=== PATIENT | female | born 1940 | race Hispanic/Latino ===

== ENCOUNTER 2019-10-01 15:10 | Outpatient (CLI) | payer MEDICARE, OTHER, SELFPAY ==
--- NOTE | ~2019-10-01 | XR_ITS ---
EXAMINATION: XR abdomen/kub 1V INDICATION: Calculus of kidney TECHNIQUE: Supine views of the abdomen were obtained on 2 radiographs. COMPARISON: 12/27/2018 FINDINGS: No definite urinary tract calculi are identified. Phleboliths are noted in the pelvis. The visualized lung bases are clear. The bowel gas pattern is normal. A surgical cyst stable line is note d in the left mid abdomen. There is mild bilateral hip osteoarthritis. Moderate lower lumbar spondylo sis is noted. IMPRESSION: 1. No definite urinary tract calculi seen. Reviewed, dictated and finalized at location A.
== END 2019-10-01 15:11 | disposition home or self-care (01) ==
LOC: ANHIMG 15:17
PROVIDERS: PCP Family Medicine; Visit Provider Internal Medicine Nephrology
DX: N20.0 Calculus of kidney (principal)
CPT/HCPCS: 74018

== ENCOUNTER 2020-03-18 13:56 | Outpatient (CLI) | payer MEDICARE, OTHER, SELFPAY ==
--- NOTE | ~2020-03-18 | CT_ITS ---
EXAMINATION: CT abdomen pelvis wo con EXAM DATE: 03/18/2020 14:36 INDICATION: K46.9 - Unspecified abdominal hernia without obstruction or gangrene . Left lower quadran t pain. History hernia repair. Nephrectomy due to kidney stone. History of Crohn's disease. TECHNIQUE: Spiral CT of the abdomen and pelvis was performed without contrast. Axial, coronal and s agittal images were reviewed. The dose-length product (DLP) for this examination was 279.05 mGy-cm. The exposure was tailored according to patient size (auto mA exposure control), and iterative recons truction (ASIR) was used as additional dose reduction technique. Comparison is made to prior examinat ion from 12/05/2017. FINDINGS: The liver, spleen, adrenal glands and pancreas are unremarkable. Gallbladder is unremarkab le. No biliary obstruction. Status post left nephrectomy. There is a 2.5 mm right mid calyceal ston e. No ureteral stones or hydronephrosis. There is a right renal cyst measuring 7 cm. The uterus is n ot identified and has likely been surgically resected. The bladder is unremarkable. There is no ret roperitoneal or pelvic lymphadenopathy. There is mild to moderate scattered arteriosclerotic diseas e. Proximal aspect of the descending colon is bulging through a left flank wid[place]outh hernia. Does this c orrelate to location of patient's pain? This is new compared to previous examination 2018. No appreci able anterior abdominal wall hernias are identified. There is right hemicolectomy with intact anastomosis site. There is expected amount of colonic stool . No free intraperitoneal gas. The heart is normal in size. There are no pericardial or pleural effusions. The lung bases are unremarkable. There are no osteoblastic or osteolytic lesions identif ied. IMPRESSION: 1. Left flank small to moderate hernia with descending colon bulging inside. No obstruction. 2. Punctate right nephrolithiasis. 3. Surgical changes. Reviewed, dictated and finalized at location A. SWAMPER IMPRESSION: 1. Left flank small to moderate hernia with descending colon bulging inside. N o obstruction. 2. Punctate right nephrolithiasis. 3. Surgical changes.
[2020-03-18 14:20] LABS: Estimated Glomerular Filt Rate 26
== END 2020-03-18 13:57 | disposition home or self-care (01) ==
PROVIDERS: PCP Family Medicine; Visit Provider Family Medicine
DX: R10.9 Unspecified abdominal pain (principal); K44.9 Diaphragmatic hernia without obstruction or gangrene; N20.0 Calculus of kidney
CPT/HCPCS: 74176

== ENCOUNTER 2020-08-14 10:13 | Outpatient (CLI) | payer MEDICARE, OTHER, SELFPAY ==
--- NOTE | ~2020-08-14 | MM_ITS ---
EXAMINATION: MM screening prerna BI w anjum HISTORY: Screening TECHNIQUE: Craniocaudal and mediolateral oblique 3-D tomosynthesis images were obtained and synthetic 2-D images were generated. CAD analysis was submitted and interpreted. COMPARISON: Comparison to multiple prior studies sequentially, with oldest reviewed study dated 08/02. BREAST PARENCHYMAL COMPOSITION: The breasts are almost entirely fatty. FINDINGS: There is no evidence of suspicious mass, calcification, or architectural distortion to sugg est malignancy in either breast. There has been no suspicious interval change. IMPRESSION: 1. No mammographic evidence of malignancy. 2. Recommend routine screening mammography in one year. BI-RADS Category 1: Negative Reviewed, dictated and finalized at location A.
== END 2020-08-14 10:14 | disposition home or self-care (01) ==
PROVIDERS: PCP Family Medicine; Visit Provider Physician Assistant
DX: Z12.31 Encounter for screening mammogram for malignant neoplasm of breast (principal)
CPT/HCPCS: 77063; 77067

== ENCOUNTER 2021-03-23 12:10 | Outpatient (CLI) | payer MEDICARE, OTHER, SELFPAY ==
--- NOTE | ~2021-03-23 | XR_ITS ---
EXAMINATION: XR abdomen/kub 1V EXAM DATE: 03/23/2021 12:30 INDICATION: Calculus Of Kidney TECHNIQUE: Frontal projection(s) of the abdomen for interpretation. Comparison is made to prior exami nation from 10/01/2019. FINDINGS: There is expected amount of colonic stool and gas. No small bowel dilation, nonobstructiv e bowel gas pattern. There are no suspicious calcifications identified. There is no organomegaly suspected. There are mild bony degenerative changes. Left midabdomen anastomosis material. IMPRESSION: Unremarkable abdomen x-ray exam. Reviewed, dictated and finalized at location A. 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
== END 2021-03-23 12:11 | disposition home or self-care (01) ==
PROVIDERS: PCP Family Medicine; Visit Provider Internal Medicine Nephrology
DX: N20.0 Calculus of kidney (principal)
CPT/HCPCS: 74018

== ENCOUNTER 2021-10-26 00:24 | Day surgery (SDC) | payer MEDICARE, OTHER, SELFPAY ==
[2021-10-08 14:21] VITALS: BMI 27.6
[2021-10-26 08:08] VITALS: BP 114/61; PULSE 73; RESP 18; TEMP 35.8; O2SAT 98
--- NOTE | 2021-10-26 08:10 | WPDANESEPPF ---
Anes - Initial Pre Proc Eval Procedure: Operation Date: 10/26/21 09:00 Proposed Procedures p Colonoscopy - Se Staley MD Date/Time: 10/26/21 08:10 Surgeon: Se Staley MD Pre Op Diagnosis: occult GI bleed, Crohn's Disease Patient Data Age: 80 Gender: F Height: 1.45 m Weight: 57.9 kg Last Vital Signs Temp 35.8 C L 10/26/21 08:08 Pulse 73 10/26/21 08:08 Resp 18 10/26/21 08:08 BP 114/61 10/26/21 08:08 Pulse Ox 98 10/26/21 08:08 O2 Del Method Room Air 10/26/21 08:08 Allergies Allergy/AdvReac Type Severity Reaction Status Date / Time azathioprine Allergy Severe Anaphylactic Verified 10/26/21 08:06 Shock calcitonin Allergy Unknown Nervous Verified 10/26/21 08:06 cefaclor Allergy Unknown Nausea Verified 10/26/21 08:06 Cephalosporins Allergy Unknown Nausea Verified 10/26/21 08:06 clindamycin Allergy Unknown Nausea Verified 10/26/21 08:06 COVID-19 (SARS-CoV-2) AdvReac Mild rash, eye Verified 10/26/21 08:06 vaccine, francisco problems Quinolones AdvReac Mild Unknown Verified 10/26/21 08:06 omeprazole AdvReac bloating Verified 10/26/21 08:06 and diarrhea LOMEFLOXACIN HCL Allergy Mild Nausea and Uncoded 10/26/21 08:06 Vomiting CALCITONIN,SALMON,SYNTHETIC AdvReac Mild Nausea and Uncoded 10/26/21 08:06 Vomiting Home Medications Medication Instructions Recorded Confirmed Type adalimumab 40 mg/0.8 mL See Rx Instructions subcut .COMPLEX 04/23/19 10/08/21 History subcutaneous syringe kit (Humira) tramadol 50 mg tablet 50 mg PO .q4 PRN pain #60 tabs 05/15/19 10/08/21 Rx cholecalciferol (vitamin D3) 10 10 mcg PO DAILY 03/27/20 10/08/21 History mcg (400 unit) capsule latanoprost 0.005 % eye drops 1 drp ophthalmic (eye) DAILY 03/27/20 10/08/21 History timolol 0.5 % eye drops 1 drp ophthalmic (eye) Q12H 03/27/20 10/08/21 History vitamin B complex (B 1 tablet PO DAILY 03/27/20 10/08/21 History Complex-Vitamin B12 tablet) allopurinol 100 mg tablet 100 mg PO DAILY 03/31/20 10/08/21 History ketoconazole 2 % topical cream 1 applic topical BID #30 grams 02/04/21 10/08/21 Rx ferrous sulfate 325 mg (65 mg 325 mg PO DAILY #60 tabs 04/07/21 10/08/21 Rx iron) tablet nystatin-triamcinolone 100,000 1 applic topical TID #60 grams 07/21/21 10/08/21 Rx unit/gram-0.1 % topical ointment pantoprazole 20 mg tablet,delayed See Rx Instructions .Route 07/21/21 10/08/21 Rx release .COMPLEX #30 tabs alprazolam 0.5 mg tablet 0.5 mg PO BID PRN anxiety #60 tabs 08/17/21 10/08/21 Rx citalopram 20 mg tablet See Rx Instructions .Route 08/17/21 10/08/21 Rx .COMPLEX #90 tabs Patient hx anesthesia problems: none Family hx anesthesia problems: none Results Review: All pre-operative results and documents have been reviewed as part of the pre-operative evaluation. 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 Surgical History Surgical History H/O cataract extraction H/O inguinal hernia repair History of delivery History of kidney removal left Family History Family History Father Diabetes mellitus Mother Hypertension Family history of cardiovascular disease Grandparent Heart disease Social History Social History Smoking packs per day: 1 Smoking cigarettes per day: 20.0 Years smoked: 20 Smoking pack-years: 20.00 Smoking status: Former smoker Tobacco type: cigarettes Smoking end date: 03/14/95 Alcohol intake: current Drinks per week: 1 Alcohol use details: WINE Substance use: never Substance use type: does not use Living arrangements: with family 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
--- NOTE | 2021-10-26 08:27 | PM.IMHP ---
H&P: HPI History of Present Illness Date/Time: 10/26/21 08:27 Chief Complaint: Chronic anemia, Crohn's disease Narrative: this is a 80-year-old white female patient presents for surveillance colonoscopy. Patient has a history of Crohn's disease. 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 She has had resection of the terminal ileum. Patient has had a chronic anemia recently found to have occult blood in stool. She presents for surveillance colonoscopy. Has been 10 years since last colonoscopy. Patient does have frequent loose stools. She denies any obvious blood in her stools. Has had no recent significant abdominal pain. Family history is noncontributory. Review of Systems Review of Systems: Review of systems noncontributory. [facility] Past Medical History Medical History (Updated 10/26/21 @ 08:29 by Se Staley MD) Anxiety and depression Crohn's disease History of blood transfusion History of kidney stones detention use of drug Surgical History Surgical History H/O cataract extraction H/O inguinal hernia repair History of delivery History of kidney removal left Family History Family History Father Diabetes mellitus Mother Hypertension Family history of cardiovascular disease Grandparent Heart disease Social History Social History Smoking packs per day: 1 Smoking cigarettes per day: 20.0 Years smoked: 20 Smoking pack-years: 20.00 Smoking status: Former smoker Tobacco type: cigarettes Smoking end date: 03/14/95 Alcohol intake: current Drinks per week: 1 Alcohol use details: WINE Substance use: never Substance use type: does not use Living arrangements: with family 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 Spiritual care concerns: No Meds Home Medications and Allergies Home Medications Medication Instructions Recorded Confirmed Type adalimumab 40 mg/0.8 mL See Rx Instructions subcut .COMPLEX 04/23/19 10/08/21 History subcutaneous syringe kit (Humira) tramadol 50 mg tablet 50 mg PO .q4 PRN pain #60 tabs 05/15/19 10/08/21 Rx cholecalciferol (vitamin D3) 10 10 mcg PO DAILY 03/27/20 10/08/21 History mcg (400 unit) capsule latanoprost 0.005 % eye drops 1 drp ophthalmic (eye) DAILY 03/27/20 10/08/21 History timolol 0.5 % eye drops 1 drp ophthalmic (eye) Q12H 03/27/20 10/08/21 History vitamin B complex (B 1 tablet PO DAILY 03/27/20 10/08/21 History Complex-Vitamin B12 tablet) allopurinol 100 mg tablet 100 mg PO DAILY 03/31/20 10/08/21 History ketoconazole 2 % topical cream 1 applic topical BID #30 grams 02/04/21 10/08/21 Rx ferrous sulfate 325 mg (65 mg 325 mg PO DAILY #60 tabs 04/07/21 10/08/21 Rx iron) tablet nystatin-triamcinolone 100,000 1 applic topical TID #60 grams 07/21/21 10/08/21 Rx unit/gram-0.1 % topical ointment pantoprazole 20 mg tablet,delayed See Rx Instructions .Route 07/21/21 10/08/21 Rx release .COMPLEX #30 tabs alprazolam 0.5 mg tablet 0.5 mg PO BID PRN anxiety #60 tabs 08/17/21 10/08/21 Rx citalopram 20 mg tablet See Rx Instructions .Route 08/17/21 10/08/21 Rx .COMPLEX #90 tabs Allergies Allergy/AdvReac Type Severity Reaction Status Date / Time azathioprine Allergy Severe Anaphylactic Verified 10/26/21 08:06 Shock calcitonin Allergy Unknown Nervous Verified 10/26/21 08:06 cefaclor Allergy Unknown Nausea Verified 10/26/21 08:06 Cephalosporins Allergy Unknown Nausea Verified 10/26/21 08:06 clindamycin Allergy Unknown Nausea Verified 10/26/21 08:06 COVID-19 (SARS-CoV-2) AdvReac Mild rash, eye Verified 10/26/21 08:06 vaccine, francisco problems Quinolones AdvReac Mild Unknown Verified 10/26/21 08:06 omeprazole AdvReac bloating Verified 10/26/21 08:06 and diarrhea LOMEFLOXACIN
[2021-10-26] MEDS: LACTATED RINGERS 1,000 ML 150 ML IV CONT (08:46)
[2021-10-26 09:30] VITALS: BP 93/37; PULSE 80; RESP 18; O2SAT 98
[2021-10-26 09:40] VITALS: BP 108/49; PULSE 56; RESP 18; O2SAT 100
[2021-10-26 09:50] VITALS: BP 109/67; PULSE 58; RESP 20; O2SAT 98
== END 2021-10-26 09:59 | disposition home or self-care (01) ==
PROVIDERS: PCP Physician Assistant; Visit Provider Internal Medicine Gastroenterology
PROC: 0DJD8ZZ Inspection of Lower Intestinal Tract, Via Natural or Artificial Opening Endoscopic (ICD-10-PCS; CPT 45378; principal; 2021-10-26 09:00)
DX: K51.40 Inflammatory polyps of colon without complications (principal); D64.9 Anemia, unspecified; K92.1 Melena; Z98.0 Intestinal bypass and anastomosis status; F41.9 Anxiety disorder, unspecified; F32.A Depression, unspecified; Z87.891 Personal history of nicotine dependence
CPT/HCPCS: 45385; 88305; J2704; J7120

== ENCOUNTER 2022-03-25 11:26 | Outpatient (CLI) | payer MEDICARE, OTHER, SELFPAY ==
--- NOTE | ~2022-03-25 | XR_ITS ---
EXAMINATION: XR abdomen/kub 1V INDICATION: Calculus of the kidney TECHNIQUE: Supine view of the abdomen is obtained. COMPARISON: 03/23/2021 FINDINGS: No urolithiasis is identified. There is a surgical anastomosis in the left midabdomen. Ther e are phleboliths of the pelvis. Lucent centered calcifications projecting in the left pelvis likely reflect small areas of fat necrosis. There is moderate osteoarthritis of the hips. IMPRESSION: 1. No urolithiasis identified. Reviewed, dictated and finalized at location L. 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
== END 2022-03-25 11:27 | disposition home or self-care (01) ==
LOC: ANHIMG 11:35
PROVIDERS: PCP Physician Assistant; Visit Provider Internal Medicine Nephrology
DX: N20.0 Calculus of kidney (principal); N18.4 Chronic kidney disease, stage 4 (severe)
CPT/HCPCS: 74018

== ENCOUNTER 2022-04-28 10:44 | Emergency (ER) | payer MEDICARE, OTHER, SELFPAY ==
--- NOTE | ~2022-04-28 | CT_ITS ---
EXAMINATION: CT abdomen pelvis w con DATE: 04/28/2022 13:22 INDICATION: Lower abdominal pain TECHNIQUE: Computed tomography (CT) of the abdomen and pelvis was performed with 100 cc Omnipaque 350 intravenous contrast. The dose-length product was 249.73 mGy-cm. Automated exposure control and iter ative reconstruction technique were employed. COMPARISON: CT dated 03/18/2020. FINDINGS: There are chronic interstitial infiltrates of the lung bases. No pneumothorax. Heart size n ormal. No significant pleural or pericardial effusion. There is atherosclerosis of the aorta. No lymp hadenopathy. Fatty infiltration of the liver. The spleen, pancreas, adrenal glands are unremarkable. The left kidn ey is surgically absent. There is a large right renal cyst measuring 7.5 cm. No hydronephrosis. There is a persistent nonobstructive left lumbar hernia containing colon. There is mild thickening of the descending, sigmoid colon and rectum, suspicious for colitis. Gallbladder is present. No free air or free fluid. Bladder is decompressed. No abnormal pelvic masses or fluid collections. Moderate lumbar spondylosis. There are injection granulomas in the gluteal region. There is a small ventral hernia co ntaining fat.. IMPRESSION: 1. Mild thickening of the descending colon, sigmoid colon and rectum, suspicious for colitis. 2: Persistent nonobstructive left lumbar hernia containing colon. Reviewed, dictated and finalized at location A. 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 Mild thickening of the descending colon, sigmoid colon and rectum, suspiciou s for colitis. 2: Persistent nonobstructive left lumbar hernia containing colon.
[2022-04-28 10:49] VITALS: BP 142/114; PULSE 70; RESP 18; TEMP 36.1; O2SAT 99
[2022-04-28 11:06] LABS: Basophils Absolute Auto 0.1 K/mm3 (0.0-0.1); Basophils Percent Auto 1.3 % (0.2-1.2); Eosinophils Absolute Auto 0.3 K/mm3 (0-0.3); Eosinophils Percent Auto 3.3 % (0-4.4); Hematocrit 38.4 % (37.0-47.0); Hemoglobin 12.5 g/dL (12.0-15.0); Immature Granulocyte Absolute 0.03 K/mm3 (0.00-0.031); Immature Granulocyte Percent A 0.3 % (0-0.5); Lymphocytes Absolute Auto 2.26 K/mm3 (0.9-3.2); Lymphocytes Percent Auto 24.6 % (18.3-44.2); Mean Corpuscular HGB Conc 32.6 g/dl (32-36); Mean Corpuscular Volume 92.3 fl (80-100); Mean Platelet Volume 8.8 fl (7.4-10.4); Monocytes Absolute Auto 0.4 K/mm3 (0.1-0.6); Monocytes Percent Auto 4.5 % (2.6-8.5); Neutrophils Absolute Auto 6.1 K/mm3 (1.3-6.7); Platelet Count Result 165 k/mm3 (150-375); Red Blood Count 4.16 M/mm3 (4.2-5.4); Red Cell Distribution Width 13.8 % (11.5-14.5); White Blood Count 9.2 K/mm3 (4.5-10.0)
[2022-04-28 11:13] LABS: Appearance Urine Clear (Clear); Bilirubin Urine 1+ (Negative); Blood Urine Negative (Negative); Color Urine Yellow (Yellow); Glucose Urine UA Negative (Negative); Ketones Urine Negative (Negative); Leukocyte Esterase Ur Negative LEU/UL (Negative); Nitrate Urine Negative (Negative); Protein Urine 1+ mg/dL (Negative); Urobilinogen Urine 0.2 mg/dL (<2.0)
[2022-04-28 11:18] LABS: Alanine Aminotransferase 16 U/L (6-35); Albumin Level 4.4 g/dL (3.5-5.1); Alkaline Phosphatase 71 U/L (38-126); Anion Gap 7 mmol/L (8-16); Aspartate Amino Transferase 23 U/L (14-36); Bilirubin,Total 0.8 mg/dL (0.2-1.3); Blood Urea Nitrogen 15 mg/dL (7-17); Calcium 8.6 mg/dL (8.4-10.2); Carbon Dioxide 20 mmol/L (22-30); Chloride 108 mmol/L (98-107); Estimated Glomerular Filt Rate 33; Glucose 104 mg/dL (65-110); Lipase 106 U/L (23-300); Potassium 3.6 mmol/L (3.4-5.0); Sodium 135 mmol/L (137-145)
[2022-04-28 11:20] LABS: Mucus Urine Rare /lpf; RBC Urine 0-2 /hpf (0-2); Squamous Epithelial Cell Urine Rare /hpf (Few); WBC Urine 0-3 /hpf
[2022-04-28 11:27] LABS: Add Urine Microscopic? YES
[2022-04-28 14:30] VITALS: BP 172/85; PULSE 67; RESP 15; O2SAT 97
--- NOTE | 2022-04-28 14:51 | ED.GENADULT ---
HPI - General Adult General Chief complaint: Abdominal Pain Stated complaint: feeling good Time Seen by Provider: 04/28/22 12:23 History of Present Illness HPI narrative: Patient is an 81-year-old female who presents ER with lower abdominal discomfort. Is located in the left lower quadrant. Has history of Crohn's disease as well as bowel obstruction. Reports she had some solid stool come out today but has had diarrhea for several days prior to this. No fevers chills or sweats. No chest pain or chest pressure. She is without nausea or vomiting. No urinary symptoms. Related Data Home Medications Medication Instructions Recorded Confirmed adalimumab 40 mg/0.8 mL See Rx Instructions subcut .COMPLEX 04/23/19 02/08/22 subcutaneous syringe kit (Humira) cholecalciferol (vitamin D3) 10 10 mcg PO DAILY 03/27/20 02/08/22 mcg (400 unit) capsule latanoprost 0.005 % eye drops 1 drp ophthalmic (eye) DAILY 03/27/20 02/08/22 timolol 0.5 % eye drops 1 drp ophthalmic (eye) Q12H 03/27/20 02/08/22 vitamin B complex (B 1 tablet PO DAILY 03/27/20 02/08/22 Complex-Vitamin B12 tablet) allopurinol 100 mg tablet 100 mg PO DAILY 03/31/20 02/08/22 Allergies Allergy/AdvReac Type Severity Reaction Status Date / Time azathioprine Allergy Severe Anaphylactic Verified 03/31/22 14:05 Shock calcitonin Allergy Unknown Nervous Verified 03/31/22 14:05 cefaclor Allergy Unknown Nausea Verified 03/31/22 14:05 Cephalosporins Allergy Unknown Nausea Verified 03/31/22 14:05 clindamycin Allergy Unknown Nausea Verified 03/31/22 14:05 COVID-19 (SARS-CoV-2) AdvReac Mild rash, eye Verified 03/31/22 14:05 vaccine, francisco problems Quinolones AdvReac Mild Unknown Verified 03/31/22 14:05 omeprazole AdvReac bloating Verified 03/31/22 14:05 and diarrhea LOMEFLOXACIN HCL Allergy Mild Nausea and Uncoded 03/31/22 14:05 Vomiting CALCITONIN,SALMON,SYNTHETIC AdvReac Mild Nausea and Uncoded 03/31/22 14:05 Vomiting Review of Systems Review of Systems: All systems reviewed & are unremarkable except as noted in HPI and below Constitutional: Constitutional: Denies chills, Denies fatigue and Denies fever(s) Cardiovascular: Cardiovascular: Denies chest pain, Denies rapid heart rate and Denies radiating jaw, neck or arm pain Respiratory: Respiratory: Denies cough and Denies dyspnea Gastrointestinal: Gastrointestinal: Reports abdominal pain, Reports bloating, Reports diarrhea, Denies nausea and Denies vomiting Genitourinary: Genitourinary: Denies nocturia and Denies dysuria [facility] Past Medical History Medical History Anxiety and depression Crohn's disease History of blood transfusion History of kidney stones intermediate use of drug Surgical History Surgical History H/O cataract extraction H/O inguinal hernia repair History of delivery History of kidney removal left Family History Family History Father Diabetes mellitus Mother Hypertension Family history of cardiovascular disease Grandparent Heart disease Social History Social History Smoking packs per day: 1 Smoking cigarettes per day: 20.0 Years smoked: 20 Smoking pack-years: 20.00 Smoking status: Former smoker Tobacco type: cigarettes Smoking end date: 03/14/95 Alcohol intake: current Drinks per week: 1 Alcohol use details: WINE Substance use: never Substance use type: does not use Lack of Transportation: No Lack of Food: Never True Current Housing: I Have Housing Concerned About Future Housing: No Difficulty Paying Gas/Electric Bills: No Difficulty Paying for Meds: No Currently Unemployed: No Education: Grade School Difficulty w/ Childcare or Family Care: No Living arrangements: with family Occupation
[2022-04-28 14:54] VITALS: BP 161/78; PULSE 60; RESP 18; O2SAT 99
== END 2022-04-28 16:19 | disposition home or self-care (01) ==
PROVIDERS: Emergency Medicine; Emergency Provider Emergency Medicine; PCP Physician Assistant
DX: K52.9 Noninfective gastroenteritis and colitis, unspecified (principal); F41.9 Anxiety disorder, unspecified; F32.9 Major depressive disorder, single episode, unspecified; Z87.442 Personal history of urinary calculi
CPT/HCPCS: 36415; 74177; 80053; 81001; 83690; 85025; 99284; Q9967

== ENCOUNTER 2022-10-17 10:14 | Emergency (ER) | payer MEDICARE, OTHER, SELFPAY ==
[2022-10-17 10:16] VITALS: BP 152/56; PULSE 73; RESP 18; TEMP 36.6; O2SAT 98
--- NOTE | 2022-10-17 10:28 | ED.GENADULT ---
HPI - General Adult General Chief complaint: Epistaxis Stated complaint: nosebleed Time Seen by Provider: 10/17/22 10:16 History of Present Illness HPI narrative: 81-year-old female presented the ED for evaluation of intermittent epistaxis. Patient states that over the last few weeks she has had intermittent nosebleeds. Patient states that she did have a nosebleed just prior to arrival. Patient states that she did stick a Q-tip of her right nostril because she felt that her nose was blocked and patient had bleeding. Upon arrival to the ED bleeding is resolved. Patient is not on any blood thinners. Related Data Home Medications Medication Instructions Recorded Confirmed adalimumab 40 mg/0.8 mL See Rx Instructions subcut .COMPLEX 04/23/19 09/20/22 subcutaneous syringe kit (Humira) cholecalciferol (vitamin D3) 10 10 mcg PO DAILY 03/27/20 09/20/22 mcg (400 unit) capsule latanoprost 0.005 % eye drops 1 drp ophthalmic (eye) DAILY 03/27/20 09/20/22 timolol 0.5 % eye drops 1 drp ophthalmic (eye) Q12H 03/27/20 09/20/22 vitamin B complex (B 1 tablet PO DAILY 03/27/20 09/20/22 Complex-Vitamin B12 tablet) Allergies Allergy/AdvReac Type Severity Reaction Status Date / Time azathioprine Allergy Severe Anaphylactic Verified 09/20/22 10:34 Shock calcitonin Allergy Unknown Nervous Verified 09/20/22 10:34 cefaclor Allergy Unknown Nausea Verified 09/20/22 10:34 Cephalosporins Allergy Unknown Nausea Verified 09/20/22 10:34 clindamycin Allergy Unknown Nausea Verified 09/20/22 10:34 COVID-19 (SARS-CoV-2) AdvReac Mild rash, eye Verified 09/20/22 10:34 vaccine, francisco problems Quinolones AdvReac Mild Unknown Verified 09/20/22 10:34 omeprazole AdvReac bloating Verified 09/20/22 10:34 and diarrhea LOMEFLOXACIN HCL Allergy Mild Nausea and Uncoded 09/20/22 10:34 Vomiting CALCITONIN,SALMON,SYNTHETIC AdvReac Mild Nausea and Uncoded 09/20/22 10:34 Vomiting Review of Systems Review of Systems: All systems reviewed & are unremarkable except as noted in HPI and below PMFSH Past Medical History Medical History Anxiety and depression History of blood transfusion 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 Surgical History Surgical History H/O cataract extraction H/O inguinal hernia repair History of delivery History of kidney removal left Family History Family History Father Diabetes mellitus Mother Hypertension Family history of cardiovascular disease Grandparent Heart disease Social History Social History Smoking packs per day: 1 Smoking cigarettes per day: 20.0 Years smoked: 20 Smoking pack-years: 20.00 Smoking status: Former smoker Tobacco type: cigarettes Smoking end date: 03/14/95 Alcohol intake: current Drinks per week: 1 Alcohol use details: WINE Substance use: never Substance use type: does not use Lack of Transportation: No Lack of Food: Never True Current Housing: I Have Housing Concerned About Future Housing: No Difficulty Paying Gas/Electric Bills: No Difficulty Paying for Meds: No Currently Unemployed: No Education: Grade School Difficulty w/ Childcare or Family Care: No Living arrangements: with family Occupation/Education: other 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 HEAD: normocephalic, atraumatic. EYES: PERRLA/EOMI, conjunctivae clear. NOSE: Normal no drainage. Mucosal irritation lateral right naris NECK: Supple. No adenopathy, no masses. RESPIRATORY: Airway patent, respirations nonlabored. Clear to auscultation bilaterally, no rales, rhonchi, wheezing. CARDIOVASCULA
[2022-10-17 10:48] VITALS: BP 121/67; PULSE 64; RESP 17; O2SAT 98
[2022-10-17 10:49] VITALS: BP 121/67; PULSE 64; RESP 17; O2SAT 98
== END 2022-10-17 10:48 | disposition home or self-care (01) ==
PROVIDERS: Emergency Provider Emergency Medicine; PCP Emergency Medicine
DX: R04.0 Epistaxis (principal); F41.9 Anxiety disorder, unspecified; F32.A Depression, unspecified; Z87.442 Personal history of urinary calculi; Z87.891 Personal history of nicotine dependence; Z98.49 Cataract extraction status, unspecified eye
CPT/HCPCS: 99281

== ENCOUNTER 2023-06-20 07:54 | Outpatient (CLI) | payer MEDICARE, OTHER, SELFPAY | END 2023-06-20 07:55 | disposition home or self-care (01) | LOC: ANHAUDASC 07:56 | PROVIDERS: PCP Emergency Medicine; Visit Provider Otolaryngology | DX: H90.3 Sensorineural hearing loss, bilateral (principal); H60.543 Acute eczematoid otitis externa, bilateral | CPT/HCPCS: 92557; 92567 ==

== ENCOUNTER 2023-09-16 12:46 | Outpatient (CLI) | payer MEDICARE, OTHER, SELFPAY ==
--- NOTE | ~2023-09-16 | XR_ITS ---
XR abdomen/kub 1V Ordering provider: Justen Manuel MD History: . N20.0 - Calculus of kidney FU . Comparison: March 25, 2022 FINDINGS: BOWEL: Nonobstructive bowel gas pattern. ORGANOMEGALY: None. SIGNIFICANT PATHOLOGIC CALCIFICATIONS: Possible tiny calcification the left renal area. Faint calcifi cation over the left transverse process of L4 which may be ureteric stone. OTHER: No free air is seen under the diaphragm. Degenerative changes of the spine. Bilateral hip osteoarthritic changes. IMPRESSION: NO ACUTE ABDOMINAL FINDINGS. Possible tiny stone in the left kidney. Possible left mid ureteric stone projected over the transverse process of L4. Reviewed, dictated and finalized at location A.
== END 2023-09-16 12:47 | disposition home or self-care (01) ==
PROVIDERS: PCP Emergency Medicine; Visit Provider Internal Medicine Nephrology
DX: N20.0 Calculus of kidney (principal); N18.32 Chronic kidney disease, stage 3b
CPT/HCPCS: 74018

== ENCOUNTER 2023-12-16 21:53 | Emergency (ER) | payer MEDICARE, OTHER, SELFPAY ==
--- NOTE | ~2023-12-16 | XR_ITS ---
EXAMINATION: XR chest 2V DATE: 12/16/2023 23:02 INDICATION: Generalized weakness. TECHNIQUE: Frontal and lateral views of the chest were obtained. COMPARISON: Chest 2 views 12/05/2017, CT abdomen and pelvis 04/28/2022 FINDINGS: There is no pneumonia, pleural effusion, or pneumothorax. The heart size is normal. IMPRESSION: 1. No acute cardiopulmonary disease. Reviewed, dictated and finalized at location A.
[2023-12-16 22:01] VITALS: BP 176/85; PULSE 72; RESP 18; TEMP 36.6; O2SAT 100
--- NOTE | 2023-12-16 22:02 | ECG_ITS ---
Test Date: 2023-12-16 22:07:10 Measurements Intervals Rhodes Rate: 63 P: 71 CO: 164 QRS: -21 QRSD: 92 T: 15 QT: 409 QTc: 421 Interpretive Statements SINUS RHYTHM BORDERLINE LEFT AXIS DEVIATION [QRS AXIS < -20] LOW QRS VOLTAGE IN PRECORDIAL LEADS [QRS DEFLECTION < 1.0 mV IN CHEST LEADS] No previous ECG available for comparison Electronically Signed On 12-17-2023 16:18:41 CDT by Endy Rodriguez M.D.
--- NOTE | 2023-12-16 23:34 | ED.DIZZY ---
HPI - Dizziness General Chief Complaint: Dizziness Stated Complaint: dizziness, my ears feel plugged Time Seen by Provider: 12/16/23 22:44 Source: patient Mode of arrival: ambulatory Limitations: no limitations History of Present Illness HPI Narrative: This is an 83-year-old female who presents to the ED for chief complaint of near syncopal episode. States that she had taken her nightly Xanax does as well as Benadryl for her sinuses before bed. She was lying down she started to feel a ?wave spread from the lower legs up into the rest of the body. States that she started to feel very dizzy and lightheaded. Triage note mentions patient ?blacked out. ? However when I asked patient and her who is bedside they both state that she did not have any syncopal episode. Patient endorses some generalized weakness but no focal weakness or numbness. She has skin rash this currently being evaluated and treated as seborrhea. Denies fevers, chills, abdominal pain, nausea, vomiting, chest pain, shortness of breath, back pain, numbness, focal weakness. Endorses surgical history of kidney removal, . Endorses history of right Crohn disease, eye total blindness, CKD, HTN, sensorineural hearing loss, eczema Related Data Home Medications Medication Instructions Recorded Confirmed cholecalciferol (vitamin D3) 10 10 mcg PO DAILY 03/27/20 10/05/23 mcg (400 unit) capsule latanoprost 0.005 % eye drops 1 drp ophthalmic (eye) DAILY 03/27/20 10/05/23 timolol 0.5 % eye drops 1 drp ophthalmic (eye) Q12H 03/27/20 10/05/23 vitamin B complex (B 1 tablet PO DAILY 03/27/20 10/05/23 Complex-Vitamin B12 tablet) doxycycline hyclate 100 mg tablet 100 mg PO DAILY 05/10/23 10/05/23 omeprazole 20 mg capsule,delayed 20 mg PO DAILY 05/10/23 10/05/23 release tacrolimus 0.1 % topical ointment topical 05/10/23 10/05/23 Allergies Allergy/AdvReac Type Severity Reaction Status Date / Time azathioprine Allergy Severe Anaphylactic Verified 10/05/23 13:01 Shock calcitonin Allergy Unknown Nervous Verified 10/05/23 13:01 cefaclor Allergy Unknown Nausea Verified 10/05/23 13:01 Cephalosporins Allergy Unknown Nausea Verified 10/05/23 13:01 clindamycin Allergy Unknown Nausea Verified 10/05/23 13:01 COVID-19 (SARS-CoV-2) AdvReac Mild rash, eye Verified 10/05/23 13:01 vaccine, francisco problems Quinolones AdvReac Mild Unknown Verified 10/05/23 13:01 omeprazole AdvReac bloating Verified 10/05/23 13:01 and diarrhea LOMEFLOXACIN HCL Allergy Mild Nausea and Uncoded 10/05/23 13:01 Vomiting CALCITONIN,SALMON,SYNTHETIC AdvReac Mild Nausea and Uncoded 10/05/23 13:01 Vomiting Review of Systems Review of Systems: All systems as dictated in [facility] Past Medical History Medical History Anxiety and depression History of blood transfusion History of kidney stones FCI use of drug Surgical History Surgical History H/O cataract extraction H/O inguinal hernia repair History of delivery History of kidney removal left Family History Family History Father Diabetes mellitus Mother Hypertension Family history of cardiovascular disease Grandparent Heart disease Social History Social History Smoking packs per day: 1 Smoking cigarettes per day: 20.0 Years smoked: 20 Smoking pack-years: 20.00 Smoking status: Former smoker Tobacco type: cigarettes Smoking end date: 03/14/95 Alcohol intake: current Drinks per week: 1 Alcohol use details: WINE Substance use: never Substance use type: does not use Do You Feel Safe in your Home?: Yes Lack of Transportation: No Lack of Food: Never True Current Housing: I Have Housing Concerned About Future Housing: No Difficulty Payi
[2023-12-16 23:41] LABS: Basophils Absolute Auto 0.1 K/mm3 (0.0-0.1); Basophils Percent Auto 1.4 % (0.2-1.2); Eosinophils Absolute Auto 0.6 K/mm3 (0-0.3); Hematocrit 34.5 % (37.0-47.0); Hemoglobin 11.6 g/dL (12.0-15.0); Immature Granulocyte Absolute 0.03 K/mm3 (0.00-0.031); Immature Granulocyte Percent A 0.3 % (0-0.5); Lymphocytes Absolute Auto 3.15 K/mm3 (0.9-3.2); Lymphocytes Percent Auto 31.8 % (18.3-44.2); Mean Corpuscular HGB Conc 33.6 g/dl (32-36); Mean Corpuscular Hemoglobin 31.6 pg (26-34); Mean Platelet Volume 9.6 fl (7.4-10.4); Monocytes Absolute Auto 0.6 K/mm3 (0.1-0.6); Monocytes Percent Auto 5.7 % (2.6-8.5); Neutrophils Absolute Auto 5.4 K/mm3 (1.3-6.7); Neutrophils Percent Auto 54.8 % (45.5-73.1); Platelet Count Result 142 k/mm3 (150-375); Red Blood Count 3.67 M/mm3 (4.2-5.4); Red Cell Distribution Width 13.9 % (11.5-14.5); White Blood Count 9.9 K/mm3 (4.5-10.0)
[2023-12-16 23:51] LABS: Lactic Acid Reflex 1.4 mmol/L (0.7-2.0)
[2023-12-16 23:52] LABS: Alanine Aminotransferase 13 U/L (6-35); Alkaline Phosphatase 58 U/L (38-126); Anion Gap 11 mmol/L (4-12); Aspartate Amino Transferase 21 U/L (14-36); Bilirubin,Total 0.5 mg/dL (0.2-1.3); Blood Urea Nitrogen 23 mg/dL (7-17); Calcium 8.6 mg/dL (8.4-10.2); Carbon Dioxide 17 mmol/L (22-30); Chloride 108 mmol/L (98-107); Estimated CRCL calculation 13 ml/min; Estimated Glomerular Filt Rate 21; Glucose 107 mg/dL (65-110); Potassium 3.9 mmol/L (3.4-5.0); Sodium 136 mmol/L (137-145)
[2023-12-17 00:03] LABS: NT Pro B Type Natriuretic Pept 642 pg/mL (19.9-100); Troponin I < 0.012 ng/mL (0.000-0.034)
[2023-12-17] MEDS: SODIUM CHLORIDE 0.9% IV 1,000 ML 999 ML IV CONT (00:18)
[2023-12-17 00:32] LABS: Add Urine Microscopic? YES; Appearance Urine Clear (Clear); Bacteria Urine None Seen /hpf; Bilirubin Urine Negative (Negative); Blood Urine Negative (Negative); Color Urine Yellow (Yellow); Glucose Urine UA Negative (Negative); Ketones Urine Negative (Negative); Leukocyte Esterase Ur Trace LEU/UL (Negative); Nitrate Urine Negative (Negative); Non Pathogenic Casts 0-2; Protein Urine Negative (Negative); RBC Urine 0-2 /hpf (0-2); Specific Grav Ur 1.006 (1.001-1.035); Squamous Epithelial Cell Urine None Seen /hpf (Few); Urobilinogen Urine 0.2 mg/dL (<2.0); WBC Urine 0-5 /hpf (0-3)
[2023-12-17 00:45] VITALS: BP 149/69; PULSE 65
[2023-12-17 00:46] VITALS: BP 145/64; PULSE 66
[2023-12-17 00:47] VITALS: BP 152/72; PULSE 75
[2023-12-17 01:25] VITALS: BP 173/75; PULSE 76; RESP 15; O2SAT 99
[2023-12-17 02:15] VITALS: BP 148/82; PULSE 72; RESP 15; O2SAT 99
== END 2023-12-17 02:17 | disposition home or self-care (01) ==
PROVIDERS: Emergency Medicine; Emergency Provider Physician Assistant; PCP Emergency Medicine
DX: I95.1 Orthostatic hypotension (principal); N18.9 Chronic kidney disease, unspecified; I12.9 Hypertensive chronic kidney disease with stage 1 through stage 4 chronic kidney disease, or unspecified chronic kidney disease; K50.90 Crohn's disease, unspecified, without complications; H54.7 Unspecified visual loss; H90.5 Unspecified sensorineural hearing loss; Z87.442 Personal history of urinary calculi; Z87.891 Personal history of nicotine dependence; Z98.49 Cataract extraction status, unspecified eye; Z90.5 Acquired absence of kidney; Z79.899 Other long term (current) drug therapy; Z79.620 Long term (current) use of immunosuppressive biologic
CPT/HCPCS: 36415; 71046; 80053; 81001; 83605; 83880; 84484; 85025; 93005; 96360; 99284; J7030

== ENCOUNTER 2024-02-28 13:59 | Emergency (ER) | payer MEDICARE, OTHER, SELFPAY ==
--- NOTE | ~2024-02-28 | XR_ITS ---
XR chest 2V Ordering provider: Ekaterina Lynn APRN History: 83 years Female with . prod cough x 3 days past smoker . Comparison: None. FINDINGS: MEDIASTINUM: The cardiac silhouette is slightly enlarged. LUNGS: No infiltrates, effusions or pneumothorax. OTHER: No free air under the diaphragm. IMPRESSION: No acute cardiopulmonary pathology. Reviewed, dictated and finalized at location A. AL SERVICES DESIGNEE
--- NOTE | 2024-02-28 14:07 | ED_ITS ---
HPI - URI/Sore Throat General Chief Complaint: Upper Respiratory Infection Stated Complaint: Sinus/Cough Time Seen by Provider: 02/28/24 14:00 Source: patient Mode of arrival: ambulatory Limitations: no limitations History of Present Illness HPI Narrative: Patient has any 83-year-old female presents with 5 days of congestion and cough that started last night. Patient reports intermittent cough for the last 3 mon ths, was told it was allergies and treated with allergy medicine. Patient seen by GI doctor today for Crohn's follow-up and was told to come be seen. Patient is currently on Humira which lowers ability to fight infection. Per GI docs note patient is to stop Humira cold persists. Denies any fever, chills, nausea, vomiting, diarrhea. Patient has been using [id number] medication with mild relief. Related Data Home Medications ?Medication ?Instructions ?Recorded ?Confirmed ?Last Taken ?Type cholecalciferol (vitamin D3) 10 10 mcg PO DAILY 03/27/20 02/28/24 Unknown History mcg (400 unit) capsule latanoprost 0.005 % eye drops 1 drp ophthalmic (eye) DAILY 03/27/20 02/28/24 Unknown History omeprazole 20 mg capsule,delayed 20 mg PO DAILY 05/10/23 02/28/24 Unknown History release timolol maleate 0.5 % eye drops 1 drp LEFT EYE Q12H 02/28/24 02/28/24 Unknown History Allergies Allergy/AdvReac Type Severity Reaction Status Date / Time azathioprine Allergy Severe Anaphylactic Verified 02/28/24 14:03 Shock calcitonin Allergy Unknown Nervous Verified 02/28/24 14:03 cefaclor Allergy Unknown Nausea Verified 02/28/24 14:03 Cephalosporins Allergy Unknown Nausea Verified 02/28/24 14:03 clindamycin Allergy Unknown Nausea Verified 02/28/24 14:03 COVID-19 (SARS-CoV-2) AdvReac Mild rash, eye Verified 02/28/24 14:03 vaccine, francisco problems Quinolones AdvReac Mild Unknown Verified 02/28/24 14:03 omeprazole AdvReac bloating Verified 02/28/24 14:03 and diarrhea LOMEFLOXACIN HCL Allergy Mild Nausea and Uncoded 02/28/24 14:03 Vomiting CALCITONIN,SALMON,SYNTHETIC AdvReac Mild Nausea and Uncoded 02/28/24 14:03 Vomiting Review of Systems Review of Systems: All systems reviewed & are unremarkable except as noted in HPI and below Constitutional: Constitutional: Denies body ache(s), Denies chills, Denies fatigue, Denies fever(s), Denies headache(s), Denies malaise and Denies weakness Eyes: Eyes: Denies blurry vision, Denies itchy eyes and Denies loss of vision ENT: Denies otalgia, Denies headache(s), Reports nasal congestion, Denies sinus pain and Denies sore throat Cardiovascular: Cardiovascular: Denies chest pain, Denies irregular heart rhythm and Denies dyspnea Respiratory: Respiratory: Reports cough and Denies dyspnea Gastrointestinal: Gastrointestinal: Denies abdominal pain, Denies diarrhea, Denies nausea and Denies vomiting Musculoskeletal: Musculoskeletal: Denies back pain, Denies myalgias and Denies arthralgias Integumentary/Breasts: Skin/Breast: Denies pruritus and Denies rash Neurologic: Denies headache(s), Denies loss of vision and Denies weakness Psychiatric: Psychiatric: Reports no additional psychiatric complaints Endocrine: Endocrine: Denies fatigue Allergic/Immunologic: Allergic/Immunologic: Denies itchy eyes PMFSH Past Medical History Medical History 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 use of 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 History of kidney stones Anxiety and depression History of blood transfusion Surgical History Surgical History H/O inguinal hernia repair H/O cataract extraction History of delivery History of kidney removal left Family History Family History Father Diabetes mellitus Mother Hypertension Family history of cardiovascular disease Grandparent Heart disease Social History Social History Smoking packs per day: 1 Smoking cigarettes per day: 20.0 Years smoked: 20 Smoking pack-years: 20.00 Smoking status: Former smoker Tobacco type: cigarettes Smoking end date: 03/14/95 Alcohol intake: current Drinks per week: 1 Alcohol use details: WINE Substance use: never Substance use type: does not use Do You Feel Safe in your Home?: Yes Lack of Transportation: No Lack of Food: Never True Current Housing: I Have Housing Concerned About Future Housing: No Difficulty Paying Gas/Electric Bills: No Difficulty Paying for Meds: No Currently Unemployed: No Education: Grade School Difficulty w/ Childcare or Family Care: No Living arrangements: with family Occupation/Education: other 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 There is no relevant family history pertinent to the presenting complaint. Exam Const: General: cooperative, healthy appearing, comfortable, no acute distress and well nourished Nutritional Appearance: well nourished Orientation/consciousness: patient oriented x3 Limitations: no limitations HENMT: Head: normal to inspection, normocephalic and atraumatic Ears: hearing grossly normal bilaterally, external ears normal, TM's normal bilaterally, EAC's normal and no periauricular adenopathy Face/Nose/Sinus: Normal external nose present, Abnormal mucous membranes and turbinates present erythematous bilateral and diffuse, normal facial exam, sinuses nontender and face symmetric Face and sinus: normal facial exam, sinuses nontender and face symmetric Mouth: Yes Normal oral and palatal mucosa present, Yes lip normal, Yes tongue normal, Yes Normal salivary glands and ducts present, Yes oropharynx normal and Yes moist mucous membranes Teeth and gingiva: dentition normal Throat: posterior oropharynx normal, tonsils normal and uvula midline Eyes: General: appearance normal, both eyes and all related structures Alignment and Position: alignment normal and position normal Periorbital: periorbital findings normal Eyelids: eyelids normal Pupils: Equal, round and reactive pupils present Neck: Neck: normal visual inspection, full ROM, no lymphadenopathy and supple Chest: Chest palpation & inspection: normal inspection of the chest and normal palpation of entire chest wall Resp: Effort & Inspection: normal respiratory effort and able to speak in complete sentences Auscultation: clear to auscultation bilaterally, no crackles, no rales, no rhonchi and no wheezes Cardio: Rate: regular rate Rhythm: regular rhythm Heart sounds: S1 normal heart sound present and S2 normal heart sound present GI: Inspection: normal to inspection Skin: General skin exam: normal color and no rashes or lesions noted Neuro: General: patient oriented x3 and moves all extremities Cranial nerves: Yes Equal, round and reactive pupils present Speech: normal speech Gait exam (Neuro): Normal gait present Extrem: General: normal to inspection, full ROM and no edema Psych: Appearance: grossly normal and well kempt Mental Status: mental status grossly normal Speech and movement: Normal speech and movement present Affect: normal affect Attitude: cooperative Thought process: Normal thought process present Course Course Emergency Course: Discharge instructions reviewed with patient, as well as provided in writing per nursing staff. The instructions also include specific and strict return/GO TO THE ER as well as f/u information. All questions have been answered, and the patient deny any further questions with discharge and discharge plan. Portions of this record may have been created with voice recognition software Level of Care: Express Care Visit Vital Signs Vital signs: Reviewed MDM - URI/Sore Throat MDM Narrative Medical decision making narrative: Patient is a 3-year-old female with cough and congestion. X-ray showed no signs of pneumonia. Discussed following up with PCP in 3 days if symptoms are not improving. Adding cough suppressant. Pt well hydrated appearing, in no respiratory distress, hemodynamically stable. Recommend supportive care. The patient is stable at time of discharge the clinical impression was discussed and the patient was given the opportunity to ask questions, which were addressed as completely as possible given the information available at present. Anticipatory guidance and return to care precautions were discussed and the importance of primary care follow-up was stressed and encouraged. The patient voiced understanding of the plan, indications to return, and the need for follow-up. Differential diagnosis considered: Webster virus, strep pharyngitis, allergic rhinitis, upper respiratory tract infection, sinusitis, rhinosinusitis, nasopharyngitis. viral pharyngitis, otitis media, otitis externa, otitis effusion, foreign body, cerumen impaction, viral syndrome, and influenza.? Exam findings show no acute concerns or changes; patient is non-toxic appearing and is in no distress.? Patient is appropriate for outpatient treatment and follow- up.? Medical Records Attestation: I reviewed the patient's medical records. Imaging Data Radiologist's impression: XR chest 2V Ordering provider: Ekaterina Lynn APRN History: 83 years Female with . prod cough x 3 days past smoker . Comparison: None. FINDINGS: MEDIASTINUM: The cardiac silhouette is slightly enlarged. LUNGS: No infiltrates, effusions or pneumothorax. OTHER: No free air under the diaphragm. IMPRESSION: No acute cardiopulmonary pathology. Discharge Plan Discharge Clinical Impression: Upper respiratory infection Qualifiers: URI type: unspecified viral URI Qualified Code(s): J06.9 - Acute upper respiratory infection, unspecified Patient Disposition: Home, Self-Care Condition: Stable Instructions: Upper Respiratory Infection (ED) Additional Instructions: X-ray showed no signs of pneumonia. Use Tessalon Perles as needed for cough. Other symptomatic treatments include: -Alternate Tylenol and Motrin per package directions for fever or pain. -Antihistamine medication such as Benadryl at night and Zyrtec/Claritin/Cira during the day can help improve symptoms. -Use Flonase twice a day for 5 days then daily to help reduce the inflammation a nd dry up your sinuses. -You can also use Sudafed or Mucinex. Be sure to drink plenty of water with these medications at least 8 ounces with every dose and it is important to drink 8 to 10 glasses of water per day. Water is a natural decongestant -Eat and drink things that are easy to swallow, like tea or soup, or popsicles. -Oral rinses such as: Salt water gargles and/or may use topical anesthetic (eg. Chloraseptic spray) or lozenges to relieve dryness or throat pain). -Frequent hand washing or hand manager intern is one of the best ways to prevent spread of infection. -Using a vaporizer or humidifier at night will also help thin secretions and help with coughing up phlegm. -Follow up with primary care provider in 3-5 days if condition is not improving - For new or worsening symptoms go directly to the nearest ER Patient Language: Lithuanian Prescriptions: New benzonatate 100 mg capsule 100 mg PO BID PRN (Reason: cough) Qty: 14 0RF No Action timolol maleate 0.5 % drops 1 drp LEFT EYE Q12H cholecalciferol (vitamin D3) 10 mcg (400 unit) capsule 10 mcg PO DAILY latanoprost 0.005 % drops 1 drp ophthalmic (eye) DAILY omeprazole 20 mg capsule,delayed release(DR/EC) 20 mg PO DAILY ferrous sulfate 325 mg (65 mg iron) tablet 325 mg PO DAILY Qty: 60 4RF Humira 40 mg/0.8 mL syringe kit 40 mg SUB-Q Q14D Qty: 2 12RF allopurinol 100 mg tablet 100 mg PO DAILY Qty: 90 3RF pantoprazole 20 mg tablet,delayed release (DR/EC) See Rx Instructions .ROUTE .COMPLEX Qty: 30 5RF Dose Instruction: TAKE 1 TABLET BY MOUTH EVERY MORNING Rx Instructions: TAKE 1 TABLET BY MOUTH EVERY MORNING alprazolam 0.5 mg tablet 0.5 mg PO BID PRN (Reason: anxiety) Qty: 60 4RF citalopram 20 mg tablet See Rx Instructions .ROUTE .COMPLEX Qty: 90 1RF Dose Instruction: TAKE 1 TABLET BY MOUTH EVERY DAY Rx Instructions: TAKE 1 TABLET BY MOUTH EVERY DAY Follow-up/Referrals: Sebastian Lay DO [Primary Care Provider] - 3 Days Time of Disposition: 15:00
[2024-02-28 14:12] VITALS: BP 151/61; PULSE 65; RESP 16; TEMP 36.8; O2SAT 99
== END 2024-02-28 15:05 | disposition home or self-care (01) ==
PROVIDERS: Emergency Provider Nurse Practitioner Family; PCP Internal Medicine
DX: J06.9 Acute upper respiratory infection, unspecified (principal); Z87.891 Personal history of nicotine dependence
CPT/HCPCS: 71046; 99213; G0463

== ENCOUNTER 2024-03-08 11:30 | Outpatient (CLI) | payer MEDICARE, OTHER, SELFPAY ==
[2024-03-08 12:21] LABS: Alanine Aminotransferase 13 U/L (6-35); Albumin Level 3.9 g/dL (3.5-5.1); Alkaline Phosphatase 57 U/L (38-126); Anion Gap 2 mmol/L (4-12); Aspartate Amino Transferase 20 U/L (14-36); Bilirubin,Total 0.5 mg/dL (0.2-1.3); Blood Urea Nitrogen 20 mg/dL (7-17); CRP 1.7 mg/dL (<1.0); Calcium 8.8 mg/dL (8.4-10.2); Carbon Dioxide 23 mmol/L (22-30); Chloride 113 mmol/L (98-107); Estimated Glomerular Filt Rate 31; Glucose 74 mg/dL (65-110); Potassium 4.2 mmol/L (3.4-5.0); Sodium 138 mmol/L (137-145)
[2024-03-08 12:41] LABS: Erythrocyte Sedimentation Rate 84 mm/hr (0-20)
[2024-03-08 12:50] LABS: Iron 46 ug/dL (37-170)
[2024-03-08 13:00] LABS: Percent Iron Saturation 13 % (20-50)
[2024-03-08 13:40] LABS: Folic Acid 10.3 ng/mL (2.76->20); Vitamin B12 > 1000.0 pg/mL (239-931)
[2024-03-12 11:54] LABS: Vitamin D 1,25 (OH)2 Total 26 pg/mL (18-72); Vitamin D2 1,25 (OH)2 <8 pg/mL; Vitamin D3 1,25 (OH)2 26 pg/mL
[2024-03-15 12:44] LABS: Adalimumab Ab IBD <10 AU (<10)
== END 2024-03-08 11:31 | disposition home or self-care (01) ==
LOC: ANHLAB 11:32
PROVIDERS: PCP Internal Medicine; Visit Provider Nurse Practitioner
DX: K50.90 Crohn's disease, unspecified, without complications (principal); Z79.620 Long term (current) use of immunosuppressive biologic; Z79.899 Other long term (current) drug therapy
CPT/HCPCS: 36415; 80053; 80145; 82607; 82652; 82728; 82746; 83540; 83550; 85652; 86140

== ENCOUNTER 2024-03-09 11:12 | Outpatient (NON) | payer MEDICARE, OTHER, SELFPAY | END 2024-03-09 11:13 | disposition home or self-care (01) | PROVIDERS: PCP Internal Medicine; Visit Provider Nurse Practitioner | DX: K50.90 Crohn's disease, unspecified, without complications (principal) | CPT/HCPCS: 83993 ==

== ENCOUNTER 2024-03-20 11:20 | Outpatient (CLI) | payer MEDICARE, OTHER, SELFPAY ==
--- NOTE | ~2024-03-20 | XR_ITS ---
XR abdomen/kub 1V 03/20/2024 11:47 INDICATION: Renal stones TECHNIQUE: KUB dated 09/16/[address] dated 04/28/2022 COMPARISON: 09/16/2023 FINDINGS: Bowel gas pattern is normal. Left kidney is surgically absent. There is no evidence of free air, mass, organomegaly, ascites or obstruction. There are focal calcifications in the right mid abd omen, suspicious for renal stones. The bones appear intact. IMPRESSION: 1 Possible right nephrolithiasis. Consider correlation with CT. Reviewed, dictated and finalized at location B. WORKER APPRENTICE SHOP
--- OUTSIDE RECORDS SUMMARY | 2024-03-27 12:03 | XMS_ITS | Encounter Summary ---
Author Organization [facility] Address [address] [place] [id number] Phone Care Team Providers Care Electrical Line Mechanic Name Role Phone Sly Escobar MD Primary Care Provider [phone] Reason for Visit * Reason Comments Med Refill Encounter Details Date Type Department Care Team (Late st Contact Info) Description 02/26/2020 Refill [facility] Nephrology and Hypertension [address] [facility], [address] [place] [id number] Justen Manuel MD [address] [facility], [address] [place] [address] Social History Tobacco Use Types Packs/Day Years Used Date Smoking Tobacco: Former Cigarettes Q uit: 03/14/1997 Smokeless Tobacco: Never Alcohol Use Standard Drinks/Week Comments Yes 0 (1 standard drink = 0.6 oz pure alcohol) Alcoholic Drinks/day: 1 gl wine pe day Sex and Gender Information Value Date Recorded Sex Assigned at Not on file Gender Identity Not on file Sexual Orientation Not on file documented as of this encounter Plan of Treatment Not on file documented as of this encounter Visit Diagnoses Not on filedocumented in this encounter Care Teams Electrical Line Mechanic Relationship Specialty Start Date End Date Sly Escobar MD [address] [place] [address] PCP - General Internal Medicine 06/26/18 documented as of this encounter
--- OUTSIDE RECORDS SUMMARY | 2024-03-27 12:03 | XMS_ITS | Encounter Summary ---
Author Organization [facility] Address [address] [address] Phone Care Team Providers Care Clinical Account Manager Name Role Phone Sly Escobar MD Primary Care Provider [phone] Encounter Details Date Type Department Care Team (Late st Contact Info) Description 03/20/2020 Telephone [facility] Nephrology and Hypertension [address] [facility], [address] [place] [address] Alondra Manuel MA Social History Tobacco Use Types Packs/Day Years [...] on file documented as of this encounter Miscellaneous Notes * Telephone Encounter - Alondra Manuel MA - 03/20/2020 11:16 AM CST Pt LM asking for refill order for allupurinol sent to [facility] in chart. It is new pharmacy. documented in this encounter Plan of Treatment Not on file documented as of this encounter Visit Diagnoses Not on filedocumented in this encounter Care Teams Clinical Account Manager Relationship Specialty Start Date End Date Sly Escobar MD [address] [place] [address] PCP - General Internal Medicine 06/26/18 documented as of this encounter
--- OUTSIDE RECORDS SUMMARY | 2024-03-27 12:03 | XMS_ITS | Encounter Summary ---
Author Organization [facility] Address [address] [address] Phone Care Team Providers Care Art Gilder Name Role Phone Sly Escobar MD Primary Care Provider [phone] Encounter Details Date Type Department Care Team (Late st Contact Info) Description 10/18/2019 Telephone [facility] Nephrology and Hypertension [address] [facility], [address] [place] [address] Alondra Manuel MA Social History Tobacco Use [...] Telephone Encounter - Alondra Manuel MA - 10/18/2019 11:10 AM CDT Per your letter, please order allupurinol and magnesium at new higher dose to pharm listed in chart. She has enough for a few more days. documented in this encounter Plan of Treatment Not on file documented as of this encounter Visit Diagnoses Not on filedocumented in this encounter Care Teams Art Gilder Relationship Specialty Start Date End Date Sly Escobar MD [address] [place] [address] PCP - General Internal Medicine 06/26/18 documented as of this encounter
--- OUTSIDE RECORDS SUMMARY | 2024-03-27 12:03 | XMS_ITS | Encounter Summary ---
Author Organization [facility] Address [address] [place] [address] Phone Care Team Providers Care Varnish Thinner Name Role Phone Sly Escobar MD Primary Care Provider [phone] Reason for Visit * Reason Comments Med Refill Encounter Details Date Type Department Care Team (Late st Contact Info) Description 02/24/2021 Refill [facility] Nephrology and Hypertension [address] [facility], [address] [place] [id number] Justen Manuel MD [address] [facility], [address] [place] [address] Social History Tobacco Use Types Packs/Day Years [...] on filedocumented in this encounter Care Teams Varnish Thinner Relationship Specialty Start Date End Date Sly Escobar MD [address] [place] [address] PCP - General Internal Medicine 06/26/18 documented as of this encounter
--- OUTSIDE RECORDS SUMMARY | 2024-03-27 12:03 | XMS_ITS | Encounter Summary ---
Author Organization [facility] Jay[facility] utilatoya Address [address] [address] Phone Care Team Providers Care Photolithographer Name Role Phone Sly Escobar MD Primary Care Provider [phone] Encounter Details Date Type Department Care Team (Late st Contact Info) Description 10/01/2019 2:45 PM CDT Office Visit [facility] Nephrology and Hypertension [address] [place] [address], [address] [place] [address] Justen Manuel MD [address] [facility], [address] [place] [address] Gastroesophageal reflux disease (Primary Dx); Acute kidney failure, not otherwise specified (CMS-HCC); Calculus of kidney; Chronic kidney disease, stage 3 (moderate) (CMS-HCC) Social History Tobacco Use Types Packs/Day Years [...] on file documented as of this encounter Last Filed Vital Signs Vital Sign Reading Time Taken Comments Blood Pressure 132/80 10/01/2019 2:40 PM CDT Pulse 72 10/01/2019 2:40 PM CDT Temperature 35.8 ??C (96.5 ??F) 10/01/2019 2:40 PM CD T Respiratory Rate - - Oxygen Saturation - - Inhaled Oxygen Concentration - - Weight 58.5 kg (129 lb) 10/01/2019 2:40 PM CDT Height 149.9 cm (4' 11 ) 10/01/2019 2:40 PM CDT Body Mass Index 26.05 10/01/2019 2:40 PM CDT documented in this encounter Progress Notes * Justen Manuel MD - 10/01/2019 2:45 PM CDT Paula Hitchcock is a pleasant 78 y.o.female. Mrs. Hitchcock is a 77-year-old, female here for kidney stones and ckd 3 No more kidney stones in years Urinating fine. Avoiding excess protein by taste. Feels okay now. one poorly functioning kidney. She has no hypertension. no heart ds nor cva. Past Hx: crohn's disease, anemia, anxiety, osteopenia, kidney stones ROS Constitutional: Negative except as above Skin: Negative except as above Pulmonary: Negative except as above Urologic: Negative except as above BP 132/80 Pulse 72 Temp 96.5 ??F (35.8 ??C) Ht 4' 11 (1.499 m) Wt 129 lb (58.5 kg) BMI 26.05 kg/m?? BSA 1.56 m?? WDWN female in NAD Skin No rash or sq nodules Head NCAT Neck No nodes, No TMG Lungs Clear Cor RRR no rub or gallop Abd BS+ nontender and soft. Ext No edema, Psyche normal not depressed or anxious Recent Labs: 12/13/17 Cr 1.6 06/14/18 Cr 1.6, egfr 31, DODIE low, Hb 11.9, 12/12/18 Hb 11, Cr 1.8, gfr 27, PTH 56, Vit d 26, LDL 89, HDL 60, Trig 384, alt 8 Lab Results Component Value Date BUN 29 (H) 09/21/2019 CREATININE 1.73 (H) 09/21/2019 EGFRAA 32 (L) 09/21/2019 EGFRAA 31 (L) 06/28/2018 EGFR 28 (L) 09/21/2019 EGFR 27 (L) 06/28/2018 EGFR 27 (L) 12/14/2017 NA 136 09/21/2019 K 4.1 09/21/2019 CL 103 09/21/2019 CO2 24 09/21/2019 CA 8.6 09/21/2019 PHOSPHATE 3.6 09/21/2019 ALBUMIN 4.1 09/21/2019 GLUCOSE 90 09/21/2019 PROTCREATUR 87 09/21/2019 PROTCREATUR 0.087 09/21/2019 PTH 62 09/21/2019 VITD3 24 (L) 09/21/2019 HGB 10.3 (L) 12/14/2017 Lab Results Component Value Date BFPDGV72 0.64 (L) 09/24/2019 PH24 5.5 09/24/2019 SZVVACG85 15 09/24/2019 URIC24 1.22 09/24/2019 URIC24 82 09/24/2019 CLQRPVM06 19 (L) 09/24/2019 NA24 29 09/24/2019 PHOS24 328 09/24/2019 MG24 33 (L) 09/24/2019 K24 10 (L) 09/24/2019 PFYWFRITB48 1.12 09/24/2019 BRUS24 0.22 09/24/2019 OXCQMA88 0.31 09/24/2019 01/22/18 KUB bilateral stones, fewer on the right than the last KUB Impression: 1. SANDRO due to obstruction. No more stent. Doing well without one. 2. CKD stage 3. Stable gfr To preserve renal function: Use MARIANA/ARB Control bp good Control Cholesterol per pcpo Check PTH/Vit D later low. Take 2 vit d dailiy Low protein diet Avoid NSAIDs Stay well hydrated 3. kidney stones No stone analysis, Last KUB 2 y ago. Repeat this. 24h urine shows Too little volume. Drink fluid Low K, Mg, citrate. Take as much lemonade as you can. On mg supplement doenst tolerate juice or Kcit. She will continue to try to drink as much lemonade that she can. Drink plenty of fluid and avoid salty foods. 4. she has crohn's disease but it is under control so is less likely to be a factor than if it was active. she should drink plenty of fluid and avoid salty foods. Plan 24h urines KUB. Get it odayt Plenty of fluid Avoid salty foods Lemonade as [employer] vit d RTC 6months Assessment/Plan Diagnoses and all orders for this visit: Calculus of kidney Chronic kidney disease, stage 3 (moderate) Acute kidney failure, not otherwise specified Blood Pressure for this visit is 132/80. Follow up plan to address blood pressure is good. Body mass index is 26.05 kg/m??. Follow up plan to address BMI is good. Follow up plan to address depressionis not depressed. Follow up plan to address tobacco use is nonsmoker. documented in this encounter Plan of Treatment Scheduled Orders Name Type Priority Associated Diagnoses Orde r Schedule Vitamin D, 25-Hydroxy, Serum Lab Routine Chronic kidney disease, stage 3 (moderate) ([facility]) 1 Occurrences starting 10/01/2019 until 09/30/2020 CBC (includes Differential/Platelets ) Lab Routine Chronic kidney disease, stage 3 (moderate) ([facility]) 1 Occurrences starting 10/01/2019 until 09/30/2020 Magnesium, Serum Lab Routine Calculus of kidney Chronic kidney disease, stage 3 (moderate) ([facility]) 1 Occurrences starting 10/01/2019 until 09/30/2020 documented as of this encounter Procedures Procedure Name Priority Date/Time Associated Diagnosis Comments URORISK?? DIAGNOSTIC PROFILE Routine 03/28/2020 11:43 AM PRINCIPAL CLOUD ARCHITECT Calculus of kidney RENAL FUNCTION PANEL (RFP) Routine 03/27/2020 12:04 PM PRINCIPAL CLOUD ARCHITECT Calculus of kidney URINALYSIS W/ REFLEX TO MICROSCOPIC Routine 03/27/2020 12:04 PM PRINCIPAL CLOUD ARCHITECT Calculus of kidney URIC ACID, SERUM Routine 03/27/2020 12:0 4 PM PRINCIPAL CLOUD ARCHITECT Calculus of kidney MAGNESIUM, SERUM Routine 03/27/2020 12:0 4 PM PRINCIPAL CLOUD ARCHITECT documented in this encounter Results * (ABNORMAL) UroRisk?? Diagnostic Profile ([facility]) (03/28/2020 11:43 AM PRINCIPAL CLOUD ARCHITECT) Volume of 24 hour Urine 1.28(L) >2.00 L/day [facility]) Comment:See Note 1 pH of 24 hour Urine 7.0 5.5 - 7.[address] [facility]) Calcium, 24 hour Urine 44 <250.0 mg/day [facility]) Comment:See Note 1 Oxalate, 24 hour Urine 11 <45 mg/day [facility]) Comment:See Note 1 Urate, 24 hour Urine 120 <700 mg/day [facility]) Comment:See Note 1 Citrate, 24 hour Urine 167(L) >320 mg/day [facility]) Comment:See Note 1 Sodium, 24 hour Urine 97 <200 mEq/day [facility]) Comment:See Note 1 Sulfate, 24 hour Urine 4 <30 mmol/day [facility]) Comment:See Note 1 Phosphate, 24 hour Urine 340 <1,100 mg/day [facility]) Comment:See Note 1 Magnesium, 24 hour Urine 61 >60.0 mg/day [facility]) Comment:See Note 1 Potassium, 24 hour Urine 37 19 - 135 mEq/day [facility]) Comment:See Note 1 Creatinine, 24 hour Urine 519(L) 600 - 1,800 mg/day [facility]) Comment:See Note 1 Calcium oxalate index, 24 hour Urine 0.37 <2.[address] [facility]) Calcium hydrogen phosphate dihydrate, 24 hour Urine 0.96 <2.[address] [facility]) Sodium urate, 24 hour Urine 0.64 <2.[address] [facility]) Urate, 24 hour Urine 0.05 <2.[address] [facility]) Patient history Hypocitraturia High urinary pH Low urine volume 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) Comment: Note 1 This test was developed and its analytical performance characteristics have been determined by [facility]. It has not been cleared or approved by the FDA. This assay has been validated pursuant to the CLIA regulations and is used for clinical purposes. 03/28/2020 11:4 3 AM PRINCIPAL CLOUD ARCHITECT 03/28/2020 11:44 AM PRINCIPAL CLOUD ARCHITECT Narrative [facility] - 04/03/2020 12:09 PM PRINCIPAL CLOUD ARCHITECT SPLIT 03/27/2020 FROM [id number] Resulting Agency Comment Performing Organization Information: ?Site ID: [id number] ?Name: [facility] ?Address: [id number] [place] [phone] ?Director: Chris Tejada M.D. Justen Manuel MD LAB BLOOD ORDERABLES Performing Organization Address [facility]/ZIP Co de Phone Number [facility] * Magnesium, Serum (03/27/2020 12:04 PM PRINCIPAL CLOUD ARCHITECT) Magnesium, Serum/Plasma 1.9 1.5 - 2.5 mg/dL [facility]) 03/27/2020 12:0 4 PM PRINCIPAL CLOUD ARCHITECT 03/27/2020 12:06 PM PRINCIPAL CLOUD ARCHITECT Narrative [facility] - 03/28/2020 5:06 AM PRINCIPAL CLOUD ARCHITECT COLLECTION KIT GIVEN TO PATIENT. PATIENT ADVISED TO RETURN. Resulting Agency Comment Performing Organization Information: ?Site ID: [id number] ?Name: [facility] ?Address: [address] [place] [address] [place] [address] ?Director: Tevin Gonsalez D.O., MPH Justen Manuel MD LAB BLOOD ORDERABLES [facility] * Urinalysis w/ Reflex to Microscopic (03/27/2020 12:04 PM PRINCIPAL CLOUD ARCHITECT) Color of Urine YELLOW YELLOW [facility]) Appearance of Urine CLEAR CLEAR [facility]) Specific gravity of Urine 1.019 1.001 - 1.035 [facility]) pH of Urine 6.0 5.0 - 8.[address] [facility]) Glucose, Urine NEGATIVE NEGATIVE [facility]) Bilirubin, total, Urine NEGATIVE NEGATIVE [facility]) Ketones, Urine NEGATIVE NEGATIVE [facility]) Hemoglobin, Urine NEGATIVE NEGATIVE [facility]) Protein, Urine NEGATIVE NEGATIVE [facility]) Nitrite, Urine NEGATIVE NEGATIVE [facility]) Leukocyte esterase, Urine NEGATIVE NEGATIVE [facility]) Urine 03/27/2020 12:0 4 PM PRINCIPAL CLOUD ARCHITECT 03/27/2020 12:06 PM PRINCIPAL CLOUD ARCHITECT Narrative [facility] - 03/28/2020 5:06 AM PRINCIPAL CLOUD ARCHITECT COLLECTION KIT GIVEN TO PATIENT. PATIENT ADVISED TO RETURN. Resulting Agency Comment Performing Organization Information: ?Site ID: [id number] ?Name: [facility] ?Address: [facility] [address] [place] [address] ?Director: Tevin Gonsalez D.O., MPH Justen Manuel MD LAB URINE ORDERABLES [facility] * Uric Acid, Serum (03/27/2020 12:04 PM PRINCIPAL CLOUD ARCHITECT) Urate, Serum/Plasma 5.1 2.5 - 7.0 mg/dL [facility]) Comment: Therapeutic target for gout patients: <6.0 mg/dL ?? Blood 03/27/2020 12:0 4 PM PRINCIPAL CLOUD ARCHITECT 03/27/2020 12:06 PM PRINCIPAL CLOUD ARCHITECT Narrative [facility] - 03/28/2020 5:06 AM PRINCIPAL CLOUD ARCHITECT COLLECTION KIT GIVEN TO PATIENT. PATIENT ADVISED TO RETURN. Resulting Agency Comment Performing Organization Information: ?Site ID: [place] ?Name: [facility] ?Address: [address] [address] ?Director: Tevin Gonsalez D.O., MPH Justen Manuel MD LAB BLOOD ORDERABLES [facility] * (ABNORMAL) Renal Function Panel (RFP) (03/27/2020 12:04 PM PRINCIPAL CLOUD ARCHITECT) [facility] [address] Glucose, Serum/Plasma 155(H) 65 - 99 mg/dL [facility] Comment: ? Fasting reference interval For someone without known diabetes, a glucose value >125 mg/dL indicates that they may have diabetes and this should be confirmed with a follow-up test. Urea nitrogen, Serum/Plasma (BUN) 29(H) 7 - 25 mg/dL [facility]) Creatinine, Serum/Plasma 1.68(H) 0.60 - 0.93 mg/dL [facility]) Comment: For patients >49 years of age, the reference limit for Creatinine is approximately 13% higher for people identified as -[place]. eGFR, non 29(L) > OR = 60 mL/min/1. 73m2 [facility]) eGFR, 33(L) > OR = 60 mL/min/1. 73m2 [facility]) Urea nitrogen/Creatinin e, Serum/Plasma 17 6 - 22 (calc) [facility]) Sodium, Serum/Plasma 140 135 - 146 mmol/L [facility]) Potassium, Serum/Plasma 4.4 3.5 - 5.3 mmol/L [facility]) Chloride, Serum/Plasma 102 98 - 110 mmol/L [facility]) Carbon dioxide CO2), total, Serum/Plasma 27 20 - 32 mmol/L [facility]) Calcium, Serum/Plasma 9.0 8.6 - 10.4 mg/dL [facility]) Phosphate, Serum/Plasma 4.1 2.1 - 4.3 mg/dL [facility]) Albumin, Serum/Plasma 4.0 3.6 - 5.1 g/dL [facility]) Blood 03/27/2020 12:0 4 PM PRINCIPAL CLOUD ARCHITECT 03/27/2020 12:06 PM PRINCIPAL CLOUD ARCHITECT Narrative [facility] - [facility]) - 03/28/2020 5:06 AM PRINCIPAL CLOUD ARCHITECT COLLECTION KIT GIVEN TO PATIENT. PATIENT ADVISED TO RETURN. Resulting Agency Comment Performing Organization Information: ?Site ID: [place] ?Name: [facility] [place] ?Address: [address] [place] [phone] ?Director: Tevin Gonsalez D.O., MPH Justen Manuel MD LAB BLOOD ORDERABLES [facility]) documented in this encounter Visit Diagnoses Diagnosis Gastroesophageal reflux disease- Primary Acute kidney failure, not otherwise specified (CMS-HCC) Calculus of kidney Chronic kidney disease, stage 3 (moderate) documented in this encounter Care Teams Photolithographer Relationship Specialty Start Date End Date Sly Escobar MD [address] [place] [id number] PCP - General Internal Medicine 06/26/18 documented as of this encounter
--- OUTSIDE RECORDS SUMMARY | 2024-03-27 12:03 | XMS_ITS | Encounter Summary ---
Author Organization [facility] Jayla jolley Address [address] [place] [phone] Phone Care Team Providers Care Transition Mgr Rn Name Role Phone Sly Escobar MD Primary Care Provider [phone] Encounter Details Date Type Department Care Team (Late st Contact Info) Description 09/24/2019 Orders Only [facility] Nephrology and Hypertension [address] [facility], [address] [facility] [place] [address] Justen Manuel MD [address] [facility], [address] [place] [address] Social History Tobacco Use Types Packs/Day Years [...] on file documented as of this encounter Procedures Procedure Name Priority Date/Time Associated Diagnosis Comments URORISK?? DIAGNOSTIC PROFILE Routine 09/24/2019 9:48 AM CDT documented in this encounter Results * (ABNORMAL) UroRisk?? Diagnostic Profile (09/24/2019 9:48 AM CDT) Volume of 24 hour Urine 0.64(L) >2.00 L/day [facility] Comment:See Note 1 pH of 24 hour Urine 5.5 5.5 - 7.[address] [facility]) Calcium, 24 hour Urine 23 <250.0 mg/day [facility] Comment:See Note 1 Oxalate, 24 hour Urine 15 <45 mg/day [facility] Comment:See Note 1 Urate, 24 hour Urine 82 <700 mg/day [facility] Comment:See Note 1 Citrate, 24 hour Urine 19(L) >320 mg/day [facility]) Comment:See Note 1 Sodium, 24 hour Urine 29 <200 mEq/day [facility] Comment:See Note 1 Sulfate, 24 hour Urine 5 <30 mmol/day [facility] Comment:See Note 1 Phosphate, 24 hour Urine 328 <1,100 mg/day [facility] Comment:See Note 1 Magnesium, 24 hour Urine 33(L) >60.0 mg/day [facility] Comment:See Note 1 Potassium, 24 hour Urine 10(L) 19 - 135 mEq/day [facility]) Comment:See Note 1 Creatinine, 24 hour Urine 460(L) 600 - 1,800 mg/day [facility] Comment:See Note 1 Calcium oxalate index, 24 hour Urine 1.12 <2.[address] [facility]) Calcium hydrogen phosphate dihydrate, 24 hour Urine 0.22 <2.[address] [facility]) Sodium urate, 24 hour Urine 0.31 <2.[address] [facility]) Urate, 24 hour Urine 1.22 <2.[address] [facility]) Patient history [facility] Comment: Hypocitraturia ?? Low urinary pH ?? Low urine volume ? This patient has a Citrate value of less than 27.3 mg/L, ?? which is the lowest functional sensitivity of the assay. ? Please note that, in order to generate a graphic results ?? report in this case, a Citrate value of 27.3 mg/L was ?? used, because an entry of less than 27.3 mg/L (<27.3) ?? is not understood by the program used to calculate ?? supersaturations. ?? SUPERSATURATION INDEX WITH RESPECT TO: CANCELED [facility] Comment:Result canceled by jeevan murphy ancillary. SUSPECTED PROBLEM IS: [facility] Comment: Hypocitraturic Nephrolithiasis ?? Note 1 This test was developed and its analytical performance characteristics have been determined by [facility]. It has not been cleared or approved by the FDA. This assay has been validated pursuant to the CLIA regulations and is used for clinical purposes. Service comment CANCELED [facility] Comment:Result canceled by jeevan murphy ancillary. 09/24/2019 9:48 AM CDT 09/24/2019 9:48 AM CDT Narrative [facility] - 09/28/2019 2:27 PM CDT SPLIT 09/21/2019 FROM [id number] Resulting Agency Comment Performing Organization Information: ?Site ID: [id number] ?Name: [facility] ?Address: [address] [place] [phone] ?Director: Parker Morales M.D., Ph.D Justen Manuel MD LAB BLOOD ORDERABLES [facility] documented in this encounter Visit Diagnoses Not on filedocumented in this encounter Care Teams Transition Mgr Rn Relationship Specialty Start Date End Date Sly Escobar MD [address] [place] [phone] PCP - General Internal Medicine 06/26/18 documented as of this encounter
--- OUTSIDE RECORDS SUMMARY | 2024-03-27 12:03 | XMS_ITS | Encounter Summary ---
Author Organization [facility] Jayla utilatoya Address [address] [place] [phone] Phone Care Team Providers Care Carton Packaging Machine Operator Name Role Phone Sly Escobar MD Primary Care Provider [phone] Reason for Visit * Reason Comments Med Refill Encounter Details Date Type Department Care Team (Late st Contact Info) Description 08/17/2021 Refill [facility] Nephrology and Hypertension [address] [facility], [address] [place] [phone] Justen Manuel MD [address] [facility], [address] [facility] [place] [address] Social History Tobacco Use Types Packs/Day Years [...] on filedocumented in this encounter Care Teams Carton Packaging Machine Operator Relationship Specialty Start Date End Date Sly Escobar MD [address] [place] [address] PCP - General Internal Medicine 06/26/18 documented as of this encounter
--- OUTSIDE RECORDS SUMMARY | 2024-03-27 12:03 | XMS_ITS | Encounter Summary ---
Author Organization [facility] Address [address], [place] [address] Phone Care Team Providers Care Construction Equipment Overhauler Name Role Phone Sly Escobar MD Primary Care Provider [phone] Encounter Details Date Type Department Care Team (Late st Contact Info) Description 09/21/2019 Orders Only [facility] Nephrology and Hypertension [address] [facility], [address] [facility] [place] [address] Justen Manuel MD [address] [facility], [address] [place] [address] Social History Tobacco Use Types Packs/Day Years [...] Procedure Name Priority Date/Time Associated Diagnosis Comments TOTAL PROTEIN W/ CREATININE, URINE, RANDOM Routine 09/21/2019 12:50 PM CDT VITAMIN D, 25-HYDROXY, SERUM Routine 09/21/2019 12:50 PM CDT RENAL FUNCTION PANEL (RFP) Routine 09/21/2019 12:50 PM CDT URIC ACID, SERUM Routine 09/21/2019 12:5 0 PM CDT PTH INTACT W/O CALCIUM, SERUM Routine 09/21/2019 12:50 PM CDT documented in this encounter Results * Total Protein w/ Creatinine, Urine, Random (09/21/2019 12:50 PM CDT) Creatinine, Urine 172 20 - 275 mg/dL [facility] ([facility]) Protein/Creatin ine, Urine 87 21 - 161 mg/g creat [facility] ([facility]) Protein/Creatin ine, Urine 0.087 0.021 - 0.161 mg/mg creat [facility] - [facility] ([facility]) Protein, Urine 15 5 - 24 mg/dL [facility] ([facility]) 09/21/2019 12:5 0 PM CDT 09/21/2019 12:53 PM CDT Narrative [facility] ([facility]) - 09/24/2019 12:57 PM CDT COLLECTION KIT GIVEN TO PATIENT. PATIENT ADVISED TO RETURN. Resulting Agency Comment Performing Organization Information: ?Site ID: [id number] ?Name: [facility] ?Address: [address] [place] [address] ?Director: Tevin Gonsalez D.O., MPH Justen Manuel MD LAB URINE ORDERABLES [facility] ([facility]) * (ABNORMAL) Vitamin D, 25-Hydroxy, Serum (09/21/2019 12:50 PM CDT) Calcidiol, Serum/Plasma 24(L) 30 - 100 ng/mL [facility] ([facility]) Comment: Vitamin D Status ? 25-OH Vitamin D: Deficiency: ?<20 ng/mL Insufficiency: ? 20 - 29 ng/mL Optimal: ? > or = 30 ng/mL For 25-OH Vitamin D testing on patients on D2-supplementation and patients for whom quantitation of D2 and D3 fractions is required, the QuestAssureD(TM) 25-OH VIT D, (D2,D3), LC/MS/MS is recommended: order code 88575 (patients >2yrs). See Note 1 Note 1 For additional information, please refer to http://education.Budge/faq/NDR953 (This link is being provided for informational/ educational purposes only.) 09/21/2019 12:5 0 PM CDT 09/21/2019 12:53 PM CDT Narrative [facility] ([facility]) - 09/24/2019 12:57 PM CDT COLLECTION KIT GIVEN TO PATIENT. PATIENT ADVISED TO RETURN. Resulting Agency Comment Performing Organization Information: ?Site ID: [id number] ?Name: [employer] [facility] ?Address: [address] [place] [address] [place] [address] ?Director: Tevin Gonsalez D.O., MPH Justen Manuel MD LAB BLOOD ORDERABLES [facility] ([facility]) * PTH Intact w/o Calcium, Serum (09/21/2019 12:50 PM CDT) PTH, Intact, Serum/Plasma 62 14 - 64 pg/mL [facility] ([facility]) Comment: Interpretive Guide ?Intact PTH ? Calcium ? ------- Normal Parathyroid ?Normal ? Normal Hypoparathyroidism ?Low or Low Normal ?Low Hyperparathyroidism ?? Primary ?Normal or High ? High ?? Secondary ?High ? Normal or Low ?? Tertiary ? High ? High Non-Parathyroid ?? Hypercalcemia ?Low or Low Normal ?High 09/21/2019 12:5 0 PM CDT 09/21/2019 12:53 PM CDT Narrative [facility] ([facility]) - 09/24/2019 12:57 PM CDT COLLECTION KIT GIVEN TO PATIENT. PATIENT ADVISED TO RETURN. Resulting Agency Comment Performing Organization Information: ?Site ID: [id number] ?Name: [facility] ?Address: [address] [place] [address] [place] [address] ?Director: Tevin Gonsalez D.O., MPH Justen Manuel MD LAB BLOOD ORDERABLES [facility] ([facility]) * (ABNORMAL) Renal Function Panel (RFP) (09/21/2019 12:50 PM CDT) Glucose, Serum/Plasma 90 65 - 99 mg/dL [facility] ([facility]) Comment: ? Fasting reference interval Urea nitrogen, Serum/Plasma (BUN) 29(H) 7 - 25 mg/dL [facility] ([facility]) Creatinine, Serum/Plasma 1.73(H) 0.60 - 0.93 mg/dL [facility] ([facility]) Comment: For patients >49 years of age, the reference limit for Creatinine is approximately 13% higher for people identified as -[place]jiboutian. eGFR, non 28(L) > OR = 60 mL/min/1. 73m2 [facility] ([facility]) eGFR, 32(L) > OR = 60 mL/min/1. 73m2 [facility] ([facility]) Urea nitrogen/Creatinin e, Serum/Plasma 17 6 - 22 (calc) [facility] ([facility]) Sodium, Serum/Plasma 136 135 - 146 mmol/L [facility] ([facility]) Potassium, Serum/Plasma 4.1 3.5 - 5.3 mmol/L [facility] ([facility]) Chloride, Serum/Plasma 103 98 - 110 mmol/L [facility] ([facility]) Carbon dioxide CO2), total, Serum/Plasma 24 20 - 32 mmol/L [facility] ([facility]) Calcium, Serum/Plasma 8.6 8.6 - 10.4 mg/dL [facility] ([facility]) Phosphate, Serum/Plasma 3.6 2.1 - 4.3 mg/dL [facility] ([facility]) Albumin, Serum/Plasma 4.1 3.6 - 5.1 g/dL [facility] ([facility]) 09/21/2019 12:5 0 PM CDT 09/21/2019 12:53 PM CDT Narrative [facility]) - 09/24/2019 12:57 PM CDT COLLECTION KIT GIVEN TO PATIENT. PATIENT ADVISED TO RETURN. Resulting Agency Comment Performing Organization Information: ?Site ID: [id number] ?Name: [facility] ?Address: [address] [place] [id number] ?Director: Tevin Gonsalez D.O., MPH Justen Manuel MD LAB BLOOD ORDERABLES [facility] ([facility]) * Uric Acid, Serum (09/21/2019 12:50 PM CDT) Urate, Serum/Plasma 4.8 2.5 - 7.0 mg/dL [facility] ([facility]) Comment: Therapeutic target for gout patients: <6.0 mg/dL ?? 09/21/2019 12:5 0 PM CDT 09/21/2019 12:53 PM CDT Narrative [facility] ([facility]) - 09/24/2019 12:57 PM CDT COLLECTION KIT GIVEN TO PATIENT. PATIENT ADVISED TO RETURN. Resulting Agency Comment Performing Organization Information: ?Site ID: [id number] ?Name: [facility] ?Address: [address] [place], [place] [address] [address] ?Director: Tevin Gonsalez D.O., MPH Justen Manuel MD LAB BLOOD ORDERABLES [facility] ([facility]) documented in this encounter Visit Diagnoses Not on filedocumented in this encounter Care Teams Construction Equipment Overhauler Relationship Specialty Start Date End Date Sly Escobar MD [address] [place] [place] [address] PCP - General Internal Medicine 06/26/18 documented as of this encounter
--- OUTSIDE RECORDS SUMMARY | 2024-03-27 12:03 | XMS_ITS | Encounter Summary ---
Author Organization [facility] Address [address] [place] [address] Phone Care Team Providers Care Job Coaching Name Role Phone Sly Escobar MD Primary Care Provider [phone] Reason for Visit * Reason Comments Med Refill Encounter Details Date Type Department Care Team (Late st Contact Info) Description 02/13/2020 Refill [facility] Nephrology and Hypertension [address] [facility], [address] [place] [address] Justen Manuel MD [address] [facility], [address] [place] [address] Social History Tobacco Use Types Packs/Day Years [...] on filedocumented in this encounter Care Teams Job Coaching Relationship Specialty Start Date End Date Sly Escobar MD [address] [place] [address] PCP - General Internal Medicine 06/26/18 documented as of this encounter
--- OUTSIDE RECORDS SUMMARY | 2024-03-27 12:03 | XMS_ITS | Encounter Summary ---
Author Organization [facility] Address [address] [place] [address] Phone Care Team Providers Care Mine Car Repairer Name Role Phone Sly Escobar MD Primary Care Provider [phone] Reason for Visit * Reason Comments Med Refill Encounter Details Date Type Department Care Team (Late st Contact Info) Description 12/05/2019 Refill [facility] Nephrology and Hypertension [address] [facility], [address] [place] [address] Justen Manuel MD [address] [facility], [address] [place] [address] Social History Tobacco Use Types Packs/Day Years [...] on filedocumented in this encounter Care Teams Mine Car Repairer Relationship Specialty Start Date End Date Sly Escobar MD [address] [place] [address] PCP - General Internal Medicine 06/26/18 documented as of this encounter
--- OUTSIDE RECORDS SUMMARY | 2024-03-27 12:03 | XMS_ITS | Encounter Summary ---
Author Organization [facility] Address [address], [place] [address] Phone Care Team Providers Care Director Of Religious Life Name Role Phone Sly Escobar MD Primary Care Provider [phone] Encounter Details Date Type Department Care Team (Late st Contact Info) Description 03/30/2021 11:15 AM RANGE OPERATOR Office Visit [facility] Nephrology and Hypertension [address] [place] [address], [address] [place] [address] Justen Manuel MD [address] [facility], [address] [place] [address] Calculus of kidney (Primary Dx); Chronic kidney disease, Stage IV (severe) (CMS-HCC) Social History Tobacco Use Types Packs/Day [...] Sign Reading Time Taken Comments Blood Pressure 122/60 03/30/2021 11:20 AM RANGE OPERATOR Pulse 72 03/30/2021 11:20 AM RANGE OPERATOR Temperature 35.7 ??C (96.2 ??F) 03/30/2021 11:[address] Respiratory Rate - - Oxygen Saturation - - Inhaled Oxygen Concentration - - Weight 58.1 kg (128 lb) 03/30/2021 11:20 AM RANGE OPERATOR Height 149.9 cm (4' 11 ) 03/30/2021 11:20 AM RANGE OPERATOR Body Mass Index 25.85 03/30/2021 11:20 AM RANGE OPERATOR documented in this encounter Progress Notes * Justen Manuel MD - 03/30/2021 11:15 AM CST Paula Hitchcock is a pleasant 80 y.o.female. Mrs. Hitchcock is a 77-year-old, female here for kidney stones and ckd 3 No more kidney stones in years Urinating well Avoiding excess protein by taste. No more kidney stones. Drinking a lot of water. kcit causes gerd Mag causes diarrhea. Has gerd and given omeprazole by Dr Staley. It didn't work and she Had a lot of sx and side effectsso changed to pantoprazole. Now feels better with gerd and side effcts. one poorly functioning kidney. She has no hypertension. no heart ds nor cva. Crohns is in remission for years. Just dxd with left flank hernia. Past Hx: crohn's disease, anemia, anxiety, osteopenia, kidney stones ROS Constitutional: Negative except as above Skin: Negative except as above Pulmonary: Negative except as above Urologic: Negative except as above BP 122/60 Pulse 72 Temp 96.2 ??F (35.7 ??C) Ht 4' 11 (1.499 m) Wt 128 lb (58.1 kg) BMI 25.85 kg/m?? BSA 1.56 m?? WDWN female in NAD Skin No rash or sq nodules Head NCAT Neck No nodes, No TMG Lungs Clear bilaterally Cor RRR no rub or gallop Abd BS+ nontender and soft. Ext No edema, Psyche normal not depressed or anxious Recent Labs: 12/13/17 Cr 1.6 06/14/18 Cr 1.6, egfr 31, DODIE low, Hb 11.9, 12/12/18 Hb 11, Cr 1.8, gfr 27, PTH 56, Vit d 26, LDL 89, HDL 60, Trig 384, alt 8 Lab Results Component Value Date SPECGRAVUR 1.022 03/22/2021 PHUR 6.0 03/22/2021 GLUCOSEUR NEGATIVE 03/22/2021 BILIRUBINUR NEGATIVE 03/22/2021 KETONESUR NEGATIVE 03/22/2021 HGBUR NEGATIVE 03/22/2021 PROTUR NEGATIVE 03/22/2021 NITRITEUR NEGATIVE 03/22/2021 WBCUR NONE SEEN 06/28/2018 RBCUR NONE SEEN 06/28/2018 EPICELLSUR NONE SEEN 06/28/2018 Lab Results Component Value Date BUN 26 (H) 03/22/2021 CREATININE 1.75 (H) 03/22/2021 EGFRAA 32 (L) 03/22/2021 EGFRAA 37 (L) 09/22/2020 EGFRAA 33 (L) 03/27/2020 EGFR 27 (L) 03/22/2021 EGFR 32 (L) 09/22/2020 EGFR 29 (L) 03/27/2020 NA 138 03/22/2021 K 4.3 03/22/2021 CL 105 03/22/2021 CO2 24 03/22/2021 CA 9.2 03/22/2021 PHOSPHATE 3.4 03/22/2021 MG 1.9 03/27/2020 ALBUMIN 4.3 03/22/2021 GLUCOSE 71 03/22/2021 PROTCREATUR NOTE 09/22/2020 PROTCREATUR NOTE 09/22/2020 PTH 34 03/22/2021 VITD3 24 (L) 09/21/2019 WBC 8.7 03/22/2021 HGB 12.3 03/22/2021 PLT 188 03/22/2021 Lab Results Component Value Date FGNCRW02 1.28 (L) 03/28/2020 PH24 7.0 03/28/2020 XUEWXSS44 11 03/28/2020 URIC24 0.05 03/28/2020 URIC24 120 03/28/2020 TAKLVTI14 167 (L) 03/28/2020 NA24 97 03/28/2020 PHOS24 340 03/28/2020 MG24 61 03/28/2020 K24 37 03/28/2020 DVBANGGTK34 0.37 03/28/2020 BRUS24 0.96 03/28/2020 VCJYEF78 0.64 03/28/2020 Lab Results Component Value Date URATE 5.1 03/22/2021 Imaging 01/22/18 KUB bilateral stones, fewer on the right than the last KUB 10/01/2019 KUB no stones seen 03/23/21 KUB negative Impression: 1. SANDRO due to obstruction. No more stent. Doing well without one. 2. CKD stage 3. Stable gfr due to one small kidney To preserve renal function: Use MARIANA/ARB No DM nor proteinuria so will follow without this Control bp good Control Cholesterol per pcp Check PTH/Vit D. Continue to take 2 vit d dailiy Low protein diet Avoid NSAIDs Stay well hydrated Co2 is okay 3. kidney stones No stone analysis, Last KUB 03/2021 no stones 24h urine shows Too little volume. Drinking fluid Low K, Mg, citrate. Take as much lemonade as you can. Kcitrate causes indigestion so off it for months. Now that she is on PPI she may restart. Take on aday with food and if she tolerates inc to 2 a day after a month Drink plenty of fluid and avoid salty foods. 4. she has crohn's disease but it is under control so is less likely to be a factor than if it was active. she should drink plenty of fluid and avoid salty foods. Plan Fluids, no salty foods Slowly fold in kcit RTC 6 months Assessment/Plan Diagnoses and all orders for this visit: Calculus of kidney Chronic kidney disease, stage 3 (moderate) Acute kidney failure, not otherwise specified Blood Pressure for this visit is 122/60. Follow up plan to address blood pressure is good. Body mass index is 25.85 kg/m??. Follow up plan to address BMI is good. Follow up plan to address depressionis not depressed. Follow up plan to address tobacco use is nonsmoker. documented in this encounter Plan of Treatment Not on file documented as of this encounter Procedures Procedure Name Priority Date/Time Associated Diagnosis Comments TOTAL PROTEIN W/ CREATININE, URINE, RANDOM Routine 09/22/2021 9:51 AM CDT Calculus of kidney Chronic kidney disease, Stage IV (severe) ([facility]) RENAL FUNCTION PANEL (RFP) Routine 09/22/2021 9:51 AM CDT Calculus of kidney Chronic kidney disease, Stage IV (severe) ([facility]) URINALYSIS W/ REFLEX TO MICROSCOPIC Routine 09/22/2021 9:51 AM CDT Calculus of kidney Chronic kidney disease, Stage IV (severe) ([facility]) documented in this encounter Results * (ABNORMAL) Total Protein w/ Creatinine, Urine, Random (09/22/2021 9:51 AM CDT) Creatinine, Urine 147 20 - 275 mg/dL [facility] ([facility]) Protein/Creati nine, Urine 170(H) 21 - 161 mg/g creat [facility] ([facility]) Protein/Creati nine, Urine 0.170(H) 0.021 - 0.161 mg/mg creat [facility] ([facility]) Protein, Urine 25(H) 5 - 24 mg/dL [facility]) 09/22/2021 9:51 AM CDT 09/22/2021 9:52 AM CDT Narrative Resulting Agency Comment Performing Organization Information: ?Site ID: [id number] ?Name: [facility] ?Address: [address] [address] ?Director: Tevin Gonsalez D.O., MPH Justen Manuel MD LAB URINE ORDERABLES [facility] ([facility]) * (ABNORMAL) Urinalysis w/ Reflex to Microscopic (09/22/2021 9:51 AM CDT) Color of Urine YELLOW YELLOW [facility] ([facility]) Appearance of Urine CLEAR CLEAR [facility]) Specific gravity of Urine 1.018 1.001 - 1.035 [facility] ([facility]) pH of Urine 6.0 5.0 - 8.[address] [facility] ([facility]) Glucose, Urine NEGATIVE NEGATIVE [facility]) Bilirubin, total, Urine NEGATIVE NEGATIVE [facility]) Ketones, Urine TRACE(A) NEGATIVE [facility]) Hemoglobin, Urine NEGATIVE NEGATIVE [facility] ([facility]) Protein, Urine TRACE(A) NEGATIVE [facility] ([facility]) Nitrite, Urine NEGATIVE NEGATIVE [facility] ([facility]) Leukocyte esterase, Urine TRACE(A) NEGATIVE [facility]) Leukocytes, Urine sediment NONE SEEN < OR = 5 /HPF [facility] ([facility]) Erythrocytes, Urine sediment NONE SEEN < OR = 2 /HPF [facility] ([facility]) Epithelial cells, squamous, Urine sediment 0-5 < OR = 5 /HPF [facility] ([facility]) Bacteria, Urine sediment NONE SEEN NONE SEEN /HPF [facility] ([facility]) Hyaline casts, Urine sediment NONE SEEN NONE SEEN /LPF [facility] ([facility]) Urine 09/22/2021 9:51 AM CDT 09/22/2021 9:52 AM CDT Narrative Resulting Agency Comment Performing Organization Information: ?Site ID: [id number] ?Name: [facility] ?Address: [facility] [place] [address] ?Director: Tevin Gonsalez D.O., MPH Justen Manuel MD LAB URINE ORDERABLES [facility] ([facility]) * (ABNORMAL) Renal Function Panel (RFP) (09/22/2021 9:51 AM CDT) Glucose, Serum/Plasma 81 65 - 99 mg/dL [facility]) Comment: ? Fasting reference interval Urea nitrogen, Serum/Plasma (BUN) 22 7 - 25 mg/dL [facility] ([facility]) Creatinine, Serum/Plasma 1.66(H) 0.60 - 1.00 mg/dL [facility]) Estimated Glomerular Filtration Rate (eGFR) 31(L) > OR = 60 mL/min/1.7 3m2 [facility]) Comment: The eGFR is based on the CKD-EPI 2020 equation. To calculate the new eGFR from a previous Creatinine or Cystatin C result, go to https://www.kidney.org/professionals/ kdoqi/gfr%5Fcalculator Urea nitrogen/Creati nine, Serum/Plasma 13 6 - 22 (calc) [facility]) Sodium, Serum/Plasma 139 135 - 146 mmol/L [facility] ([facility]) Potassium, Serum/Plasma 3.9 3.5 - 5.3 mmol/L [facility]) Chloride, Serum/Plasma 108 98 - 110 mmol/L [facility] ([facility]) Carbon dioxide CO2), total, Serum/Plasma 22 20 - 32 mmol/L [facility]) Calcium, Serum/Plasma 8.7 8.6 - 10.4 mg/dL [facility]) Phosphate, Serum/Plasma 2.5 2.1 - 4.3 mg/dL [facility]) Albumin, Serum/Plasma 4.1 3.6 - 5.1 g/dL [facility]) Blood 09/22/2021 9:51 AM CDT 09/22/2021 9:52 AM CDT Narrative Resulting Agency Comment Performing Organization Information: ?Site ID: [id number] ?Name: [facility] ?Address: [address] [place] [address] ?Director: Tevin Gonsalez D.O., MPH Justen Manuel MD LAB BLOOD ORDERABLES [facility] ([facility]) documented in this encounter Visit Diagnoses Diagnosis Calculus of kidney- Primary Chronic kidney disease, Stage IV (severe) ([facility]) Chronic kidney disease, Stage IV (severe) documented in this encounter Care Teams Director Of Religious Life Relationship Specialty Start Date End Date Sly Escobar MD [address] [place] [phone] PCP - General Internal Medicine 06/26/18 documented as of this encounter
--- OUTSIDE RECORDS SUMMARY | 2024-03-27 12:03 | XMS_ITS | Encounter Summary ---
Author Organization [facility] Address [address] [place] [address] Phone Care Team Providers Care Superintendent Of Generation Name Role Phone Sly Escobar MD Primary Care Provider [phone] Reason for Visit * Reason Comments Med Refill Encounter Details Date Type Department Care Team (Late st Contact Info) Description 09/06/2019 Refill [facility] Nephrology and Hypertension [address] [facility], [address] [place] [address] Justen Maneul MD [address] [facility], [address] [facility] [place] [address] Social History Tobacco Use Types Packs/Day Years [...] on filedocumented in this encounter Care Teams Superintendent Of Generation Relationship Specialty Start Date End Date Sly Escobar MD [address] [place] [address] PCP - General Internal Medicine 06/26/18 documented as of this encounter
--- OUTSIDE RECORDS SUMMARY | 2024-03-27 12:03 | XMS_ITS | Encounter Summary ---
Author Organization [facility] Address [address], [place] [address] Phone Care Team Providers Care Front Counter Clerk Name Role Phone Sly Escobar MD Primary Care Provider [phone] Encounter Details Date Type Department Care Team (Late st Contact Info) Description 09/28/2021 10:45 AM CDT Office Visit [facility] Nephrology and Hypertension [address] [place] [address], [address] [place] [address] Justen Manuel MD [address] [facility], [address] [place] [address] Calculus of kidney (Primary Dx); Chronic kidney [...] Sign Reading Time Taken Comments Blood Pressure 118/80 09/28/2021 10:44 AM CDT Pulse 72 09/28/2021 10:44 AM CDT Temperature 35.9 ??C (96.6 ??F) 09/28/2021 10:44 AM C DT Respiratory Rate - - Oxygen Saturation - - Inhaled Oxygen Concentration - - Weight 58.1 kg (128 lb) 09/28/2021 10:44 AM CDT Height 149.9 cm (4' 11 ) 09/28/2021 10:44 AM CDT Body Mass Index 25.85 09/28/2021 10:44 AM CDT documented in this encounter Progress Notes * Justen Manuel MD - 09/28/2021 10:45 AM CDT Paula Hitchcock is a pleasant 80 y.o.female. Mrs. Hitchcock is a 77-year-old, female here for kidney stones and ckd 3 No more kidney stones in years Urinating well Avoiding excess protein by taste. to get a colonoscopy soon Has some allergies. No more kidney stones. Still drinking lots of fluid. kcit causes gerd Mag causes diarrhea. Has [...] above Urologic: Negative except as above BP 118/80 Pulse 72 Temp 96.6 ??F (35.9 ??C) Ht 4' 11 (1.499 m) Wt 128 lb (58.1 kg) BMI 25.85 kg/m?? BSA 1.56 m?? WDWN female in NAD Skin No rash or sq nodules Head NCAT Neck No nodes, No TMG Lungs Clear to ausc Cor RRR no rub or gallop Abd BS+ nontender and soft. Ext No edema, Psyche normal not depressed or anxious Recent Labs: 12/13/17 Cr 1.6 06/14/18 Cr 1.6, egfr 31, DODIE low, Hb 11.9, 12/12/18 Hb 11, Cr 1.8, gfr 27, PTH 56, Vit d 26, LDL 89, HDL 60, Trig 384, alt 8 Lab Results Component Value Date SPECGRAVUR 1.018 09/22/2021 PHUR 6.0 09/22/2021 GLUCOSEUR NEGATIVE 09/22/2021 BILIRUBINUR NEGATIVE 09/22/2021 KETONESUR TRACE (A) 09/22/2021 HGBUR NEGATIVE 09/22/2021 PROTUR TRACE (A) 09/22/2021 PROTUR 25 (H) 09/22/2021 NITRITEUR NEGATIVE 09/22/2021 WBCUR NONE SEEN 09/22/2021 RBCUR NONE SEEN 09/22/2021 EPICELLSUR 0-5 09/22/2021 Lab Results Component Value Date BUN 22 09/22/2021 CREATININE 1.66 (H) 09/22/2021 EGFRAA 32 (L) 03/22/2021 EGFRAA 37 (L) 09/22/2020 EGFRAA 33 (L) 03/27/2020 EGFR 31 (L) 09/22/2021 EGFR 27 (L) 03/22/2021 EGFR 32 (L) 09/22/2020 NA 139 09/22/2021 K 3.9 09/22/2021 CL 108 09/22/2021 CO2 22 09/22/2021 CA 8.7 09/22/2021 PHOSPHATE 2.5 09/22/2021 MG 1.9 03/27/2020 ALBUMIN 4.1 09/22/2021 GLUCOSE 81 09/22/2021 PROTCREATUR 170 (H) 09/22/2021 PROTCREATUR 0.170 (H) 09/22/2021 PTH 34 03/22/2021 VITD3 24 (L) 09/21/2019 WBC 8.7 03/22/2021 HGB 12.3 03/22/2021 PLT 188 03/22/2021 Lab Results Component Value Date AKKTAQ46 1.37 (L) 03/26/2021 PH24 5.7 03/26/2021 [id number] 29 03/26/2021 URIC24 0.79 03/26/2021 URIC24 153 03/26/2021 PAEYIPT71 40 (L) 03/26/2021 NA24 93 03/26/2021 PHOS24 400 03/26/2021 MG24 21 (L) 03/26/2021 K24 23 03/26/2021 [id number] 1.08 03/26/2021 BRUS24 0.17 03/26/2021 URNSCT76 0.48 03/26/2021 Lab Results Component Value Date URATE 5.1 03/22/2021 Imaging 01/22/18 KUB bilateral stones, fewer on the right than the last KUB 10/01/2019 KUB no stones seen 1/10/22 KUB negative Impression: 1. SANDRO due to obstruction. No more stent. Doing well without one. 2. CKD stage 3. Stable gfr due to one small kidney To preserve renal function: Use MARIANA/ARB No DM nor proteinuria so will follow without this Control bp good Control Cholesterol per pcp Check PTH/Vit D. Continue to take 2 vit d daily Low protein diet Avoid NSAIDs. She doesn't take this. Stay well hydrated Co2 is okay 3. [...] salty foods. Plan Fluids, no salty foods KUB next visit RTC 6 months Assessment/Plan Diagnoses and all orders for this visit: Calculus of kidney Chronic kidney disease, stage 3 (moderate) Acute kidney failure, not otherwise specified Blood Pressure for this visit is 118/80. Follow up plan to address blood pressure is good. Body mass index is 25.85 kg/m??. Follow up plan to address BMI is good. Follow up plan to address depressionis not depressed. Follow up plan to address tobacco use is nonsmoker. documented in this encounter Plan of Treatment Scheduled Orders Name Type Priority Associated Diagnoses Orde r Schedule Renal Function Panel (RFP) Lab Routine Calculus of kidney Chronic kidney disease, Stage IV (severe) ([facility]) 1 Occurrences starting 09/28/2021 until 09/28/2022 Uric Acid, Serum Lab Routine Calculus of kidney Chronic kidney disease, Stage IV (severe) ([facility]) 1 Occurrences starting 09/28/2021 until 09/28/2022 Urinalysis w/ Reflex to Microscopic Lab Routine Calculus of kidney Chronic kidney disease, Stage IV (severe) ([facility]) 1 Occurrences starting 09/28/2021 until 09/28/2022 X-ray abdomen 1 view Imaging Routine Calculus of kidney Chronic kidney disease, Stage IV (severe) ([facility]) Expected: 09/28/2021, Expires: 09/28/2022 Total Protein w/ Creatinine, Urine, Random Lab Routine Calculus of kidney Chronic kidney disease, Stage IV (severe) ([facility]) 1 Occurrences starting 09/28/2021 until 09/28/2022 CBC (includes Differential/Platelets) Lab Routine Calculus of kidney Chronic kidney disease, Stage IV (severe) ([facility]) 1 Occurrences starting 09/28/2021 until 09/28/2022 PTH Intact w/o Calcium, Serum Lab Routine Calculus of kidney Chronic kidney disease, Stage IV (severe) ([facility]) 1 Occurrences starting 09/28/2021 until 09/28/2022 documented as of this encounter Visit Diagnoses Diagnosis Calculus of kidney- Primary Chronic kidney disease, Stage IV (severe) ([facility]) Chronic kidney disease, Stage IV (severe) documented in this encounter Care Teams Front Counter Clerk Relationship Specialty Start Date End Date Sly Escobar MD [address] [place] [address] PCP - General Internal Medicine 06/26/18 documented as of this encounter
--- OUTSIDE RECORDS SUMMARY | 2024-03-27 12:03 | XMS_ITS | Encounter Summary ---
Author Organization [facility] Address [address] [address] Phone Care Team Providers Care Configuration Management Administrator Name Role Phone Sly Escobar MD Primary Care Provider [phone] Encounter Details Date Type Department Care Team (Late st Contact Info) Description 04/02/2020 1:30 PM MANAGER WEB Office Visit [facility] Nephrology and Hypertension [address] [place] [address], [address] [place] [address] Justen Manuel MD [address] [facility], [address] [place] [address] Calculus of kidney (Primary Dx); Chronic kidney [...] Sign Reading Time Taken Comments Blood Pressure 118/62 04/02/2020 1:36 PM MANAGER WEB Pulse 72 04/02/2020 1:36 PM MANAGER WEB Temperature 36.1 ??C (97 ??F) 04/02/2020 1:36 PM MANAGER WEB Respiratory Rate - - Oxygen Saturation - - Inhaled Oxygen Concentration - - Weight 57.6 kg (127 lb) 04/02/2020 1:36 PM MANAGER WEB Height 149.9 cm (4' 11 ) 04/02/2020 1:36 PM MANAGER WEB Body Mass Index 25.65 04/02/2020 1:36 PM MANAGER WEB documented in this encounter Progress Notes * Justen Manuel MD - 04/02/2020 1:30 PM CST Paula Hitchcock is a pleasant 79 y.o.female. Mrs. Hitchcock is a 77-year-old, female here for kidney stones and ckd 3 No more kidney stones in years Urinating fine. Avoiding excess protein by taste. Has some flank pain. Caused by a flank heernia and saw a surgeon and he said leave it alone. If it continues to bother her she will go to [facility]. Feels okay now. one poorly functioning kidney. She has no hypertension. no heart ds nor cva. Crohns is in remission for years. Past Hx: crohn's disease, anemia, anxiety, osteopenia, kidney stones ROS Constitutional: Negative except as above Skin: Negative except as above Pulmonary: Negative except as above Urologic: Negative except as above BP 118/62 Pulse 72 Temp 97 ??F (36.1 ??C) Ht 4' 11 (1.499 m) Wt 127 lb (57.6 kg) BMI 25.65 kg/m?? BSA 1.55 m?? WDWN female in NAD Skin No [...] Results Component Value Date BUN 29 (H) 03/27/2020 CREATININE 1.68 (H) 03/27/2020 EGFRAA 33 (L) 03/27/2020 EGFRAA 32 (L) 09/21/2019 EGFRAA 31 (L) 06/28/2018 EGFR 29 (L) 03/27/2020 EGFR 28 (L) 09/21/2019 EGFR 27 (L) 06/28/2018 NA 140 03/27/2020 K 4.4 03/27/2020 CL 102 03/27/2020 CO2 27 03/27/2020 CA 9.0 03/27/2020 PHOSPHATE 4.1 03/27/2020 MG 1.9 03/27/2020 ALBUMIN 4.0 03/27/2020 GLUCOSE 155 (H) 03/27/2020 PROTCREATUR 87 09/21/2019 PROTCREATUR 0.087 09/21/2019 PTH 62 09/21/2019 VITD3 24 (L) 09/21/2019 HGB 10.3 (L) 12/14/2017 Lab Results Component Value Date [id number] 0.64 (L) 09/24/2019 PH24 5.5 09/24/2019 [id number] 15 09/24/2019 URIC24 1.22 09/24/2019 URIC24 82 09/24/2019 CQZCLIF27 19 (L) 09/24/2019 NA24 29 09/24/2019 PHOS24 328 09/24/2019 MG24 33 (L) 09/24/2019 K24 10 (L) 09/24/2019 WVDDZUPBE60 1.12 09/24/2019 BRUS24 0.22 09/24/2019 EEUZJY05 0.31 09/24/2019 Imaging 01/22/18 KUB bilateral stones, fewer on the right than the last KUB 10/01/2019 KUB no stones seen Impression: 1. SANDRO due to obstruction. No more stent. Doing well without one. 2. CKD stage 3. Stable gfr To preserve renal function: Use MARIANA/ARB No DM nor proteinuria so will follow without this Control bp good Control Cholesterol per pcp Check PTH/Vit D. Continue to take 2 vit d dailiy Low protein diet Avoid NSAIDs Stay well hydrated Co2 is okay 3. kidney stones No stone analysis, Last KUB 09/2019 no stones 24h urine shows Too little volume. Drink fluid Low K, Mg, citrate. Take as much lemonade as you can. On mg supplement Repeat 24h urine is pending On Kcitrate and water and avoiding salty foods Drink plenty of fluid and avoid salty foods. 4. she has crohn's disease but it is under control so is less likely to be a factor than if it was active. she should drink plenty of fluid and avoid salty foods. Plan Fluids, no salty foods Same meds RTC 6 months Assessment/Plan Diagnoses and all orders for this visit: Calculus of kidney Chronic kidney disease, stage 3 (moderate) Acute kidney failure, not otherwise specified Blood Pressure for this visit is 118/62. Follow up plan to address blood pressure is good. Body mass index is 25.65 kg/m??. Follow up plan to address BMI is good. Follow up plan to address depressionis not depressed. Follow up plan to address tobacco use is nonsmoker. documented in this encounter Plan of Treatment Scheduled Orders Name Type Priority Associated Diagnoses Orde r Schedule CBC (includes Differential/Platelets ) Lab Routine Chronic kidney disease, Stage IV (severe) ([facility]) 1 Occurrences starting 04/02/2020 until 04/02/2021 PTH Intact w/o Calcium, Serum Lab Routine Chronic kidney disease, Stage IV (severe) ([facility]) 1 Occurrences starting 04/02/2020 until 04/02/2021 Renal Function Panel (RFP) Lab Routine Chronic kidney disease, Stage IV (severe) ([facility]) 1 Occurrences starting 04/02/2020 until 04/02/2021 Total Protein w/ Creatinine, Urine, Random Lab Routine Chronic kidney disease, Stage IV (severe) ([facility]) 1 Occurrences starting 04/02/2020 until 04/02/2021 documented as of this encounter Procedures Procedure Name Priority Date/Time Associated Diagnosis Comments TOTAL PROTEIN W/ CREATININE, URINE, RANDOM Routine 09/22/2020 12:45 PM CDT Chronic kidney disease, Stage IV (severe) ([facility]) CBC (INCLUDES DIFFERENTIAL/PLATEL ETS) Routine 09/22/2020 12:45 PM CDT Chronic kidney disease, Stage IV (severe) ([facility]) RENAL FUNCTION PANEL (RFP) Routine 09/22/2020 12:45 PM CDT Chronic kidney disease, Stage IV (severe) ([facility]) PTH INTACT W/O CALCIUM, SERUM Routine 09/22/2020 12:45 PM CDT Chronic kidney disease, Stage IV (severe) ([facility]) documented in this encounter Results * (ABNORMAL) Total Protein w/ Creatinine, Urine, Random (09/22/2020 12:45 PM CDT) Creatinine, Urine 50 20 - 275 mg/dL [facility] (ST) Protein/Creatin ine, Urine NOTE 21 - 161 mg/g creat [facility] [facility] [place] (ST) Comment: THE PROTEIN VALUE IS LESS THAN 4 MG/DL THEREFORE WE ARE UNABLE TO CALCULATE EXCRETION AND/OR CREATININE RATIO. ?? Protein/Creatin ine, Urine NOTE 0.021 - 0.161 mg/mg creat [facility] (ST) Protein, Urine <4(L) 5 - 24 mg/dL [facility] ([facility]) Comment: Verified by repeat analysis. 09/22/2020 12:4 5 PM CDT 09/22/2020 12:46 PM CDT Narrative Resulting Agency Comment Performing Organization Information: ?Site ID: [place] ?Name: [facility] [place] ?Address: [address] [address] ?Director: Tevin Gonsalez D.O., MPH Justen Manuel MD LAB URINE ORDERABLES [facility] ([facility]) * (ABNORMAL) Renal Function Panel (RFP) (09/22/2020 12:45 PM CDT) Pathologist [facility] Glucose, Serum/Plasma 80 65 - 99 mg/dL [facility] [place] [facility] [place] ([facility]) Comment: ? Fasting reference interval Urea nitrogen, Serum/Plasma (BUN) 28(H) 7 - 25 mg/dL [facility] [place] [facility] [place] ([facility]) Creatinine, Serum/Plasma 1.54(H) 0.60 - 0.93 mg/dL [facility] [place] [facility] [place] (ST) Comment: For patients >49 years of age, the reference limit for Creatinine is approximately 13% higher for people identified as -Israeli. eGFR, non 32(L) > OR = 60 mL/min/1. 73m2 [facility] ([facility]) eGFR, 37(L) > OR = 60 mL/min/1. 73m2 [facility] ([facility]) Urea nitrogen/Creatinin e, Serum/Plasma 18 6 - 22 (calc) [facility] [facility] [place] ([facility]) Sodium, Serum/Plasma 137 135 - 146 mmol/L [facility]) Potassium, Serum/Plasma 4.9 3.5 - 5.3 mmol/L [facility] ([facility]) Chloride, Serum/Plasma 102 98 - 110 mmol/L [facility] ([facility]) Carbon dioxide CO2), total, Serum/Plasma 24 20 - 32 mmol/L [facility] ([facility]) Calcium, Serum/Plasma 9.1 8.6 - 10.4 mg/dL [facility] ([facility]) Phosphate, Serum/Plasma 3.8 2.1 - 4.3 mg/dL [facility] ([facility]) Albumin, Serum/Plasma 3.8 3.6 - 5.1 g/dL [facility] (ST) Blood 09/22/2020 12:4 5 PM CDT 09/22/2020 12:46 PM CDT Narrative Resulting Agency Comment Performing Organization Information: ?Site ID: [place] ?Name: [facility] ?Address: [address] [place] [address] [place] [address] ?Director: Tevin Gonsalez D.O., MPH Justen Manuel MD LAB BLOOD ORDERABLES [facility] (ST) * PTH Intact w/o Calcium, Serum (09/22/2020 12:45 PM CDT) PTH, Intact, Serum/Plasma 42 14 - 64 pg/mL [facility] ([facility]) Comment: Interpretive Guide ?Intact PTH ? Calcium ? ------- Normal Parathyroid ?Normal ? Normal Hypoparathyroidism ?Low or Low Normal ?Low Hyperparathyroidism ?? Primary ?Normal or High ? High ?? Secondary ?High ? Normal or Low ?? Tertiary ? High ? High Non-Parathyroid ?? Hypercalcemia ?Low or Low Normal ?High Blood 09/22/2020 12:4 5 PM CDT 09/22/2020 12:46 PM CDT Narrative Resulting Agency Comment Performing Organization Information: ?Site ID: [place] ?Name: [facility] ?Address: [address] [facility] [place] [address] ?Director: Tevin Gonsalez D.O., MPH Justen Manuel MD LAB BLOOD ORDERABLES [facility] [place] ([facility]) * CBC (includes Differential/Platelets) (09/22/2020 12:45 PM CDT) Leukocytes, Blood 8.1 3.8 - 10.8 Thousand/u L [facility] ([facility]) Erythrocytes (RBC) 3.94 3.80 - 5.10 Million/uL [facility] ([facility]) Hemoglobin (HGB) 11.8 11.7 - 15.5 g/dL [facility] ([facility]) Hematocrit (HCT) 35.5 35.0 - 45.0 % [facility] ([facility]) MCV 90.1 80.0 - 100.[address] [facility] ([facility]) MCH 29.9 27.0 - 33.[address] [facility] ([facility]) MCHC 33.2 32.0 - 36.0 g/dL [facility] ([facility]) Erythrocyte Distribution Width (RDW) 13.0 11.0 - 15.0 % [facility] ([facility]) Platelets, Blood 181 140 - 400 Thousand/u L [facility] ([facility]) Platelet mean volume, Blood 9.3 7.5 - 12.[address] [facility] ([facility]) Neutrophils, Blood 4,366 1,500 - 7,800 cells/uL [facility]) Lymphocytes, Blood 2,811 850 - 3,900 cells/uL [facility]) Monocytes, Blood 567 200 - 950 cells/uL [facility]) Eosinophils, Blood 259 15 - 500 cells/uL [facility]) Basophils, Blood 97 0 - 200 cells/uL [facility]) Neutrophils/100 leukocytes, Blood 53.9 % [facility]) Lymphocytes/100 leukocytes, Blood 34.7 % [facility]) Monocytes/100 leukocytes, Blood 7.0 % [facility]) Eosinophils/100 leukocytes, Blood 3.2 % [facility]) Basophils/100 leukocytes, Blood 1.2 % [facility]) Blood 09/22/2020 12:4 5 PM CDT 09/22/2020 12:46 PM CDT Narrative Resulting Agency Comment Performing Organization Information: ?Site ID: [place] ?Name: [facility] ?Address: [address] [address] ?Director: Tevin Gonsalez D.O., MPH Jsuten Manuel MD LAB BLOOD ORDERABLES [facility] ([facility]) documented in this encounter Visit Diagnoses Diagnosis Calculus of kidney- Primary Chronic kidney disease, Stage IV (severe) ([facility]) Chronic kidney disease, Stage IV (severe) documented in this encounter Care Teams Configuration Management Administrator Relationship Specialty Start Date End Date Sly Escobar MD [address] [place] [address] PCP - General Internal Medicine 06/26/18 documented as of this encounter
--- OUTSIDE RECORDS SUMMARY | 2024-03-27 12:03 | XMS_ITS | Encounter Summary ---
Author Organization [facility] Jay[facility] utilatoya Address [address], [place] [address] Phone Care Team Providers Care Drawing Box Tender Name Role Phone Sly Escobar MD Primary Care Provider [phone] Encounter Details Date Type Department Care Team (Late st Contact Info) Description 10/01/2020 11:45 AM CDT Office Visit [facility] Nephrology and Hypertension [address] [place] [address], [address] [place] [address] Justen Manuel MD [address] [facility], [address] [place] [address] Gastroesophageal reflux disease (Primary Dx); Acute kidney failure, not otherwise specified (CMS-HCC); Calculus of kidney; Chronic kidney disease, Stage IV (severe) (CMS-HCC) [...] Sign Reading Time Taken Comments Blood Pressure 108/70 10/01/2020 11:53 AM CDT Pulse 72 10/01/2020 11:53 AM CDT Temperature 35.4 ??C (95.8 ??F) 10/01/2020 11:53 AM C DT Respiratory Rate - - Oxygen Saturation - - Inhaled Oxygen Concentration - - Weight 57.6 kg (127 lb) 10/01/2020 11:53 AM CDT Height 149.9 cm (4' 11 ) 10/01/2020 11:53 AM CDT Body Mass Index 25.65 10/01/2020 11:53 AM CDT documented in this encounter Progress Notes * Justen Manuel MD - 10/01/2020 11:45 AM CDT Paula Hitchcock is a pleasant 79 y.o.female. Mrs. Hitchcock is a 77-year-old, female here for kidney stones and ckd 3 No more kidney stones in years Urinating fine. Avoiding excess protein by taste. kcit causes gerd Mag causes diarrhea one poorly functioning kidney. She has no hypertension. no heart ds nor cva. Crohns is in remission for years. Just dxd with left flank hernia. Past Hx: crohn's disease, anemia, anxiety, osteopenia, kidney stones ROS Constitutional: Negative except as above Skin: Negative except as above Pulmonary: Negative except as above Urologic: Negative except as above BP 108/70 Pulse 72 Temp 95.8 ??F (35.4 ??C) Ht 4' 11 (1.499 m) Wt [...] 8 Lab Results Component Value Date SPECGRAVUR 1.019 03/27/2020 PHUR 6.0 03/27/2020 GLUCOSEUR NEGATIVE 03/27/2020 BILIRUBINUR NEGATIVE 03/27/2020 KETONESUR NEGATIVE 03/27/2020 HGBUR NEGATIVE 03/27/2020 PROTUR <4 (L) 09/22/2020 NITRITEUR NEGATIVE 03/27/2020 WBCUR NONE SEEN 06/28/2018 RBCUR NONE SEEN 06/28/2018 EPICELLSUR NONE SEEN 06/28/2018 Lab Results Component Value Date BUN 28 (H) 09/22/2020 CREATININE 1.54 (H) 09/22/2020 EGFRAA 37 (L) 09/22/2020 EGFRAA 33 (L) 03/27/2020 EGFRAA 32 (L) 09/21/2019 EGFR 32 (L) 09/22/2020 EGFR 29 (L) 03/27/2020 EGFR 28 (L) 09/21/2019 NA 137 09/22/2020 K 4.9 09/22/2020 CL 102 09/22/2020 CO2 24 09/22/2020 CA 9.1 09/22/2020 PHOSPHATE 3.8 09/22/2020 MG 1.9 03/27/2020 ALBUMIN 3.8 09/22/2020 GLUCOSE 80 09/22/2020 PROTCREATUR NOTE 09/22/2020 PROTCREATUR NOTE 09/22/2020 PTH 42 09/22/2020 VITD3 24 (L) 09/21/2019 WBC 8.1 09/22/2020 HGB 11.8 09/22/2020 PLT 181 09/22/2020 Lab Results Component Value Date AGIMRA21 1.28 (L) 03/28/2020 PH24 7.0 03/28/2020 SPJYCCK45 11 03/28/2020 URIC24 0.05 03/28/2020 URIC24 120 03/28/2020 FZISAQG03 167 (L) 03/28/2020 NA24 97 03/28/2020 PHOS24 340 03/28/2020 MG24 61 03/28/2020 K24 37 03/28/2020 NVWVDDCKS65 0.37 03/28/2020 BRUS24 0.96 03/28/2020 SMOIFJ52 0.64 03/28/2020 Lab Results Component Value Date URATE 5.1 03/27/2020 Imaging 01/22/18 KUB bilateral stones, fewer on [...] Take as much lemonade as you can. Hold mg for a week and restart once a day and titrate up as tolerated to 1 bid. If still has gerd after adjusting mg then consider decreasing the kcit On Kcitrate and water and avoiding salty foods Drink plenty of fluid and avoid salty foods. 4. she has crohn's disease but it is under control so is less likely to be a factor than if it was active. she should drink plenty of fluid and avoid salty foods. Plan Fluids, no salty foods Hold mg for a week and then restart at lower dose if diarhea goes away. If not see GI. Call if kcit still causes gerd after addressing magnesium KUB, 24h urines next visit. RTC 6 months Assessment/Plan Diagnoses and all orders for this visit: Calculus of kidney Chronic kidney disease, stage 3 (moderate) Acute kidney failure, not otherwise specified Blood Pressure for this visit is 108/70. Follow up plan to address blood pressure is good. Body mass index is 25.65 kg/m??. Follow up plan to address BMI is good. Follow up plan to address depressionis not depressed. Follow up plan to address tobacco use is nonsmoker. documented in this encounter Plan of Treatment Scheduled Orders Name Type Priority Associated Diagnoses Orde r Schedule PTH Intact w/o Calcium, Serum Lab Routine Chronic kidney disease, Stage IV (severe) ([facility]) 1 Occurrences starting 10/01/2020 until 10/01/2021 CBC (includes Differential/Platelet s) Lab Routine Chronic kidney disease, Stage IV (severe) ([facility]) 1 Occurrences starting 10/01/2020 until 10/01/2021 documented as of this encounter Procedures Procedure Name Priority Date/Time Associated Diagnosis Comments URORISK?? DIAGNOSTIC PROFILE Routine 03/26/2021 10:01 AM PHYSICAL TESTING SUPERVISOR Calculus of kidney CBC (INCLUDES DIFFERENTIAL/PLATELE TS) Routine 03/22/2021 11:00 PM PHYSICAL TESTING SUPERVISOR RENAL FUNCTION PANEL (RFP) Routine 03/22/2021 11:00 PM PHYSICAL TESTING SUPERVISOR Calculus of kidney URINALYSIS W/ REFLEX TO MICROSCOPIC Routine 03/22/2021 11:00 PM PHYSICAL TESTING SUPERVISOR Calculus of kidney URIC ACID, SERUM Routine 03/22/2021 11:0 0 PM PHYSICAL TESTING SUPERVISOR Calculus of kidney PTH INTACT W/O CALCIUM, SERUM Routine 03/22/2021 11:00 PM PHYSICAL TESTING SUPERVISOR documented in this encounter Results * (ABNORMAL) UroRisk?? Diagnostic Profile (03/26/2021 10:01 AM PHYSICAL TESTING SUPERVISOR) Volume of 24 hour Urine 1.37(L) >2.00 L/day [facility] ([facility]) Comment:See Note 1 pH of 24 hour Urine 5.7 5.5 - 7.[address] [facility] ([facility]) Calcium, 24 hour Urine 39 <250.0 mg/day [facility]) Comment:See Note 1 Oxalate, 24 hour Urine 29 <45 mg/day [facility] ([facility]) Comment:See Note 1 Urate, 24 hour Urine 153 <700 mg/day [facility] ([facility]) Comment:See Note 1 Citrate, 24 hour Urine 40(L) >320 mg/day [facility] ([facility]) Comment:See Note 1 Sodium, 24 hour Urine 93 <200 mEq/day [facility] ([facility]) Comment:See Note 1 Sulfate, 24 hour Urine 6 <30 mmol/day [facility] ([facility]) Comment:See Note 1 Phosphate, 24 hour Urine 400 <1,100 mg/day [facility] ([facility]) Comment:See Note 1 Magnesium, 24 hour Urine 21(L) >60.0 mg/day [facility] ([facility]) Comment:See Note 1 Potassium, 24 hour Urine 23 19 - 135 mEq/day [facility] ([facility]) Comment:See Note 1 Creatinine, 24 hour Urine 582(L) 600 - 1,800 mg/day [facility] ([facility]) Comment:See Note 1 Calcium oxalate index, 24 hour Urine 1.08 <2.[address] [facility] ([facility]) Calcium hydrogen phosphate dihydrate, 24 hour Urine 0.17 <2.[address] [facility]) Sodium urate, 24 hour Urine 0.48 <2.[address] [facility]) Urate, 24 hour Urine 0.79 <2.[address] [facility]) Patient history Hypocitraturia Low urine volume [facility]) Comment: ? This patient has a Citrate value [...] program used to calculate ?? supersaturations. ?? 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 ([facility]) Comment: Note 1 This test was developed and its analytical performance characteristics have been determined by [facility]. It has not been cleared or approved by the FDA. This assay has been validated pursuant to the CLIA regulations and is used for clinical purposes. 03/26/2021 10:0 1 AM PHYSICAL TESTING SUPERVISOR 03/26/2021 10:02 AM PHYSICAL TESTING SUPERVISOR Narrative [facility] ([facility]) - 04/01/2021 4:20 PM PHYSICAL TESTING SUPERVISOR SPLIT 03/23/2021 FROM [id number] Resulting Agency Comment Performing Organization Information: ?Site ID: [id number] ?Name: [facility] ?Address: [id number] [place] [id number] ?Director: Chris Tejada M.D. Justen Manuel MD LAB BLOOD ORDERABLES Performing Organization Address [facility] de Phone Number [facility]) * PTH Intact w/o Calcium, Serum (03/22/2021 11:00 PM PHYSICAL TESTING SUPERVISOR) PTH, Intact, Serum/Plasma 34 14 - 64 pg/mL [facility] ([facility]) Comment: Interpretive Guide ?Intact PTH ? Calcium ? ------- Normal Parathyroid ?Normal ? Normal Hypoparathyroidism ?Low or Low Normal ?Low Hyperparathyroidism ?? Primary ?Normal or High ? High ?? Secondary ?High ? Normal or Low ?? Tertiary ? High ? High Non-Parathyroid ?? Hypercalcemia ?Low or Low Normal ?High 03/22/2021 11:0 0 PM PHYSICAL TESTING SUPERVISOR 03/23/2021 10:56 AM PHYSICAL TESTING SUPERVISOR Narrative [facility] ([facility]) - 03/24/2021 1:27 PM PHYSICAL TESTING SUPERVISOR COLLECTION KIT GIVEN TO PATIENT. PATIENT ADVISED TO RETURN. Resulting Agency Comment Performing Organization Information: ?Site ID: [id number] ?Name: [facility] ?Address: [address] [place] [address] ?Director: Tevin Gonsalez D.O., MPH Justen Manuel MD LAB BLOOD ORDERABLES [facility] * CBC (includes Differential/Platelets) (03/22/2021 11:00 PM PHYSICAL TESTING SUPERVISOR) [facility] Leukocytes, Blood 8.7 3.8 - 10.8 Thousand/u L [facility]. [facility] ([facility]) Erythrocytes (RBC) 4.18 3.80 - 5.10 Million/uL [facility] ([facility]) Hemoglobin (HGB) 12.3 11.7 - 15.5 g/dL [facility]. [facility] ([facility]) Hematocrit (HCT) 38.3 35.0 - 45.0 % [facility]. [facility] (ST) MCV 91.6 80.0 - 100.0 fL [facility] (ST) MCH 29.4 27.0 - 33.0 pg [facility] (L) MCHC 32.1 32.0 - 36.0 g/dL [facility] ([facility]) Erythrocyte Distribution Width (RDW) 13.2 11.0 - 15.0 % [facility] ([facility]) Platelets, Blood 188 140 - 400 Thousand/u L [facility] (ST) Platelet mean volume, Blood 9.9 7.5 - 12.5 fL [facility] ([facility]) Neutrophils, Blood 4,881 1,500 - 7,800 cells/uL [facility] (ST) Lymphocytes, Blood 2,749 850 - 3,900 cells/uL [facility] ([facility]) Monocytes, Blood 557 200 - 950 cells/uL [facility] ([facility]) Eosinophils, Blood 374 15 - 500 cells/uL [facility] (ST) Basophils, Blood 139 0 - 200 cells/uL [facility] ([facility]) Neutrophils/100 leukocytes, Blood 56.1 % [facility] ([facility]) Lymphocytes/100 leukocytes, Blood 31.6 % [facility] ([facility]) Monocytes/100 leukocytes, Blood 6.4 % [facility]) Eosinophils/100 leukocytes, Blood 4.3 % [facility]) Basophils/100 leukocytes, Blood 1.6 % [facility] ([facility]) 03/22/2021 11:0 0 PM PHYSICAL TESTING SUPERVISOR 03/23/2021 10:56 AM PHYSICAL TESTING SUPERVISOR Narrative [facility] ([facility]) - 03/24/2021 1:27 PM PHYSICAL TESTING SUPERVISOR COLLECTION KIT GIVEN TO PATIENT. PATIENT ADVISED TO RETURN. Resulting Agency Comment Performing Organization Information: ?Site ID: [id number] ?Name: [facility] ?Address: [facility] [place] [phone] ?Director: Tevin Gonsalez D.O., MPH Justen Manuel MD LAB BLOOD ORDERABLES [facility] ([facility]) * Urinalysis w/ Reflex to Microscopic (03/22/2021 11:00 PM PHYSICAL TESTING SUPERVISOR) Color of Urine YELLOW YELLOW [facility] ([facility]) Appearance of Urine CLEAR CLEAR [facility] ([facility]) Specific gravity of Urine 1.022 1.001 - 1.035 [facility] [...] NEGATIVE [facility] ([facility]) Urine 03/22/2021 11:0 0 PM PHYSICAL TESTING SUPERVISOR 03/23/2021 10:56 AM PHYSICAL TESTING SUPERVISOR [facility]arrative [facility] ([facility]) - 03/24/2021 1:27 PM PHYSICAL TESTING SUPERVISOR COLLECTION KIT GIVEN TO PATIENT. PATIENT ADVISED TO RETURN. Resulting Agency Comment Performing Organization Information: ?Site ID: [id number] ?Name: [facility] ?Address: [address] [place], [place] [address]ner [facility] [place] [address] ?Director: Tevin Gonsalez D.O., MPH Justen Manuel MD LAB URINE ORDERABLES Performing Organization Address [facility] de Phone Number [facility] ([facility]) * Uric Acid, Serum (03/22/2021 11:00 PM PHYSICAL TESTING SUPERVISOR) Urate, Serum/Plasma 5.1 2.5 - 7.0 mg/dL [facility] (ST) Comment: Therapeutic target for gout patients: <6.0 mg/dL ?? Blood 03/22/2021 11:0 0 PM PHYSICAL TESTING SUPERVISOR 03/23/2021 10:56 AM PHYSICAL TESTING SUPERVISOR Narrative [facility] ([facility]) - 03/24/2021 1:27 PM PHYSICAL TESTING SUPERVISOR COLLECTION KIT GIVEN TO PATIENT. PATIENT ADVISED TO RETURN. Resulting Agency Comment Performing Organization Information: ?Site ID: [id number] ?Name: [facility] ?Address: [address] [place] [address] [place] [address] ?Director: Tevin Gonsalez D.O., MPH Justen Manuel MD LAB BLOOD ORDERABLES Performing Organization Address [facility] Co de Phone Number [facility] ([facility]) * (ABNORMAL) Renal Function Panel (RFP) (03/22/2021 11:00 PM PHYSICAL TESTING SUPERVISOR) Glucose, Serum/Plasma 71 65 - 99 mg/dL [facility] ([facility]) Comment: ? Fasting reference interval Urea nitrogen, Serum/Plasma (BUN) 26(H) 7 - 25 mg/dL [facility] ([facility]) Creatinine, Serum/Plasma 1.75(H) 0.60 - 0.93 mg/dL [facility] ([facility]) Comment: For patients >49 years of age, the reference limit for Creatinine is approximately 13% higher for people identified as -Bruneian. eGFR, non 27(L) > OR = 60 mL/min/1. 73m2 [facility] ([facility]) eGFR, 32(L) > OR = 60 mL/min/1. 73m2 [facility] ([facility]) Urea nitrogen/Creatinin e, Serum/Plasma 15 6 - 22 (calc) [facility] ([facility]) Sodium, Serum/Plasma 138 135 - 146 mmol/L [facility] ([facility]) Potassium, Serum/Plasma 4.3 3.5 - 5.3 mmol/L [facility] ([facility]) Chloride, Serum/Plasma 105 98 - 110 mmol/L [facility] (ST) Carbon dioxide CO2), total, Serum/Plasma 24 20 - 32 mmol/L [facility] ([facility]) Calcium, Serum/Plasma 9.2 8.6 - 10.4 mg/dL [facility] ([facility]) Phosphate, Serum/Plasma 3.4 2.1 - 4.3 mg/dL [facility] ([facility]) Albumin, Serum/Plasma 4.3 3.6 - 5.1 g/dL [facility] ([facility]) Blood 03/22/2021 11:0 0 PM PHYSICAL TESTING SUPERVISOR 03/23/2021 10:56 AM PHYSICAL TESTING SUPERVISOR Narrative [facility] ([facility]) - 03/24/2021 1:27 PM PHYSICAL TESTING SUPERVISOR COLLECTION KIT GIVEN TO PATIENT. PATIENT ADVISED TO RETURN. Resulting Agency Comment Performing Organization Information: ?Site ID: [id number] ?Name: [facility] ?Address: [address] [place] [address] ?Director: Tevin Gonsalez D.O., MPH Justen Manuel MD LAB BLOOD ORDERABLES [facility]) documented in this encounter Visit Diagnoses Diagnosis Gastroesophageal reflux disease- Primary Acute kidney failure, not otherwise specified (CMS-HCC) Calculus of kidney Chronic kidney disease, Stage IV (severe) (CMS-HCC) Chronic kidney disease, Stage IV (severe) documented in this encounter Care Teams Drawing Box Tender Relationship Specialty Start Date End Date Sly Escobar MD [address] [place] [address] PCP - General Internal Medicine 06/26/18 documented as of this encounter
--- OUTSIDE RECORDS SUMMARY | 2024-03-27 12:03 | XMS_ITS | Clinical Summary ---
Author Organization [facility] Jay[facility] jolley Address [address] [place] [address] Phone Care Team Providers Care Doorperson Or Luggage Porter Name Role Phone Sly Escobar MD Primary Care Provider [phone] Allergies Active Allergy Reactions Criticality Noted Date Comments Azathioprine Calcitonin Cefaclor Cephalosporins Low 12/27/2018 Other reaction(s): Other (See comments) GI symptoms Clindamycin Quinolones Medications Medication Sig Dispensed Refills Start Date End Date Status ALPRAZolam (XANAX) 0.5 MG tablet as dir prn 0 01/05/2018 Active ferrous sulfate 325 (65 Fe) MG tablet 1 daily 0 01/05/2018 Active famotidine (PEPCID) 20 MG tablet 1 bid 0 01/05/2018 Active citalopram (CeleXA) 20 MG tablet 1 daily 0 01/05/2018 Active Polyvinyl Alcohol (ARTIFICIAL TEARS) 1.4 % solution as dir 0 01/05/2018 Active cholecalciferol (VITAMIN D3 SUPER STRENGTH) 2000 units tablet 1 daily 0 01/05/2018 Active adalimumab (HUMIRA) 40 MG/0.8ML Prefilled Syringe Kit q2wks 0 01/05/2018 Active denosumab (PROLIA) 60 MG/ML solution syringe as dir 0 01/05/2018 Active cyanocobalamin (VITAMIN B-12) 1000 MCG tablet Take 1,000 mcg by mouth daily Active latanoprost (XALATAN) 0.005 % ophthalmic solution INSTILL 1 DROP INTO LEFT EYE AT BEDTIME 09/16/2019 Active Cholecalciferol (VITAMIN D3) 50 MCG (2000 UT) tablet Take 4,000 Units by mouth Active magnesium oxide (MAG-OX) 400 MG tablet Take 1 tablet (400 mg total) by mouth See administration instructions Two in am and one in pm 90 tablet 11 10/18/2019 Active potassium citrate (UROCIT-K) 10 MEQ (1080 MG) CR tablet Take 2 tablets (20 mEq total) by mouth 2 (two) times a day with meals 180 tablet 11 10/18/2019 Active timolol (TIMOPTIC) 0.5 % ophthalmic solution INSTILL ONE DROP INTO THE LEFT EYE TWICE DAILY 08/21/2020 Active pantoprazole (PROTONIX) 20 MG EC tablet Take 20 mg by mouth 1 (one) time each day in the morning 03/04/2021 Active allopurinol (ZYLOPRIM) 100 MG tablet TAKE 1 TABLET(100 MG) BY MOUTH 1 TIME EACH DAY 90 tablet 3 08/17/2021 Active Active Problems Problem Noted Date Diagnosed Date Hernia of abdominal cavity 04/01/2020 Gastroesophageal reflux disease 02/17/2018 Calculus of kidney 01/09/2018 Chronic kidney disease, Stage IV (severe) 2017 Acute kidney failure 01/09/2018 Crohn's disease without complication 01/09/2018 Immunizations Name Administration Dates Next Due Fluzone High-Dose 12/05/2019 Influenza TIV (IM) 11/12/2020,11/12/2018 Pneumococcal Conjugate 11/12/2016 Family History Medical History Relation Comments Kidney disease Neg Hx Kidney stone Neg Hx Social History Tobacco Use Types Packs/Day Years [...] on file Sexual Orientation Not on file Last Filed Vital Signs Vital Sign Reading [...] Mass Index 25.85 09/28/2021 10:44 AM CDT Plan of Treatment Health Maintenance Due Date Last Done Comments Pneumococcal PPSV23/PCV13 65 + Years / High and Highest Risk (1 of 4 - PCV) 12/10/1946 Influenza Vaccine (#1) 2023 11/12/2020, 2018 Care Teams Doorperson Or Luggage Porter Relationship Specialty Start Date End Date Sly Escobar MD [address] [place] [id number] PCP - General Internal Medicine 06/26/18
--- OUTSIDE RECORDS SUMMARY | 2024-03-27 12:04 | XMS_ITS | Encounter Summary ---
Author Organization [facility] Jayla utions Address [address] [place] [address] Phone Care Team Providers Care Ethylene Compressor Operator Name Role Phone Sly Escobar MD Primary Care Provider [phone] Encounter Details Date Type Department Care Team (Late st Contact Info) Description 02/14/2019 Telephone [facility] Nephrology and Hypertension [address] [facility], [address] [place] [address] Justen Manuel MD [address] [facility], [address] [place] [address] Social History Tobacco Use Types Packs/Day Years [...] encounter Miscellaneous Notes * Telephone Encounter - Justen Manuel MD - 02/14/2019 11:43 AM CST Pt has arthritis in her neck. documented in this encounter Plan of Treatment Not on file documented as of this encounter Visit Diagnoses Not on filedocumented in this encounter Care Teams Ethylene Compressor Operator Relationship Specialty Start Date End Date Sly Escobar MD [address] [place] [address] PCP - General Internal Medicine 06/26/18 documented as of this encounter
--- OUTSIDE RECORDS SUMMARY | 2024-03-27 12:04 | XMS_ITS | Encounter Summary ---
Author Organization [facility] Address [address] [place] [address] Phone Care Team Providers Care Ship/Rec/Doc Control Name Role Phone Sly Escobar MD Primary Care Provider [phone] Encounter Details Date Type Department Care Team (Late st Contact Info) Description 07/01/2018 Telephone [facility] Nephrology and Hypertension [address] [facility], [address] [place] [address] Justen Manuel MD [address] [facility], [address] [place] [address] Social History Tobacco Use Types Packs/Day Years [...] Telephone Encounter - Justen Manuel MD - 07/01/2018 1:33 PM CDT Labs stable. Uric is 7.4. Needs allo. Start 100 daily documented in this encounter Plan of Treatment Not on file documented as of this encounter Visit Diagnoses Not on filedocumented in this encounter Care Teams Ship/Rec/Doc Control Relationship Specialty Start Date End Date Sly Escobar MD [address] [place] [address] PCP - General Internal Medicine 06/26/18 documented as of this encounter
--- OUTSIDE RECORDS SUMMARY | 2024-03-27 12:04 | XMS_ITS | Encounter Summary ---
Author Organization [facility] Address [address] [place] [address] Phone Care Team Providers Care Recording Studio Set Up Worker Name Role Phone Sly Escobar MD Primary Care Provider [phone] Encounter Details Date Type Department Care Team (Late st Contact Info) Description 06/28/2018 Orders Only [facility] Nephrology and Hypertension [facility], [address] [facility] [place] [address] Justen Manuel MD [address] [facility], [address] [place] [address] Social History Tobacco Use Types Packs/Day Years [...] Procedure Name Priority Date/Time Associated Diagnosis Comments URINALYSIS, COMPLETE Routine 06/28/2018 12:06 PM CDT RENAL FUNCTION PANEL (RFP) Routine 06/28/2018 12:06 PM CDT URIC ACID, SERUM Routine 06/28/2018 12:0 6 PM CDT PTH INTACT W/O CALCIUM, SERUM Routine 06/28/2018 12:06 PM CDT documented in this encounter Results * PTH Intact w/o Calcium (06/28/2018 12:06 PM CDT) PTH, Intact, Serum/Plasma 33 14 - 64 pg/mL [facility] ([facility]) Comment: Interpretive Guide ?Intact PTH ? Calcium ? ------- Normal Parathyroid ?Normal ? Normal Hypoparathyroidism ?Low or Low Normal ?Low Hyperparathyroidism ?? Primary ?Normal or High ? High ?? Secondary ?High ? Normal or Low ?? Tertiary ? High ? High Non-Parathyroid ?? Hypercalcemia ?Low or Low Normal ?High 06/28/2018 12:0 6 PM CDT 06/28/2018 12:07 PM CDT Narrative [facility] ([facility]) - 06/29/2018 12:28 PM CDT FASTING:NO COLLECTION KIT GIVEN TO PATIENT. PATIENT ADVISED TO RETURN. FASTING: NO Resulting Agency Comment Performing Organization Information: ?Site ID: [id number] ?Name: [facility] ?Address: [address] [facility] [place] [address] ?Director: Tevin Gonsalez D.O., MPH Justen Manuel MD LAB BLOOD ORDERABLES [facility] ([facility]) * Urinalysis, Complete (06/28/2018 12:06 PM CDT) Color of Urine YELLOW YELLOW [facility]) Appearance of Urine CLEAR CLEAR [facility]) Specific gravity of Urine 1.021 1.001 - 1.035 [facility]) pH of Urine 5.5 5.0 - 8.[address] [facility]) Glucose, Urine NEGATIVE NEGATIVE [facility]) Reducing substances, Urine CANCELED NEGATIVE % [facility]) Comment:Result canceled by t he ancillary. Bilirubin, total, Urine NEGATIVE NEGATIVE [facility]) Ketones, Urine NEGATIVE NEGATIVE [facility]) Hemoglobin, Urine NEGATIVE NEGATIVE [facility]) Protein, Urine NEGATIVE NEGATIVE [facility]) Nitrite, Urine NEGATIVE NEGATIVE [facility]) Leukocyte esterase, Urine NEGATIVE NEGATIVE [facility]) Leukocytes, Urine sediment NONE SEEN < OR = 5 /HPF [facility]) Erythrocytes, Urine sediment NONE SEEN < OR = 2 /HPF [facility]) Epithelial cells, squamous, Urine sediment NONE SEEN < OR = 5 /HPF [facility]) Transitional cells, Urine sediment CANCELED < OR = 5 /HPF [facility]) Comment:Result canceled by t he ancillary. Epithelial cells, renal, Urine sediment CANCELED < OR = 3 /HPF [facility]) Comment:Result canceled by t he ancillary. Bacteria, Urine sediment NONE SEEN NONE SEEN /HPF [facility]) Calcium oxalate crystals, Urine sediment CANCELED NONE OR FEW /HPF [facility]) Comment:Result canceled by t he ancillary. Triple phosphate crystals, Urine sediment CANCELED NONE OR FEW /HPF [facility]) Comment:Result canceled by t he ancillary. Urate crystals, Urine sediment CANCELED NONE OR FEW /HPF [facility]) Comment:Result canceled by t he ancillary. Amorphous sediment, Urine sediment CANCELED NONE OR FEW /HPF [facility]) Comment:Result canceled by t he ancillary. Crystals, Urine sediment CANCELED NONE SEEN /HPF [facility]) Comment:Result canceled by t he ancillary. Hyaline casts, Urine sediment NONE SEEN NONE SEEN /LPF [facility]) Granular casts, Urine sediment CANCELED NONE SEEN /LPF [facility]) Comment:Result canceled by t he ancillary. Casts, Urine sediment CANCELED NONE SEEN /LPF [facility]) Comment:Result canceled by t he ancillary. Yeast, Urine sediment CANCELED NONE SEEN /HPF [facility]) Comment:Result canceled by t he ancillary. Service comment [facility]ED [facility]) Comment:Result canceled by t he ancillary. Service comment CANCELED [facility]) Comment:Result canceled by t he ancillary. 06/28/2018 12:0 6 PM CDT 06/28/2018 12:07 PM CDT Narrative [facility] - 06/29/2018 12:28 PM CDT FASTING:NO COLLECTION KIT GIVEN TO PATIENT. PATIENT ADVISED TO RETURN. FASTING: NO Resulting Agency Comment Performing Organization Information: ?Site ID: [place] ?Name: [facility] ?Address: [address] [place] [address] ?Director: Tevin Gonsalez D.O., MPH Justen Manuel MD LAB URINE ORDERABLES [facility]) * (ABNORMAL) Renal Function Panel (06/28/2018 12:06 PM CDT) [facility] Glucose, Serum/Plasma 121 65 - 139 mg/dL [facility] Comment: ? Non-fasting reference interval Urea nitrogen, Serum/Plasma (BUN) 32(H) 7 - 25 mg/dL [facility]) Creatinine, Serum/Plasma 1.82(H) 0.60 - 0.93 mg/dL [facility]) Comment: For patients >49 years of age, the reference limit for Creatinine is approximately 13% higher for people identified as -Norwegian. eGFR, non 27(L) > OR = 60 mL/min/1. 73m2 [facility]) eGFR, 31(L) > OR = 60 mL/min/1. 73m2 [facility]) Urea nitrogen/Creatinin e, Serum/Plasma 18 6 - 22 (calc) [facility] ([facility]) Sodium, Serum/Plasma 139 135 - 146 mmol/L [facility]) Potassium, Serum/Plasma 3.7 3.5 - 5.3 mmol/L [facility]) Chloride, Serum/Plasma 105 98 - 110 mmol/L [facility] ([facility]) Carbon dioxide CO2), total, Serum/Plasma 22 20 - 32 mmol/L [facility]) Calcium, Serum/Plasma 9.1 8.6 - 10.4 mg/dL [facility]) Phosphate, Serum/Plasma 4.0 2.1 - 4.3 mg/dL [facility]) Albumin, Serum/Plasma 4.2 3.6 - 5.1 g/dL [facility]) 06/28/2018 12:0 6 PM CDT 06/28/2018 12:07 PM CDT Narrative [facility] - 06/29/2018 12:28 PM CDT FASTING:NO COLLECTION KIT GIVEN TO PATIENT. PATIENT ADVISED TO RETURN. FASTING: NO Resulting Agency Comment Performing Organization Information: ?Site ID: [place] ?Name: [facility] ?Address: [facility] [place] [address] ?Director: Tevin Gonsalez D.O., MPH Justen Manuel MD LAB BLOOD ORDERABLES Performing Organization Address City/[facility]/ZIP Co de Phone Number [facility] ([facility]) * (ABNORMAL) Uric Acid (06/28/2018 12:06 PM CDT) Urate, Serum/Plasma 7.4(H) 2.5 - 7.0 mg/dL [facility] ([facility]) Comment: Therapeutic target for gout patients: <6.0 mg/dL ?? 06/28/2018 12:0 6 PM CDT 06/28/2018 12:07 PM CDT Narrative [facility] - 06/29/2018 12:28 PM CDT FASTING:NO COLLECTION KIT GIVEN TO PATIENT. PATIENT ADVISED TO RETURN. FASTING: NO Resulting Agency Comment Performing Organization Information: ?Site ID: [place] ?Name: [facility] ?Address: [address] [place] [address] [place] [address] ?Director: Tevin Gonsalez D.O., MPH Justen Manuel MD LAB BLOOD ORDERABLES Performing Organization Address City/[facility]/ZIP Co de Phone Number [facility] ([facility]) documented in this encounter Visit Diagnoses Not on filedocumented in this encounter Care Teams Recording Studio Set Up Worker Relationship Specialty Start Date End Date Sly Escobar MD [address] [place] [phone] PCP - General Internal Medicine 06/26/18 documented as of this encounter
--- OUTSIDE RECORDS SUMMARY | 2024-03-27 12:04 | XMS_ITS | Encounter Summary ---
Author Organization [facility] Address [address] [place] [address] Phone Care Team Providers Care Education And Outreach Coordinator Name Role Phone Sly Escobar MD Primary Care Provider [phone] Reason for Visit * Reason Comments Med Refill Encounter Details Date Type Department Care Team (Late st Contact Info) Description 06/26/2019 Refill [facility] Nephrology and Hypertension [address] [facility], [address] [place] [address] Justen Manuel MD [address] [facility], [address] [place] [address] Social History Tobacco Use Types Packs/Day Years [...] on filedocumented in this encounter Care Teams Education And Outreach Coordinator Relationship Specialty Start Date End Date Sly Escobar MD [address] [place] [address] PCP - General Internal Medicine 06/26/18 documented as of this encounter
--- OUTSIDE RECORDS SUMMARY | 2024-03-27 12:04 | XMS_ITS | Encounter Summary ---
Author Organization [facility] Address [address] [address] Phone Care Team Providers Care Continuum Of Care Manager Name Role Phone Sly Escobar MD Primary Care Provider [phone] Encounter Details Date Type Department Care Team (Late st Contact Info) Description 07/20/2018 Telephone [facility] Nephrology and Hypertension [address] [facility], [address] [place] [address] Justen Manuel MD [address] [facility], [address] [place] [address] Social History Tobacco Use Types Packs/Day Years [...] encounter Miscellaneous Notes * Telephone Encounter - Nely Velázquez - 07/26/2018 10:32 AM CDT I gave the message to the patient. She confirmed that she will drink this every day. T * Telephone Encounter - Justen Manuel MD - 07/25/2018 2:06 PM CDT Please let pt know that potassium citrate is too expensive ($120 every 3 mo) so instead mix: 4oz realemon or fresh squeezed lemon juice + 28oz water + raymond to taste (any sweetener) and drink this every day. * Telephone Encounter - Alondra Manuel - 07/25/2018 12:38 PM CDT LM for pt and mld slip. * Telephone Encounter - Justen Manuel MD - 07/24/2018 11:54 PM CDT Please let the patient know I called the meds in and to get a renal panel in 1-2 weeks. Please maila slip for rfp. Dx N10.0 * Telephone Encounter - Justen Manuel MD - 07/24/2018 11:52 PM CDT Let the patient know I called them in and she should get a renal panel in 1-2 weeks. Please mail a generic slip for this. Dx n20.0 * Telephone Encounter - Nely Velázquez - 07/21/2018 9:30 AM CDT Yes, the patient is taking allopurinol. She called referring to the magnesium citrate and the couple of other medications that you want her to start. Letter of 07/17/18. Pls advise. T * Telephone Encounter - Justen Manuel MD - 07/20/2018 9:18 PM CDT I already sent it in on the . It shoiuld be ready. Is she taking the allopurinol now? * Telephone Encounter - Karolina Manuel - 07/20/2018 1:24 PM CDT Pt called to inform [facility] of her pharmacy so [facility] could rx new meds he suggested in letter sent to pt. Pharmacy on pt chart. Please rx meds. documented in this encounter Plan of Treatment Not on file documented as of this encounter Visit Diagnoses Not on filedocumented in this encounter Care Teams Continuum Of Care Manager Relationship Specialty Start Date End Date Sly Escobar MD [address] [place] [address] PCP - General Internal Medicine 06/26/18 documented as of this encounter
--- OUTSIDE RECORDS SUMMARY | 2024-03-27 12:04 | XMS_ITS | Encounter Summary ---
Author Organization [facility] Address [address], [place] [address] Phone Care Team Providers Care Plastic Card Grader Cardroom Name Role Phone Sly Escobar MD Primary Care Provider [phone] Encounter Details Date Type Department Care Team (Late st Contact Info) Description 12/27/2018 11:00 AM CDT Office Visit [facility] Nephrology and Hypertension [address] [place] [address], [address] [place] [address] Justen Manuel MD [address] [facility], [address] [place] [address] Chronic kidney disease, stage 3 (moderate) (CMS-HCC) (Primary Dx); Calculus of kidney Social History Tobacco Use Types Packs/Day Years [...] Sign Reading Time Taken Comments Blood Pressure 112/72 12/27/2018 11:17 AM CDT Pulse 84 12/27/2018 11:17 AM CDT Temperature 36.9 ??C (98.5 ??F) 12/27/2018 11:17 AM C DT Respiratory Rate - - Oxygen Saturation - - Inhaled Oxygen Concentration - - Weight 58.5 kg (129 lb) 12/27/2018 11:17 AM CDT Height 149.9 cm (4' 11 ) 12/27/2018 11:17 AM CDT Body Mass Index 26.05 12/27/2018 11:17 AM CDT documented in this encounter Progress Notes * Justen Manuel MD - 12/27/2018 11:00 AM CDT Paula Hitchcock is a pleasant 78 y.o.female. Mrs. Hitchcock is a 77-year-old, female here for kidney stones. Feels okay now. one poorly functioning kidney. She has no hypertension. no heart ds nor cva. Past Hx: crohn's disease, anemia, anxiety, osteopenia, kidney stones ROS Constitutional: Negative except as above Skin: Negative except as above Pulmonary: Negative except as above Urologic: Negative except as above BP 112/72 Pulse 84 Temp 98.5 ??F (36.9 ??C) Ht 4' 11 (1.499 m) Wt 129 lb (58.5 kg) BMI 26.05 kg/m?? BSA 1.56 m?? WDWN female in NAD Skin No rash Head NCAT Neck No nodes, No TMG Lungs Clear to Auscultation Cor RRR no rub or gallop Abd BS+ nontender and soft. Ext No edema, Psyche normal not depressed or anxious Recent Labs: 12/13/17 Cr 1.6 06/14/18 Cr 1.6, egfr 31, DODIE low, Hb 11.9, 12/12/18 Hb 11, Cr 1.8, gfr 27, PTH 56, Vit d 26, LDL 89, HDL 60, Trig 384, alt 8 Lab Results Component Value Date EGFR 27 (L) 06/28/2018 CREATININE 1.82 (H) 06/28/2018 GLUCOSE 121 06/28/2018 PTH 33 06/28/2018 BUN 32 (H) 06/28/2018 NA 139 06/28/2018 K 3.7 06/28/2018 CL 105 06/28/2018 CO2 22 06/28/2018 ALBUMIN 4.2 06/28/2018 CA 9.1 06/28/2018 01/22/18 KUB bilateral stones, fewer on the right than the last KUB Impression: 1. SANDRO due to obstruction. No more stent. Doing well without one. 2 kidney stones no recent 24h urines. Will check these next visit. Check kub soon doenst tolerate juice or Kcit. Drink plenty of fluid and avoid salty foods. 3. she has crohn's disease but it is under control so is less likely to be a factor than if it was active. she should drink plenty of fluid and avoid salty foods. Plan 24h urines KUB Plenty of fluid Avoid salty foods RTC 6months Assessment/Plan Diagnoses and all orders for this visit: Calculus of kidney Chronic kidney disease, stage 3 (moderate) Acute kidney failure, not otherwise specified Blood Pressure for this visit is 112/72. Follow up plan to address blood pressure is good. Body mass index is 26.05 kg/m??. Follow up plan to address BMI is good. Follow up plan to address depressionis not depressed. Follow up plan to address tobacco use is nonsmoker. documented in this encounter Plan of Treatment Not on file documented as of this encounter Visit Diagnoses Diagnosis Chronic kidney disease, stage 3 (moderate)- Primary Calculus of kidney documented in this encounter Care Teams Plastic Card Grader Cardroom Relationship Specialty Start Date End Date Sly Escobar MD [address] [place] [address] PCP - General Internal Medicine 06/26/18 documented as of this encounter
--- OUTSIDE RECORDS SUMMARY | 2024-03-27 12:04 | XMS_ITS | Encounter Summary ---
Author Organization [facility] Address [address] [place] [address] Phone Care Team Providers Care Hvac Residential Service Technician Name Role Phone Unavailable Primary Care Provider Unavailabl e Encounter Details Date Type Department Care Team (Late st Contact Info) Description 12/14/2017 Legacy Encounter - Labs [facility] [address] [place] [address] Justen Manuel MD [address] [facility] [place] [id number] [place] [address] Social History Tobacco Use Types Packs/Day Years Used Date Smoking Tobacco: Never Assessed Sex and Gender Information Value Date Recorded Sex Assigned at Not on file Gender Identity Not on file Sexual Orientation Not on file documented as of this encounter Plan of Treatment Not on file documented as of this encounter Procedures Procedure Name Priority Date/Time Associated Diagnosis Comments MANUALLY ENTERED ORDER Routine 12/14/2017 12:00 AM CDT documented in this encounter Results * (ABNORMAL) Manually Entered Order (12/14/2017 12:00 AM CDT) Creatinine 1.8(H) 0.5 - 1.3 EXTERNAL LAB (NON-INTERFAC ED) Estimated Glomerular Filtration Rate (eGFR) 27(L) 60 - 100 EXTERNAL LAB (NON-INTERFAC ED) HEMOGLOBIN 10.3(L) 12 - 16 EXTERNAL LAB (NON-INTERFAC ED) 12/14/2017 Justen Manuel MD LAB BLOOD ORDERABLES EXTERNAL LAB (NON-INTERFACED) documented in this encounter Visit Diagnoses Not on filedocumented in this encounter
--- OUTSIDE RECORDS SUMMARY | 2024-03-27 12:04 | XMS_ITS | Encounter Summary ---
Author Organization [facility] Address [address] [place] [address] Phone Care Team Providers Care Program Management Specialist Name Role Phone Sly Escobar MD Primary Care Provider [phone] Encounter Details Date Type Department Care Team (Late st Contact Info) Description 07/07/2018 Telephone [facility] Nephrology and Hypertension [address] [facility], [address] [address] Justen Manuel MD [address] [facility], [address] [address] Social History Tobacco Use Types Packs/Day Years [...] * Telephone Encounter - Nely Velázquez - 07/07/2018 11:59 AM CDT The patient received your letter about starting allopurinol. Please order it through [facility] in [place], phone: [phone]. She dropped off her 24-hour urine sample at [facility] yesterday. A documented in this encounter Plan of Treatment Not on file documented as of this encounter Visit Diagnoses Not on filedocumented in this encounter Care Teams Program Management Specialist Relationship Specialty Start Date End Date Sly Escobar MD [address] [place] [address] PCP - General Internal Medicine 06/26/18 documented as of this encounter
--- OUTSIDE RECORDS SUMMARY | 2024-03-27 12:04 | XMS_ITS | Encounter Summary ---
Author Organization [facility] Address [facility] [address] [address] Phone Care Team Providers Care Forensic Investigator Name Role Phone Sly Escobar MD Primary Care Provider [phone] Encounter Details Date Type Department Care Team (Late st Contact Info) Description 07/06/2018 Orders Only [facility] Nephrology and Hypertension [address] [facility], [address] [facility] [place] [address] Justen Manuel MD [address] [facility], [address] [place] [address] Social History Tobacco Use Types Packs/Day Years [...] Associated Diagnosis Comments URORISK?? DIAGNOSTIC PROFILE Routine 07/06/2018 9:45 AM CDT documented in this encounter Results * (ABNORMAL) UroRisk?? Diagnostic Profile (07/06/2018 9:45 AM CDT) Volume of 24 hour Urine 1.51(L) >2.00 L/day [facility]) pH of 24 hour Urine 5.8 5.5 - 7.[address] [facility]) Calcium, 24 hour Urine 40 <250 mg/day [facility]) Oxalate, 24 hour Urine 36 <45 mg/day [facility]) Urate, 24 hour Urine 219 <700 mg/day [facility]) Citrate, 24 hour Urine 45(L) >320 mg/day [facility]) Sodium, 24 hour Urine 105 <200 mEq/day [facility]) Sulfate, 24 hour Urine 9 <30 mmol/da y [facility]) Phosphate, 24 hour Urine 522 <1,100 mg/day [facility]) Magnesium, 24 hour Urine 19(L) >60 mg/day [facility]) Potassium, 24 hour Urine 25 19 - 135 mEq/day [facility]) Creatinine, 24 hour Urine 670 600 - 1,800 mg/day [facility]) Calcium oxalate index, 24 hour Urine 1.10 <2.[address] [facility]) Calcium hydrogen phosphate dihydrate, 24 hour Urine 0.21 <2.[address] [facility]) Sodium urate, 24 hour Urine 0.68 <2.[address] [facility]) Urate, 24 hour Urine 0.87 <2.[address] [facility]) Patient history See Below [facility] - [facility] Comment: Hypocitraturia Low urine volume SUPERSATURATION INDEX WITH RESPECT TO: CANCELED [facility] Comment:Result canceled by ayla esposito. 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) Comment: Graphical report will follow under separate cover. This test was developed and its analytical performance characteristics have been determined by [facility]. It has not been cleared or approved by the US Food and Drug Administration. This assay has been validated pursuant to the CLIA regulations and is used for clinical purposes. This patient has a citrate value of less than 27.3 mg/L, which is the lowest functional sensitivity of the assay. Please note that, in order to generate a graphic results report in this case, a citrate value of 27.3 mg/L was used, because an entry of 'less than 27.3 mg/L (<27.3)' is not understood by the program used to calculate supersaturations. This patient has a Magnesium value of less than 12.5 mg/L, which is the lowest functional sensitivity of the assay. Please note that, in order to generate a graphic results report in this case, a Magnesium value of 12.5 mg/L was used, because an entry of 'less than 12.5 mg/L (<12.5)' is not understood by the program used to calculate supersaturations. Service comment CANCELED [facility] - [facility] Comment:Result canceled by ayla esposito. 07/06/2018 9:45 AM CDT 07/07/2018 9:43 AM CDT Narrative [facility] - 07/14/2018 7:49 AM CDT SPLIT 06/28/2018 FROM [id number] Resulting Agency Comment Performing Organization Information: ?Site ID: [id number] ?Name: [facility] ?Address: [address] [place] [id number] ?Director: Parker Morales M.D., Ph.D Justen Manuel MD LAB BLOOD ORDERABLES [facility] documented in this encounter Visit Diagnoses Not on filedocumented in this encounter Care Teams Forensic Investigator Relationship Specialty Start Date End Date Sly Escobar MD [address] [place] [phone] PCP - General Internal Medicine 06/26/18 documented as of this encounter
--- OUTSIDE RECORDS SUMMARY | 2024-03-27 12:04 | XMS_ITS | Encounter Summary ---
Author Organization [facility] Address [address] [address] Phone Care Team Providers Care Physically Impaired Teacher Name Role Phone Sly Escobar MD Primary Care Provider [phone] Encounter Details Date Type Department Care Team (Late st Contact Info) Description 01/26/2019 Telephone [facility] Nephrology and Hypertension [address] [facility], [address] [facility] [place] [address] Hayley Hart MD [address] [facility], [address] [place], [place] [id number] Social History Tobacco Use Types Packs/Day Years [...] encounter Miscellaneous Notes * Telephone Encounter - Hayley Hart MD - 01/26/2019 9:17 PM CST I do not see it in my messages or Dr. Manuel memos/messages --if they call again, let me know which medication it is and I can seen e-prescribe myself * Telephone Encounter - Adrian Vela - 01/26/2019 10:59 AM CST Pt went to [facility] for script refill . Told them we only escribe. Please check computer for pts refill request documented in this encounter Plan of Treatment Not on file documented as of this encounter Visit Diagnoses Not on filedocumented in this encounter Care Teams Physically Impaired Teacher Relationship Specialty Start Date End Date Sly Escobar MD [address] [place] [address] PCP - General Internal Medicine 06/26/18 documented as of this encounter
--- OUTSIDE RECORDS SUMMARY | 2024-03-27 12:04 | XMS_ITS | Encounter Summary ---
Author Organization [facility] Address [address], [place] [address] Phone Care Team Providers Care Art Therapist Name Role Phone Sly Escobar MD Primary Care Provider [phone] Encounter Details Date Type Department Care Team (Late st Contact Info) Description 06/26/2018 2:30 PM CDT Office Visit [facility] Nephrology and Hypertension [address] [place] [address], [address] [place] [address] Justen Manuel MD [address] [facility], [address] [place] [address] Calculus of kidney (Primary Dx); Chronic kidney disease, stage 3 (moderate); Acute kidney failure, not otherwise specified (CMS-HCC) Social History Tobacco Use Types Packs/Day [...] Sign Reading Time Taken Comments Blood Pressure 118/70 06/26/2018 2:45 PM CDT Pulse 60 06/26/2018 2:45 PM CDT Temperature 35.6 ??C (96.1 ??F) 06/26/2018 2:45 PM CD T Respiratory Rate - - Oxygen Saturation - - Inhaled Oxygen Concentration - - Weight 56.7 kg (125 lb) 06/26/2018 2:45 PM CDT Height 149.9 cm (4' 11 ) 06/26/2018 2:45 PM CDT Body Mass Index 25.25 06/26/2018 2:45 PM CDT documented in this encounter Progress Notes * Justen Manuel MD - 06/26/2018 2:30 PM CDT Paula Hitchcock is a pleasant 77 y.o.female. Mrs. Hitchcock is a 77-year-old, Unknown female who was in the hospital for deric. very high K and creat due to kidney stone. Feels okay now. one poorly functioning kidney anyway and the good other one was blocked. stent placed and improved. Now stent is out and urinating okay. No stones in the ureteral system she says. No recent xrays. She has no hypertension. no heart ds nor cva. Past Hx: crohn's disease, anemia, anxiety, osteopenia, kidney stones Review of Systems Respiratory: Negative for shortness of breath. Gastrointestinal: Negative for abdominal pain. Genitourinary: Negative for dysuria, frequency and hematuria. Objective BP 118/70 Pulse 60 Temp 96.1 ??F (35.6 ??C) Ht 4' 11 (1.499 m) Wt 125 lb (56.7 kg) BMI 25.25 kg/m?? BSA 1.54 m?? Physical Exam Constitutional: She is oriented to person, place, and time. She appears well- developed and well-nourished. No distress. HENT: Head: Normocephalic and atraumatic. Eyes: Conjunctivae are normal. Pupils are equal, round, and reactive to light. Neck: Normal range of motion. No thyromegaly present. Cardiovascular: Normal rate and regular rhythm. Exam reveals no gallop and no friction rub. Pulmonary/Chest: Effort normal and breath sounds normal. She has no rales. Abdominal: Soft. Bowel sounds are normal. There is no tenderness. Musculoskeletal: She exhibits no edema. Lymphadenopathy: She has no cervical adenopathy. Neurological: She is alert and oriented to person, place, and time. Skin: Skin is warm and dry. No rash noted. Psychiatric: She has a normal mood and affect. Recent Labs: 12/13/17 Cr 1.6 06/14/18 Cr 1.6, egfr 31, DODIE low, Hb 11.9, No results found for: EGFR, CREATININE, CREATININEUR, PROTEINUR, PROTCREATU, CHOL, LDL, HDL, TRIG, GLUCOSE, PTH, HCT, BUN, NA, K, CL, CO2, ALBUMIN, CA, URICACID Impression: 1. DERIC due to obstruction. No more stent. Doing well without one. 2 kidney stones nbo recent 24h urines. Will check these soon. Check kub next visit she has crohn's disease but it is under control so is less likely to be a factor than if it was active. she should drink plenty of fluid and avoid salty foods. Plan 24h urines Plenty of fluid Avoid salty foods RTC 6months Assessment/Plan Diagnoses and all orders for this visit: Calculus of kidney Chronic kidney disease, stage 3 (moderate) Acute kidney failure, not otherwise specified Blood Pressure for this visit is 118/70. Follow up plan to address blood pressure is good. Body mass index is 25.25 kg/m??. Follow up plan to address BMI is good. Follow up plan to address depressionis not depressed. Follow up plan to address tobacco use is nonsmoker. documented in this encounter Plan of Treatment Not on file documented as of this encounter Visit Diagnoses Diagnosis Calculus of kidney- Primary Chronic kidney disease, stage 3 (moderate) Acute kidney failure, not otherwise specified (CMS-HCC) documented in this encounter Care Teams Art Therapist Relationship Specialty Start Date End Date Sly Escobar MD [address] [place] [address] PCP - General Internal Medicine 06/26/18 documented as of this encounter
--- OUTSIDE RECORDS SUMMARY | 2024-03-27 12:04 | XMS_ITS | Encounter Summary ---
Author Organization [facility] Address [address] [place] [address] Phone Care Team Providers Care Case Technician Name Role Phone Sly Escobar MD Primary Care Provider [phone] Encounter Details Date Type Department Care Team (Late st Contact Info) Description 01/29/[address] [facility] Nephrology and Hypertension [address] [facility], [address] [facility] [place] [address] Justen Manuel MD [address] [facility], [address] [place] [address] Social History Tobacco Use Types Packs/Day Years [...] on filedocumented in this encounter Care Teams Case Technician Relationship Specialty Start Date End Date Sly Escobar MD [address] [place] [place] [address] PCP - General Internal Medicine 06/26/18 documented as of this encounter
--- OUTSIDE RECORDS SUMMARY | 2024-03-27 12:04 | XMS_ITS | Encounter Summary ---
Author Organization [facility] Address [address] [address] Phone Care Team Providers Care Usps Letter Carrier Name Role Phone Sly Escobar MD Primary Care Provider [phone] Encounter Details Date Type Department Care Team (Late st Contact Info) Description 06/21/[address] [facility] Nephrology and Hypertension [address] [facility], [address] [place] [address] Alondra Manuel MA Social History Tobacco Use [...] Telephone Encounter - Justen Manuel MD - 06/23/2019 10:03 PM CDT Before next v isit * Telephone Encounter - Alondra Manuel MA - 06/21/2019 9:52 AM CDT Pt would like to resched her 4-20 appt. She does not have smart phone. Should she do labs now or before next appt? documented in this encounter Plan of Treatment Not on file documented as of this encounter Visit Diagnoses Not on filedocumented in this encounter Care Teams Usps Letter Carrier Relationship Specialty Start Date End Date Sly Escobar MD [address] [place] [address] PCP - General Internal Medicine 06/26/18 documented as of this encounter
--- OUTSIDE RECORDS SUMMARY | 2024-03-27 12:05 | XMS_ITS | Clinical Summary ---
Author Organization [facility] Address [address] [place] [address]. [place], [place] [address] [place] [address] Care Team Providers Care Household Appliance Assembler Name Role Phone Unavailable Primary Care Provider Unavailabl e Social History Tobacco Use Types Packs/Day Years Used Date Smoking Tobacco: Never Assessed Comments Unknown Sex and Gender Information Value Date Recorded Sex Assigned at Not on file Legal Sex Female 7:32 PM CDT Gender Identity Not on file Sexual Orientation Not on file Plan of Treatment Health Maintenance Due Date Last Done Comments DTaP, Tdap and Td Vaccines ( 1 - Tdap) 1960 Zoster Vaccines (1 of 2) 12/10/1991 Dexa Scan (General) 2006 Pneumococcal Vaccine: 65+ Ye ars (1 of 1 - PCV) 2006 RSV Immunization or 60+ Years (1 - 1-dose 75+ series) 2016 COVID-19 Vaccine (2023-2 5 season) 2023 Influenza Adult (#1) 2023 Meningococcal Vaccine Aged Out No asuncion stephon eligible based on patient's age to complete this topic RSV Immunizations Under 20 Months Aged Out No longer eligible based on patient's age to complete this topic
--- OUTSIDE RECORDS SUMMARY | 2024-03-27 12:06 | XMS_ITS | Encounter Summary ---
Author Organization [facility] Address [address] [place] [address]. [place] [address] [place] [address] Care Team Providers Care [place] Program Coordinator Name Role Phone Unavailable Primary Care Provider Unavailabl e Encounter Details Date Type Department Care Team (Late st Contact Info) Description 03/24/2016 [facility] One Day Services [address] [place] [address] Gabino Hook MD [address] 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
--- OUTSIDE RECORDS SUMMARY | 2024-03-27 12:07 | XMS_ITS | Continuity of Care Document ---
Author Organization [facility] Address [address] [place] [address] [address] [place] [address] Phone Care Team Providers Care Debubblizer Name Role Phone Maggy Hoyt Unavailable Unavailable Procedures Procedure Date Office/outpatient Visit, Est Advance Directives Directive Yes / No Effective Date File Name No Information Encounters Encounter Description Practice Location Reason(s) For Visit Diagnoses Date Provider Providers Copied on Encounter Office/outpat ient Visit, Est [facility], [address] [place] [address] [address], [place], [place], [id number], tel:[phone] [facility] No Information 6-200 [address] Maggy. [address] , [address], [place], [address], [place]. tel:[phone] Family History Family Member Type Diagnosis Age At Onset No Information Payers Payer name Insurance type Covered republican ID Authorchristya gurmeet(s) [facility] CI [id number] Social History Type Description Quantity Date Captured Comments Sex Female Smoking Status No Information Chief Complaint And Reason For Visit No Information Reason For Referral Reason For Referral No Information History Of Present Illness Encounter Date Complaint History Of Prese nt Illness No Information Functional Status Date Functional Assessmen t No Information Instructions Date Instruction Additional Infor mation No Information Assessments Type Assessment Date No Information Patient Care Teams Name Effective Dates (start - stop) Status Members No Information
--- OUTSIDE RECORDS SUMMARY | 2024-03-27 12:07 | XMS_ITS | Encounter Summary ---
Author Organization [facility] Address [address] [place] [address] Care Team Providers Care In Home Nanny Name Role Phone Tobias Escobar MD Primary Care Provider [phone] Encounter Details Date Type Department Care Team (Late st Contact Info) Description 04/08/2018 Documentation [facility] Case Management [address] [place] [address] Rosemary Edward RN Social History Tobacco Use Types Packs/Day Years Used Date Smoking Tobacco: Former Cigarettes 1 36.9 1 962 - 01/26/1998 Smokeless Tobacco: Never Alcohol Use Standard Drinks/Week Comments Yes 1 (1 standard drink = 0.6 oz pur e alcohol) Comments No Sex and Gender Information Value Date Recorded Sex Assigned at Not on file Legal Sex Female 2:14 AM GRADES 9 THROUGH 12 TEACHER Gender Identity Not on file Sexual Orientation Not on file documented as of this encounter Plan of Treatment Not on file documented as of this encounter Visit Diagnoses Not on filedocumented in this encounter Care Teams In Home Nanny Relationship Specialty Start Date End Date Tobias Escobar MD [address] [place] [address] PCP - General 11/28/17 documented as of this encounter
--- OUTSIDE RECORDS SUMMARY | 2024-03-27 12:07 | XMS_ITS | Encounter Summary ---
Author Organization [facility] Address [address] [place] [address] Phone Care Team Providers Care Vmware Systems Administrator Name Role Phone Tobias Escobar MD Primary Care Provider [phone] Encounter Details Date Type Department Care Team (Late st Contact Info) Description 03/31/2018 [facility] Advanced Medicine [facility]) - [facility] Urology [address] [place] [address] Advanced Medicine 11th [place] [address] [place] [address] Keesha Mejia Social History Tobacco Use Types Packs/Day Years Used Date Smoking Tobacco: Former Cigarettes 1 36.9 1 962 - 01/26/1998 Smokeless Tobacco: Never Alcohol Use Standard Drinks/Week Comments Yes 1 (1 standard drink = 0.6 oz pur e alcohol) Comments Unknown Sex and Gender Information Value Date Recorded Sex Assigned at Not on file Legal Sex Female 2:14 AM AUTOMOTIVE SALES MANAGER Gender Identity Not on file Sexual Orientation Not on file documented as of this encounter Miscellaneous Notes * Telephone Encounter - Keesha Mejia - 03/31/2018 8:48 AM CST Vi from CPAP - Urine contaminated if need repeat we need to contact PT MOTIVE SALES MANAGER documented in this encounter Plan of Treatment Not on file documented as of this encounter Visit Diagnoses Not on filedocumented in this encounter Care Teams Vmware Systems Administrator Relationship Specialty Start Date End Date Tobias Escobar MD [address] [place], [facility] PCP - General 11/28/17 documented as of this encounter
--- OUTSIDE RECORDS SUMMARY | 2024-03-27 12:07 | XMS_ITS | Encounter Summary ---
Author Organization [facility] Address [address] [place] [address] Care Team Providers Care Yard Cleaner Name Role Phone Tobias Escobar MD Primary Care Provider [phone] Encounter Details Date Type Department Care Team (Late st Contact Info) Description 02/17/2018 Orders Only [facility] - Interventional Radiology [address] [place] [address] Mariann Burroughs RN Social History Tobacco Use Types Packs/Day Years Used Date Smoking Tobacco: Former Cigarettes Q uit: 01/26/1998 Smokeless Tobacco: Never Alcohol Use Standard Drinks/Week Comments Yes 0 (1 standard drink = 0.6 oz pur e alcohol) Occasional wine Comments Unknown Sex and Gender Information Value Date Recorded Sex Assigned at Not on file Legal Sex Female 2:14 AM AIR TESTER Gender Identity Not on file Sexual Orientation Not on file documented as of this encounter Plan of Treatment Not on file documented as of this encounter Visit Diagnoses Not on filedocumented in this encounter Care Teams Yard Cleaner Relationship Specialty Start Date End Date Tobias Escobar MD [address] [place] [address] PCP - General 11/28/17 documented as of this encounter
--- OUTSIDE RECORDS SUMMARY | 2024-03-27 12:07 | XMS_ITS | Encounter Summary ---
Author Organization [facility] Address [address] [place] [address] Phone Care Team Providers Care Assembler C[employer]pillar Spider Name Role Phone Tobias Escobar MD Primary Care Provider [phone] Reason for Visit * Reason Comments Urolithiasis discuss urgery-films in [facility] * Consultation (Routine) - Closed Specialty Diagnoses / Procedures Referred By Sami chew Referred To Contact Urology Diagnoses Kidney calculus Aquiles Castillo MD Phone: tel: fax: [facility] Advanced Medicine ([facility]) - [facility] Urology [address] [place] [address] [address] [place] [address] Phone: tel: fax: Referral ID Status Reason Start Date Expiration Date V isits Requested Visits Authorized [id number] Closed Specialty Services Required 02/23/2018 09/04/2019 99 99 Encounter Details Date Type Department Care Team (Late st Contact Info) Description 03/22/2018 10:30 AM BUSINESS SERVICES MANAGER Office Visit [facility] Advanced Medicine ([facility]) - [facility] Urology [address] [place] [address] [address]th [place] [address] Silverio Roblero MD [address] [facility] [id number] [place] [address] Left ureteral stone (Primary Dx); Kidney calculus Social History Tobacco Use Types Packs/Day Years Used Date Smoking Tobacco: Former Cigarettes Q uit: 01/26/1998 Smokeless Tobacco: Never Alcohol Use Standard Drinks/Week Comments Yes 0 (1 standard drink = 0.6 oz pur e alcohol) Occasional wine Comments Unknown Sex and Gender Information Value Date Recorded Sex Assigned at Not on file Legal Sex Female 2:14 AM BUSINESS SERVICES MANAGER Gender Identity Not on file Sexual Orientation Not on file documented as of this encounter Last Filed Vital Signs Vital Sign Reading Time Taken Comments Blood Pressure 140/72 03/22/2018 10:11 AM BUSINESS SERVICES MANAGER Pulse 63 03/22/2018 10:11 AM BUSINESS SERVICES MANAGER Temperature - - Respiratory Rate - - Oxygen Saturation - - Inhaled Oxygen Concentration - - Weight 56.7 kg (125 lb) 03/22/2018 10:11 AM BUSINESS SERVICES MANAGER Height 149.9 cm (4' 11 ) 03/22/2018 10:11 AM BUSINESS SERVICES MANAGER Body Mass Index 25.25 03/22/2018 10:11 AM BUSINESS SERVICES MANAGER documented in this encounter Patient Instructions * Patient Instructions* Silverio Roblero MD - 03/22/2018 10:30 AM BUSINESS SERVICES MANAGER Please call Kaya at [phone] to schedule surgery. NESS SERVICES MANAGER documented in this encounter Progress Notes * Silverio Roblero MD - 03/22/2018 10:30 AM CST Subjective/Objective Patient ID: Paula Hitchcock is a 77 y.o. female. Chief Complaint Urolithiasis (discuss urgery-films in [facility]) I have been requested to see this patient by Dr. Aquiles Castillo to discuss a retroperitoneal laparoscopic left nephrectomy. The patient has a poorly functioning obstructed left kidney. She also has a history of Crohn's disease with several prior abdominal procedures including placement of mesh. She is here with her family. She currently has a nephrostomy tube draining the left kidney. Imaging has shown bilateral urolithiasis. Renal scan estimates the contribution from the left kidney at 13%. Review of Systems Constitutional: Negative for chills, fever and unexpected weight change. Respiratory: Negative for shortness of breath. Gastrointestinal: Negative for abdominal distention, abdominal pain, nausea and vomiting. Genitourinary: Negative for difficulty urinating, dysuria, flank pain, frequency, hematuria and urgency. Physical Exam Constitutional: She is oriented to person, place, and time. She appears well- developed and well-nourished. Eyes: Pupils are equal, round, and reactive to light. She is blind in her right eye. Neck: Normal range of motion. Pulmonary/Chest: Effort normal. No respiratory distress. Musculoskeletal: Normal range of motion. Neurological: She is alert and oriented to person, place, and time. Skin: Skin is warm and dry. Psychiatric: She has a normal mood and affect. I reviewed her CT scan and nuclear medicine renal scan today. I agree with the radiologist's reports. Assessment/Plan Diagnoses and all orders for this visit: Left ureteral stone (N20.1) (Primary) - POCT urinalysis dipstick Kidney calculus (N20.0) - Ambulatory referral to Urology - POCT urinalysis dipstick Poorly functioning left kidney with stones. We reviewed the usual expectations surrounding left retroperitoneal laparoscopic nephrectomy. We will plan to schedule this here in the near future. NESS SERVICES MANAGER documented in this encounter Miscellaneous Notes * Addendum Note - Denver Chow CLT - 03/22/2018 10:30 AM CSTAddended by: DENVER CHOW on: 03/22/2018 01:40 PM Modules accepted: Orders NESS SERVICES MANAGER documented in this encounter Plan of Treatment Not on file documented as of this encounter Procedures Procedure Name Priority Date/Time Associated Diagnosis Comments POCT URINALYSIS DIPSTICK Routine 03/22/2018 10:26 AM BUSINESS SERVICES MANAGER Left ureteral stone Kidney calculus documented in this encounter Results * Urine culture Urine, clean voided (03/22/2018 10:48 AM BUSINESS SERVICES MANAGER) Report Final Report: No growth [facility] Urine, clean voided 03/22/2018 10:48 AM BUSINESS SERVICES MANAGER 03/22/2018 1:57 PM BUSINESS SERVICES MANAGER Narrative [facility] - 03/23/2018 2:39 PM BUSINESS SERVICES MANAGER Testing performed by [facility] ([phone]) us Silverio Roblero MD LAB MICROBIOLOGY - GENERA L ORDERABLES Final Result [facility] Department [place] [address] * POCT urinalysis dipstick (03/22/2018 10:26 AM BUSINESS SERVICES MANAGER) Glucose, ur, POC Negative Negative mg/dL Ketones, ur, POC Negative Negative Blood, ur, POC Negative Negative pH, ur, POC 5.0 5.0 - 8.0 Protein, ur, POC Negative Negative Nitrite, ur, POC Negative Negative Leukocytes, ur, POC Negative Negative Lot Number 0 Urine 03/22/2018 10:2 6 AM BUSINESS SERVICES MANAGER us Silverio Roblero MD POINT OF CARE TEST ORDERA BLES Final Result documented in this encounter Visit Diagnoses Diagnosis Left ureteral stone- Primary Kidney calculus Calculus of kidney Left ureteral stone Kidney calculus Calculus of kidney documented in this encounter Orders Outpatient Referral Count Last Ordered Date Fir st Ordered Date AMB REFERRAL TO UROLOGY 1 03/22/2018 documented in this encounter Care Teams Assembler Caterpillar Spider Relationship Specialty Start Date End Date Tobias Escobar MD [address] [place] [address] PCP - General 11/28/17 documented as of this encounter
--- OUTSIDE RECORDS SUMMARY | 2024-03-27 12:07 | XMS_ITS | Encounter Summary ---
Author Organization [facility] Address [address] [place] [address] Care Team Providers Care Tariff Publishing Agent Name Role Phone Tobias Escobar MD Primary Care Provider [phone] Reason for Visit * Reason Comments Consult Encounter Details Date Type Department Care Team (Late st Contact Info) Description 04/01/2020 10:00 AM LEVEL VIAL INSPECTOR AND TESTER Office Visit [facility] [address] [place] [address] Denis Carty MD [address] [place] [address] Hernia of flank (Primary Dx) Social History Tobacco Use Types Packs/Day Years Used Date Smoking Tobacco: Former Cigarettes 1 36.9 1 962 - 01/26/1998 Smokeless Tobacco: Never Alcohol Use Standard Drinks/Week Comments Yes 1 (1 standard drink = 0.6 oz pur e alcohol) Comments No Sex and Gender Information Value Date Recorded Sex Assigned at Not on file Legal Sex Female 2:14 AM LEVEL VIAL INSPECTOR AND TESTER Gender Identity Not on file Sexual Orientation Not on file documented as of this encounter Last Filed Vital Signs Vital Sign Reading Time Taken Comments Blood Pressure - - Pulse - - Temperature - - Respiratory Rate - - Oxygen Saturation - - Inhaled Oxygen Concentration - - Weight 56.7 kg (125 lb) 04/01/2020 10:15 AM LEVEL VIAL INSPECTOR AND TESTER Height 147.3 cm (4' 10 ) 04/01/2020 10:15 AM LEVEL VIAL INSPECTOR AND TESTER Body Mass Index 26.13 04/01/2020 10:15 AM LEVEL VIAL INSPECTOR AND TESTER documented in this encounter Progress Notes * Denis Carty MD - 04/01/2020 10:00 AM CST Subjective: Patient Name: Paula Hitchcock Date of Visit: 04/01/20 PCP: Tobias Escobar MD Referred by: Jeb Miguel MD HPI: Paula Hitchcock is a 79 y.o. female referred for evaluation of a left flank hernia. She had a laparoscopic left nephrectomy a couple years ago at [facility]. She has also had multiple previous abdominal surgeries for Crohn's disease at [facility]. She has no discomfort with her left flank bulge. Denies chest pain, shortness of breath, cough, fever, chills, nausea, emesis, changes in her bowel habits, changes in her urinary habits. Past Medical History: Diagnosis Date ??? Anemia ??? Arthritis ??? 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 Cataract ??? Crohn disease (CMS/HCC) ??? Delayed emergence from general anesthesia 2001 delayed emergence after bowel resection with ureteral injury in 2001 at [facility] ??? GERD (gastroesophageal reflux disease) ??? Glaucoma ??? Left ureteral stone 02/17/2018 ??? Sepsis (CMS/HCC) Past Surgical History: Procedure Laterality Date ??? BLADDER SURGERY 2006 ??? BOWEL RESECTION 1992, 2001, 2006 ??? CATARACT EXTRACTION, BILATERAL Left 2015 ??? SECTION 1966, 1968 ??? COLOSTOMY 1992 ??? EXTRACORPOREAL SHOCK WAVE LITHOTRIPSY ??? HERNIA REPAIR 2001 ??? LAPAROSCOPIC COLON RESECTION 11/07/2008 ex lap, lysis of adhesions, ileocolic resection, repair of enterotomies ??? LITHOTRIPSY 2016 ??? NEPHROSTOGRAM THROUGH EXISTING CATHETER LEFT Left 02/17/2018 ??? NEPHROSTOMY Left 2017 ??? RETINAL DETACHMENT SURGERY ??? RETINAL DETACHMENT SURGERY 1973 ??? REVISION / TAKEDOWN COLOSTOMY 1993 ??? URETER REVISION ??? URETER SURGERY 2001 ??? URETERAL STENT PLACEMENT Current Outpatient Medications: ??? acetaminophen (TYLENOL) 500 mg tablet, Take 500 mg by mouth every 6 (six) hours as needed for pain., Disp: , Rfl: ??? adalimumab (adalimumab) 40 mg/0.8 mL pen injector kit, 40 mg. Every other Tuesday , Disp: , Rfl: ??? ALPRAZolam (XANAX) 0.5 mg tablet, Take 0.5 mg by mouth nightly. , Disp: , Rfl: ??? ARTIFICIAL TEARS,HYPROMELLOSE, OPHT, Administer 1 drop into the right eye daily as needed., Disp: , Rfl: ??? bimatoprost (LUMIGAN) 0.01 % ophthalmic drops, Administer 1 drop into the left eye nightly. , Disp: , Rfl: ??? cholecalciferol (VITAMIN D-3) 1,000 unit tablet, Take 1,000 Units by mouth pearl technician beforebreakfast., Disp: , Rfl: ??? citalopram (CeleXA) 20 mg tablet, Take 20 mg by mouth pearl technician before breakfast., Disp: , Rfl: ??? cyanocobalamin (Vitamin B-12) 1,000 mcg tablet, Take 1,000 mcg by mouth pearl technician before breakfast., Disp: , Rfl: ??? denosumab (PROLIA) 60 mg/mL syringe, Inject under the skin once. Twice a year, Disp: , Rfl: ??? famotidine (PEPCID) 20 mg tablet, Take 20 mg by mouth 2 (two) times a day. , Disp: , Rfl: ??? ferrous sulfate 325 mg (65 mg of elemental iron) tablet, Take 65 mg of elemental iron by mouth pearl technician before breakfast., Disp: , Rfl: ??? HYDROcodone-acetaminophen (NORCO) 5-325 mg per tablet, Take 1 tablet by mouth every 6 (six) hours as needed (severe pain). (Patient not taking: Reported on 05/05/2018 ), Disp: 10 tablet, Rfl: 0 ??? ondansetron (ZOFRAN) 4 mg tablet, Take 4 mg by mouth every 8 (eight) hours as needed for nauseaor vomiting., Disp: , Rfl: ??? timolol (BETIMOL) 0.5 % ophthalmic solution, Administer 1 drop into the left eye 2 (two) times a day. , Disp: , Rfl: Allergies as of 04/01/2020 - Reviewed 04/01/2020 Allergen Reaction Noted ??? Imuran [azathioprine] Other (See comments) 02/17/2018 ? ? Cefaclor Nausea & Vomiting ??? Cephalosporins Other (See comments) ??? Clindamycin Vomiting ??? Maxaquin [lomefloxacin] Mental status changes ??? Miacalcin [calcitonin (salmon)] Anxiety and Vomiting Social History Socioeconomic History ??? Marital status: Spouse name: Not on file ??? Number of children: Not on file ??? Years of education: Not on file ??? Highest education level: Not on file Occupational History ??? Not on file Social Needs ??? Financial resource strain: Not on file ??? Food insecurity Worry: Not on file Inability: Not on file ??? Transportation needs Medical: Not on file Non-medical: Not on file Tobacco Use ??? Smoking status: Former Smoker Packs/day: 1.00 Start date: 1961 Quit date: 01/26/1998 Years since quittin.1 ??? Smokeless tobacco: Never Used Substance and Sexual Activity ??? Alcohol use: Yes Alcohol/week: 1.0 standard drinks Types: 1 Standard drinks or equivalent per week ??? Drug use: No ??? Sexual activity: Not on file Lifestyle ??? Physical activity Days per week: Not on file Minutes per session: Not on file ??? Stress: Not on file Relationships ??? Social connections Talks on phone: Not on file Gets together: Not on file Attends jehovah's witness service: Not on file Active member of club or organization: Not on file Attends meetings of clubs or organizations: Not on file Relationship status: Not on file ??? Intimate partner violence Fear of current or ex partner: Not on file Emotionally abused: Not on file Physically abused: Not on file Forced sexual activity: Not on file Other Topics Concern ??? Not on file Social History Narrative ??? Not on file Family History Problem Relation Age of Onset ??? Sudden Mother ??? Diabetes Father ??? Heart attack Maternal Grandfather ??? Anesthesia problems Neg Hx Review of Systems All other systems negative for any constitutional, HEENT, resp, CVS, GI, , Endocrine, Neuro, Psych, Onc, Heme, skin, back, [place], Rheum issues except as in HPI. Objective: Vitals Ht 147.3 cm (4' 10 ) Wt 56.7 kg (125 lb) BMI 26.13 kg/m?? Physical Exam: The patient is awake, alert, in no apparent distress. HEENT-normocephalic, atraumatic, moist mucousmembranes, sclera are anicteric. Neck is supple without any masses. Lungs are clear to auscultationbilaterally, without any wheezes, rhonchi, or rales. Heart is regular rate and rhythm, without any murmurs or rubs. Abdomen is flat, soft, nontender, nondistended. No ventral abdominal wall hernias are noted. No organomegaly is noted. No fluid shifts are noted. May have a small left flank hernia, if so is reducible, no tenderness Extremities are warm, without any clubbing, cyanosis, or edema. Neurologically- awake, alert, and oriented x3. There are no focal deficits, and the gait is steady. ICD-9-CM ICD-10-CM 1. Hernia of flank 553.8 K45.8 Plan: I would recommend observation considering her multiple previous abdominal surgeries. If she develops symptoms or enlarging of the left flank hernia I would recommend hernia surgery evaluation at [facility] ring she has had her left nephrectomy there as well as multiple previous abdominaloptions for Crohn's disease. We discussed surgery during the pandemic. This dictation was done utilizing a voice recognition system. Attempts have been made to correct errors. However, there may be uncorrected grammatical, spelling and recognition errors present. Denis Carty MD 04/01/2020 10:44 AM L VIAL INSPECTOR AND TESTER documented in this encounter Plan of Treatment Not on file documented as of this encounter Visit Diagnoses Diagnosis Hernia of flank- Primary documented in this encounter Care Teams Tariff Publishing Agent Relationship Specialty Start Date End Date Tobias Escobar MD [address] [place] [address] PCP - General 11/28/17 documented as of this encounter
--- OUTSIDE RECORDS SUMMARY | 2024-03-27 12:07 | XMS_ITS | Encounter Summary ---
Author Organization [facility] Address [address] [place] [address] Care Team Providers Care Heel Sorter Name Role Phone Tobias Escobar MD Primary Care Provider [phone] Reason for Referral * Diagnostic Imaging (Routine) - Closed Specialty Diagnoses / Procedures Referred By Sami chew Referred To Contact Radiology Diagnoses Left ureteral calculus Procedures CT Abdomen Pelvis WO Contrast Aquiles Castillo MD Phone: tel: fax: [address] [address] Referral ID Status Reason Start Date Expiration Date Visits Re quested Visits Authorized [id number] Closed 02/15/2018 08/27/2019 1 1 LE OPERATOR HEAD Reason for Visit * Diagnostic Imaging (Routine) - Closed Specialty Diagnoses / Procedures Referred By Sami chew Referred To Contact Radiology Diagnoses Left ureteral calculus Procedures CT Abdomen Pelvis WO Contrast Aquiles Castillo MD Phone: tel: fax: [address] [phone] Referral ID Status Reason Start Date Expiration Date Visits Re quested Visits Authorized [id number] Closed 02/15/2018 08/27/2019 1 1 Encounter Details Date Type Department Care Team (Latest Contact Info) Description 02/20/2018 1:02 PM KETTLE OPERATOR HEAD - 02/20/2018 11:59 PM KETTLE OPERATOR HEAD Hospital Encounter [facility] - Imaging [address] [place] [address] Aquiles Castillo MD [address] [place] [address] Left ureteral calculus Discharge Disposition: Discharge to home or self care Social History Tobacco Use Types Packs/Day Years Used Date Smoking Tobacco: Former Cigarettes Q uit: 01/26/1998 Smokeless Tobacco: Never Alcohol Use Standard Drinks/Week Comments Yes 0 (1 standard drink = 0.6 oz pur e alcohol) Occasional wine Comments Unknown Sex and Gender Information Value Date Recorded Sex Assigned at Not on file Legal Sex Female 2:14 AM KETTLE OPERATOR HEAD Gender Identity Not on file Sexual Orientation Not on file documented as of this encounter Medications at Time of Discharge adalimumab (adalimumab) 40 mg/0.8 mL pen injector kitIndications:C rohn's Disease 40 mg. Every other Tuesday ALPRAZolam (XANAX) 0.5 mg tabletIndication s:anxiety Take 0.5 mg by mouth nightly. ARTIFICIAL TEARS,HYPROMELLO SE, OPHT Administer 1 drop into the right eye daily as needed. bimatoprost (LUMIGAN) 0.01 % ophthalmic dropsIndications :open angle glaucoma Administer 1 drop into the left eye nightly. cholecalciferol (VITAMIN D-3) 1,000 unit tablet Take 1,000 Units by mouth boiler water tester before breakfast. citalopram (CeleXA) 20 mg tablet Take 20 mg by mouth boiler water tester before breakfast. cyanocobalamin (Vitamin B-12) 1,000 mcg tabletIndication s:Prevention of Vitamin B12 Deficiency Take 1,000 mcg by mouth boiler water tester before breakfast. denosumab (PROLIA) 60 mg/mL syringe Inject under the skin once. Twice a year famotidine (PEPCID) 20 mg tabletIndication s:gastroesophage al reflux disease Take 20 mg by mouth 2 (two) times a day. ferrous sulfate 325 mg (65 mg of elemental iron) tabletIndication s:Iron Deficiency Anemia Take 65 mg of elemental iron by mouth boiler water tester before breakfast. timolol (BETIMOL) 0.5 % ophthalmic solutionIndicati ons:open angle glaucoma Administer 1 drop into the left eye 2 (two) times a day. documented as of this encounter Discharge Disposition Disposition Code Departure Means Destination Discharge to home or self care documented in this encounter Plan of Treatment Not on file documented as of this encounter Procedures Procedure Name Priority Date/Time Associated Diagnosis Comments CT ABDOMEN PELVIS WO CONTRAST Schedule Routine, Read Routine (OP Routine) 02/20/2018 2:24 PM KETTLE OPERATOR HEAD Left ureteral calculus documented in this encounter Results * CT Abdomen Pelvis WO Contrast (02/20/2018 2:24 PM KETTLE OPERATOR HEAD) Anatomical Region Laterality Modality Body N/A Computed Tomogra phy 02/20/2018 4:50 PM KETTLE OPERATOR HEAD Impressions 02/20/2018 5:05 PM KETTLE OPERATOR HEAD 1. ??Percutaneous nephrostomy on the left. ??No left-sided hydronephrosis, despite the presence of nephrolithiasis and innumerable punctate renal pelvic and proximal ureteral calculi. 2. ??Mild right hydroureteronephrosis without evidence of an obstructing calculus. 3. ??Details above. Electronically signed by: Geronimo Hadley MD Narrative 02/20/2018 5:05 PM KETTLE OPERATOR HEAD EXAM: ??CT ABDOMEN AND PELVIS WITHOUT CONTRAST HISTORY: ??Left ureteral calculus. TECHNIQUE: CT abdomen and pelvis was performed without IV contrast. Oral contrast was not administered. COMPARISONS: CT abdomen/pelvis 10/08/2011. FINDINGS: Lung bases: Unremarkable. Evaluation of the solid organs of the abdomen is limited by the absence of intravenous contrast. Liver: Unremarkable. Gallbladder/biliary:Unremarkable. Spleen: Unremarkable. Adrenal glands: Unremarkable. Pancreas: Unremarkable. Kidneys: Percutaneous nephrostomy catheter is present on the left, with pigtail situated in the vicinity of a posterior calyx. ??No significant hydronephrosis. ??Subcentimeter curvilinear renal calculi are present near the pigtail. ??Tiny nonobstructive calculi are present at the inferior pole of left kidney. ??There are also innumerable punctate calculi within the left renal pelvis and proximal ureter. ??The left kidney is mildly atrophic. Exophytic 6.5 cm cyst noted at the superior pole of the right kidney, with minimal peripheral calcification. ??Tiny nonobstructive right renal calculi are present, largest in the interpolar region measuring 2 to 3 mm. ??Mild right hydronephrosis and proximal hydroureter. ??No ureteral calculus is identified. Bladder: Unremarkable. Reproductive: Prior hysterectomy. ??No evidence of an adnexal abnormality. Bowel: Small hiatal hernia. ??Intestinal malrotation is present. ??The duodenum does not cross midline. ??Small bowel is situated mostly in the right side of the abdomen. ??Partial colonic resection noted. Ileocolic anastomosis is present in the left mid abdomen, anterior aspect. ??Overall, no evidence of an acute abnormality involving bowel. Vascular/aorta: Moderate degree of atherosclerotic calcification involving the abdominal aorta and its branch vessels. Lymph nodes: No lymphadenopathy. Peritoneum: No pneumoperitoneum or free fluid. Abdominal wall: No acute findings. Osseous structures: No acute findings. ??Lower lumbar spine degenerative changes noted. Procedure Note Geronimo Hadley MD - 02/20/2018 EXAM: CT ABDOMEN AND PELVIS WITHOUT CONTRAST HISTORY: Left ureteral calculus. TECHNIQUE: CT abdomen and pelvis was performed without IV contrast. Oral contrast was not administered. COMPARISONS: CT abdomen/pelvis 10/08/2011. FINDINGS: Lung bases: Unremarkable. Evaluation of the solid organs of the abdomen is limited by the absence of intravenous contrast. Liver: Unremarkable. Gallbladder/biliary:Unremarkable. Spleen: Unremarkable. Adrenal glands: Unremarkable. Pancreas: Unremarkable. Kidneys: Percutaneous nephrostomy catheter is present on the left, with pigtail situated in the vicinity of a posterior calyx. No significant hydronephrosis. Subcentimeter curvilinear renal calculi are present near the pigtail. Tiny nonobstructive calculi are present at the inferior pole of left kidney. There are also innumerable punctate calculi within the left renal pelvis and proximal ureter. The left kidney is mildly atrophic. Exophytic 6.5 cm cyst noted at the superior pole of the right kidney, with minimal peripheral calcification. Tiny nonobstructive right renal calculi are present, largest in the interpolar region measuring 2 to 3 mm. Mild right hydronephrosis and proximal hydroureter. No ureteral calculus is identified. Bladder: Unremarkable. Reproductive: Prior hysterectomy. No evidence of an adnexal abnormality. Bowel: Small hiatal hernia. Intestinal malrotation is present. The duodenum does not cross midline. Small bowel is situated mostly in the right side of the abdomen. Partial colonic resection noted. Ileocolic anastomosis is present in the left mid abdomen, anterior aspect. Overall, no evidence of an acute abnormality involving bowel. Vascular/aorta: Moderate degree of atherosclerotic calcification involving the abdominal aorta and its branch vessels. Lymph nodes: No lymphadenopathy. Peritoneum: No pneumoperitoneum or free fluid. Abdominal wall: No acute findings. Osseous structures: No acute findings. Lower lumbar spine degenerative changes noted. IMPRESSION: 1. Percutaneous nephrostomy on the left. No left-sided hydronephrosis, despite the presence of nephrolithiasis and innumerable punctate renal pelvic and proximal ureteral calculi. 2. Mild right hydroureteronephrosis without evidence of an obstructing calculus. 3. Details above. Electronically signed by: Geronimo Hadley MD us Aquiles Castillo MD IMG CT PROCEDURES Final Resul t documented in this encounter Visit Diagnoses Diagnosis Left ureteral calculus Calculus of ureter documented in this encounter Care Teams Heel Sorter Relationship Specialty Start Date End Date Tobias Escobar MD [address] [place] [address] PCP - General 11/28/17 documented as of this encounter
--- OUTSIDE RECORDS SUMMARY | 2024-03-27 12:07 | XMS_ITS | Encounter Summary ---
Author Organization [facility] Healthcare Address [address] [place] [id number] Care Team Providers Care Tradeshow Worker Name Role Phone Tobias Escobar MD Primary Care Provider [phone] Encounter Details Date Type Department Care Team (Late st Contact Info) Description 03/22/2018 12:55 PM GRAIN CLEANER AND TRANSFER OPERATOR Lab [address] [address] Left ureteral stone; Kidney calculus Social History Tobacco Use Types Packs/Day Years Used Date Smoking Tobacco: Former Cigarettes Q uit: 01/26/1998 Smokeless Tobacco: Never Alcohol Use Standard Drinks/Week Comments Yes 0 (1 standard drink = 0.6 oz pur e alcohol) Occasional wine Comments Unknown Sex and Gender Information Value Date Recorded Sex Assigned at Not on file Legal Sex Female 2:14 AM GRAIN CLEANER AND TRANSFER OPERATOR Gender Identity Not on file Sexual Orientation Not on file documented as of this encounter Plan of Treatment Not on file documented as of this encounter Procedures Procedure Name Priority Date/Time Associated Diagnosis Comments URINE CULTURE Routine 03/22/2018 10:48 AM GRAIN CLEANER AND TRANSFER OPERATOR Left ureteral stone Kidney calculus documented in this encounter Results * Urine culture Urine, clean voided (03/22/2018 10:48 AM GRAIN CLEANER AND TRANSFER OPERATOR) Report Final Report: No growth [facility] Urine, clean voided 03/22/2018 10:48 AM GRAIN CLEANER AND TRANSFER OPERATOR 03/22/2018 1:57 PM GRAIN CLEANER AND TRANSFER OPERATOR Narrative [facility] - 03/23/2018 2:39 PM GRAIN CLEANER AND TRANSFER OPERATOR Testing performed by [facility] ([phone]) us Silverio Roblero MD LAB MICROBIOLOGY - GENERA L ORDERABLES Final Result [facility] Department [place] [address] documented in this encounter Visit Diagnoses Diagnosis Left ureteral stone Kidney calculus Calculus of kidney documented in this encounter Care Teams Tradeshow Worker Relationship Specialty Start Date End Date Tobias Escobar MD [address] [place] [address] PCP - General 11/28/17 documented as of this encounter
--- OUTSIDE RECORDS SUMMARY | 2024-03-27 12:07 | XMS_ITS | Encounter Summary ---
Author Organization [facility] Healthcare Address [address] [place] [address] Care Team Providers Care Postmaster Name Role Phone Tobias Escobar MD Primary Care Provider [phone] Encounter Details Date Type Department Care Team (Late st Contact Info) Description 04/06/2018 9:15 AM HAIR WEAVER Anesthesia Event [facility] Operating Room [address] [place] [address] Chavo Heck MD [address] [place] [address] Aurora Ramon NP [address] [facility] [address] [id number] [place] [address] Anesthesia Record Procedure Summary Procedure Name Responsible Anesthesiologist Anesthesia Start Time Anesthesia Stop Time Laparoscopic Left Radical Nephrectomy, retroperitoneal. (Left: Abdomen) Chavo Heck MD 04/06/18 0915 04/06/18 1150 Events Date Time Event Comment 04/06/2018 0718 0818 AN Equip Check 0915 An Start 0920 In Room 0920 An Start Data 0926 An Induction The patient was reevaluated immediately before moderate or deep sedation use and before anesthesia induction. 0930 An Intubation 0931 Anesthesia Ready 1016 Proc Start 1016 Incision Start 1140 Proc Fin 1145 An Extubation 1145 an stop data 1146 Out of Room 1149 Handoff to RN I completed my handoff to the receiving nurse during which we: 1. Patient identified 2. Responsible provider identified 3. Pertinent medical history reviewed 4. Procedure type and surgical course discussed 5. Intraoperative anesthetic management and any significant issues discussed 6. Expectations and concerns for postop period discussed 7. Questions solicited from receiving nurse 8. Patient disposition at the time of handoff: PACU 1150 An Stop Meds Name Total fentaNYL PF 200 mcg lidocaine 1 % PF 50 mg propofol 200 mg rocuronium 40 mg ondansetron PF 4 mg scopolamine patch 72 hour 1 patch 1 patc h ceFAZolin (ANCEF) 1 gram/10 mL in steril e water (premix) 2,000 mg 2,000 mg meperidine 50 mg/mL PF 50 mg Lactated Ringer's (LR) infusion 2,000 mL * Agents Name O2 Sevoflurane Inspired Sevoflurane * Blood No blood administrations on file. Lines, Drains, and Airways Type Details Placement Removal Nephrostomy 12/05/17; 1400; [facility] ([place], [place]); Left; 8.5 Fr. 12/05/17 1400 by Andie Quinonez RN 04/07/18 1313 by Katia Abernathy RN Peripheral IV Placement Date: 04/06/18; Placement Time: 0738; Catheter Size: 20 G; Orientation: Left; Location: Forearm; Site Prep: Chlorhexidine; Inserted by: Raman Tobin; Insertion Attempts: 1; Patient Tolerance: Tolerated well; Removal Date: 04/07/18; Removal Time: 1314 04/06/18 0738 by Chela Dominguez RN 04/07/18 1314 by Katia Abernathy RN Urethral Catheter Placement Date: 04/06/18; Placement Time: 0930; Inserted by: Navneet Brito; Type: Non-latex; Size: 16 Fr.; Balloon Size: 10 mL; Urine Returned: Yes; Removal Date: 04/07/18; Removal Time: 0831; Removal Reason: Per order 04/06/18 0930 by Haritha Reis RN 04/07/18 0831 by Katia Abernathy RN ETT Placement Date: 04/06/18; Placement Time: 0956 (created via procedure documentation); Technique: Direct laryngoscopy; Type: ETT - single; Single Lumen Tube Size: 7.5 mm; Cuffed: Yes; Laryngoscope: Margaret; Blade Size: 4; Location: Oral; Insertion Attempts: 1; Placement Verification: Auscultation, Capnometry; Removal Date: 04/06/18; Removal Time: 1145 04/06/18 0956 by Luci Rodriguez CRNA 04/06/18 1145 by Luci Rodriguez CRNA RETIRED Surgical Site 04/06/18; 1022; Le ft; Back; 02/14/24 (Retired LDA, Removed/Completed by [employer] with LDA Utility); 1213 (Retired LDA, Removed/Completed by [employer] with LDA Utility) 04/06/18 1022 by Haritha Reis RN 02/14/24 1213 by Discharge Provider, Automatic documented in this encounter Social History Tobacco Use Types Packs/Day Years Used Date Smoking Tobacco: Former Cigarettes 1 36.9 1 962 - 01/26/1998 Smokeless Tobacco: Never Alcohol Use Standard Drinks/Week Comments Yes 1 (1 standard drink = 0.6 oz pur e alcohol) Comments No Sex and Gender Information Value Date Recorded Sex Assigned at Not on file Legal Sex Female 2:14 AM HAIR WEAVER Gender Identity Not on file Sexual Orientation Not on file documented as of this encounter OR Notes * Anesthesia Postprocedure Evaluation - Chavo Heck MD - 04/06/2018 12:32 PM CST Patient: Paula Hitchcock Procedure Summary Date: 04/06/18 Room / Location: [facility] MAIN OPERATING ROOM 07 [facility] OPERATING ROOM Anesthesia Start: 0915 Anesthesia Stop: 1150 Procedure: Laparoscopic Left Radical Nephrectomy, retroperitoneal. (Left Abdomen) Diagnosis: Calculus of kidney with calculus of ureter (Calculus of kidney with calculus of ureter [N20.2]) Surgeon: Silverio Roblero MD Responsible Provider: Chavo Heck MD Anesthesia Type: general ASA Status: 3 Anesthesia Type: general Last vitals BP 134/53 Pulse 67 Temp 36.6 ??C (97.9 ??F) (Bladder) Resp 11 SpO2 98% Anesthesia Post Evaluation Patient location during evaluation: PACU Patient participation: complete - patient participated Level of consciousness: fully awake Pain score: 4 Pain management: adequate Airway patency: adequate and patent Evidence of recall: no Anesthetic complications: no Cardiovascular status: hemodynamically stable and acceptable Respiratory status: acceptable and nasal cannula Hydration status: euvolemic Pt is: normothermic Nausea/Vomiting status: none WEAVER * Anesthesia Procedure Notes - Luci Rodriguez CRNA - 04/06/2018 9:55 AM CSTAssociated Order(s): ANESTHESIA INTUBATION Airway Patient location: OR Urgency: elective Indications for airway management: anesthesia Difficult airway: no Airway prep: Preoxygenated: yes Patient position: sniffing Spontaneous ventilation during airway: absent Sedation level during airway: GA Final airway details: Final airway type: endotracheal airway Tube type: ETT ETT size: 7.5 mm Cuffed: yes Technique used for successful ETT placement: direct laryngoscopy Insertion site: oral Blade type: Margaret Blade size: 4 Cuff inflated with: air Placement verified by: auscultation and CO2 detection Airway secured with: silk tape Number of attempts: 1 WEAVER * Anesthesia Preprocedure Evaluation - Chavo Heck MD - 03/29/2018 11:49 AM CST [facility] Preoperative Evaluation Record CP[facility] Clinic at [facility] ([facility]) Date: 03/29/18 Anesthesia Evaluation Paula Hitchcock is a 77 y.o. female Procedure(s): Laparoscopic Left Partial Nephrectomy HISTORY HPI Paula Hitchcock is a 77 y.o. female who is being evaluated prior to undergoing lap partial nephrectomy for renal calculi. Past Medical History Neurological Pertinent negatives: seizures; neuromuscular disease; CVA/stroke; TIA; CEA; ICA stenosis; dementia/mild cognitive impairment and carotid artery stent Cardiovascular Pertinent negatives: hypertension ; CAD ; [place] ; CABG ; systolic/diastolic dysfunction w/o CHF ; valvular heart disease; valve replacement; atrial fibrillation; arrhythmia; pacemaker/ICD; PVD; DVT/PE; negative for CHF; drug- eluting stent(s); bare metal stent(s); unknown stent(s) type; coronary angiopl asty and hyperlipidemia Respiratory Pertinent negatives: COPD; asthma; sleep apnea (DINORA); pulmonary hypertension; no O2 use outside thehospital and non-smoker Hepatic / Heme + History of anemia - iron deficiency Pertinent negatives: liver disease; history of thrombocytopenia and history of Lucien positive Gastrointestinal + GERD - on daily therapy. Symptoms < 1x/week. Pertinent negatives: hiatal hernia Renal / + Renal disease - CKD + Nephrolithiasis Pertinent negatives: dialysis Musculoskeletal/Pain + Chronic pain (wrist, neck) - neck pain. + Osteoarthritis Pertinent negatives: chronic opioid use and previous treatment for opioid use disorder Endocrine / Other + Rheumatological disease (Dr. Staley- follows for Crohn's , on Humira, no recent flares) - Crohn'sdisease. + Infectious disease (peritonitis 1993) - sepsis. Pertinent negatives: diabetes mellitus; thyroid disease; obesity (BMI >30); cancer history; transplanted organ and pancreatitis Functional Capacity Functional capacity: 4-6 METs Comments: Cleans religious, climbs stairs often at home Review of Systems + productive cough (white productive cough a few weeks ago, mostly resolved) + recent cold/flu (nasal congestion last week, resolved) + previous transfusion (7-8 years ago) + chronic pain (wrist, neck) + vision loss (right blindness) + dentures/partials (upper and lower partial) + diarrhea (chronic and unchanged) + diaphoresis + unexpected wt change (weight loss over the last 3 months) Patient's weight: decreased, 8 lbs, Pertinent negatives: wheezing; SOB; fever; chest pain; palpitations; orthopnea; pedal edema; PND; Sickle Cell disease/trait; transfusion reaction; melena/hematochezia; easy bruising; bleeding problems; syncope; dizziness; muscle weakness; numbness/tingling; hard of hearing; heartburn; nausea; dyspha jamilah; chipped/loose teeth and abdominal pain PAT Summary and Plans Cardiac risk classification of planned procedure: intermediate cardiac risk. Preoperative assessment status: lab tests ordered. Initial preoperative evaluation discussed with: YEISON BRISCOE Additional comments: Paula Hitchcock is a 77 y.o. female who is being evaluated prior to undergoing an intermediate cardiac risk surgery. Revised Cardiac Risk Index factors are (none) for a total RCRI of 0 out of 6. Functional capacity is 4-6 METs. Patient's BP elevated with no diagnosis of HTN. Instructed patient to check BP at home and scheduleBP check with her PCP for later this week. Obstructive sleep apnea (DINORA) screening status is STOP-Bang=1 suggesting low risk for DINORA. Blood bank needs for day of procedure: Type and Screen only Pending labs/tests include: CBC BMP T&S Urine culture Preoperative evaluation performed by Aurora Ramon NP on 03/29/18 at 12:26 PM.. Follow up note Labs reviewed and are without significant findings. Cr 1.40, improved from Cr 1.8 in 02/2018. Awaiting Bp follow up Awaiting urine culture. Surgeon's office reviews laboratory results independently. Follow-up completed by: Aurora Ramon NP on 03/29/18 at 7:39 PM Follow up note Spoke with patient. Patient's BP this AM at home was 133/70. Patient is going to her PCP for a BP check on 03/31/18 at 1000. Will follow up afterwards. Follow-up completed by: Aurora Ramon NP on 03/30/18 at 9:27 AM Follow up note 3 Labs reviewed and are significant for: Urine cx shows growth c/w periurethral everett-- Discussed with Keesha in surgeon's office at 0845. If repeat urine cx needed, surgeon's office will contact pt to arrange.. Awaiting outside records. Surgeon's office reviews laboratory results independently. Awaiting OV note from PCP 03/31/2018 regarding elevated BP. Follow-up completed by: Vi Goode NP on 03/31/18 at 8:48 AM Follow up note Spoke to PCP's office. The patient's B/P on 03/31/18 was 130/70 and 134/68 CPAP assessment complete Follow-up completed by: Kiara Montoya NP on 04/03/18 at 9:03 AM Patient Active Problem List Diagnosis ??? Crohn's disease (CMS/HCC) ??? Left ureteral stone ??? GERD (gastroesophageal reflux disease) ??? Blindness of right eye ??? Calculus of kidney with calculus of ureter Past Medical History: Diagnosis Date ??? Anemia ??? Arthritis ??? 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 Cataract ??? Crohn disease (CMS/HCC) ??? Delayed emergence from general anesthesia 2002 delayed emergence after bowel resection with ureteral injury in 2001 at [facility] ??? GERD (gastroesophageal reflux disease) ??? Left ureteral stone 02/17/2018 ??? Sepsis (CMS/HCC) Past Surgical History: Procedure Laterality Date ??? BLADDER SURGERY 2007 ??? BOWEL RESECTION 1993, 2001, 2006 ??? CATARACT EXTRACTION, BILATERAL Left 2016 ??? SECTION 1966, 1968 ??? COLOSTOMY 1993 ??? EXTRACORPOREAL SHOCK WAVE LITHOTRIPSY ??? HERNIA [...] URETER SURGERY 2001 ??? URETERAL STENT PLACEMENT OB History No data available Allergies Allergen Reactions ??? Cefaclor Unknown ??? Cephalosporins Other (See comments) GI symptoms ??? Clindamycin Vomiting ??? Imuran [Azathioprine] Other (See comments) Toxic ??? Maxaquin [Lomefloxacin] Mental status changes ??? Miacalcin [Calcitonin (Mccamey)] Vomiting HOME MEDICATIONS : acetaminophen (TYLENOL) 500 mg tablet adalimumab (adalimumab) 40 mg/0.8 mL pen injector kit ALPRAZolam (XANAX) 0.5 mg tablet ARTIFICIAL TEARS,HYPROMELLOSE, OPHT bimatoprost (LUMIGAN) 0.01 % ophthalmic drops cholecalciferol (VITAMIN D-3) 1,000 unit tablet citalopram (CeleXA) 20 mg tablet cyanocobalamin (Vitamin B-12) 1,000 mcg tablet famotidine (PEPCID) 20 mg tablet ferrous sulfate 325 mg (65 mg of elemental iron) tablet timolol (BETIMOL) 0.5 % ophthalmic solution denosumab (PROLIA) 60 mg/mL syringe Current Outpatient Prescriptions: ??? acetaminophen (TYLENOL) 500 mg tablet ??? adalimumab (adalimumab) 40 mg/0.8 mL pen injector kit ??? ALPRAZolam (XANAX) 0.5 mg tablet ??? ARTIFICIAL TEARS,HYPROMELLOSE, OPHT ??? bimatoprost (LUMIGAN) 0.01 % ophthalmic drops ??? cholecalciferol (VITAMIN D-3) 1,000 unit tablet ??? citalopram (CeleXA) 20 mg tablet ??? cyanocobalamin (Vitamin B-12) 1,000 mcg tablet ??? famotidine (PEPCID) 20 mg tablet ??? ferrous sulfate 325 mg (65 mg of elemental iron) tablet ??? timolol (BETIMOL) 0.5 % ophthalmic solution ??? denosumab (PROLIA) 60 mg/mL syringe Social History Smoking Status ??? Former Smoker ??? Packs/day: 1.00 ??? Start date: 1960 ??? Quit date: 01/26/1998 Smokeless Tobacco ??? Never Used Alcohol Use ??? 0.6 oz/week ??? 1 Standard drinks or equivalent per week Drug Use No Family History Problem Relation Age of Onset ??? Sudden Mother ??? Diabetes Father ??? Heart attack Maternal Grandfather ??? Anesthesia problems Neg Hx PAT Physical Exam Airway Exam: Mallampati: III Cervical ROM: FROM TM distance: 3 Cardiovascular Exam: Rate: regular Rhythm: regular Negative for Murmur Negative for peripheral edema Pulmonary Exam: LCTA, bilat EENT Exam: trachea midline Dental Exam: Lower partials and upper partials Abdominal exam: Abdomen is soft. Current state: Patient's current state is cooperative. Vitals: 03/29/18 1058 03/29/18 1203 03/29/18 1220 BP: 156/68 (!) 176/76 166/76 Pulse: SpO2: 100% PT: No results found for requested labs within last 720 hours. INR: No results found for requested labs within last 720 hours. APTT: No results found for requested labs within last 720 hours. Hgb A1C: No results found for requested labs within last 720 hours. CBC RBC: No results found for requested labs within last 720 hours. RDW: No results found for requested labs within last 720 hours. MCHC: No results found for requested labs within last 720 hours. MCH: No results found for requested labs within last 720 hours. MCV: No results found for requested labs within last 720 hours. Hct: No results found for requested labs within last 720 hours. Hgb: No results found for requested labs within last 720 hours. WBC: No results found for requested labs within last 720 hours. MPV: No results found for requested labs within last 720 hours. Platelets: No results found for requested labs within last 720 hours. RDW CV: No results found for requested labs within last 720 hours. RDW Sd: No results found for requested labs within last 720 hours. BMP Glucose: No results found for requested labs within last 720 hours. Calcium: No results found for requested labs within last 720 hours. Sodium: No results found for requested labs within last 720 hours. Potassium: No results found for requested labs within last 720 hours. CO2: No results found for requested labs within last 720 hours. Chloride: No results found for requested labs within last 720 hours. BUN: No results found for requested labs within last 720 hours. Creatinine: No results found for requested labs within last 720 hours. STOP-Bang Total Score: 1 Dimitry index score: 100 AD8 Dementia Score: 1 Short Blessed Total Score: 2 DOS Physical Exam Medical history, medications, and allergies reviewed. Attestation: I endorse the findings of the anesthesia pre-evaluation assessment dated: 04/06/2018. Airway Exam: Mallampati: III Cervical ROM: FROM Cardiovascular Exam: Rate: regular Rhythm: regular Pulmonary Exam: LCTA, bilat Dental Exam: Missing Anesthesia Plan ASA 3 My patient is approved for the Anesthesia Controlled Medication protocol when under care of a RESIDENTIAL MANAGER Planned anesthesia: General Informed Consent: Anesthesia plan and risks discussed with patient. Consent and Attending signature: I and/or my designee have discussed the anesthesia plan, benefits, possible alternatives, parental presence at time of induction (if indicated), and clinically relevant risks that may include dental injury, unintentional awareness, and/or other complications. The patient and/or parent/legal guardian understand, and agree to proceed. All questions answered. WEAVER WEAVER WEAVER WEAVER WEAVER WEAVER WEAVER WEAVER documented in this encounter Plan of Treatment Not on file documented as of this encounter Procedures Procedure Name Priority Date/Time Associated Diagnosis Comments AR AN PROCEDURE PLACEHOLDER Routine 04/06/2018 9:55 AM HAIR WEAVER Procedure Note - Luci Rodriguez CRNA - 04/06/2018 9:55 AM CSTThis note is in progress. Airway Patient location: OR Urgency: elective Indications for airway management: anesthesia Difficult airway: no Airway prep: Preoxygenated: yes Patient position: sniffing Spontaneous ventilation during airway: absent Sedation level during airway: GA Final airway details: Final airway type: endotracheal airway Tube type: ETT ETT size: 7.5 mm Cuffed: yes Technique used for successful ETT placement: direct laryngoscopy Insertion site: oral Blade type: Margaret Blade size: 4 Cuff inflated with: air Placement verified by: auscultation and CO2 detection Airway secured with: silk tape Number of attempts: 1 AR AN ELECTIVE ENDOTRACHEAL AIRWAY Routine 04/06/2018 9:55 AM HAIR WEAVER Procedure Note - Luci Rodriguez CRNA - 04/06/2018 9:55 AM CSTThis note is in progress. Airway Patient location: OR Urgency: elective Indications for airway management: anesthesia Difficult airway: no Airway prep: Preoxygenated: yes Patient position: sniffing Spontaneous ventilation during airway: absent Sedation level during airway: GA Final airway details: Final airway type: endotracheal airway Tube type: ETT ETT size: 7.5 mm Cuffed: yes Technique used for successful ETT placement: direct laryngoscopy Insertion site: oral Blade type: Margaret Blade size: 4 Cuff inflated with: air Placement verified by: auscultation and CO2 detection Airway secured with: silk tape Number of attempts: 1 documented in this encounter Visit Diagnoses Not on filedocumented in this encounter Administered Medications Inactive Administered Medications - up to 3 most recent administrations Medication Order MAR Action Action Date Dose Rate Site ceFAZolin (ANCEF) 1 gram/10 mL in sterile water (premix) 2,000 mg 2,000 mg, intravenous, at 400 mL/hr, Administer over 3 Minutes, Once, On Carly 04/06/18 at 0945, For 1 dose, Pre-Op, Indications: Prophylaxis, SurgicalIndications:Prophylaxis , Surgical Given 04/06/2018 9:15 AM HAIR WEAVER 2,000 mg fentaNYL (SUBLIMAZE) preservative free injection intravenous, As needed, Starting on Carly 04/06/18 at 0916, Anesthesia Intra-op Given 04/06/2018 10:17 AM HAIR WEAVER 100 mcg Given 04/06/2018 9:16 AM HAIR WEAVER 100 mcg Lactated Ringer's (LR) infusion 30 mL/hr, intravenous, Continuous, Starting on Carly 04/06/18 at 0745, Pre-Op, Switch to Normal Saline for patients on Dialysis New Bag 04/06/2018 11:35 AM HAIR WEAVER New Bag 04/06/2018 9:45 AM HAIR WEAVER New Bag 04/06/2018 7:39 AM HAIR WEAVER 30 mL/hr 30 mL/hr lidocaine PF (XYLOCAINE) 10 mg/mL (1 %) preservative free injection As needed, Starting on Carly 04/06/18 at 0926, Anesthesia Intra-op Given 04/06/2018 9:26 AM HAIR WEAVER 50 mg meperidine (DEMEROL) preservative free injection As needed, Starting on Carly 04/06/18 at 1112, Anesthesia Intra-op, Indications: ShiveringIndications:Shivering Given 04/06/2018 11:21 AM HAIR WEAVER 25 mg Given 04/06/2018 11:12 AM HAIR WEAVER 25 mg ondansetron (ZOFRAN) injection intravenous, Administer over 2 Minutes, As needed, nausea, vomiting, Starting on Carly 04/06/18 at 0915, Anesthesia Intra-op Given 04/06/2018 9:15 AM HAIR WEAVER 4 mg propofol (DIPRIVAN) IV intravenous, As needed, Starting on Carly 04/06/18 at 0926, Anesthesia Intra-op Given 04/06/2018 9:29 AM HAIR WEAVER 50 mg Given 04/06/2018 9:26 AM HAIR WEAVER 150 mg rocuronium (ZEMURON) injection intravenous, As needed, Starting on Carly 04/06/18 at 0926, Anesthesia Intra-op Given 04/06/2018 9:26 AM HAIR WEAVER 40 mg scopolamine patch 72 hour 1 patch 1 patch, transdermal, Administer over 72 Hours, Once, On Carly 04/06/18 at 0745, For 1 dose, Pre-Op, Apply to patients with a history of PONV, Motion Sickness, Beach Chair position Shoulder surgeries, and for Dr. Jules's Patients. Do not apply to patients with Glaucoma or BPH, Indications: Prevention of Post-Operative Nausea and VomitingIndications:Prevention of Post-Operative Nausea and Vomiting Given 04/06/2018 9:15 AM HAIR WEAVER 1 patch documented in this encounter Orders Procedures Count Last Ordered Date First Orde red Date ANESTHESIA INTUBATION 1 04/06/2018 documented in this encounter Care Teams Postmaster Relationship Specialty Start Date End Date Tobias Escobar MD [address] [place] [address] PCP - General 11/28/17 documented as of this encounter
--- OUTSIDE RECORDS SUMMARY | 2024-03-27 12:07 | XMS_ITS | Encounter Summary ---
Author Organization [facility] Healthcare Address [address] [place] [address] Care Team Providers Care Section Leader And Machine Setter Name Role Phone Tobias Escobar MD Primary Care Provider [phone] Encounter Details Date Type Department Care Team (Late st Contact Info) Description 04/06/2018 6:01 AM EQUIPMENT MAINTENANCE SUPERINTENDENT - 04/07/2018 1:44 PM EQUIPMENT MAINTENANCE SUPERINTENDENT Hospital Encounter [facility] [address] [place] [address] Silverio Roblero MD [address] [id number] [place] [address] Calculus of kidney with calculus of ureter Discharge Disposition: Discharge to home or self [...] on file Legal Sex Female 2:14 AM EQUIPMENT MAINTENANCE SUPERINTENDENT Gender Identity Not on file Sexual Orientation Not on file documented as of this encounter Last Filed Vital Signs Vital Sign Reading Time Taken Comments Blood Pressure 112/56 04/07/2018 12:58 PM EQUIPMENT MAINTENANCE SUPERINTENDENT Pulse 61 04/07/2018 12:58 PM EQUIPMENT MAINTENANCE SUPERINTENDENT Temperature 36.7 ??C (98.1 ??F) 04/07/2018 12:[address] Respiratory Rate 16 04/07/2018 12:58 PM EQUIPMENT MAINTENANCE SUPERINTENDENT Oxygen Saturation 96% 04/07/2018 12:58 PM EQUIPMENT MAINTENANCE SUPERINTENDENT Inhaled Oxygen Concentration - - Weight 56.7 kg (125 lb) 04/07/2018 11:56 AM EQUIPMENT MAINTENANCE SUPERINTENDENT Height 149 cm (4' 10.66 ) 04/07/2018 11:56 AM CS T Body Mass Index 25.54 04/07/2018 11:56 AM EQUIPMENT MAINTENANCE SUPERINTENDENT documented in this encounter Discharge Instructions * Discharge Instructions* Bhavya Israel MD - 04/06/2018 1:24 PM EQUIPMENT MAINTENANCE SUPERINTENDENT Discharge Instructions: ?? Diagnosis: Left nonfunctioning kidney with stones and infections ?? Surgery performed: Left laparoscopic retroperitoneal nephrectomy ? Wound: - Incision is closed with skin glue that will fall off over the next week - Ok to showe/bathe ?? New medications: - Tylenol as needed for pain - [facility] [place] for severe pain as needed ?? Diet: Resume usual diet. Avoid raw or undercooked meats. Keep well hydrated. ?? Activity: No lifting greater than 10 lb for 4 weeks. [address] while taking oxycodone pain medication. Otherwise as tolerated ?? Follow up: - The office will call you to schedule follow up with Dr. Roblero. If no call is received within 2 weeks, please call [phone]. ?? Contact your doctor if: - Fever over 100.8 - Pain uncontrolled by prescribed medications - Pus from wound or severe redness - Constant bleeding from incision. Mild oozing and spotting is normal. - Nausea/vomiting ?? Tuesday through Tuesday, 8 AM to 6:00 PM, call [phone] and ask for a member of your doctor's team. After 6:00 PM during the week, on weekends and holidays, call [phone] and ask to have the Urology Sales And Customer Relations Rep Physician paged for you. PMENT MAINTENANCE SUPERINTENDENT documented in this encounter Medications at Time of Discharge acetaminophen (TYLENOL) 500 mg tabletIndication s:Pain Take 500 mg by mouth every 6 (six) hours as needed for pain. adalimumab (adalimumab) 40 mg/0.8 mL pen injector kitIndications:C rohn's Disease 40 mg. Every other Arnie ALPRAZolam (XANAX) 0.5 mg tabletIndication s:anxiety Take 0.5 mg by mouth nightly. ARTIFICIAL TEARS,HYPROMELLO SE, OPHT Administer 1 drop into the right eye daily as needed. bimatoprost (LUMIGAN) 0.01 % ophthalmic dropsIndications :open angle glaucoma Administer 1 drop into the left eye nightly. cholecalciferol (VITAMIN D-3) 1,000 unit tablet Take 1,000 Units by mouth log haul chain feeder before breakfast. citalopram (CeleXA) 20 mg tablet Take 20 mg by mouth log haul chain feeder before breakfast. cyanocobalamin (Vitamin B-12) 1,000 mcg tabletIndication s:Prevention of Vitamin B12 Deficiency Take 1,000 mcg by mouth log haul chain feeder before breakfast. denosumab (PROLIA) 60 mg/mL syringe Inject under the skin once. Twice a year famotidine (PEPCID) 20 mg tabletIndication s:gastroesophage al reflux disease Take 20 mg by mouth 2 (two) times a day. ferrous sulfate 325 mg (65 mg of elemental iron) tabletIndication s:Iron Deficiency Anemia Take 65 mg of elemental iron by mouth log haul chain feeder before breakfast. HYDROcodone-acet aminophen (NORCO) 5-325 mg per tabletIndication s:Pain Take 1 tablet by mouth every 6 (six) hours as needed (severe pain). 10 tablet 04/06/2018 timolol (BETIMOL) 0.5 % ophthalmic solutionIndicati ons:open angle glaucoma Administer 1 drop into the left eye 2 (two) times a day. documented as of this encounter Ordered Prescriptions Prescription Sig Dispense Quantity Refills Last Filled Start Date End Date HYDROcodone-acetami nophen (NORCO) 5-325 mg per tabletIndications:P ain Take 1 tablet by mouth every 6 (six) hours as needed (severe pain). 10 tablet 04/06/2018 documented in this encounter Discharge Disposition Disposition Code Departure Means Destination Discharge to home or self care documented in this encounter Progress Notes * Silverio Roblero MD - 04/07/2018 9:44 AM CST Postop day 1. Status post left retroperitoneal laparoscopic nephrectomy. Doing well. Minimal pain AVSS Urine clear Wounds dry and intact. Physical therapy evaluation for mobility. Remove Euceda catheter. Discharge planning. PMENT MAINTENANCE SUPERINTENDENT documented in this encounter H&P Notes * Bhavya Israel MD - 04/06/2018 9:13 AM CST I have reviewed the H&P, examined the patient, and endorse the findings as written. Plan of Care : Based on the above findings, I consider Paula Hitchcock to be an acceptable risk for : Procedure(s): Laparoscopic Left Radical Nephrectomy, retroperitoneal. Cosigned by Silverio Roblero MD at 04/06/2018 9:45 AM EQUIPMENT MAINTENANCE SUPERINTENDENT PMENT MAINTENANCE SUPERINTENDENT PMENT MAINTENANCE SUPERINTENDENT Source Note - [place] Aurora NairJOSEF clemens - 03/29/2018 11:49 AM EQUIPMENT MAINTENANCE SUPERINTENDENT [facility] for Preoperative Assessment and Planning Preoperative Evaluation Record [facility] at [facility] ([facility]) Date: 03/29/18 Anesthesia Evaluation Paula Hitchcock is [...] Capacity Functional capacity: 4-6 METs Comments: Cleans sabianism, climbs stairs often at home Review of [...] resection with ureteral injury in 2001 at [facility] ??? GERD (gastroesophageal reflux disease) ??? Left ureteral stone 02/17/2018 ??? Sepsis (CMS/HCC) Past Surgical History: Procedure Laterality Date ??? BLADDER SURGERY 2007 ??? BOWEL RESECTION 1992, 2001, 2006 ??? [...] RETINAL DETACHMENT SURGERY ??? RETINAL DETACHMENT SURGERY 1972 ??? REVISION / TAKEDOWN COLOSTOMY 1993 ??? URETER REVISION ??? URETER SURGERY 2001 ??? URETERAL STENT PLACEMENT OB History No data available Allergies Allergen Reactions ??? Cefaclor Unknown ??? Cephalosporins Other (See comments) GI symptoms ??? Clindamycin Vomiting ??? Imuran [Azathioprine] Other (See comments) Toxic ??? Maxaquin [Lomefloxacin] Mental status changes ??? Miacalcin [Calcitonin ([place])] Vomiting HOME MEDICATIONS : acetaminophen (TYLENOL) 500 [...] findings of the anesthesia pre-evaluation assessment dated: Airway Exam: Mallampati: III Cervical ROM: FROM Cardiovascular Exam: Rate: regular Rhythm: regular Pulmonary Exam: LCTA, bilat Dental Exam: Missing Anesthesia Plan ASA 3 My patient is approved for the Anesthesia Controlled Medication protocol when under care of a JINRIKISHA DRIVER Planned anesthesia: General Informed Consent: Anesthesia plan and risks discussed with patient. Consent and Attending signature: I and/or my designee have discussed the anesthesia plan, benefits, possible alternatives, parental presence at time of induction (if indicated), and clinically relevant risks that may include dental injury, unintentional awareness, and/or other complications. The patient and/or parent/legal guardian understand, and agree to proceed. All questions answered. PMENT MAINTENANCE SUPERINTENDENT PMENT MAINTENANCE SUPERINTENDENT PMENT MAINTENANCE SUPERINTENDENT PMENT MAINTENANCE SUPERINTENDENT PMENT MAINTENANCE SUPERINTENDENT PMENT MAINTENANCE SUPERINTENDENT PMENT MAINTENANCE SUPERINTENDENT documented in this encounter Miscellaneous Notes * Plan of Care - Katia Abernathy RN - 04/07/2018 11:16 AM CST Goals: Clinical Goals for the Shift: Pain control Summary: Activity: ??? Ability to tolerate increased activity will improve Adequate for Discharge ??? Mobility will improve Adequate for Discharge Bowel/Gastric: ??? Gastrointestinal status for postoperative course will improve Adequate for Discharge Cardiac: ??? Ability to maintain an adequate cardiac output will improve Adequate for Discharge ??? Will show no evidence of cardiac arrhythmias Adequate for Discharge Cognitive: ??? Will regain or maintain usual level of consciousness Adequate for Discharge Fluid Volume: ??? Ability to maintain a balanced intake and output will improve Adequate for Discharge Health Behavior: ??? Understanding of discharge needs will improve Adequate for Discharge ??? Identification of resources available to assist in meeting health care needs will improve Adequate for Discharge Lack of Knowledge: ??? Knowledge of the prescribed therapeutic regimen will improve Adequate for Discharge Lack of Knowledge: ??? Ability to state ways to decrease the risk of falls will improve Adequate for Discharge Nutritional: ??? Ability to attain and maintain optimal nutritional status will improve Adequate for Discharge Physical Regulation: ??? Ability to maintain clinical measurements within normal limits will improve Adequate for Discharge ??? Postoperative complications will be avoided or minimized Adequate for Discharge Respiratory: ??? Ability to maintain adequate ventilation will improve Adequate for Discharge ??? Respiratory status will improve Adequate for Discharge Safety: ??? Ability to remain free from injury will improve Adequate for Discharge Safety: ??? Will remain free from falls Adequate for Discharge ??? Will remain free from injury from falls Adequate for Discharge ??? Will remain free from falls and injury in home environment Adequate for Discharge Sensory: ??? Pain level will decrease Adequate for Discharge Skin Integrity: ??? Risk for impaired skin integrity will decrease Adequate for Discharge ??? Evidence of wound healing without infection will improve Adequate for Discharge Tissue Perfusion: ??? Risk of venous thrombosis will decrease Adequate for Discharge Urinary Elimination: ??? Will remain free from infection Adequate for Discharge ??? Ability to achieve and maintain adequate urine output will improve Adequate for Discharge ??? Complications related to the disease process, condition or treatment will be avoided or minimized Adequate for Discharge PMENT MAINTENANCE SUPERINTENDENT * Plan of Care - Kiara Ortiz RN - 04/07/2018 7:50 AM CST Activity: ??? Ability to tolerate increased activity will improve Progressing ??? Mobility will improve Progressing Bowel/Gastric: ??? Gastrointestinal status for postoperative course will improve Progressing Cardiac: ??? Ability to maintain an adequate cardiac output will improve Progressing ??? Will show no evidence of cardiac arrhythmias Progressing Cognitive: ??? Will regain or maintain usual level of consciousness Progressing Fluid Volume: ??? Ability to maintain a balanced intake and output will improve Progressing Health Behavior: ??? Understanding of discharge needs will improve Progressing ??? Identification of resources available to assist in meeting health care needs will improve Progressing Lack of Knowledge: ??? Knowledge of the prescribed therapeutic regimen will improve Progressing Lack of Knowledge: ??? Ability to state ways to decrease the risk of falls will improve Progressing Nutritional: ??? Ability to attain and maintain optimal nutritional status will improve Progressing Physical Regulation: ??? Ability to maintain clinical measurements within normal limits will improve Progressing ??? Postoperative complications will be avoided or minimized Progressing Respiratory: ??? Ability to maintain adequate ventilation will improve Progressing ??? Respiratory status will improve Progressing Safety: ??? Ability to remain free from injury will improve Progressing Safety: ??? Will remain free from falls Progressing ??? Will remain free from injury from falls Progressing ??? Will remain free from falls and injury in home environment Progressing Sensory: ??? Pain level will decrease Progressing Skin Integrity: ??? Risk for impaired skin integrity will decrease Progressing ??? Evidence of wound healing without infection will improve Progressing Tissue Perfusion: ??? Risk of venous thrombosis will decrease Progressing Urinary Elimination: ??? Will remain free from infection Progressing ??? Ability to achieve and maintain adequate urine output will improve Progressing ??? Complications related to the disease process, condition or treatment will be avoided or minimized Progressing Goals: Clinical Goals for the Shift: pain control, scd's, ankle pumps, euceda care, ambulation PMENT MAINTENANCE SUPERINTENDENT * Plan of Care - Katia Abernathy RN - 04/06/2018 1:54 PM CST Goals: Clinical Goals for the Shift: Pain control Summary: Activity: ??? Ability to tolerate increased activity will improve Progressing ??? Mobility will improve Progressing Bowel/Gastric: ??? Gastrointestinal status for postoperative course will improve Progressing Cardiac: ??? Ability to maintain an adequate cardiac output will improve Progressing ??? Will show no evidence of cardiac arrhythmias Progressing Cognitive: ??? Will regain or maintain usual level of consciousness Progressing Fluid Volume: ??? Ability to maintain a balanced intake and output will improve Progressing Health Behavior: ??? Understanding of discharge needs will improve Progressing ??? Identification of resources available to assist in meeting health care needs will improve Progressing Lack of Knowledge: ??? Knowledge of the prescribed therapeutic regimen will improve Progressing Nutritional: ??? Ability to attain and maintain optimal nutritional status will improve Progressing Physical Regulation: ??? Ability to maintain clinical measurements within normal limits will improve Progressing ??? Postoperative complications will be avoided or minimized Progressing Respiratory: ??? Ability to maintain adequate ventilation will improve Progressing ??? Respiratory status will improve Progressing Safety: ??? Ability to remain free from injury will improve Progressing Sensory: ??? Pain level will decrease Progressing Skin Integrity: ??? Risk for impaired skin integrity will decrease Progressing ??? Evidence of wound healing without infection will improve Progressing Tissue Perfusion: ??? Risk of venous thrombosis will decrease Progressing Urinary Elimination: ??? Will remain free from infection Progressing ??? Ability to achieve and maintain adequate urine output will improve Progressing ??? Complications related to the disease process, condition or treatment will be avoided or minimized Progressing PMENT MAINTENANCE SUPERINTENDENT * Op Note - Silverio Roblero MD - 04/06/2018 10:16 AM CST Operative Report DATE OF SURGERY : 04/06/2018 ?? SURGEON: Silverio Roblero MD ?? CMM OPERATOR: Surgeon(s) and Role: Surgeon(s) and Role: * Bhavya Israel MD - Resident - Assisting * Silverio Roblero MD - Primary ?? ANESTHESIA: General ?? PREOPERATIVE DIAGNOSIS: Pre-op Diagnosis * Calculus of kidney with calculus of ureter [N20.2] Poorly functioning, chronically obstructed left kidney. POSTOPERATIVE DIAGNOSIS: Post-op Diagnosis * Calculus of kidney with calculus of ureter [N20.2] Poorly functioning, chronically obstructed kidney?? PROCEDURE: Laparoscopic Left Nephrectomy, retroperitoneal. (L) ?? INDICATION FOR PROCEDURE: Poorly functioning, chronically obstructed left kidney The patient understands and wishes to proceed. BRIEF CLINICAL HISTORY:?? 77 year old female with history of Crohn's Disease and urolithiasis. Her left kidney contributes only 13% of her overall renal function and is chronically obstructed. She currently has a left PCN draining the kidney. OPERATIVE FINDINGS: Small end-stage left kidney. DESCRIPTION OF PROCEDURE Informed consent was obtained. Patient brought to the operating room. IV antibiotics were given. Bilateral sequential compression devices were placed. Following smooth induction of general anesthesia, the patient was placed in a rightt lateral decubitus position. Care was taken to position and had her extremities. The patient was prepped and drapedin usual standard sterile fashion. The nephrostomy tube was cut near the skin and prepped into the o perative field. A time-out was then performed to ensure proper patient and proper procedure. ?? An incision was made over the tip of the 12th rib. The bluntly dissected down to the lumbodorsal fascia. This was pierced underneath the tip of the 12th rib. I placed a dilating balloon and created space by inflating this with 800 mL of air. A Almaguer type trocar was placed and the retroperitoneal space was insufflated. The 10 mm 30 degree laparoscope was inserted in the space was inspected. An 12mm robotic trocar was placed more posteriorly underneath the 12th rib, lateral to the spinal muscles. Using the suction device we swept the peritoneum away from the abdominal wall heading toward the right lower quadrant. Once I had enough space, a 5 mm trocar was placed under direct visualization. ?? I then exposed the psoas muscle. I mobilized the posterior attachments of the kidney. I removed thenephrostomy tube and divided the tract. I followed this in the cephalad direction until I identified pulsations of the renal artery. I dissected the right renal artery. I placed three Hem-o-aliyah clipsand divided the left renal artery. I dissected the left renal vein. I clipped and divided the left gonadal vein and then I clipped and divided the left renal vein. I dissected, clipped and divided the left ureter. I then mobilized the remaining attachments of the kidney until it was free in the retroperitoneal space. The kidney was placed into a large entrapment sac. The specimen was extracted thr ough the initial incision under the tip of the 12th rib. The skin and fascial incisions were extended just enough to extract the specimen. The fascia at the extraction site was closed with 0 Loop PDS. The retroperitoneum was re-insufflated and the scope inserted. There was no bleeding. The scope andthe remaining 2 trocars were removed. The port sites and the extraction site were irrigated and infiltrated with Marcaine. The skin of all sites was then closed with 4-0 monoacyl suture. Dermabond was applied. ?? The patient was awoken and taken to postoperative anesthesia recovery. ?? Specimens: Order Name Source Comment Collection Info Order Time URINE CULTURE 03/29/2018 12:23 PM BASIC METABOLIC PANEL 03/29/2018 12:23 PM CBC WITH AUTO DIFFERENTIAL 03/29/2018 12:23 PM TYPE AND SCREEN 03/29/2018 12:23 PM Is this test being ordered in advance for a procedure? Yes Expected date of procedure: 04/06/2018 Has the patient been transfused in the past 3 months? No Has the patient been in the past 3 months? No SURGICAL PATHOLOGY Kidney, total nephrectomy Collected By: Silverio Roblero MD 04/06/2018 11:31 AM Estimated Blood Loss: 50 mL Intraoperative Fluids & Blood Products: 1500 mls The instruments, needle and sponge count were found to be correct. Complications: None Condition on Discharge from the operating room was stable Silverio Roblero MD Date: 04/06/2018 Time: 11:49 AM PRESENCE STATEMENT : I was present and directly participated in the entire procedure (including opening and closing). PMENT MAINTENANCE SUPERINTENDENT documented in this encounter Plan of Treatment Not on file documented as of this encounter Procedures Procedure Name Priority Date/Time Associated Diagnosis Comments SURGICAL PATHOLOGY Routine 04/06/2018 11 :31 AM EQUIPMENT MAINTENANCE SUPERINTENDENT Calculus of kidney with calculus of ureter LAPAROSCOPIC NEPHRECTOMY 04/06/2018 9:20 AM EQUIPMENT MAINTENANCE SUPERINTENDENT Calculus of kidney with calculus of ureter B ABO / RH CONFIRMATION TESTING Routine 04/06/2018 7:29 AM EQUIPMENT MAINTENANCE SUPERINTENDENT documented in this encounter Results * Surgical pathology (04/06/2018 11:31 AM EQUIPMENT MAINTENANCE SUPERINTENDENT) Tissue (Kidney, total nephrectomy) 04/06/2018 11:31 AM EQUIPMENT MAINTENANCE SUPERINTENDENT Narrative PATHOLOGY [facility] - 04/11/2018 10:06 AM EQUIPMENT MAINTENANCE SUPERINTENDENT EPIC results best viewed via link to PDF [facility] [place] [address] SURGICAL PATHOLOGY REPORT FINAL Patient Name: ?? PAULA HITCHCOCK Gender: ??F : ??1940 (Age: 77) Address: ??[address] [place] [address] ??[address] Hospital #: ??[id number] Taken:04/06/2018 Received:04/06/2018 Reported: 04/11/2018 Patient Type: OutPatient Client ?[facility] Service: Surgery Location: [address] Physician(s): ??Gabriele Agustin M.D. Diagnosis: A. ??Kidney, left, radical nephrectomy ? - Obstructive nephropathy - Arterionephrosclerosis - Nephrolithiasis ? - No evidence of malignancy - See comment [facility]/04/10/2018 14:21 By this signature, I attest that the above diagnosis is based upon my personal examination of the slides(and/or other material indicated in the diagnosis). Mike Avery M.D., Ph.D. Report Electronically Reviewed and Signed Out By ??Mike Avery M.D., Ph.D. 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 Boogie Hoyt M.D. History: The patient is a 77-year-old woman who presents with calculus of the kidney with calculus of the ureter. ??Operative procedure: Laparoscopic left radical nephrectomy. Specimen(s) Received: A: Left kidney Gross Description: The specimen is received in a single formalin filled container labeled with the patient's name and left kidney and consists of a 200.6 g, 12.6 x 7.8 x 4.8 cm radical nephrectomy specimen. ??The attached perinephric adipose tissue and Gerota's fascia been entirely inked black and the specimen has been previously bisected to reveal a 7.6 x 4.3 x 2.7 cm kidney which demonstrates a diffusely dilated calyces ranging in greatest dimension from 0.5-2.1 cm which contain multiple granular calculi. ??The remainder of the specimen demonstrates burnette-brown, homogenous kidney parenchyma which demonstrates an atrophied cortex (0.4 cm) with a poorly defined cortical medullary junction. ??Labeled A1 - hilar margins; A2 to A3 - dilated calyces; A4 to A5 - parenchyma. ??Jar 3. exb/04/06/2018 16:33 Shasta Salvador, P.Deb. By this signature, I attest that the above diagnosis is based upon my personal examination of the slides(and/or other material). The performance characteristics of some immunohistochemical stains, fluorescence in-situ hybridization tests and immunophenotyping by flow cytometry cited in this report (if any) were determined by the Surgical Pathology Department at [facility] as part of an ongoing lead quality technician program and in compliance with federally mandated regulations drawn from the Clinical Laboratory Improvement Act of 1988 (CLIA '88). ??Some of these tests rely on the use of analyte specific reagents and are subject to specific labeling requirements by the US Food and Drug Administration. ??Such diagnostic tests may only be performed in a facility that is certified by the Department of Health and Human Services as a high complexity laboratory under CLIA '88. ??The FDA has determined that such clearance or approval is not necessary. ??This test is used for clinical purposes. ??It should not be regarded as investigational or for research. ??Nevertheless, federal rules concerning the medical use of analyte specific reagents require that the following disclaimer be attached to the report: This test was developed and its performance characteristics determined by the Surgical Pathology Department of [facility]. ??It has not been cleared or approved by the U. S. Food and Drug Administration. IMAGES AND SCANNED DOCUMENTS, IF INCLUDED, ONLY VIEWABLE IN PDF VERSION OF REPORT Silverio Roblero MD LAB PATHOLOGY ORDERABLES Final Result PATHOLOGY [facility] [phone] * ABO / Rh Confirmation Testing (04/06/2018 7:29 AM EQUIPMENT MAINTENANCE SUPERINTENDENT) ABO/Rh Confirmation A Positive EMILIE VENTURA Blood specimen (specimen) 04/06/2018 7:29 AM EQUIPMENT MAINTENANCE SUPERINTENDENT 04/06/2018 7:51 AM EQUIPMENT MAINTENANCE SUPERINTENDENT Narrative EMILIE VENTURA - 04/06/2018 8:35 AM EQUIPMENT MAINTENANCE SUPERINTENDENT Silverio Roblero MD LAB BLOOD ORDERABLES Kelley l Result Performing Organization Address [facility] de Phone Number [facility] [address] [facility] [place] [address] documented in this encounter Visit Diagnoses Diagnosis Calculus of kidney with calculus of ureter- Primary documented in this encounter Admitting Diagnoses Diagnosis Calculus of kidney with calculus of ureter documented in this encounter Administered Medications Inactive Administered Medications - up to 3 most recent administrations Medication Order MAR Action Action Date Dose Rate Site acetaminophen (TYLENOL) tablet 1,000 mg 1,000 mg, oral, Every 6 hours scheduled, First dose on Tue04/06/18 at 1400, Indications: PainIndications:Pain Given 04/07/2018 8:21 AM EQUIPMENT MAINTENANCE SUPERINTENDENT 1,000 mg Given 04/07/2018 3:10 AM EQUIPMENT MAINTENANCE SUPERINTENDENT 1,000 mg Given 04/06/2018 9:54 PM EQUIPMENT MAINTENANCE SUPERINTENDENT 1,000 mg ALPRAZolam (XANAX) tablet 0.5 mg 0.5 mg, oral, Nightly PRN, anxiety, sleep, Starting on Tue04/06/18 at 1944 Given 04/06/2018 9:54 PM EQUIPMENT MAINTENANCE SUPERINTENDENT 0.5 mg citalopram (CeleXA) tablet 20 mg 20 mg, oral, Daily (early AM), First dose on Tue04/07/18 at 0600 Given 04/07/2018 6:00 AM EQUIPMENT MAINTENANCE SUPERINTENDENT 20 mg dextrose 5% and sodium chloride 0.45% infusion (premix) 75 mL/hr, intravenous, Continuous, Starting on Carly 04/06/18 at 1345 New Bag 04/07/2018 3:09 AM EQUIPMENT MAINTENANCE SUPERINTENDENT 75 mL/hr 75 mL/hr Rate/Dose Verify 04/06/2018 6:33 PM EQUIPMENT MAINTENANCE SUPERINTENDENT 75 mL/hr 75 mL/h r Rate/Dose Verify 04/06/2018 4:24 PM EQUIPMENT MAINTENANCE SUPERINTENDENT 75 mL/hr 75 mL/h r docusate sodium (COLACE) capsule 100 mg 100 mg, oral, 2 times daily, First dose on Carly 04/06/18 at 2100, Indications: constipationIndications:constipation Given 04/07/2018 8:21 AM EQUIPMENT MAINTENANCE SUPERINTENDENT 100 mg Given 04/06/2018 9:54 PM EQUIPMENT MAINTENANCE SUPERINTENDENT 100 mg enoxaparin (LOVENOX) syringe 30 mg 30 mg, subcutaneous, Daily (for enoxaparin), First dose on Carly 04/06/18 at 2100, Indications: Deep Vein Thrombosis PreventionIndications:Deep Vein Thrombosis Prevention Given 04/06/2018 9:54 PM EQUIPMENT MAINTENANCE SUPERINTENDENT 30 mg Right Upper Abdomen famotidine (PEPCID) tablet 20 mg 20 mg, oral, 2 times daily, First dose on Carly 04/06/18 at 2100, Indications: gastroesophageal reflux diseaseIndications:gastroesophag eal reflux disease Given 04/07/2018 8:21 AM EQUIPMENT MAINTENANCE SUPERINTENDENT 20 mg Given 04/06/2018 9:54 PM EQUIPMENT MAINTENANCE SUPERINTENDENT 20 mg HYDROmorphone (DILAUDID) injection 0.2 mg 0.2 mg, intravenous, Administer over 2 Minutes, Every 5 min PRN, 2nd line for pain, Use as 1st line pain med for patients being admitted. Use as second line for pain uncontrolled after Fentanyl after consulting Anesthesiologist, Starting on Carly 04/06/18 at 1148, For 10 doses, Phase I, Notify Anesthesiologist if total PACU dose reaches 2 mg and pain score 5/10 or more., Indications: PainIndications:Pain Given 04/06/2018 12:32 PM EQUIPMENT MAINTENANCE SUPERINTENDENT 0.2 mg Given 04/06/2018 12:23 PM EQUIPMENT MAINTENANCE SUPERINTENDENT 0.2 mg Given 04/06/2018 12:15 PM EQUIPMENT MAINTENANCE SUPERINTENDENT 0.2 mg Lactated Ringer's (LR) infusion 30 mL/hr, intravenous, Continuous, Starting on Carly 04/06/18 at 0745, Pre-Op, Switch to Normal Saline for patients on Dialysis New Bag 04/06/2018 11:35 AM EQUIPMENT MAINTENANCE SUPERINTENDENT New Bag 04/06/2018 9:45 AM EQUIPMENT MAINTENANCE SUPERINTENDENT New Bag 04/06/2018 7:39 AM EQUIPMENT MAINTENANCE SUPERINTENDENT 30 mL/hr 30 mL/hr ondansetron (ZOFRAN) injection 4 mg 4 mg, intravenous, Administer over 2 Minutes, Once as needed, nausea, vomiting, Starting on Carly 04/06/18 at 1148, For 1 dose, Phase I, Proceed to prochlorperazine if ondansetron has been given within the last 6 hours. Given 04/06/2018 12:31 PM EQUIPMENT MAINTENANCE SUPERINTENDENT 4 mg polyvinyl alcohol (LIQUIFILM TEARS) 1.4 % ophthalmic solution 1 drop 1 drop, each eye, Daily PRN, dry eyes, Starting on Carly 04/06/18 at 1521 prochlorperazine (COMPAZINE) injection 5 mg 5 mg, intravenous, Every 6 hours PRN, nausea, vomiting, Use if unable to tolerate PO, Starting on Carly 04/06/18 at 1303, Indications: Nausea and VomitingIndications:Nausea and Vomiting prochlorperazine (COMPAZINE) tablet 5 mg 5 mg, oral, Every 6 hours PRN, nausea, vomiting, Starting on Carly 04/06/18 at 1303, Indications: Nausea and VomitingIndications:Nausea and Vomiting timolol (TIMOPTIC) 0.5 % ophthalmic solution 1 drop 1 drop, left eye, 2 times daily, First dose on Carly 04/06/18 at 2100, Indications: open angle glaucomaIndications:open angle glaucoma Given 04/07/2018 8:25 AM EQUIPMENT MAINTENANCE SUPERINTENDENT 1 drop documented in this encounter Active and Recently Administered Medications Times are shown in EQUIPMENT MAINTENANCE SUPERINTENDENT. Scheduled Medication Order 04/05/2018 04/06/2018 04/07/2018 acetaminophen (TYLENOL) tablet 1,000 mg 1,000 mg, oral, Every 6 hours scheduled, First dose on Carly 04/06/18 at 1400, Indications: Pain 1403 (Given - Provider: Anna Vines RN)2154 (Given - Provider: Kiara Ortiz RN) 0310 (Given - Provider: Kiara Ortiz RN)0821 (Given - Provider: Katia Abernathy RN) ceFAZolin (ANCEF) 1 gram/10 mL in sterile water (premix) 2,000 mg (COMPLETED) 2,000 mg, intravenous, at 400 mL/hr, Administer over 3 Minutes, Once, On Carly 04/06/18 at 0945, For 1 dose, Pre-Op, Indications: Prophylaxis, Surgical 914 (Given - Provider: Luci Dangelo CRNA) citalopram (CeleXA) tablet 20 mg 20 mg, oral, Daily (early AM), First dose on Tue04/07/18 at 0600 0600 (Given - Provider: Kiara Ortiz RN) docusate sodium (COLACE) capsule 100 mg 100 mg, oral, 2 times daily, First dose on Carly 04/06/18 at 2100, Indications: constipation 215 (Given - Provider: Kiara Ortiz RN) 0821 (Given - Provider: Katia Abernathy RN) enoxaparin (LOVENOX) syringe 30 mg 30 mg, subcutaneous, Daily (for enoxaparin), First dose on Carly 04/06/18 at 2100, Indications: Deep Vein Thrombosis Prevention 2153 (Given - Provider: Kiara Ortiz RN) famotidine (PEPCID) tablet 20 mg 20 mg, oral, 2 times daily, First dose on Carly 04/06/18 at 2100, Indications: gastroesophageal reflux disease 2153 (Given - Provider: Kiara Ortiz RN) 0821 (Given - Provider: Katia Abernathy RN) latanoprost (XALATAN) 0.005 % ophthalmic solution 1 drop 1 drop, left eye, Nightly, First dose on Carly 04/06/18 at 2100 0007 (Not Given - Provider: Kiara Ortiz RN - Reason: Patient/family refused) scopolamine patch 72 hour 1 patch (COMPLETED) 1 patch, transdermal, Administer over 72 Hours, Once, On Carly 04/06/18 at 0745, For 1 dose, Pre-Op, Apply to patients with a history of PONV, Motion Sickness, Beach Chair position Shoulder surgeries, and for Dr. Jules's Patients. Do not apply to patients with Glaucoma or BPH, Indications: Prevention of Post-Operative Nausea and Vomiting 914 (Given - Provider: Luci Dangelo CRNA) sodium chloride 0.9% flush 0.5-20 mL 0.5-20 mL, intra-catheter, Every 8 hours scheduled, First dose on Carly 04/06/18 at 1400, Flush volume based on line type and size. , Indications: Flushing 1318 (Not Given - Provider: Katia Abernathy RN - Reason: Order parameters not met) 0007 (Not Given - Provider: Kiara Ortiz RN - Reason: Other - Comment: iv fluids infusing)0514 (Not Given - Provider: Kiara Ortiz RN - Reason: Other - Comment: iv infusing) timolol (TIMOPTIC) 0.5 % ophthalmic solution 1 drop 1 drop, left eye, 2 times daily, First dose on Carly 04/06/18 at 2100, Indications: open angle glaucoma 0007 (Not Given - Provider: Kiara Ortiz RN - Reason: Patient/family refused)0825 (Given - Provider: Katia Abernathy RN) Continuous Medication Order 04/05/2018 04/06/2018 04/07/2018 dextrose 5% and sodium chloride 0.45% infusion (premix) (CANCELED) 75 mL/hr, intravenous, Continuous, Starting on Carly 04/06/18 at 1345 1327 (New Bag - Provider: Katia Abernathy RN)1624 (Rate/Dose Verify - Provider: Anna Vines, MARCE)1833 (Rate/Dose Verify - Provider: Anna Vines, MARCE) 0309 (New Bag - Provider: Kiara Ortiz RN) Lactated Ringer's (LR) infusion (CANCELED) 30 mL/hr, intravenous, Continuous, Starting on Carly 04/06/18 at 0745, Pre-Op, Switch to Normal Saline for patients on Dialysis 0739 (New Bag - Provider: Brianne Dominguez RN)0945 (New Bag - Provider: Luci Dangelo CRNA)1135 (New Bag - Provider: Luci Dangelo CRNA)1403 (Stopped - Provider: Anna Vines RN) PRN Medication Order 04/05/2018 04/06/2018 04/07/2018 ALPRAZolam (XANAX) tablet 0.5 mg 0.5 mg, oral, Nightly PRN, anxiety, sleep, Starting on Carly 04/06/18 at 1944 2154 (Given - Provider: Kiara Ortiz, MARCE) bupivacaine (MARCAINE) 0.5 % (5 mg/mL) injection (CANCELED) As needed, Starting on Carly 04/06/18 at 1131, Intra-Op 1131 (Given - Provider: Silverio Roblero MD) HYDROmorphone (DILAUDID) injection 0.2 mg (CANCELED) 0.2 mg, intravenous, Administer over 2 Minutes, Every 5 min PRN, 2nd line for pain, Use as 1st line pain med for patients being admitted. Use as second line for pain uncontrolled after Fentanyl after consulting Anesthesiologist, Starting on Carly 04/06/18 at 1148, For 10 doses, Phase I, Notify Anesthesiologist if total PACU dose reaches 2 mg and pain score 5/10 or more., Indications: Pain 1215 (Given - Provider: Brianne Dominguez RN)1223 (Given - Provider: Brianne Dominguez RN)1232 (Given - Provider: Brianne Dominguez RN) HYDROmorphone (DILAUDID) injection 0.2 mg 0.2 mg, intravenous, Administer over 2 Minutes, Every 3 hours PRN, 1st line for pain, Starting on Carly 04/06/18 at 1303, Indications: Pain 1846 (Due) neomycin-polymyxin B (NEOSPORIN-) 1 mL in sodium chloride 0.9% 10 mL irrigation solution (CANCELED) As needed, Starting on Carly 04/06/18 at 1020, Intra-Op 1020 (Given - Provider: Rufus Israel MD - Comment: nephrostomy tube) ondansetron (ZOFRAN) injection 4 mg (COMPLETED) 4 mg, intravenous, Administer over 2 Minutes, Once as needed, nausea, vomiting, Starting on Carly 04/06/18 at 1148, For 1 dose, Phase I, Proceed to prochlorperazine if ondansetron has been given within the last 6 hours. 1231 (Given - Provider: Brianne Dominguez RN) polyvinyl alcohol (LIQUIFILM TEARS) 1.4 % ophthalmic solution 1 drop 1 drop, each eye, Daily PRN, dry eyes, Starting on Carly 04/06/18 at 1521 prochlorperazine (COMPAZINE) injection 5 mg(Linked Group 1) 5 mg, intravenous, Every 6 hours PRN, nausea, vomiting, Use if unable to tolerate PO, Starting on Carly 04/06/18 at 1303, Indications: Nausea and Vomiting prochlorperazine (COMPAZINE) tablet 5 mg(Linked Group 1) 5 mg, oral, Every 6 hours PRN, nausea, vomiting, Starting on Carly 04/06/18 at 1303, Indications: Nausea and Vomiting sodium chloride 0.9% flush 0.5-20 mL 0.5-20 mL, intra-catheter, As needed, line care, Starting on Carly 04/06/18 at 1303, Flush volume based on line type and size. Flush before and after each use. , Indications: Flushing Linked Groups Order Group 1: prochlorperazine (COMPAZINE) tablet 5 mgJump to med 5 mg, oral, Every 6 hours PRN, nausea, vomiting, Starting on Carly 04/06/18 at 1303, Indications: Nausea and Vomiting Or prochlorperazine (COMPAZINE) injection 5 mgJump to med 5 mg, intravenous, Every 6 hours PRN, nausea, vomiting, Use if unable to tolerate PO, Starting on Carly 04/06/18 at 1303, Indications: Nausea and Vomiting documented in this encounter Orders Medications Ordered That Suleiman ht Not Have Been Administered Count Last Ordered Date First Ordered Date acetaminophen (TYLENOL) tablet 500 mg bupivacaine (MARCAINE) 0.5 % (5 mg/mL) injection 04/06/2018 ceFAZolin (ANCEF) 1 gram/10 mL in sterile water (premix) 2,000 mg 04/06/2018 diphenhydrAMINE (BENADRYL) i njection 12.5 mg 04/06/2018 fentaNYL (SUBLIMAZE) preserv ative free injection 25 mcg 1 04/06/2018 hydrALAZINE (APRESOLINE) injection 5 mg 1 0 04/06/2018 HYDROcodone-acetaminophen (N ORCO) 5-325 mg per tablet 1 tablet 04/06/2018 HYDROmorphone (DILAUDID) injection 0.2 mg 04/06/2018 hypromellose (GONAK) 2.5 % o phthalmic demulcent solution 1 drop 1 04/06/2018 Lactated Ringer's (LR) infusion 1 9 latanoprost (XALATAN) 0.005 % ophthalmic solution 1 drop 1 04/06/2018 meperidine (DEMEROL) preserv ative free injection 12.5 mg 1 04/06/2018 metoprolol (LOPRESSOR) injection 1 mg 1 neomycin-polymyxin B (KEELEY SPORIN-) 1 mL in sodium chloride 0.9% 10 mL irrigation solution 1 04/06/2018 polyvinyl alcohol (LIQUIFILM TEARS) 1.4 % ophthalmic solution 1 drop 1 04/06/2018 prochlorperazine (COMPAZINE) injection 5 mg 2 04/06/2018 prochlorperazine (COMPAZINE) tablet 5 mg 1 04/06/2018 scopolamine patch 72 hour 1 patch 1 019 sodium chloride 0.9% flush 0.5-20 mL 5 03/15 Admission Count Last Ordered Date First Orde red Date ASSIGN PATIENT STATUS 2 04/06/2018 Transfer Count Last Ordered Date First Orde red Date TRANSFER PATIENT 1 04/06/2018 documented in this encounter Care Teams Section Leader And Machine Setter Relationship Specialty Start Date End Date Tobias Escobar MD [address] [place] [address] PCP - General 11/28/17 documented as of this encounter
--- OUTSIDE RECORDS SUMMARY | 2024-03-27 12:07 | XMS_ITS | Clinical Summary ---
Author Organization [facility] Address [address] [place] [address] Care Team Providers Care Seed Potato Cutter Name Role Phone Tobias Escobar MD Primary Care Provider [phone] Allergies Active Allergy Reactions Criticality Noted Date Comments Cefaclor Nausea & Vomiting Low Cephalosporins Other (See comments) Low GI symptoms Clindamycin Vomiting Low Azathioprine Other (See comments) High 02/17/2018 Toxic. Ended up in ICU afterwards Lomefloxacin Mental status changes Low Calcitonin ([place]) Anxiety,Vomiting Low Medications adalimumab (adalimumab) 40 mg/0.8 mL pen injector kitIndications: Crohn's Disease 40 mg. Every other Tuesday Active ALPRAZolam (XANAX) 0.5 mg tabletIndicatio ns:anxiety Take 0.5 mg by mouth nightly. 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 Active denosumab (PROLIA) 60 mg/mL syringe Inject under the skin once. Twice a year Active timolol (BETIMOL) 0.5 % ophthalmic solutionIndicat ions:open angle glaucoma Administer 1 drop into the left eye 2 (two) times a day. Active cyanocobalamin (Vitamin B-12) 1,000 mcg tabletIndicatio ns:Prevention of Vitamin B12 Deficiency Take 1,000 mcg by mouth distillery supervisor before breakfast. Active cholecalciferol (VITAMIN D-3) 1,000 unit tablet Take 1,000 Units by mouth distillery supervisor before breakfast. Active ferrous sulfate 325 mg (65 mg of elemental iron) tabletIndicatio ns:Iron Deficiency Anemia Take 65 mg of elemental iron by mouth distillery supervisor before breakfast. Active famotidine (PEPCID) 20 mg tabletIndicatio ns:gastroesopha geal reflux disease Take 20 mg by mouth 2 (two) times a day. Active ARTIFICIAL TEARS,HYPROMELL OSE, OPHT Administer 1 drop into the right eye daily as needed. Active bimatoprost (LUMIGAN) 0.01 % ophthalmic dropsIndication s:open angle glaucoma Administer 1 drop into the left eye nightly. Active acetaminophen (TYLENOL) 500 mg tabletIndicatio ns:Pain Take 500 mg by mouth every 6 (six) hours as needed for pain. Active HYDROcodone-veronica taminophen (NORCO) 5-325 mg per tabletIndicatio ns:Pain Take 1 tablet by mouth every 6 (six) hours as needed (severe pain). 10 tablet 9 Active Additional Information Patient not taking.Reported on 05/05/2018 ondansetron (ZOFRAN) 4 mg tablet Take 4 mg by mouth every 8 (eight) hours as needed for nausea or vomiting. 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 Surgical History Surgery Date Site/Laterality Comments NEPHROSTOGRAM THROUGH EXISTING CATHETER LEFT 02/17/2018 Left EXTRACORPOREAL SHOCK WAVE LITHOTRIPSY LAPAROSCOPIC COLON RESECTION 11/07/2008 ex lap, lysis of adhesions, ileocolic resection, repair of enterotomies SECTION 1965, 1967 URETER REVISION CATARACT EXTRACTION, BILATERAL 03/14/2015 - 03/13/2016 Left RETINAL DETACHMENT SURGERY RETINAL DETACHMENT SURGERY 03/14/1972 - 03/13/1973 BOWEL RESECTION 1992, 2001, 2006 COLOSTOMY 03/14/1992 - 03/13/1993 REVISION / TAKEDOWN COLOSTOMY 03/14/1993 - 03/13/1994 URETER SURGERY 03/14/2001 - 03/13/2002 HERNIA REPAIR 03/14/2001 - 03/13/2002 BLADDER SURGERY 03/14/2006 - 03/13/2007 LITHOTRIPSY 03/14/2016 - 03/13/2017 URETERAL STENT PLACEMENT NEPHROSTOMY 03/14/2017 - 03/13/2018 Left Medical History Medical History Date Comments Crohn disease (CMS/HCC) (HCC) Cataract Arthritis GERD (gastroesophageal reflux disease) Left ureteral stone 02/17/2018 Blindness of right eye 02/17/2018 Anemia Sepsis (HCC) Delayed emergence from gener al anesthesia 2001 delayed emergence after rosalind l resection with ureteral injury in 2001 at [facility] Glaucoma Family History Medical History Relation Name Comments Diabetes Father Heart attack Maternal Grandfather Sudden Mother Anesthesia problems Neg Hx Relation Name Status Comments Father Maternal Grandfather Mother Social History Tobacco Use Types Packs/Day Years Used Date Smoking Tobacco: Former Cigarettes 1 36.9 1 962 - 01/26/1998 Smokeless Tobacco: Never Alcohol Use Standard Drinks/Week Comments Yes 1 (1 standard drink = 0.6 oz pur e alcohol) Comments No Sex and Gender Information Value Date Recorded Sex Assigned at Not on file Legal Sex Female 2:14 AM 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 Gender Identity Not on file Sexual Orientation Not on file Obstetrics History Last Filed Vital Signs Vital Sign Reading Time Taken Comments Blood Pressure 112/56 04/07/2018 12:58 PM GRAIN I FARMWORKER Pulse 61 04/07/2018 12:58 PM GRAIN I FARMWORKER Temperature 36.7 ??C (98.1 ??F) 04/07/2018 12:[address] Respiratory Rate 16 04/07/2018 12:58 PM GRAIN I FARMWORKER Oxygen Saturation 96% 04/07/2018 12:58 PM GRAIN I FARMWORKER Inhaled Oxygen Concentration - - Weight 56.7 kg (125 lb) 04/01/2020 10:15 AM GRAIN I FARMWORKER Height 147.3 cm (4' 10 ) 04/01/2020 10:15 AM GRAIN I FARMWORKER Body Mass Index 26.13 04/01/2020 10:15 AM GRAIN I FARMWORKER Plan of Treatment Not on file Insurance MEDICARE [facility] MEDICARE [place] Advance Directives For more information, please contact: [phone] * Full Code (Latest Code Status on File) Date Activated Date Inactivated Comments 04/06/2018 1:03 PM 04/07/2018 5:49 PM Care Teams Seed Potato Cutter Relationship Specialty Start Date End Date Tobias Escobar MD [address] [place] [address] PCP - General 11/28/17
--- OUTSIDE RECORDS SUMMARY | 2024-03-27 12:07 | XMS_ITS | Encounter Summary ---
Author Organization [facility] Address [address] [place] [address] Phone Care Team Providers Care Growth Media Mixer Mushroom Name Role Phone Tobias Escobar MD Primary Care Provider [phone] Reason for Visit * Reason Onset Date Comments new cancer appt 02/24/2018 Encounter Details Date Type Department Care Team (Late st Contact Info) Description 02/24/2018 Telephone [facility] ([facility]) - [facility] [address] [place] [address] [place] [address] Marsha Sparrow new cancer appt Social History Tobacco Use Types Packs/Day Years Used Date Smoking Tobacco: Former Cigarettes Q uit: 01/26/1998 Smokeless Tobacco: Never Alcohol Use Standard Drinks/Week Comments Yes 0 (1 standard drink = 0.6 oz pur e alcohol) Occasional wine Comments Unknown Sex and Gender Information Value Date Recorded Sex Assigned at Not on file Legal Sex Female 2:14 AM STEWARD/STEWARDESS SMOKE ROOM Gender Identity Not on file Sexual Orientation Not on file documented as of this encounter Miscellaneous Notes * Telephone Encounter - Silverio Roblero MD - 02/27/2018 1:02 PM STEWARD/STEWARDESS SMOKE ROOM Looks like she needs a nephrectomy. I am happy to see her. Thank you ARD/STEWARDESS SMOKE ROOM * Telephone Encounter - Marsha Sparrow - 02/24/2018 12:03 PM CST Pt is being referred over for nephrectomy by Dr. Castillo. Pt records in [facility]IC and imaging as well. Please advise. Thanks ARD/STEWARDESS SMOKE ROOM documented in this encounter Plan of Treatment Not on file documented as of this encounter Visit Diagnoses Not on filedocumented in this encounter Care Teams Growth Media Mixer Mushroom Relationship Specialty Start Date End Date Tobias Escobar MD [address] [place] [address] PCP - General 11/28/17 documented as of this encounter
--- OUTSIDE RECORDS SUMMARY | 2024-03-27 12:07 | XMS_ITS | Encounter Summary ---
Author Organization [facility] Healthcare Address [address] [place] [address] Care Team Providers Care Au Pair Name Role Phone Tobias Escobar MD Primary Care Provider [phone] Reason for Referral * Diagnostic Imaging (Routine) - Closed Specialty Diagnoses / Procedures Referred By Sami chew Referred To Contact Diagnoses Calculus of other lower urinary tract location Procedures NM Renal Imaging Flow and Function W WO Pharmacologic Intervention Aquiles Castillo MD Phone: tel: fax: [place] [place] [address] Referral ID Status Reason Start Date Expiration Date Visits Re quested Visits Authorized [id number] Closed 02/15/2018 08/27/2019 3 3 STIGATIVE REPORTER Reason for Visit * Diagnostic Imaging (Routine) - Closed Specialty Diagnoses / Procedures Referred By Sami chew Referred To Contact Diagnoses Calculus of other lower urinary tract location Procedures NM Renal Imaging Flow and Function W WO Pharmacologic Intervention Aquiles Castillo MD Phone: tel: fax: [place] [place] [address] Referral ID Status Reason Start Date Expiration Date Visits Re quested Visits Authorized [id number] Closed 02/15/2018 08/27/2019 3 3 Encounter Details Date Type Department Care Team (Latest Contact Info) Description 02/20/2018 1:06 PM INVESTIGATIVE REPORTER - 02/20/2018 11:59 PM INVESTIGATIVE REPORTER Hospital Encounter [facility] - Imaging [address] [place] [address] Aquiles Castillo MD [address] [place] [address] Calculus of other lower urinary tract location Discharge Disposition: Discharge to home or self [...] on file Legal Sex Female 2:14 AM INVESTIGATIVE REPORTER Gender Identity Not on file Sexual Orientation [...] unit tablet Take 1,000 Units by mouth it systems analyst consultant before breakfast. citalopram (CeleXA) 20 mg tablet Take 20 mg by mouth it systems analyst consultant before breakfast. cyanocobalamin (Vitamin B-12) 1,000 mcg tabletIndication s:Prevention of Vitamin B12 Deficiency Take 1,000 mcg by mouth it systems analyst consultant before breakfast. denosumab (PROLIA) 60 mg/mL syringe Inject under the skin once. Twice a year famotidine (PEPCID) 20 mg tabletIndication s:gastroesophage al reflux disease Take 20 mg by mouth 2 (two) times a day. ferrous sulfate 325 mg (65 mg of elemental iron) tabletIndication s:Iron Deficiency Anemia Take 65 mg of elemental iron by mouth it systems analyst consultant before breakfast. timolol (BETIMOL) 0.5 % ophthalmic [...] Procedure Name Priority Date/Time Associated Diagnosis Comments NM RENAL FLOW AND FUNCTION W WO PHARMACOLOGIC INTERVENTION Schedule Routine, Read Routine (OP Routine) 02/20/2018 4:45 PM INVESTIGATIVE REPORTER Calculus of other lower urinary tract location documented in this encounter Results * NM Renal Imaging Flow and Function W WO Pharmacologic Intervention (02/20/2018 4:45 PM INVESTIGATIVE REPORTER) Anatomical Region Laterality Modality Body N/A Nuclear Medicine 02/20/2018 6:04 PM INVESTIGATIVE REPORTER Impressions 02/20/2018 6:10 PM INVESTIGATIVE REPORTER 1. No evidence of obstruction in the right kidney. ??Right kidney contributes 87% of function. 2. ??Functioning urinary diversion by a left nephrostomy with radiotracer accumulating within the tubing. Electronically signed by: Robin Hernández MD Narrative 02/20/2018 6:10 PM INVESTIGATIVE REPORTER NM RENAL FLOW AND FUNCTION W WO PHARMACOLOGIC INTERVENTION Date: 02/20/2018 3:30 PM Clinical indication: ??Right hydronephrosis. ??Evaluation for obstruction. ??Left percutaneous nephrostomy in place. Comparison: none Technique: ??Following the IV administration of 11 millicuries technetium 99m labeled MAG-3 posterior flow images were obtained over the kidneys for one minute with images printed at 2 seconds per frame. ??Next, posterior dynamic imaging was performed for 40 minutes with images printed at 1 minute per frame. ??40 mg of IV Lasix was given at 18 minutes into the examination by slow IV push. ??Time activity curves were generated and analyzed with computer assistance to evaluate renal function as well as response to Lasix. Findings: ??Markedly delayed flow to the left kidney with differential and renogram curves of 87% on the right and 13% on the left. ??Urine collects in the tubing of the nephrostomy catheter in the left kidney without significant excretion into the collecting system or down the ureter. ??The right kidney is hydronephrotic with mild hydroureter. Post void there is significant activity within the collecting system on the right insula Lasix was administered with normal excretion and washout half-time of 7.5 minutes. Procedure Note Robin Hernández MD - 02/20/2018 NM RENAL FLOW AND FUNCTION W WO PHARMACOLOGIC INTERVENTION Date: 02/20/2018 3:30 PM Clinical indication: Right hydronephrosis. Evaluation for obstruction. Left percutaneous nephrostomy in place. Comparison: none Technique: Following the IV administration of 11 millicuries technetium 99m labeled MAG-3 posterior flow images were obtained over the kidneys for one minute with images printed at 2 seconds per frame. Next, posterior dynamic imaging was performed for 40 minutes with images printed at 1 minute per frame. 40 mg of IV Lasix was given at 18 minutes into the examination by slow IV push. Time activity curves were generated and analyzed with computer assistance to evaluate renal function as well as response to Lasix. Findings: Markedly delayed flow to the left kidney with differential and renogram curves of 87% on the right and 13% on the left. Urine collects in the tubing of the nephrostomy catheter in the left kidney without significant excretion into the collecting system or down the ureter. The right kidney is hydronephrotic with mild hydroureter. Post void there is significant activity within the collecting system on the right insula Lasix was administered with normal excretion and washout half-time of 7.5 minutes. IMPRESSION: 1. No evidence of obstruction in the right kidney. Right kidney contributes 87% of function. 2. Functioning urinary diversion by a left nephrostomy with radiotracer accumulating within the tubing. Electronically signed by: Robin Hernández MD Aquiles Castillo MD [facility] PROCEDURES Final Resul t documented in this encounter Visit Diagnoses Diagnosis Calculus of other lower urinary tract location documented in this encounter Administered Medications Inactive Administered Medications - up to 3 most recent administrations Medication Order MAR Action Action Date Dose Rate Site furosemide (LASIX) injection 40 mg 40 mg, intravenous, Administer over 3 Minutes, Once, On 02/20/18 at 1730, For 1 dose, Room temperature only Given 02/20/2018 4:46 PM INVESTIGATIVE REPORTER 40 mg Right Hand tc-99m mertiatide (MAG3) injection 11 millicurie 11 millicurie, intravenous, Once in imaging, radiopharmaceutical, Starting on 02/20/18 at 1549, For 1 dose Given 02/20/2018 3:49 PM INVESTIGATIVE REPORTER 11 millicuries Right Hand documented in this encounter Care Teams Au Pair Relationship Specialty Start Date End Date Tobias Escobar MD [address] [place] [address] PCP - General 11/28/17 documented as of this encounter
--- OUTSIDE RECORDS SUMMARY | 2024-03-27 12:07 | XMS_ITS | Encounter Summary ---
Author Organization [facility] Address [address] [place] [address] Phone Care Team Providers Care Box Office Clerk Name Role Phone Tobias Escobar MD Primary Care Provider [phone] Reason for Visit * Reason Comments Urolithiasis left nephrectomy 04/06/18 Encounter Details Date Type Department Care Team (Late st Contact Info) Description 05/05/2018 12:00 PM RAILROAD WATCHMAN Office Visit [facility] Surgery [facility] [address] [place] [phone] Silverio Roblero MD [address] [facility] [id number] [address] Calculus of kidney with calculus of ureter (Primary Dx) Social History Tobacco Use Types Packs/Day Years Used Date Smoking Tobacco: Former Cigarettes 1 36.9 1 962 - 01/26/1998 Smokeless Tobacco: Never Alcohol Use Standard Drinks/Week Comments Yes 1 (1 standard drink = 0.6 oz pur e alcohol) Comments No Sex and Gender Information Value Date Recorded Sex Assigned at Not on file Legal Sex Female 2:14 AM RAILROAD WATCHMAN Gender Identity Not on file Sexual Orientation Not on file documented as of this encounter Progress Notes * Silverio Roblero MD - 05/05/2018 12:00 PM CST Subjective/Objective Patient ID: Paula Hitchcock is a 77 y.o. female. Chief Complaint Urolithiasis and left nephrectomy (04/06/18) Patient returns with her for a postoperative visit. She is status post a left nephrectomy for a poorly functioning kidney. She has had an uncomplicated postoperative course. Her incisions have healed nicely. Review of Systems Constitutional: Negative for chills, [...] to light. Neck: Normal range of motion. Pulmonary/Chest: Effort normal. No respiratory distress. Musculoskeletal: Normal range of motion. Neurological: She is alert and oriented to person, place, and time. Skin: Skin is warm and dry. Psychiatric: She has a normal mood and affect. Surgical pathology from 04/06/2018: Diagnosis: A. ??Kidney, left, radical nephrectomy ? - Obstructive nephropathy - Arterionephrosclerosis - Nephrolithiasis ? - No evidence of malignancy - See comment Assessment/Plan Diagnoses and all orders for this visit: Calculus of kidney with calculus of ureter (N20.2) (Primary) Comments: s/p L nephrectomy 04/06/18-Obstructive nephropathy - Arterionephrosclerosis - Nephrolithiasis ? - No evidence of malignancy Orders: - POCT urinalysis dipstick Doing well status post left nephrectomy for a poorly functioning, chronically obstructed kidney. Atthis point she will follow up with me p.r.n.. ROAD WATCHMAN documented in this encounter Plan of Treatment Not on file documented as of this encounter Procedures Procedure Name Priority Date/Time Associated Diagnosis Comments POCT URINALYSIS DIPSTICK Routine 05/05/2018 11:53 AM RAILROAD WATCHMAN Calculus of kidney with calculus of ureter documented in this encounter Results * POCT urinalysis dipstick (05/05/2018 11:53 AM RAILROAD WATCHMAN) Glucose, ur, POC Negative Negative mg/dL Ketones, ur, POC Negative Negative Blood, ur, POC Negative Negative pH, ur, POC 5.0 5.0 - 8.0 Protein, ur, POC Negative Negative Nitrite, ur, POC Negative Negative Leukocytes, ur, POC Negative Negative Lot Number 0 Urine 05/05/2018 11:5 3 AM RAILROAD WATCHMAN Sivlerio Roblero MD POINT OF CARE TEST ORDERA BLES Final Result documented in this encounter Visit Diagnoses Diagnosis Calculus of kidney with calculus of ureter- Primary documented in this encounter Historical Medications * This list may reflect changes made after this encounter. ondansetron (ZOFRAN) 4 mg tablet Take 4 mg by mouth every 8 (eight) hours as needed for nausea or vomiting. added in this encounter Care Teams Box Office Clerk Relationship Specialty Start Date End Date Tobias Escobar MD [address] [place] [address] PCP - General 11/28/17 documented as of this encounter
--- OUTSIDE RECORDS SUMMARY | 2024-03-27 12:07 | XMS_ITS | Referral Summary ---
Author Organization [facility] Address [address] [place] [address] Care Team Providers Care Butter Printer Name Role Phone Tobias Escobar MD Primary Care Provider [phone] Allergies Active Allergy Reactions Criticality Noted Date Comments Cefaclor Nausea & Vomiting Low Cephalosporins Other (See comments) Low GI symptoms Clindamycin Vomiting Low Azathioprine Other (See comments) High 02/17/2018 Toxic. Ended up in ICU afterwards Lomefloxacin Mental status changes Low Calcitonin ([place]) Anxiety,Vomiting Low Medications adalimumab (adalimumab) 40 mg/0.8 mL pen injector kitIndications: Crohn's Disease 40 mg. Every other Tuesday Active ALPRAZolam (XANAX) 0.5 mg tabletIndicatio ns:anxiety Take 0.5 mg by mouth nightly. Active citalopram (CeleXA) 20 mg tablet Take 20 mg by mouth early childhood special educator before breakfast. Active denosumab (PROLIA) 60 mg/mL syringe Inject under the skin once. Twice a year Active timolol (BETIMOL) 0.5 % ophthalmic solutionIndicat ions:open angle glaucoma Administer 1 drop into the left eye 2 (two) times a day. Active cyanocobalamin (Vitamin B-12) 1,000 mcg tabletIndicatio ns:Prevention of Vitamin B12 Deficiency Take 1,000 mcg by mouth early childhood special educator before breakfast. Active cholecalciferol (VITAMIN D-3) 1,000 unit tablet Take 1,000 Units by mouth early childhood special educator before breakfast. Active ferrous sulfate 325 mg (65 mg of elemental iron) tabletIndicatio ns:Iron Deficiency Anemia Take 65 mg of elemental iron by mouth early childhood special educator before breakfast. 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7 ??C (98.1 ??F) 04/07/2018 12:[address] Respiratory Rate 16 04/07/2018 12:58 PM WELDING SETTER Oxygen Saturation 96% 04/07/2018 12:58 PM WELDING SETTER Inhaled Oxygen Concentration - - Weight 56.7 kg (125 lb) 04/01/2020 10:15 AM WELDING SETTER Height 147.3 cm (4' 10 ) 04/01/2020 10:15 AM WELDING SETTER Body Mass Index 26.13 04/01/2020 10:15 AM WELDING SETTER Plan of Treatment Not on file Insurance MEDICARE [facility] MEDICARE [employer] TREVINO Advance Directives For more information, please contact: [phone] * Full Code (Latest Code Status on File) Date Activated Date Inactivated Comments 04/06/2018 1:03 PM 04/07/2018 5:49 PM Care Teams Butter Printer Relationship Specialty Start Date End Date Tobias Escobar MD [address] [place] [address] PCP - General 11/28/17
--- OUTSIDE RECORDS SUMMARY | 2024-03-27 12:07 | XMS_ITS | Encounter Summary ---
Author Organization [facility] Address [address] [place] [address] Phone Care Team Providers Care Stock Mixer Name Role Phone Tobias Escobar MD Primary Care Provider [phone] Encounter Details Date Type Department Care Team (Late st Contact Info) Description 03/29/2018 Telephone [facility] Surgery [facility] [address] [place] [phone] Kaya Patricia Social History Tobacco Use Types Packs/Day Years Used Date Smoking Tobacco: Former Cigarettes 1 36.9 1 962 - 01/26/1998 Smokeless Tobacco: Never Alcohol Use Standard Drinks/Week Comments Yes 1 (1 standard drink = 0.6 oz pur e alcohol) Comments Unknown Sex and Gender Information Value Date Recorded Sex Assigned at Not on file Legal Sex Female 2:14 AM RANGE RIDER Gender Identity Not on file Sexual Orientation Not on file documented as of this encounter Miscellaneous Notes * Telephone Encounter - Kaya Patricia - 03/29/2018 2:39 PM RANGE RIDER Patient is due for her Humira the day after her surgery for her Crohn's. Should she bring rx with her? Per Nidia and JOSEF Escobar- wait until she gets home to do injection. Called patient's daughter. E RIDER E RIDER documented in this encounter Plan of Treatment Not on file documented as of this encounter Visit Diagnoses Not on filedocumented in this encounter Care Teams Stock Mixer Relationship Specialty Start Date End Date Tobias Escobar MD [address] [place] [address] PCP - General 11/28/17 documented as of this encounter
--- OUTSIDE RECORDS SUMMARY | 2024-03-27 12:07 | XMS_ITS | Encounter Summary ---
Author Organization [facility] Healthcare Address [address] [place] [address] Care Team Providers Care Marshmallow Machine Worker Name Role Phone Tobias Escobar MD Primary Care Provider [phone] Encounter Details Date Type Department Care Team (Late st Contact Info) Description 02/17/2018 11:59 PM PLASMA PROCESSING CENTRIFUGE OPERATOR Anesthesia Event [facility] Operating Room [address] [place] [phone] Shelbi Schmidt PA [address] [place] [address] Anesthesia Record Procedure Summary Procedure Name Responsible Anesthesiologist Anesthesia Start Time Anesthesia Stop Time Left Percutaneous Nephrolithotomy (canceled) Events No events on file. Meds * Agents No agents on file. * Blood No blood administrations on file. Lines, Drains, and Airways No LDAs on file. documented in this encounter Social History Tobacco Use Types Packs/Day Years Used Date Smoking Tobacco: Former Cigarettes Q uit: 01/26/1998 Smokeless Tobacco: Never Alcohol Use Standard Drinks/Week Comments Yes 0 (1 standard drink = 0.6 oz pur e alcohol) Occasional wine Comments Unknown Sex and Gender Information Value Date Recorded Sex Assigned at Not on file Legal Sex Female 2:14 AM PLASMA PROCESSING CENTRIFUGE OPERATOR Gender Identity Not on file Sexual Orientation Not on file documented as of this encounter OR Notes * Anesthesia Preprocedure Evaluation - Brittni Mehta PA - 02/17/2018 11:05 AM CST Anesthesia Evaluation Paula Hitchcock is a 77 y.o. female with a history of a left kidney stone who [facility] for preoperative evaluation of Left Percutaneous Nephrolithotomy by Aquiles Castillo MD on 02/28/2018. Pre-Op Diagnosis Codes: * Left ureteral stone [N20.1] Procedure(s): Left Percutaneous Nephrolithotomy HISTORY Past Medical History Information obtained from: patient and chart. Neurological Neuro/Psych system: negative Cardiovascular Cardiac system: negative Respiratory Pertinent negatives: non-smoker Respiratory system: negative Hepatic / Heme Hepatic/Heme system: negative Gastrointestinal + GERD - on daily therapy. Renal / + Renal disease (SANDRO 2/2 renal stone) - ARF + Nephrolithiasis Pertinent negatives: dialysis Musculoskeletal/Pain + Osteoarthritis Endocrine / Other + Rheumatological disease (On Humira) - Crohn's disease. + Eye disorder (R eye blindness) - blindness and retinal disorder. Functional Capacity Functional capacity: 4-6 METs Review of Systems + vision loss (Blindness of R eye) + dentures/partials Pertinent negatives: SOB; recent cold/flu; fever; chest pain; pedal edema; heartburn and abdominal pain Patient Active Problem List Diagnosis ??? Crohn's disease (CMS/HCC) ??? Left ureteral stone ??? GERD (gastroesophageal reflux disease) ??? Blindness of right eye Past Surgical History: Procedure Laterality Date ??? CATARACT EXTRACTION, BILATERAL ??? SECTION ??? EXTRACORPOREAL SHOCK WAVE LITHOTRIPSY ??? HERNIA REPAIR ??? LAPAROSCOPIC COLON RESECTION ??? NEPHROSTOGRAM THROUGH EXISTING CATHETER LEFT Left 02/17/2018 ??? RETINAL DETACHMENT SURGERY ??? URETER REVISION OB History No data available Allergies Allergen Reactions ??? Cefaclor Unknown ??? Cephalosporins Unknown ??? Clindamycin Unknown ??? Maxaquin [Lomefloxacin] Unknown ??? Miacalcin [Calcitonin ([place])] Unknown ??? Imuran [Azathioprine] Other (See comments) Toxic HOME MEDICATIONS : adalimumab (adalimumab) 40 mg/0.8 mL pen injector kit ALPRAZolam (XANAX) 0.5 mg tablet ARTIFICIAL TEARS,HYPROMELLOSE, OPHT bimatoprost (LUMIGAN) 0.01 % ophthalmic drops cholecalciferol (VITAMIN D-3) 1,000 unit tablet citalopram (CeleXA) 20 mg tablet cyanocobalamin (Vitamin B-12) 1,000 mcg tablet denosumab (PROLIA) 60 mg/mL syringe famotidine (PEPCID) 20 mg tablet ferrous sulfate 325 mg (65 mg of elemental iron) tablet timolol (BETIMOL) 0.5 % ophthalmic solution Social History Smoking Status ??? Former Smoker ??? Quit date: 01/26/1998 Smokeless Tobacco ??? Never Used Alcohol Use ??? Yes Comment: Occasional wine Drug Use No Family History Problem Relation Age of Onset ??? Sudden Mother ??? Diabetes Father ??? Heart attack Maternal Grandfather PAT Physical Exam Airway Exam: Mallampati: II Cervical ROM: FROM TM distance: 3 Jaw ROM: full Cardiovascular Exam: Rate: regular Rhythm: regular Negative for Murmur Negative for peripheral edema Pulmonary Exam: LCTA, bilat EENT Exam: trachea midline (Esotropia of right eye) Dental Exam: Upper partials and lower partials Skin Exam: Skin is warm. Abdominal exam: Abdomen is soft. Bowel sounds are present. Current state: Patient's current state is cooperative and interactive. Line/Drains/Tubes/Devices: (Nephrostomy tube in place) Vitals: 02/17/18 1023 BP: (!) 128/39 Pulse: 62 SpO2: 100% STOP-Bang Total Score: 1 Avendaño Activity Status Index Score: 38.2 CBC Lab Results Component Value Date WBC 7.2 02/17/2018 RBC 3.87 (L) 02/17/2018 HGB 11.0 (L) 02/17/2018 HCT 36.4 02/17/2018 LABPLAT 167 02/17/2018 MCV 94.1 02/17/2018 MCH 28.4 02/17/2018 MCHC 30.2 (L) 02/17/2018 MPV 10.2 02/17/2018 hgbA1C Lab Results Component Value Date HGBA1C 4.6 02/17/2018 Type&Screen Lab Results Component Value Date ABORH A Positive 02/17/2018 IDCOOMB Negative 02/17/2018 BMP Lab Results Component Value Date SODIUM 139 02/17/2018 POTASSIUM 4.3 02/17/2018 CHLORIDE 107 02/17/2018 CO2 19 (L) 02/17/2018 ANIONGAP 13 02/17/2018 BUNSER 24 02/17/2018 CREATININE 1.82 (H) 02/17/2018 CALCIUM 9.7 02/17/2018 Coagulation and platelet Lab Results Component Value Date PT 11.2 02/17/2018 INR 1.0 02/17/2018 Labs reviewed and results within anesthesia guidelines This is a 77 y.o. female with no clinical risk factors per ACC/AHA guidelines with moderate functional capacity presents for an intermediate risk procedure. Patient takes Humira for her Crohn's disease. Instructed her to inquire with Dr. Casitllo about holding it before her surgery. Patient has an appointment scheduled with Dr. Castillo on 02/22/2018 to discuss perc neph vs. Partial/total nephrectomy based on testing results. DOS instructions reviewed with patient. Patient was offered second provider in room during exam, patient declined. The patient received and understood preoperative fasting guidelines. SEC evaluation complete. Anesthesia Plan MA PROCESSING CENTRIFUGE OPERATOR documented in this encounter Plan of Treatment Not on file documented as of this encounter Visit Diagnoses Not on filedocumented in this encounter Care Teams Marshmallow Machine Worker Relationship Specialty Start Date End Date Tobias Escobar MD [address] [place] [address] PCP - General 11/28/17 documented as of this encounter
--- OUTSIDE RECORDS SUMMARY | 2024-03-27 12:07 | XMS_ITS | Encounter Summary ---
Author Organization [facility] Healthcare Address [address] [place] [address] Care Team Providers Care Collector Of Internal Revenue Name Role Phone Tobias Escobar MD Primary Care Provider Encounter Details Date Type Department Care Team (Late st Contact Info) Description 04/06/2018 8:46 AM CENTER HUMAN RESOURCES MANAGER - 04/06/2018 11:46 AM [facility] Surgery [facility] Operating Room [address] [place] [address] Silverio Roblero MD [address] [facility] # [id number] [place] [address] Laparoscopic Left Radical Nephrectomy, retroperitoneal. Surgery Details Date/Time Status Location OR Service Patient Class Case Class Case Type Trauma Case? 04/06/2018 8:46 AM Posted [facility] OPERATING [facility] MOR7 Urology Surgery Admit Elective Panel 1 Procedure LRB Anes Op Region Wound Class Comments Laparoscopic Left Radical Nephrectomy, retroperitoneal. Left General Abdomen Class II - Yajaira n Contaminated Surgeon Surgeon Role Service Panel Bhavya Israel MD Resident - Assisting General Surgery 1 Sliverio Roblero MD Primary Urology 1 documented in this encounter Social History Tobacco Use Types Packs/Day Years Used Date Smoking Tobacco: Former Cigarettes 1 36.9 1 962 - 01/26/1998 Smokeless Tobacco: Never Alcohol Use Standard Drinks/Week Comments Yes 1 (1 standard drink = 0.6 oz pur e alcohol) Comments No Sex and Gender Information Value Date Recorded Sex Assigned at Not on file Legal Sex Female 2:14 AM CENTER HUMAN RESOURCES MANAGER Gender Identity Not on file Sexual Orientation Not on file documented as of this encounter Last Filed Vital Signs Vital Sign Reading Time Taken Comments Blood Pressure 145/72 04/06/2018 7:05 AM CENTER HUMAN RESOURCES MANAGER Pulse 59 04/06/2018 7:05 AM CENTER HUMAN RESOURCES MANAGER Temperature 36 ??C (96.8 ??F) 04/06/2018 7:05 AM CENTER HUMAN RESOURCES MANAGER Respiratory Rate 18 04/06/2018 7:05 AM CENTER HUMAN RESOURCES MANAGER Oxygen Saturation 100% 04/06/2018 7:05 AM CENTER HUMAN RESOURCES MANAGER Inhaled Oxygen Concentration - - Weight 56.7 kg (125 lb) 04/06/2018 7:05 AM CENTER HUMAN RESOURCES MANAGER Height 149 cm (4' 10.66 ) 04/06/2018 7:05 AM CENTER HUMAN RESOURCES MANAGER Body Mass Index 25.54 04/07/2018 11:56 AM CENTER HUMAN RESOURCES MANAGER documented in this encounter Discharge Instructions * Discharge Instructions* Bhavya Israel MD - 04/06/2018 1:24 PM CENTER HUMAN RESOURCES MANAGER Discharge Instructions: ?? Diagnosis: Left nonfunctioning kidney with stones and infections ?? Surgery performed: Left laparoscopic retroperitoneal nephrectomy ? Wound: - Incision is closed with skin glue that will fall off over the next week - Ok to showe/bathe ?? New medications: - Tylenol as needed for pain - Phillips for severe pain as needed ?? Diet: [...] is received within 2 weeks, please call [phone]. ?? Contact your doctor if: - Fever over 100.8 - Pain uncontrolled by prescribed medications - Pus from wound or severe redness - Constant bleeding from incision. Mild oozing and spotting is normal. - Nausea/vomiting ?? Tuesday through Tuesday, 8 AM to 6:00 PM, call [phone] and ask for a member of your doctor's team. After 6:00 PM during the week, on weekends and holidays, call [phone] and ask to have the Urology Senior Software Engineering Manager Physician paged for you. ER HUMAN RESOURCES MANAGER documented in this encounter Medications at Time [...] unit tablet Take 1,000 Units by mouth skinning machine feeder before breakfast. citalopram (CeleXA) 20 mg tablet Take 20 mg by mouth skinning machine feeder before breakfast. cyanocobalamin (Vitamin B-12) 1,000 mcg tabletIndication s:Prevention of Vitamin B12 Deficiency Take 1,000 mcg by mouth skinning machine feeder before breakfast. denosumab (PROLIA) 60 mg/mL syringe Inject under the skin once. Twice a year famotidine (PEPCID) 20 mg tabletIndication s:gastroesophage al reflux disease Take 20 mg by mouth 2 (two) times a day. ferrous sulfate 325 mg (65 mg of elemental iron) tabletIndication s:Iron Deficiency Anemia Take 65 mg of elemental iron by mouth skinning machine feeder before breakfast. HYDROcodone-acet aminophen (NORCO) 5-325 [...] for mobility. Remove Euceda catheter. Discharge planning. ER HUMAN RESOURCES MANAGER documented in this encounter H&P Notes * [...] Silverio Roblero MD at 04/06/2018 9:45 AM CENTER HUMAN RESOURCES MANAGER ER HUMAN RESOURCES MANAGER ER HUMAN RESOURCES MANAGER Source Note - Aurora Ramon NP - 03/29/2018 11:49 AM CENTER HUMAN RESOURCES MANAGER Center for Preoperative Assessment and Planning Preoperative Evaluation Record [facility] at [facility] ([facility]) Date: 03/29/18 Anesthesia Evaluation Paula Hitchcock is [...] Cardiovascular Pertinent negatives: hypertension ; CAD ; ME ; CABG ; systolic/diastolic dysfunction w/o CHF [...] Capacity Functional capacity: 4-6 METs Comments: 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 GERD (gastroesophageal reflux disease) ??? Left ureteral stone 02/17/2018 ??? Sepsis (CMS/HCC) Past Surgical History: Procedure Laterality Date ??? BLADDER SURGERY 2006 ??? BOWEL RESECTION 1993, 2001, 2007 ??? CATARACT EXTRACTION, BILATERAL Left 2016 ??? SECTION 1966, 1968 ??? COLOSTOMY 1992 [...] [Lomefloxacin] Mental status changes ??? Miacalcin [Calcitonin ([place])] Vomiting HOME MEDICATIONS : acetaminophen (TYLENOL) 500 [...] Medication protocol when under care of a PULP MIXER Planned anesthesia: General Informed Consent: Anesthesia plan and risks discussed with patient. Consent and Attending signature: I and/or my designee have discussed the anesthesia plan, benefits, possible alternatives, parental presence at time of induction (if indicated), and clinically relevant risks that may include dental injury, unintentional awareness, and/or other complications. The patient and/or parent/legal guardian understand, and agree to proceed. All questions answered. ER HUMAN RESOURCES MANAGER ER HUMAN RESOURCES MANAGER ER HUMAN RESOURCES MANAGER ER HUMAN RESOURCES MANAGER ER HUMAN RESOURCES MANAGER ER HUMAN RESOURCES MANAGER ER HUMAN RESOURCES MANAGER documented in this encounter Miscellaneous Notes [...] be avoided or minimized Adequate for Discharge ER HUMAN RESOURCES MANAGER * Plan of Care - Kiara Ortiz [...] control, scd's, ankle pumps, euceda care, ambulation ER HUMAN RESOURCES MANAGER * Plan of Care - Katia Abernathy [...] treatment will be avoided or minimized Progressing ER HUMAN RESOURCES MANAGER * Op Note - Silverio Roblero MD - 04/06/2018 10:16 AM CST Operative Report DATE OF SURGERY : 04/06/2018 ?? SURGEON: Silverio Roblero MD ?? FIELD SERVICE SPECIALIST: Surgeon(s) and Role: Surgeon(s) and Role: * [...] the entire procedure (including opening and closing). ER HUMAN RESOURCES MANAGER documented in this encounter Plan of Treatment Not on file documented as of this encounter Procedures Procedure Name Priority Date/Time Associated Diagnosis Comments SURGICAL PATHOLOGY Routine 04/06/2018 11 :31 AM CENTER HUMAN RESOURCES MANAGER Calculus of kidney with calculus of ureter LAPAROSCOPIC NEPHRECTOMY 04/06/2018 9:20 AM CENTER HUMAN RESOURCES MANAGER Calculus of kidney with calculus of ureter B ABO / RH CONFIRMATION TESTING Routine 04/06/2018 7:29 AM CENTER HUMAN RESOURCES MANAGER documented in this encounter Results * Surgical pathology (04/06/2018 11:31 AM CENTER HUMAN RESOURCES MANAGER) Tissue (Kidney, total nephrectomy) 04/06/2018 11:31 AM CENTER HUMAN RESOURCES MANAGER Narrative PATHOLOGY [facility] - 04/11/2018 10:06 AM CENTER HUMAN RESOURCES MANAGER EPIC results best viewed via link to PDF [facility] [place] [address] SURGICAL PATHOLOGY REPORT FINAL Patient Name: ?? ERIK PAULA Lennon Gender: ??F : ??1940 (Age: 77) Address: ??[address] [place] [address] ??[id number] Hospital #: ??[id number] Taken:04/06/2018 Received:04/06/2018 Reported: 04/11/2018 Patient Type: OutPatient Client ?[facility] Service: Surgery Location: [address] Physician(s): ??Gabriele Agustin M.D. Diagnosis: A. ??Kidney, left, radical nephrectomy ? - Obstructive nephropathy - Arterionephrosclerosis - Nephrolithiasis ? - No evidence of malignancy - See comment [facility]/04/10/2018 14:21 By this signature, I attest that [...] determined by the Surgical Pathology Department at [facility] as part of an ongoing quality technician fiberglass program and in compliance with federally mandated [...] determined by the Surgical Pathology Department of [facility]. ??It has not been cleared or approved by the U. S. Food and Drug Administration. IMAGES AND SCANNED DOCUMENTS, IF INCLUDED, ONLY VIEWABLE IN PDF VERSION OF REPORT Silverio Roblero MD LAB PATHOLOGY ORDERABLES Final Result Performing Organization Address City/[facility]/ZIP Co de Phone Number PATHOLOGY [facility] [phone] * ABO / Rh Confirmation Testing (04/06/2018 7:29 AM CENTER HUMAN RESOURCES MANAGER) ABO/Rh Confirmation A Positive EMILIE LYNN Blood specimen (specimen) 04/06/2018 7:29 AM CENTER HUMAN RESOURCES MANAGER 04/06/2018 7:51 AM CENTER HUMAN RESOURCES MANAGER Narrative EMILIE LYNN - 04/06/2018 8:35 AM CENTER HUMAN RESOURCES MANAGER Silverio Roblero MD LAB BLOOD ORDERABLES Kelley l Result Performing Organization Address [facility] Co de Phone Number [facility] [address] [facility]. Department [place] [address] documented in this encounter Visit Diagnoses Diagnosis Calculus of kidney with calculus of ureter- Primary Calculus of kidney with calculus of ureter documented in this encounter Admitting Diagnoses Diagnosis Calculus of kidney with calculus of ureter documented in this encounter Administered Medications Inactive Administered Medications - up to 3 most recent administrations Medication Order MAR Action Action Date Dose Rate Site acetaminophen (TYLENOL) tablet 1,000 mg 1,000 mg, oral, Every 6 hours scheduled, First dose on Carly 04/06/18 at 1400, Indications: PainIndications:Pain Given 04/07/2018 8:21 AM CENTER HUMAN RESOURCES MANAGER 1,000 mg Given 04/07/2018 3:10 AM CENTER HUMAN RESOURCES MANAGER 1,000 mg Given 04/06/2018 9:54 PM CENTER HUMAN RESOURCES MANAGER 1,000 mg ALPRAZolam (XANAX) tablet 0.5 mg 0.5 mg, oral, Nightly PRN, anxiety, sleep, Starting on Tue04/06/18 at 1944 Given 04/06/2018 9:54 PM CENTER HUMAN RESOURCES MANAGER 0.5 mg bupivacaine (MARCAINE) 0.5 % (5 mg/mL) injection As needed, Starting on Tue04/06/18 at 1131, Intra-Op Given 04/06/2018 11:31 AM CENTER HUMAN RESOURCES MANAGER 30 mL Surgical Site citalopram (CeleXA) tablet 20 mg 20 mg, oral, Daily (early AM), First dose on Tue04/07/18 at 0600 Given 04/07/2018 6:00 AM CENTER HUMAN RESOURCES MANAGER 20 mg docusate sodium (COLACE) capsule 100 mg 100 mg, oral, 2 times daily, First dose on Tue04/06/18 at 2100, Indications: constipationIndications:constipa tion Given 04/07/2018 8:21 AM CENTER HUMAN RESOURCES MANAGER 100 mg Given 04/06/2018 9:54 PM CENTER HUMAN RESOURCES MANAGER 100 mg enoxaparin (LOVENOX) syringe 30 mg 30 mg, subcutaneous, Daily (for enoxaparin), First dose on Tue04/06/18 at 2100, Indications: Deep Vein Thrombosis PreventionIndications:Deep Vein Thrombosis Prevention Given 04/06/2018 9:54 PM CENTER HUMAN RESOURCES MANAGER 30 mg Right Upper Abdomen famotidine (PEPCID) tablet 20 mg 20 mg, oral, 2 times daily, First dose on Tue04/06/18 at 2100, Indications: gastroesophageal reflux diseaseIndications:gastroesophag eal reflux disease Given 04/07/2018 8:21 AM CENTER HUMAN RESOURCES MANAGER 20 mg Given 04/06/2018 9:54 PM CENTER HUMAN RESOURCES MANAGER 20 mg neomycin-polymyxin B (NEOSPORIN-) 1 mL in sodium chloride 0.9% 10 mL irrigation solution As needed, Starting on Tue04/06/18 at 1020, Intra-Op Given 04/06/2018 10:20 AM CENTER HUMAN RESOURCES MANAGER 11 mL Other (Comment) polyvinyl alcohol (LIQUIFILM TEARS) 1.4 % ophthalmic solution 1 drop 1 drop, each eye, Daily PRN, dry eyes, Starting on Tue04/06/18 at 1521 prochlorperazine (COMPAZINE) injection 5 mg 5 mg, intravenous, Every 6 hours PRN, nausea, vomiting, Use if unable to tolerate PO, Starting on Tue04/06/18 at 1303, Indications: Nausea and VomitingIndications:Nausea and [...] glaucomaIndications:open angle glaucoma Given 04/07/2018 8:25 AM CENTER HUMAN RESOURCES MANAGER 1 drop documented in this encounter Active and Recently Administered Medications Times are shown in CENTER HUMAN RESOURCES MANAGER. Scheduled Medication Order 04/05/2018 04/06/2018 04/07/2018 acetaminophen (TYLENOL) tablet 1,000 mg 1,000 mg, oral, Every 6 hours scheduled, First dose on Tue04/06/18 at 1400, Indications: Pain 1403 (Given - Provider: Anna Vines RN)2154 (Given - Provider: Kiara Ortiz RN) 0310 (Given - Provider: Kiara Ortiz RN)0821 (Given - Provider: Katia Abernathy, MARCE) ceFAZolin (ANCEF) 1 gram/10 mL in sterile water (premix) 2,000 mg (COMPLETED) 2,000 mg, intravenous, at 400 mL/hr, Administer over 3 Minutes, Once, On Tue04/06/18 at 0945, For 1 dose, Pre-Op, Indications: Prophylaxis, Surgical 0915 (Given - Provider: Luci Dangelo CRNA) citalopram (CeleXA) tablet 20 mg 20 mg, oral, Daily (early AM), First dose on Tue04/07/18 at 0600 0600 (Given - Provider: Kiara Ortiz RN) docusate sodium (COLACE) capsule 100 mg 100 mg, oral, 2 times daily, First dose on Tue04/06/18 at 2100, Indications: constipation 215 (Given - Provider: Kiara Ortiz RN) 0821 (Given - Provider: Katia Abernathy RN) enoxaparin (LOVENOX) syringe 30 mg 30 mg, subcutaneous, Daily (for enoxaparin), First dose on Tue04/06/18 at 2100, Indications: Deep Vein Thrombosis Prevention 2154 (Given - Provider: Kiara Ortiz, MARCE) famotidine (PEPCID) tablet 20 mg 20 mg, oral, 2 times daily, First dose on Carly 04/06/18 at 2100, Indications: gastroesophageal reflux disease 2153 (Given - Provider: Kiara Ortiz, RN) 0821 (Given - Provider: Katia Abernathy, MARCE) latanoprost (XALATAN) 0.005 % ophthalmic solution 1 [...] Indications: Prevention of Post-Operative Nausea and Vomiting 0915 (Given - Provider: Luci Dangelo CRNA) sodium [...] Reason: Patient/family refused)0825 (Given - Provider: Katia Abernathy, MARCE) Continuous Medication Order 04/05/2018 04/06/2018 04/07/2018 dextrose 5% and sodium chloride 0.45% infusion (premix) (CANCELED) 75 mL/hr, intravenous, Continuous, Starting on Carly 04/06/18 at 1345 1327 (New Bag - Provider: Katia Abernathy RN)1624 (Rate/Dose Verify - Provider: Anna Vines RN)1833 (Rate/Dose Verify - Provider: Anna Vines RN) 0309 (New Bag - Provider: Kiara Ortiz [...] at 1944 2154 (Given - Provider: Kiara Ortiz RN) bupivacaine (MARCAINE) 0.5 % (5 mg/mL) injection [...] at 1020, Intra-Op 1020 (Given - Provider: Rfuus Israel MD - Comment: nephrostomy tube) ondansetron [...] Date First Ordered Date acetaminophen (TYLENOL) tablet 1,000 mg 1 0 04/06/2018 acetaminophen (TYLENOL) tablet 500 mg 1 ALPRAZolam (XANAX) tablet 0.5 mg 1 04/06/19 19 ceFAZolin (ANCEF) 1 gram/10 mL in sterile water (premix) 2,000 mg 1 04/06/2018 citalopram (CeleXA) tablet 20 mg 1 04/06/19 19 dextrose 5% and sodium chlor jeyson 0.45% infusion (premix) 1 04/06/2018 diphenhydrAMINE (BENADRYL) i njection 12.5 mg 1 04/06/2018 docusate sodium (COLACE) capsule 100 mg 1 0 04/06/2018 enoxaparin (LOVENOX) syringe 30 mg 1 2018 famotidine (PEPCID) tablet 20 mg 1 04/06/19 19 fentaNYL (SUBLIMAZE) preserv ative free injection 25 mcg 1 04/06/2018 hydrALAZINE (APRESOLINE) injection 5 mg 1 0 04/06/2018 HYDROcodone-acetaminophen (N ORCO) 5-325 mg per tablet 1 tablet 1 04/06/2018 HYDROmorphone (DILAUDID) injection 0.2 mg 2 04/06/2018 hypromellose (GONAK) 2.5 % o phthalmic demulcent solution 1 drop 1 04/06/2018 Lactated Ringer's (LR) infusion 2 9 latanoprost (XALATAN) 0.005 % ophthalmic solution 1 drop 1 04/06/2018 meperidine (DEMEROL) preserv ative free injection 12.5 mg 1 04/06/2018 metoprolol (LOPRESSOR) injection 1 mg 1 ondansetron (ZOFRAN) injection 4 mg 1 04/06 polyvinyl alcohol (LIQUIFILM TEARS) 1.4 % ophthalmic solution 1 drop 1 04/06/2018 prochlorperazine (COMPAZINE) injection 5 mg 2 04/06/2018 prochlorperazine (COMPAZINE) tablet 5 mg 1 04/06/2018 scopolamine patch 72 hour 1 patch 1 019 sodium chloride 0.9% flush 0.5-20 mL 5 03/15 timolol (TIMOPTIC) 0.5 % oph thalmic solution 1 drop 1 04/06/2018 Admission Count Last Ordered Date First Orde red Date ASSIGN PATIENT STATUS 2 04/06/2018 Transfer Count Last Ordered Date First Orde red Date TRANSFER PATIENT 1 04/06/2018 documented in this encounter Care Teams Collector Of Internal Revenue Relationship Specialty Start Date End Date Tobias Escobar MD [address] [place] [address] PCP - General 11/28/17 documented as of this encounter
--- OUTSIDE RECORDS SUMMARY | 2024-03-27 12:08 | XMS_ITS | Encounter Summary ---
Author Organization [facility] Facility Care Team Providers Care Production Gear Cutter Name Role Phone Unavailable Primary Care Provider Unavailabl e Encounter Details Date Type Department Care Team (Late st Contact Info) Description 10/08/2011 8:42 AM CDT - 10/11/2011 12:31 PM CDT Hospital Encounter [facility] Luis Angel Caruso MD [phone] [place] [address] Peritoneal abscess (CMS/HCC) ([facility]); Regional enteritis (CMS/HCC) ([facility]); Insomnia; Personal history of tobacco use, presenting hazards to health; History of allergy to other antibiotic agent Social History Tobacco Use Types Packs/Day Years Used Date Smoking Tobacco: Never Assessed Comments Unknown Sex and Gender Information Value Date Recorded Sex Assigned at Not on file Legal Sex Female 2:14 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 Gender Identity Not on file Sexual Orientation Not on file documented as of this encounter Last Filed Vital Signs Vital Sign Reading Time Taken Comments Blood Pressure 110/64 10/11/2011 10:02 AM CDT Pulse 80 10/11/2011 10:02 AM CDT Temperature - - Respiratory Rate - - Oxygen Saturation 100% 10/11/2011 10:02 AM CDT Inhaled Oxygen Concentration - - Weight 42 kg (92 lb 9.5 oz) 10/08/2011 10:09 AM CDT Height 150 cm (4' 11.06 ) 10/08/2011 10:09 AM CD T Body Mass Index 18.67 10/08/2011 10:09 AM CDT documented in this encounter Plan of Treatment Not on file documented as of this encounter Visit Diagnoses Diagnosis Peritoneal abscess (CMS/HCC) (HCC) Peritoneal abscess Regional enteritis (CMS/HCC) (HCC) Regional enteritis of unspecified site Insomnia Insomnia, unspecified Personal history of tobacco use, presenting hazards to health History of allergy to other antibiotic agent documented in this encounter
--- OUTSIDE RECORDS SUMMARY | 2024-03-27 12:08 | XMS_ITS | Encounter Summary ---
Author Organization 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); Other specified intestinal obstruction; Peritoneal adhesions; Profound impairment, one eye, impairment level not further specified; Psychosis (HCC); Adverse effects in the therapeutic use of other and unspecified general anaesthetics; Analgesic and antipyretic causing adverse effect in therapeutic use; Place of occurrence, residential institution Social History Tobacco Use Types Packs/Day Years Used Date Smoking Tobacco: Never Assessed Comments Unknown Sex and Gender Information Value Date Recorded Sex Assigned at Not on file Legal Sex Female 2:14 AM OUTPATIENT PHYSICAL THERAPIST ASSISTANT Gender Identity Not on file Sexual Orientation Not on file documented as of this encounter Plan of Treatment Not on file documented as of this encounter Visit Diagnoses Diagnosis 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) Regional enteritis of small intestine with large intestine Other specified intestinal obstruction Peritoneal adhesions Peritoneal adhesions (postoperative) (postinfection) Profound impairment, one eye, impairment level not further specified Profound impairment, one eye, Impairment level not further specified Psychosis (HCC) Unspecified psychosis Adverse effects in the therapeutic use of other and unspecified general anaesthetics Analgesic and antipyretic causing adverse effect in therapeutic use Unspecified analgesic and antipyretic causing adverse effect in therapeutic use Place of occurrence, residential institution documented in this encounter
--- OUTSIDE RECORDS SUMMARY | 2024-03-27 12:08 | XMS_ITS | Encounter Summary ---
Author Organization [facility] Facility Care Team Providers Care Storage Center Manager Name Role Phone Unavailable Primary Care Provider Unavailabl e Encounter Details Date Type Department Care Team (Late st Contact Info) Description 11/12/2011 - 11/12/2011 11:59 PM CDT Hospital Encounter [facility] Luis Angel Caruso MD [phone] [place] [address] Social History Tobacco Use Types Packs/Day Years Used Date Smoking Tobacco: Never Assessed Comments Unknown Sex and Gender Information Value Date Recorded Sex Assigned at Not on file 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
--- OUTSIDE RECORDS SUMMARY | 2024-03-27 12:08 | XMS_ITS | Encounter Summary ---
Author Organization [facility] Facility Care Team Providers Care Signal Person Name Role Phone Unavailable Primary Care Provider Unavailabl e Encounter Details Date Type Department Care Team (Late st Contact Info) Description 11/05/2011 - 11/05/2011 11:59 PM CDT Hospital Encounter 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
--- OUTSIDE RECORDS SUMMARY | 2024-03-27 12:08 | XMS_ITS | Encounter Summary ---
Author Organization [facility] Facility Care Team Providers Care Manager Php Name Role Phone Unavailable Primary Care Provider Unavailabl e Encounter Details Date Type Department Care Team (Late st Contact Info) Description 10/06/2006 - 10/06/2006 11:59 PM CDT Hospital Encounter [facility] Luis Angel Caruso MD [phone] [place] [address] Social History Tobacco Use Types Packs/Day Years Used Date Smoking Tobacco: Never Assessed Comments Unknown Sex and Gender Information Value Date Recorded Sex Assigned at Not on file Legal Sex Female 2:14 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
--- OUTSIDE RECORDS SUMMARY | 2024-03-27 12:08 | XMS_ITS | Encounter Summary ---
Author Organization [facility] Healthcare Address [address] [place] [address] Care Team Providers Care Iron Worker Apprentice Name Role Phone Tobias Escobar MD Primary Care Provider [phone] Reason for Referral * Diagnostic Imaging (Routine) - Closed Specialty Diagnoses / Procedures Referred By Sami chew Referred To Contact Radiology Diagnoses Left ureteral calculus Procedures CT Abdomen Pelvis WO Contrast Aquiles Castillo MD Phone: tel: fax: [facility] [address] [place] [address] Referral ID Status Reason Start Date Expiration Date Visits Re quested Visits Authorized [id number] Closed 02/15/2018 08/27/2019 1 1 CEMENTER Encounter Details Date Type Department Care Team (Late st Contact Info) Description 02/15/2018 Orders Only Urology Aquiles Castillo MD [address] [facility] [address] [place] [address] Left ureteral calculus (Primary Dx) Social History Tobacco Use Types Packs/Day Years Used Date Smoking Tobacco: Never Comments Unknown Sex and Gender Information Value Date Recorded Sex Assigned at Not on file Legal Sex Female 2:14 AM HOSE CEMENTER Gender Identity Not on file Sexual Orientation Not on file documented as of this encounter Plan of Treatment Not on file documented as of this encounter Results * CT Abdomen Pelvis WO Contrast (02/20/2018 2:24 PM HOSE CEMENTER) Anatomical Region Laterality Modality Body N/A Computed Tomogra phy 02/20/2018 4:50 PM HOSE CEMENTER Impressions 02/20/2018 5:05 PM HOSE CEMENTER 1. ??Percutaneous nephrostomy on the left. ??No left-sided hydronephrosis, despite the presence of nephrolithiasis and innumerable punctate renal pelvic and proximal ureteral calculi. 2. ??Mild right hydroureteronephrosis without evidence of an obstructing calculus. 3. ??Details above. Electronically signed by: Geronimo Hadley MD Narrative 02/20/2018 5:05 PM HOSE CEMENTER EXAM: ??CT ABDOMEN AND PELVIS WITHOUT CONTRAST [...] this encounter Visit Diagnoses Diagnosis Left ureteral calculus- Primary Calculus of ureter Left ureteral calculus Calculus of ureter documented in this encounter Care Teams Iron Worker Apprentice Relationship Specialty Start Date End Date Tobias sEcobar MD [address] [place] [address] PCP - General 11/28/17 documented as of this encounter
--- OUTSIDE RECORDS SUMMARY | 2024-03-27 12:08 | XMS_ITS | Encounter Summary ---
Author Organization [facility] Facility Care Team Providers Care Orchid Transplanter Name Role Phone Unavailable Primary Care Provider Unavailabl e Encounter Details Date Type Department Care Team (Late st Contact Info) Description 11/30/2011 - 11/30/2011 11:59 PM CDT Hospital Encounter [facility] Luis Angel Caruso MD [phone] [place] [address] Fistula of intestine, excluding rectum and anus; Regional enteritis (CMS/HCC) (HCC) Social History Tobacco Use Types Packs/Day Years Used Date Smoking Tobacco: Never Assessed Comments Unknown Sex and Gender Information Value Date Recorded Sex Assigned at Not on file Legal Sex Female 2:14 AM RECRUITING ASSOCIATE Gender Identity Not on file Sexual Orientation Not on file documented as of this encounter Plan of Treatment Not on file documented as of this encounter Visit Diagnoses Diagnosis Fistula of intestine, excluding rectum and anus Regional enteritis (CMS/HCC) (HCC) Regional enteritis of unspecified site documented in this encounter
--- OUTSIDE RECORDS SUMMARY | 2024-03-27 12:08 | XMS_ITS | Encounter Summary ---
Author Organization [facility] Facility Care Team Providers Care Wildlife And Game Protector Name Role Phone Unavailable Primary Care Provider Unavailabl e Encounter Details Date Type Department Care Team (Late st Contact Info) Description 10/16/2006 4:36 PM CDT - 10/16/2006 9:17 PM CDT Hospital Encounter [facility] Shasta Aguilera MD [address] [place] [address] Social History Tobacco Use Types Packs/Day Years Used Date Smoking Tobacco: Never Assessed Comments Unknown Sex and Gender Information Value Date Recorded Sex Assigned at Not on file Legal Sex Female 2:14 AM STAFF ANESTHETIST Gender Identity Not on file Sexual Orientation Not on file documented as of this encounter Plan of Treatment Not on file documented as of this encounter Visit Diagnoses Not on filedocumented in this encounter
--- OUTSIDE RECORDS SUMMARY | 2024-03-27 12:08 | XMS_ITS | Encounter Summary ---
Author Organization [facility] Facility Care Team Providers Care Telecom Billing Analyst Name Role Phone Unavailable Primary Care Provider Unavailabl e Encounter Details Date Type Department Care Team (Late st Contact Info) Description 11/16/2011 - 11/16/2011 11:59 PM CDT Hospital Encounter [facility] Luis Angel Caruso MD [id number] [place] [address] Cellulitis and abscess Social History Tobacco Use Types Packs/Day Years Used Date Smoking Tobacco: Never Assessed Comments Unknown Sex and Gender Information Value Date Recorded Sex Assigned at Not on file 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
--- OUTSIDE RECORDS SUMMARY | 2024-03-27 12:08 | XMS_ITS | Encounter Summary ---
Author Organization [facility] Facility Care Team Providers Care Preformer Impregnated Fabrics Name Role Phone Unavailable Primary Care Provider Unavailabl e Encounter Details Date Type Department Care Team (Late st Contact Info) Description 10/26/2011 - 10/26/2011 11:59 PM CDT Hospital [facility] [phone] [place] [address] Encounter for fitting and adjustment of non-vascular catheter NEC; Peritoneal abscess (CMS/HCC) (HCC) Social History Tobacco Use Types Packs/Day Years Used Date Smoking Tobacco: Never Assessed Comments Unknown Sex and Gender Information Value Date Recorded Sex Assigned at Not on file Legal Sex Female 2:14 AM HAND ROLLER ENGRAVER Gender Identity Not on file Sexual Orientation Not on file documented as of this encounter Plan of Treatment Not on file documented as of this encounter Visit Diagnoses Diagnosis Encounter for fitting and adjustment of non-vascular catheter NEC Peritoneal abscess (CMS/HCC) (HCC) Peritoneal abscess documented in this encounter
--- OUTSIDE RECORDS SUMMARY | 2024-03-27 12:08 | XMS_ITS | Encounter Summary ---
Author Organization [facility] Facility Care Team Providers Care Key Holder Name Role Phone Unavailable Primary Care Provider Unavailabl e Encounter Details Date Type Department Care Team (Late st Contact Info) Description 10/18/2011 - 10/18/2011 11:59 PM CDT Hospital Encounter [facility] Luis Angel Caruso MD [phone] [place] [address] Encounter for fitting and adjustment of non-vascular catheter NEC Social History Tobacco Use Types Packs/Day Years Used Date Smoking Tobacco: Never Assessed Comments Unknown Sex and Gender Information Value Date Recorded Sex Assigned at Not on file Legal Sex Female 2:14 AM FAMILY PHYSICIAN Gender Identity Not on file Sexual Orientation Not on file documented as of this encounter Plan of Treatment Not on file documented as of this encounter Visit Diagnoses Diagnosis Encounter for fitting and adjustment of non-vascular catheter NEC documented in this encounter
--- OUTSIDE RECORDS SUMMARY | 2024-03-27 12:08 | XMS_ITS | Encounter Summary ---
Author Organization [facility] Facility Care Team Providers Care Tech Ed/Woodshop Teacher Name Role Phone Unavailable Primary Care Provider Unavailabl e Encounter Details Date Type Department Care Team (Late st Contact Info) Description 12/28/2011 - 12/28/2011 11:59 PM CDT Hospital Encounter [facility] Luis Angel Caruso MD [phone] [place] [address] Encounter for fitting and adjustment of non-vascular catheter NEC; Regional enteritis (CMS/HCC) (HCC); Cellulitis and abscess of trunk; Fistula of intestine, excluding rectum and anus Social History Tobacco Use Types Packs/Day Years Used Date Smoking Tobacco: Never Assessed Comments Unknown Sex and Gender Information Value Date Recorded Sex Assigned at Not on file Legal Sex Female 2:14 AM CABLE LACER Gender Identity Not on file Sexual Orientation Not on file documented as of this encounter Plan of Treatment Not on file documented as of this encounter Visit Diagnoses Diagnosis Encounter for fitting and adjustment of non-vascular catheter NEC Regional enteritis (CMS/HCC) (HCC) Regional enteritis of unspecified site Cellulitis and abscess of trunk Fistula of intestine, excluding rectum and anus documented in this encounter
--- OUTSIDE RECORDS SUMMARY | 2024-03-27 12:08 | XMS_ITS | Encounter Summary ---
Author Organization [facility] Healthcare Address [address] [place] [address] Care Team Providers Care Rn Gynecology Name Role Phone Tobias Escobar MD Primary Care Provider [phone] Reason for Referral * Diagnostic Imaging (Routine) - Closed Specialty Diagnoses / Procedures Referred By Sami chew Referred To Contact Radiology Diagnoses Left ureteral calculus Procedures IR Antegrade Nephrostogram Existing Access Left IR Antegrade Nephrostogram Existing Access Bilateral Aquiles Castillo MD Phone: tel: fax: [facility] [address] [place] [address] Referral ID Status Reason Start Date Expiration Date Visits Re quested Visits Authorized [id number] Closed 02/15/2018 08/27/2019 1 1 ANICAL INTERN Reason for Visit * Diagnostic Imaging (Routine) - Closed Specialty Diagnoses / Procedures Referred By Sami chew Referred To Contact Radiology Diagnoses Left ureteral calculus Procedures IR Antegrade Nephrostogram Existing Access Left IR Antegrade Nephrostogram Existing Access Bilateral Aquiles Castillo MD Phone: tel: fax: [facility] [address] [place] [address] Referral ID Status Reason Start Date Expiration Date Visits Re quested Visits Authorized [id number] Closed 02/15/2018 08/27/2019 1 1 Encounter Details Date Type Department Care Team (Latest Contact Info) Description 02/17/2018 6:19 AM MECHANICAL INTERN - 02/17/2018 2:18 PM MECHANICAL INTERN Hospital Encounter [facility] - Interventional Radiology [address] [place] [address] Aquiles Castillo MD [address] [place] [address] Reinier Cross MD [address] [place] [address] Left ureteral calculus Discharge Disposition: Discharge to [...] on file Legal Sex Female 2:14 AM MECHANICAL INTERN Gender Identity Not on file Sexual Orientation Not on file documented as of this encounter Last Filed Vital Signs Vital Sign Reading Time Taken Comments Blood Pressure 137/57 02/17/2018 9:15 AM MECHANICAL INTERN Pulse 59 02/17/2018 9:15 AM MECHANICAL INTERN Temperature - - Respiratory Rate 16 02/17/2018 9:15 AM MECHANICAL INTERN Oxygen Saturation 100% 02/17/2018 9:15 AM MECHANICAL INTERN Inhaled Oxygen Concentration - - Weight - - Height - - Body Mass Index - - documented in this encounter Medications at Time [...] unit tablet Take 1,000 Units by mouth singing teacher before breakfast. citalopram (CeleXA) 20 mg tablet Take 20 mg by mouth singing teacher before breakfast. cyanocobalamin (Vitamin B-12) 1,000 mcg tabletIndication s:Prevention of Vitamin B12 Deficiency Take 1,000 mcg by mouth singing teacher before breakfast. denosumab (PROLIA) 60 mg/mL syringe Inject under the skin once. Twice a year famotidine (PEPCID) 20 mg tabletIndication s:gastroesophage al reflux disease Take 20 mg by mouth 2 (two) times a day. ferrous sulfate 325 mg (65 mg of elemental iron) tabletIndication s:Iron Deficiency Anemia Take 65 mg of elemental iron by mouth singing teacher before breakfast. timolol (BETIMOL) 0.5 % ophthalmic solutionIndicati ons:open angle glaucoma Administer 1 drop into the left eye 2 (two) times a day. documented as of this encounter Discharge Disposition Disposition Code Departure Means Destination Discharge to home or self care documented in this encounter Nursing Notes * Andie Quinonez RN - 02/17/2018 9:00 AM CST Cleansed area, site is sutured, and has stat-lock in place, placed 4x4's over with medipore over 4x4;s. Pt then placed on stretcher and sent back to [facility] for DC home. No sedation meds given. ANICAL INTERN documented in this encounter Plan of Treatment Not on file documented as of this encounter Procedures Procedure Name Priority Date/Time Associated Diagnosis Comments NEPHROSTOGRAM THROUGH EXISTING CATHETER LEFT Schedule Routine, Read Routine (OP Routine) 02/17/2018 9:03 AM MECHANICAL INTERN Left ureteral calculus documented in this encounter Results * IR Antegrade Nephrostogram Existing Access Left (02/17/2018 9:03 AM MECHANICAL INTERN) Anatomical Region Laterality Modality Body Left X-Ray Angiograph y 02/17/2018 10:0 4 AM MECHANICAL INTERN Impressions 02/17/2018 10:19 AM MECHANICAL INTERN 1. ??The nephrostomy catheter enters from a direct posterior approach into the infundibulum of a lower pole calyx. ??The catheter tip extends into the next most superior calyx and does not enter into the renal pelvis. ??There is incomplete drainage of the renal collecting system during aspiration. 2. ??Obstruction of the proximal right ureter by multiple stone fragments 3. ??There is a mild to moderate stone burden of residual fragments primarily in the lower pole calyces. 4. ??It may be possible to advance a guidewire into the renal pelvis and ureter from the nephrostomy position but access is tenuous. ??It may be difficult to remove the fragments in the lower pole calyces due to the need for hyperacute angulation of the nephroscope. ??If complete removal of the renal collecting stones is desirable, a new access into the most inferior calyx would be preferable. COMMENT: The findings were discussed with Dr. Castillo upon completion of the examination. Electronically signed by: Reinier Cross M.D. Narrative 02/17/2018 10:19 AM MECHANICAL INTERN Nephrostogram with Jessica Spin CT HISTORY: Status post placement of a nephrostomy catheter at an outside institution due to obstruction of the right ureter following lithotripsy. ??The position of the nephrostomy catheter placement is being evaluated for possible use for a nephrolithotomy. The procedures complications were discussed with the patient and her and family member. ??The possibility of infection, allergic reaction and possible need to reposition or replace catheter were discussed. ??The patient and her family seemed to understand and wished to proceed. Bullet Swaging Machine Operator views were obtained prior to injection of contrast and reveal a column of a stone fragments in the proximal left ureter. ??A Jessica Spin CT was performed prior to injection of contrast as well as afterwards. There are some also some stone fragments noted in the the kidney. The nephrostomy catheter enters from a direct posterior approach into the infundibulum of the lower pole calyx at the level of stone fragments. ??The nephrostomy however does not continue into the renal pelvis but the pigtail tip enters the next most superior calyx through the junction of the infundibulum of the 2 calyces. Injection of contrast reveals that the proximal ureter has a high-grade obstruction which appears to be related to the column of stone fragments. ??Aspiration of the catheter does not completely drained the collecting system. ??This may be in part due to apposition of the wall of the calyx against the side holes related to the suction. ??More complete drainage may be possible with gravity alone. Procedure Note Reinier Cross MD - 02/17/2018 Nephrostogram with Jessica Spin CT HISTORY: Status post placement of a nephrostomy catheter at an outside institution due to obstruction of the right ureter following lithotripsy. The position of the nephrostomy catheter placement is being evaluated for possible use for a nephrolithotomy. The procedures complications were discussed with the patient and her and family member. The possibility of infection, allergic reaction and possible need to reposition or replace catheter were discussed. The patient and her family seemed to understand and wished to proceed. Bullet Swaging Machine Operator views were obtained prior to injection of contrast and reveal a column of a stone fragments in the proximal left ureter. A Jessica Spin CT was performed prior to injection of contrast as well as afterwards. There are some also some stone fragments noted in the the kidney. The nephrostomy catheter enters from a direct posterior approach into the infundibulum of the lower pole calyx at the level of stone fragments. The nephrostomy however does not continue into the renal pelvis but the pigtail tip enters the next most superior calyx through the junction of the infundibulum of the 2 calyces. Injection of contrast reveals that the proximal ureter has a high-grade obstruction which appears to be related to the column of stone fragments. Aspiration of the catheter does not completely drained the collecting system. This may be in part due to apposition of the wall of the calyx against the side holes related to the suction. More complete drainage may be possible with gravity alone. IMPRESSION: 1. The nephrostomy catheter enters from a direct posterior approach into the infundibulum of a lower pole calyx. The catheter tip extends into the next most superior calyx and does not enter into the renal pelvis. There is incomplete drainage of the renal collecting system during aspiration. 2. Obstruction of the proximal right ureter by multiple stone fragments 3. There is a mild to moderate stone burden of residual fragments primarily in the lower pole calyces. 4. It may be possible to advance a guidewire into the renal pelvis and ureter from the nephrostomy position but access is tenuous. It may be difficult to remove the fragments in the lower pole calyces due to the need for hyperacute angulation of the nephroscope. If complete removal of the renal collecting stones is desirable, a new access into the most inferior calyx would be preferable. COMMENT: The findings were discussed with Dr. Castillo upon completion of the examination. Electronically signed by: Reinier Cross M.D. us Aquiles Castillo MD IMG IR PROCEDURES Final Resul t documented in this encounter Visit Diagnoses Diagnosis Left ureteral calculus Calculus of ureter documented in this encounter Administered Medications Inactive Administered Medications - up to 3 most recent administrations Medication Order MAR Action Action Date Dose Rate Site ioversol (OPTIRAY 350) injection 0.01-500 mL 0.01-500 mL, intra-catheter, Once in imaging, contrast, Starting on Tue02/17/18 at 0906, For 1 dose Given 02/17/2018 9:08 AM MECHANICAL INTERN 15 mL documented in this encounter Historical Medications * This list may reflect changes made after this encounter. denosumab (PROLIA) 60 mg/mL syringe Inject under the skin once. 2x year 02/17/2018 adalimumab (HUMIRA PEN) 40 mg/0.8 mL pen injector kit 2x month 02/17/2018 timolol (TIMOPTIC) 0.5 % ophthalmic solution 01/16/2018 02/17/2018 citalopram (CeleXA) 20 mg tablet 01/10/2018 02/17/2018 LUMIGAN 0.01 % ophthalmic drops 11/15/2017 02/18/20 18 ALPRAZolam (XANAX) 0.5 mg tablet 5 01/14/2018 02/17/2018 added in this encounter Active and Recently Administered Medications Times are shown in MECHANICAL INTERN. PRN Medication Order 02/15/2018 02/16/2018 02/17/2018 ioversol (OPTIRAY 350) injection 0.01-500 mL (COMPLETED) 0.01-500 mL, intra-catheter, Once in imaging, contrast, Starting on Tue02/17/18 at 0906, For 1 dose 0908 (Given - Provid er: Marisabel Whitt, R-RT) documented in this encounter Care Teams Rn Gynecology Relationship Specialty Start Date End Date Tobias Escobar MD [address] [place] [address] PCP - General 11/28/17 documented as of this encounter
--- OUTSIDE RECORDS SUMMARY | 2024-03-27 12:08 | XMS_ITS | Encounter Summary ---
Author Organization [facility] Facility Care Team Providers Care Manager Domestic Name Role Phone Unavailable Primary Care Provider Unavailabl e Encounter Details Date Type Department Care Team (Late st Contact Info) Description 11/07/2006 11:34 AM CDT - 11/07/2006 4:00 PM T Hospital Encounter [facility] Luis Angel Caruso MD [phone] [place] [address] Social History Tobacco Use Types Packs/Day Years Used Date Smoking Tobacco: Never Assessed Comments Unknown Sex and Gender Information Value Date Recorded Sex Assigned at Not on file 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
== END 2024-03-20 11:21 | disposition home or self-care (01) ==
PROVIDERS: PCP Internal Medicine; Visit Provider Internal Medicine Nephrology
DX: N20.0 Calculus of kidney (principal)
CPT/HCPCS: 74018

== ENCOUNTER 2024-04-03 00:46 | Emergency (ER) | payer MEDICARE, OTHER, SELFPAY ==
--- NOTE | ~2024-04-03 | XR_ITS ---
Portable chest x-ray Comparison: 02/28/2024 Clinical History: Cough Findings: There is diffuse interstitial edema pattern, with minimal left basilar haziness. No pleura l effusion or pneumothorax. Cardiomediastinal silhouette is stable. Bones and soft tissues are unrem arkable. Impression: Probable interstitial pulmonary edema pattern. Correlate clinically for chronic interstitial disease. Reviewed, dictated and finalized at [facility]. E COMMERCE DEVELOPER Impression: Probable interstitial pulmonary edema pattern. Correlate clinically for chronic interstitial disease.
--- NOTE | ~2024-04-03 | CT_ITS ---
CT of the Abdomen and Pelvis: Indication: Small bowel obstruction Technique: 2.5 mm axial scans were obtained through the abdomen and pelvis following intravenous adm inistration of 100 cc of Omnipaque 350. Dose reduction technique was used on this scan by utilizing a utomated exposure control and iterative reconstruction technique. The dose-length product (DLP) was 2 94.94 mGy-cm. COMPARISON: 04/28/2022 Findings: Scans through the lung bases are unremarkable. The liver, spleen, pancreas, gallbladder, and adrenal glands are within normal limits. Large right up per pole renal cyst present. Status post left nephrectomy. No evidence of aortic aneurysm. No lympha denopathy. No bowel obstruction or bowel wall thickening. Status post partial colectomy. There is a left lumbar hernia containing a focal portion of the descending colon.. Images through the pelvis were performed. Urinary bladder unremarkable. Status post hysterectomy. No pelvic mass seen. No ascites. Impression: No acute abnormality. Stable left lumbar hernia containing portion of the descending colon. Status post left nephrectomy. Reviewed, dictated and finalized at [facility]. MOBILE RADIO TECHNICIAN Impression: No acute abnormality. Stable left lumbar hernia containing portion of the descending colon. Status post left nephrectomy.
[2024-04-03 00:44] VITALS: BP 170/86; PULSE 87; RESP 14; TEMP 36.9; O2SAT 100
[2024-04-03 02:08] LABS: Basophils Absolute Auto 0.1 K/mm3 (0.0-0.1); Eosinophils Absolute Auto 0.2 K/mm3 (0-0.3); Eosinophils Percent Auto 2.4 % (0-4.4); Hematocrit 36.7 % (37.0-47.0); Immature Granulocyte Absolute 0.04 K/mm3 (0.00-0.031); Immature Granulocyte Percent A 0.5 % (0-0.5); Lymphocytes Absolute Auto 0.64 K/mm3 (0.9-3.2); Lymphocytes Percent Auto 7.8 % (18.3-44.2); Mean Corpuscular HGB Conc 32.7 g/dl (32-36); Mean Corpuscular Hemoglobin 30.5 pg (26-34); Mean Corpuscular Volume 93.4 fl (80-100); Mean Platelet Volume 9.4 fl (7.4-10.4); Monocytes Absolute Auto 0.6 K/mm3 (0.1-0.6); Monocytes Percent Auto 7.2 % (2.6-8.5); Neutrophils Absolute Auto 6.6 K/mm3 (1.3-6.7); Neutrophils Percent Auto 81.1 % (45.5-73.1); Platelet Count Result 128 k/mm3 (150-375); Red Blood Count 3.93 M/mm3 (4.2-5.4); Red Cell Distribution Width 13.5 % (11.5-14.5); White Blood Count 8.2 K/mm3 (4.5-10.0)
[2024-04-03 02:13] LABS: Add Urine Microscopic? YES; Appearance Urine Clear (Clear); Bacteria Urine None Seen /hpf; Bilirubin Urine Negative (Negative); Blood Urine Negative (Negative); Color Urine Yellow (Yellow); Glucose Urine UA Negative (Negative); Ketones Urine Trace mg/dL (Negative); Leukocyte Esterase Ur Negative LEU/UL (Negative); Nitrate Urine Negative (Negative); Non Pathogenic Casts 0-2; Protein Urine 2+ mg/dL (Negative); RBC Urine 0-2 /hpf (0-2); Squamous Epithelial Cell Urine None Seen /hpf (Few); Urobilinogen Urine 0.2 mg/dL (<2.0); WBC Urine 0-5 /hpf (0-3); pH Urine 6.5 (5.0-9.0)
[2024-04-03] MEDS: MORPHINE SULFATE (*CRX) 2 MG/ML INJ IV PUSH ×2 (02:19→02:43)
[2024-04-03] MEDS: ONDANSETRON INJ 4 MG/2 ML VIAL IV PUSH ×2 (02:19→04:42)
[2024-04-03 02:23] LABS: Alanine Aminotransferase 14 U/L (6-35); Albumin Level 4.2 g/dL (3.5-5.1); Alkaline Phosphatase 71 U/L (38-126); Anion Gap 13 mmol/L (4-12); Aspartate Amino Transferase 27 U/L (14-36); Bilirubin,Total 0.9 mg/dL (0.2-1.3); Blood Urea Nitrogen 15 mg/dL (7-17); Calcium 8.5 mg/dL (8.4-10.2); Carbon Dioxide 23 mmol/L (22-30); Chloride 99 mmol/L (98-107); Estimated Glomerular Filt Rate 45; Glucose 148 mg/dL (65-110); Lipase 126 U/L (23-300); Magnesium 1.3 mg/dL (1.6-2.3); Potassium 2.8 mmol/L (3.4-5.0); Sodium 135 mmol/L (137-145)
[2024-04-03 02:38] LABS: Lactic Acid Reflex 1.9 mmol/L (0.7-2.0)
[2024-04-03] MEDS: MAGNESIUM SULF 1 GM/D5W 100 ML 1 GM/100 ML BAG IVPB (02:44)
--- NOTE | 2024-04-03 02:50 | ED.ABDPAIN ---
HPI - Abdominal Pain General Chief Complaint: Abdominal Pain Stated Complaint: ABD PAIN, LEG PAIN, SICK CASE, ?SBO Time Seen by Provider: 04/03/24 01:24 History of Present Illness HPI narrative: Patient is an 83-year-old female who presents to the emergency department this evening from home complaining of nausea, vomiting and diarrhea. Patient admits that she does have a history of multiple small-bowel obstructions and states that this feels similar to those. Denies any chest pain or shortness of breath. Admits that she does have 1 kidney. She states that she started this new medication on the and is unsure if that could be contributing to her symptoms. Unable to recall what medication it was. Patient is actively vomiting in triage. Related Data Home Medications ?Medication ?Instructions ?Recorded ?Confirmed ?Last Taken ?Type cholecalciferol (vitamin D3) 10 10 mcg PO DAILY 03/27/20 03/31/24 Unknown History mcg (400 unit) capsule latanoprost 0.005 % eye drops 1 drp ophthalmic (eye) DAILY 03/27/20 03/31/24 Unknown History omeprazole 20 mg capsule,delayed 20 mg PO DAILY 05/10/23 03/31/24 Unknown History release timolol maleate 0.5 % eye drops 1 drp LEFT EYE Q12H 02/28/24 03/31/24 Unknown History Allergies Allergy/AdvReac Type Severity Reaction Status Date / Time azathioprine Allergy Severe Anaphylactic Verified 03/28/24 12:00 Shock calcitonin Allergy Unknown Nervous Verified 03/28/24 12:00 cefaclor Allergy Unknown Nausea Verified 03/28/24 12:00 Cephalosporins Allergy Unknown Nausea Verified 03/28/24 12:00 clindamycin Allergy Unknown Nausea Verified 03/28/24 12:00 COVID-19 (SARS-CoV-2) AdvReac Mild rash, eye Verified 03/28/24 12:00 vaccine, francisco problems Quinolones AdvReac Mild Unknown Verified 03/28/24 12:00 omeprazole AdvReac bloating Verified 03/28/24 12:00 and diarrhea LOMEFLOXACIN HCL Allergy Mild Nausea and Uncoded 03/28/24 12:00 Vomiting CALCITONIN,SALMON,SYNTHETIC AdvReac Mild Nausea and Uncoded 03/28/24 12:00 Vomiting Review of Systems Review of Systems: All systems are reviewed and are negative unless stated otherwise in the HPI. 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 History of kidney stones Anxiety and depression History of blood transfusion Surgical History Surgical History H/O inguinal hernia repair H/O cataract extraction History of delivery History of kidney removal left Family History Family History Father Diabetes mellitus Mother Hypertension Family history of cardiovascular disease Grandparent Heart disease Social History Social History Smoking packs per day: 1 Smoking cigarettes per day: 20.0 Years smoked: 20 Smoking pack-years: 20.00 Smoking status: Former smoker Tobacco type: cigarettes Smoking end date: 03/14/95 Alcohol intake: current Drinks per week: 1 Alcohol use details: WINE Substance use: never Substance use type: does not use Do You Feel Safe in your Home?: Yes Lack of Transportation: No Lack of Food: Never True Current Housing: I Have Housing Concerned About Future Housing: No Difficulty Paying Gas/Electric Bills: No Difficulty Paying for Meds: No Currently Unemployed: No Education: Grade School Difficulty w/ Childcare or Family Care: No Living arrangements: with family Occupation/Education: other 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 HEENT: PERRL, no rhinorrhea, no post nasal drip, oropharynx clear. Neck: Trachea midline, no JVD, no lymphadenopathy. Cardiovascular: Regular rate and rhythm, no murmurs, rubs or gallops, no peripheral edema. Respiratory: Clear to auscultation bilaterally, no tachypnea, no wheezing, no rhonchi, no rubs, no respiratory distress. Abdomen: Soft, moderate diffuse tenderness to palpation, nondistended, no rebound, no guarding, no peritoneal signs. Musculoskeletal: No joint swelling or deformity, normal muscle tone. Skin: No rashes or petechia, no signs of infection. Psychiatric: Alert and oriented, normal behavior and judgment for situation. Neurological: Alert and oriented to person, place, and time. Follows all commands. No focal deficits, speech is clear and fluent. Course Vital Signs Vital signs: Vital Signs Temperature 98.4 F 04/03/24 00:44 Pulse Rate 87 04/03/24 00:44 Respiratory Rate 14 04/03/24 00:44 Blood Pressure 170/86 H 04/03/24 00:44 Pulse Oximetry 100 04/03/24 00:44 Oxygen Delivery Room Air 04/03/24 00:44 Temperature 98.4 F 04/03/24 00:44 Pulse Rate 89 04/03/24 05:26 Respiratory Rate 14 04/03/24 05:26 Blood Pressure 164/78 H 04/03/24 05:26 Pulse Oximetry 98 04/03/24 05:26 Oxygen Delivery Room Air 04/03/24 00:44 MDM - Abdominal Pain MDM Narrative Medical decision making narrative: The patient was evaluated by myself in the emergency department. History is obtained from patient who is an independent historian and physical exam was performed. External medical records were reviewed at this time. IV was established and pertinent tests were ordered. Patient was administered 4 mg of IV Zofran for nausea/vomiting. EKG was obtained which revealed sinus rhythm at a rate of 90 beats per minute, no evidence of acute ischemia. EKG was independently interpreted by me and is currently pending official cardiology read. Laboratory results obtained revealing hypokalemia with potassium of 2.8, magnesium low at 1.3, otherwise unremarkable. Urinalysis revealed trace ketones. At this time patient was administered 20 mEq of IV potassium and 1 g of IV magnesium. Imaging studies obtained included CT abdomen pelvis with IV contrast which was independently interpreted by me revealing no acute process, which is pending final radiology interpretation. Patient continues to dry heave and complain of nausea and she was administered a 2nd dose of IV Zofran 4 mg. Patient has not had any vomiting episodes since she presented to the emergency department. Patient was administered an additional 40 mEq of oral potassium at this time. Patient was able to keep down the p.o. potassium and did pass an oral fluid challenge. Patient has been coughing during her ED stay and at this time has been did inform us that she has been battling an upper respiratory infection. CXR obtained at this time was independently interpreted by me revealing no acute cardiopulmonary process. Patient was informed that she will be sent home with a script for Tessalon Perles to help with her cough. Differential diagnosis considerations include small-bowel obstruction, gastroenteritis, acute viral syndrome, dehydration, electrolyte derangements. Comorbidities impacting this visit include history of multiple SBO. I have evaluated and discussed social determinants of health with the patient that could potentially impact subsequent diagnosis and treatment plans. On repeat assessment of the patient, reevaluation revealed that the patient is doing well and is in no acute distress. Patient symptoms have improved since she arrived to our emergency department. Repeat vital signs were all reviewed and noted to be stable. Differential diagnosis and treatment plan were discussed with the patient at bedside. Patient agrees with discussion and after shared medical decision making agrees with [admission/discharge]. All questions were answered to the patient's satisfaction. Patient will follow up with her PCP in 3-5 days. Scripts for Tessalon Perles and Zofran were sent to patient's pharmacy to use as needed for cough/nausea/vomiting. Patient was provided with strict return precautions and instructed to return to the emergency department if any new or worsening symptoms develop. The patient was discharged in stable condition. Lab Data 04/03/24 02:01 04/03/24 02:01 Labs: Lab Results 04/03/24 04/03/24 Range/Units 02:01 02:18 WBC 8.2 (4.5-10.0) K/mm3 RBC 3.93 L (4.2-5.4) M/mm3 Hgb 12.0 (12.0-15.0) g/dL Hct 36.7 L (37.0-47.0) % MCV 93.4 (80-100) fl MCH 30.5 (26-34) pg MCHC 32.7 (32-36) g/dl RDW 13.5 (11.5-14.5) % Plt Count 128 L (150-375) k/mm3 MPV 9.4 (7.4-10.4) fl Immature Gran % (Auto) 0.5 (0-0.5) % Neut % (Auto) 81.1 H (45.5-73.1) % Lymph % (Auto) 7.8 L (18.3-44.2) % [place] % (Auto) 7.2 (2.6-8.5) % Eos % (Auto) 2.4 (0-4.4) % Baso % (Auto) 1.0 (0.2-1.2) % Lymph # (Auto) 0.64 L (0.9-3.2) K/mm3 [place] # (Auto) 0.6 (0.1-0.6) K/mm3 Eos # (Auto) 0.2 (0-0.3) K/mm3 Baso # (Auto) 0.1 (0.0-0.1) K/mm3 Abs Immat Gran (auto) 0.04 H (0.00-0.031) K/mm3 Absolute Neuts (auto) 6.6 (1.3-6.7) K/mm3 Absolute Nucleated RBC 0.000 (0.0-0.012) K/mm3 Nucleated RBC % 0.0 (0.0-0.2) % Sodium 135 L (137-145) mmol/L Potassium 2.8 L* (3.4-5.0) mmol/L Chloride 99 (98-107) mmol/L Carbon Dioxide 23 (22-30) mmol/L Anion Gap 13 H (4-12) mmol/L BUN 15 D (7-17) mg/dL Creatinine 1.16 H (0.7-1.0) mg/dL Estim Creat Clear Calc Not Reportable Estimated GFR 45 L (59 - ) Glucose 148 H (65-110) mg/dL Lactic Acid 1.9 (0.7-2.0) mmol/L Calcium 8.5 (8.4-10.2) mg/dL Magnesium 1.3 L (1.6-2.3) mg/dL Total Bilirubin 0.9 (0.2-1.3) mg/dL AST 27 (14-36) U/L ALT 14 (6-35) U/L Alkaline Phosphatase 71 (38-126) U/L Total Protein 8.0 (6.3-8.2) g/dL Albumin 4.2 (3.5-5.1) g/dL Lipase 126 (23-300) U/L Urine Color Yellow (Yellow) Urine Appearance Clear (Clear) Urine pH 6.5 (5.0-9.0) Ur Specific [place] 1.010 (1.001-1.035) Urine Protein 2+ H (Negative) mg/dL Urine Glucose (UA) Negative (Negative) mg/dL Urine Ketones Trace H (Negative) mg/dL Ur Blood (Man) Negative (Negative) Urine Nitrate Negative (Negative) Urine Bilirubin Negative (Negative) Urine Urobilinogen 0.2 (<2.0) mg/dL Leukocyte Esterase Rfl Negative (Negative) MELI/UL Urine RBC 0-2 (0-2) /hpf Urine WBC 0-5 (0-3) /hpf Ur Squamous Epith Cells None seen (Few) /hpf Urine Bacteria None seen /hpf Urine Casts 0-2 Imaging Data Radiologist's impression: ITS Impressions Abdomen/Pelvis CT 04/03/24 06:06 Impression: No acute abnormality. Stable left lumbar hernia containing portion of the descending colon. Status post left nephrectomy. Chest X-Ray 04/03/24 06:18 Impression: Probable interstitial pulmonary edema pattern. Correlate clinically for chronic interstitial disease. Discharge Plan Discharge Clinical Impression: Nausea & vomiting, Abdominal pain, Acute viral syndrome, Acute hypokalemia Patient Disposition: Home, Self-Care Condition: Improved Instructions: Antibiotic Form, Hypokalemia (ED), Acute Nausea and Vomiting (DC), Viral Syndrome (ED) Additional Instructions: Please follow-up with your family doctor within the next 3-5 days. Use the prescribed Zofran as needed for nausea/vomiting. Use the Tessalon Perles that were prescribed as needed for cough. Return to the emergency department if any new or worsening symptoms develop. Patient Language: Tajik Prescriptions: New ondansetron 4 mg tablet,disintegrating 4 mg PO Q8H PRN (Reason: nausea and vomiting) Qty: 10 0RF benzonatate 200 mg capsule 200 mg PO TID PRN (Reason: cough) Qty: 20 0RF No Action timolol maleate 0.5 % drops 1 drp LEFT EYE Q12H cholecalciferol (vitamin D3) 10 mcg (400 unit) capsule 10 mcg PO DAILY latanoprost 0.005 % drops 1 drp ophthalmic (eye) DAILY benzonatate 100 mg capsule 100 mg PO BID PRN (Reason: cough) Qty: 30 0RF omeprazole 20 mg capsule,delayed release(DR/EC) 20 mg PO DAILY ferrous sulfate 325 mg (65 mg iron) tablet 325 mg PO DAILY Qty: 60 4RF Humira 40 mg/0.8 mL syringe kit 40 mg SUB-Q Q14D Qty: 2 12RF allopurinol 100 mg tablet 100 mg PO DAILY Qty: 90 3RF pantoprazole 20 mg tablet,delayed release (DR/EC) See Rx Instructions .ROUTE .COMPLEX Qty: 30 5RF Dose Instruction: TAKE 1 TABLET BY MOUTH EVERY MORNING Rx Instructions: TAKE 1 TABLET BY MOUTH EVERY MORNING alprazolam 0.5 mg tablet 0.5 mg PO BID PRN (Reason: anxiety) Qty: 60 4RF citalopram 20 mg tablet See Rx Instructions .ROUTE .COMPLEX Qty: 90 1RF Dose Instruction: TAKE 1 TABLET BY MOUTH EVERY DAY Rx Instructions: TAKE 1 TABLET BY MOUTH EVERY DAY budesonide 3 mg capsule,delayed,extend.release 9 mg PO DAILY 56 Days Qty: 168 0RF Follow-up/Referrals: Sebastian Lay DO [Primary Care Provider] - 3 Days Time of Disposition: 06:21
--- NOTE | 2024-04-03 02:59 | ECG_ITS ---
Test Date: 2024-04-03 03:45:08 Measurements Intervals [place] Rate: 90 P: 97 NV: 149 QRS: -9 QRSD: 86 T: 7 QT: 302 QTc: 371 Interpretive Statements SINUS RHYTHM WITH OCCASIONAL SUPRAVENTRICULAR PREMATURE COMPLEXES NONSPECIFIC ST & T-WAVE ABNORMALITY Compared to ECG 12/16/2023 22:07:10 T-wave abnormality now present Electronically Signed On 04-03-2024 10:45:00 SCHOOL FUNDRAISING DIRECTOR by Ricardo Capps M.D.
[2024-04-03 03:28] VITALS: BP 171/73; PULSE 87; RESP 13; O2SAT 92
[2024-04-03] MEDS: SODIUM CHLORIDE 0.9% IV 1,000 ML 999 ML (04:24)
[2024-04-03] MEDS: KCL 20 MEQ/SW 100 ML 100 ML 50 MEQ IVPB (04:24)
[2024-04-03] MEDS: POTASSIUM CHLORIDE 20 MEQ ER TABLET 40 MEQ PO (05:24)
[2024-04-03 05:26] VITALS: BP 164/78; PULSE 89; RESP 14; O2SAT 98
[2024-04-03] MEDS: METOCLOPRAMIDE HCL INJ 10 MG/2 ML VIAL IV PUSH (06:07)
[2024-04-03] MEDS: diphenhydrAMINE HCl INJ 50 MG/ML VIAL 25 MG IV PUSH (06:07)
--- OUTSIDE RECORDS SUMMARY | 2024-04-05 15:17 | XMS_ITS | Clinical Summary ---
Author Organization [facility] Address [address] [place] [address]. [place], [place] [id number] [place] [id number] Care Team Providers Care Inserting Press Operator Name Role Phone Unavailable Primary Care Provider [...]
--- OUTSIDE RECORDS SUMMARY | 2024-04-05 15:17 | XMS_ITS | Continuity of Care Document ---
Author Organization [facility] Address [address] [place] [address] [address] [place] [address] Phone Care Team Providers Care Telehealth Director Name Role Phone Maggy Hoyt Unavailable Unavailable Procedures Procedure Date Office/outpatient Visit, Est Advance Directives Directive Yes / No Effective Date File Name No Information Encounters Encounter Description Practice Location Reason(s) For Visit Diagnoses Date Provider Providers Copied on Encounter Office/outpat ient Visit, Est [facility], [address] [place] [address] [address], [place], [place], [id number], tel:[phone] [facility] No Information 6[address] Maggy. [address] , [address], [place], [address], [place]. tel:[phone] Family History Family Member Type Diagnosis Age At Onset No Information Payers Payer name Insurance type Covered constitution party ID Authorchristya gurmeet(s) [facility] CI [id number] Social History Type Description Quantity Date Captured [...]
--- OUTSIDE RECORDS SUMMARY | 2024-04-05 15:17 | XMS_ITS | Clinical Summary ---
Author Organization [facility] Address [address] [place] [address] Care Team Providers Care Electrical Transmission Engineer Name Role Phone Tobias Escobar MD Primary Care Provider [phone] Allergies Active Allergy Reactions Criticality Noted Date Comments Cefaclor Nausea & Vomiting Low Cephalosporins Other (See comments) Low GI symptoms Clindamycin Vomiting Low Azathioprine Other (See comments) High 02/17/2018 Toxic. Ended up in ICU afterwards Lomefloxacin Mental status changes Low Calcitonin ([place]) Anxiety,Vomiting Low Medications adalimumab (adalimumab) 40 mg/0.8 mL pen injector kitIndications: Crohn's Disease 40 mg. Every other Tuesday Active ALPRAZolam (XANAX) 0.5 mg tabletIndicatio ns:anxiety Take 0.5 mg by mouth nightly. Active citalopram (CeleXA) 20 mg tablet Take 20 mg by mouth blood donor recruiter supervisor before breakfast. Active denosumab (PROLIA) 60 mg/mL syringe Inject under the skin once. Twice a year Active timolol (BETIMOL) 0.5 % ophthalmic solutionIndicat ions:open angle glaucoma Administer 1 drop into the left eye 2 (two) times a day. Active cyanocobalamin (Vitamin B-12) 1,000 mcg tabletIndicatio ns:Prevention of Vitamin B12 Deficiency Take 1,000 mcg by mouth blood donor recruiter supervisor before breakfast. Active cholecalciferol (VITAMIN D-3) 1,000 unit tablet Take 1,000 Units by mouth blood donor recruiter supervisor before breakfast. Active ferrous sulfate 325 mg (65 mg of elemental iron) tabletIndicatio ns:Iron Deficiency Anemia Take 65 mg of elemental iron by mouth blood donor recruiter supervisor before breakfast. 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 Crohn's disease ([facility]) 10/28/2011 Resolved Problems Problem Noted Date Diagnosed [...] resection with ureteral injury in 2001 at [facility] Glaucoma Family History Medical History Relation Name [...] on file Legal Sex Female 2:14 AM DENTAL LABORATORY MANAGER Gender Identity Not on file Sexual Orientation Not on file Obstetrics History Last Filed Vital Signs Vital Sign Reading Time Taken Comments Blood Pressure 112/56 04/07/2018 12:58 PM DENTAL LABORATORY MANAGER Pulse 61 04/07/2018 12:58 PM DENTAL LABORATORY MANAGER Temperature 36.7 ??C (98.1 ??F) 04/07/2018 12:[address] Respiratory Rate 16 04/07/2018 12:58 PM DENTAL LABORATORY MANAGER Oxygen Saturation 96% 04/07/2018 12:58 PM DENTAL LABORATORY MANAGER Inhaled Oxygen Concentration - - Weight 56.7 kg (125 lb) 04/01/2020 10:15 AM DENTAL LABORATORY MANAGER Height 147.3 cm (4' 10 ) 04/01/2020 10:15 AM DENTAL LABORATORY MANAGER Body Mass Index 26.13 04/01/2020 10:15 AM DENTAL LABORATORY MANAGER Plan of Treatment Not on file Insurance MEDICARE [facility] MEDICARE [facility] Advance Directives For more information, please contact: [phone] * Full Code (Latest Code Status on File) Date Activated Date Inactivated Comments 04/06/2018 1:03 PM 04/07/2018 5:49 PM Care Teams Electrical Transmission Engineer Relationship Specialty Start Date End Date Tobias Escobar MD [address] [place] [address] PCP - General 11/28/17
--- OUTSIDE RECORDS SUMMARY | 2024-04-05 15:17 | XMS_ITS | Referral Summary ---
Author Organization [facility] Address [address] [place] [address] Care Team Providers Care Curing Room Worker Name Role Phone Tobias Escobar MD Primary Care Provider [phone] Allergies Active Allergy Reactions Criticality Noted Date Comments Cefaclor Nausea & Vomiting Low Cephalosporins Other (See comments) Low GI symptoms Clindamycin Vomiting Low Azathioprine Other (See comments) High 02/17/2018 Toxic. Ended up in ICU afterwards Lomefloxacin Mental status changes Low Calcitonin ([place]) Anxiety,Vomiting Low Medications adalimumab (adalimumab) 40 mg/0.8 mL pen injector kitIndications: Crohn's Disease 40 mg. Every other Tuesday Active ALPRAZolam (XANAX) 0.5 mg tabletIndicatio ns:anxiety Take 0.5 mg by mouth nightly. Active citalopram (CeleXA) 20 mg tablet Take 20 mg by mouth crime scene photographer before breakfast. Active denosumab (PROLIA) 60 mg/mL syringe Inject under the skin once. Twice a year Active timolol (BETIMOL) 0.5 % ophthalmic solutionIndicat ions:open angle glaucoma Administer 1 drop into the left eye 2 (two) times a day. Active cyanocobalamin (Vitamin B-12) 1,000 mcg tabletIndicatio ns:Prevention of Vitamin B12 Deficiency Take 1,000 mcg by mouth crime scene photographer before breakfast. Active cholecalciferol (VITAMIN D-3) 1,000 unit tablet Take 1,000 Units by mouth crime scene photographer before breakfast. Active ferrous sulfate 325 mg (65 mg of elemental iron) tabletIndicatio ns:Iron Deficiency Anemia Take 65 mg of elemental iron by mouth crime scene photographer before breakfast. 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 Crohn's disease ([facility]) 10/28/2011 Resolved Problems Problem Noted Date Diagnosed [...] on file Legal Sex Female 2:14 AM ORACLE ADF DEVELOPER Gender Identity Not on file Sexual Orientation Not on file Last Filed Vital Signs Vital Sign Reading Time Taken Comments Blood Pressure 112/56 04/07/2018 12:58 PM ORACLE ADF DEVELOPER Pulse 61 04/07/2018 12:58 PM ORACLE ADF DEVELOPER Temperature 36.7 ??C (98.1 ??F) 04/07/2018 12:[address] Respiratory Rate 16 04/07/2018 12:58 PM ORACLE ADF DEVELOPER Oxygen Saturation 96% 04/07/2018 12:58 PM ORACLE ADF DEVELOPER Inhaled Oxygen Concentration - - Weight 56.7 kg (125 lb) 04/01/2020 10:15 AM ORACLE ADF DEVELOPER Height 147.3 cm (4' 10 ) 04/01/2020 10:15 AM ORACLE ADF DEVELOPER Body Mass Index 26.13 04/01/2020 10:15 AM ORACLE ADF DEVELOPER Plan of Treatment Not on file Insurance MEDICARE [facility] MEDICARE [place] [facility] Advance Directives For more information, please contact: [phone] * Full Code (Latest Code Status on File) Date Activated Date Inactivated Comments 04/06/2018 1:03 PM 04/07/2018 5:49 PM Care Teams Curing Room Worker Relationship Specialty Start Date End Date Tobias Escobar MD [address] [place] [address] PCP - General 11/28/17
--- OUTSIDE RECORDS SUMMARY | 2024-04-05 15:17 | XMS_ITS | Encounter Summary ---
Author Organization [facility] Address [address] [place] [address] Care Team Providers Care Decal Transferrer Name Role Phone Tobias Escobar MD Primary Care Provider [phone] Encounter Details Date Type Department Care Team (Late st Contact Info) Description 04/08/2018 Documentation [facility] Case Management [id number] [place] [address] Rosemary Edward RN Social History Tobacco Use Types Packs/Day Years Used Date Smoking Tobacco: Former Cigarettes 1 36.9 1 962 - 01/26/1998 Smokeless Tobacco: Never Alcohol Use Standard Drinks/Week Comments Yes 1 (1 standard drink = 0.6 oz pur e alcohol) Comments No Sex and Gender Information Value Date Recorded Sex Assigned at Not on file Legal Sex Female 2:14 AM ACCOUNTING MANAGER CONTROLLER Gender Identity Not on file Sexual Orientation Not on file documented as of this encounter Plan of Treatment Not on file documented as of this encounter Visit Diagnoses Not on filedocumented in this encounter Care Teams Decal Transferrer Relationship Specialty Start Date End Date Tobias Escobar MD [address] [place] [address] PCP - General 11/28/17 documented as of this encounter
--- OUTSIDE RECORDS SUMMARY | 2024-04-05 15:17 | XMS_ITS | Clinical Summary ---
Author Organization [facility] Address [address] [place] [phone] Phone Care Team Providers Care Game Developer Name Role Phone Sly Escobar MD Primary Care Provider Allergies Active Allergy Reactions Criticality Noted Date [...] Vaccine (#1) 2023 11/12/2020, 2018 Care Teams Game Developer Relationship Specialty Start Date End Date Sly Escobar MD [address] [place] [phone] PCP - General Internal Medicine 06/26/18
== END 2024-04-03 06:30 | disposition home or self-care (01) ==
PROVIDERS: Emergency Provider Emergency Medicine; PCP Internal Medicine
DX: B34.9 Viral infection, unspecified (principal); E87.6 Hypokalemia; R11.2 Nausea with vomiting, unspecified; R10.9 Unspecified abdominal pain; F41.8 Other specified anxiety disorders; Z87.891 Personal history of nicotine dependence
CPT/HCPCS: 36415; 71045; 74177; 80053; 81001; 83605; 83690; 83735; 85025; 93005; 96365; 96366; 96368; 96375; 96376; 99284; A9270; J1200; J2270; J2405; J2765; J3475; J3480; J7030; Q9967

== ENCOUNTER 2024-09-04 10:41 | Outpatient (CLI) | payer MEDICARE, OTHER, SELFPAY ==
[2024-09-04 13:06] LABS: Basophils Absolute Auto 0.1 K/mm3 (0.0-0.1); Basophils Percent Auto 1.3 % (0.2-1.2); Eosinophils Absolute Auto 0.4 K/mm3 (0-0.3); Hematocrit 35.9 % (37.0-47.0); Hemoglobin 11.6 g/dL (12.0-15.0); Immature Granulocyte Absolute 0.03 K/mm3 (0.00-0.031); Immature Granulocyte Percent A 0.4 % (0-0.5); Lymphocytes Absolute Auto 2.67 K/mm3 (0.9-3.2); Lymphocytes Percent Auto 33.5 % (18.3-44.2); Mean Corpuscular HGB Conc 32.3 g/dl (32-36); Mean Corpuscular Hemoglobin 30.7 pg (26-34); Mean Platelet Volume 9.6 fl (7.4-10.4); Monocytes Absolute Auto 0.4 K/mm3 (0.1-0.6); Monocytes Percent Auto 5.1 % (2.6-8.5); Neutrophils Absolute Auto 4.4 K/mm3 (1.3-6.7); Neutrophils Percent Auto 54.7 % (45.5-73.1); Platelet Count Result 158 k/mm3 (150-375); Red Blood Count 3.78 M/mm3 (4.2-5.4); Red Cell Distribution Width 13.2 % (11.5-14.5)
[2024-09-04 13:28] LABS: Iron 88 ug/dL (37-170)
[2024-09-04 13:30] LABS: Erythrocyte Sedimentation Rate 35 mm/hr (0-20)
[2024-09-04 13:33] LABS: Alanine Aminotransferase 13 U/L (6-35); Albumin Level 4.1 g/dL (3.5-5.1); Alkaline Phosphatase 49 U/L (38-126); Anion Gap 9 mmol/L (4-12); Aspartate Amino Transferase 34 U/L (14-36); Bilirubin,Total 0.4 mg/dL (0.2-1.3); Blood Urea Nitrogen 24 mg/dL (7-17); CRP < 0.5 mg/dL (<1.0); Calcium 9.2 mg/dL (8.4-10.2); Carbon Dioxide 23 mmol/L (22-30); Chloride 108 mmol/L (98-107); Estimated Glomerular Filt Rate 27; Glucose 113 mg/dL (65-110); Potassium 3.9 mmol/L (3.4-5.0); Sodium 140 mmol/L (137-145); Total Protein 7.5 g/dL (6.3-8.2)
[2024-09-04 13:39] LABS: Cholesterol 206 mg/dL (0-200); HDL Direct 55 mg/dL; Percent Iron Saturation 23 % (20-50); Triglycerides 388 mg/dL (<150)
[2024-09-04 13:50] LABS: LDL Cholesterol Direct 73 mg/dL
[2024-09-04 14:50] LABS: Folic Acid 13.4 ng/mL (2.76->20)
[2024-09-07 15:49] LABS: Vitamin D 1,25 (OH)2 Total 23 pg/mL (18-72); Vitamin D2 1,25 (OH)2 <8 pg/mL; Vitamin D3 1,25 (OH)2 23 pg/mL
== END 2024-09-04 10:42 | disposition home or self-care (01) ==
PROVIDERS: PCP Internal Medicine; Visit Provider Nurse Practitioner
DX: K50.90 Crohn's disease, unspecified, without complications (principal); Z79.620 Long term (current) use of immunosuppressive biologic; D64.9 Anemia, unspecified; N20.0 Calculus of kidney; N18.32 Chronic kidney disease, stage 3b
CPT/HCPCS: 36415; 80053; 80061; 82607; 82652; 82728; 82746; 83540; 83550; 85025; 85652; 86140

== ENCOUNTER 2024-09-04 11:03 | Outpatient (CLI) | payer MEDICARE, OTHER, SELFPAY ==
--- NOTE | ~2024-09-04 | XR_ITS ---
EXAM/PROCEDURE: XR chest 2V - 09/04/2024 11:08 CDT HISTORY: 83 years old Female with R93.89 - Abnormal findings on diagnostic imaging of other... TECHNIQUE: Two view(s) of the chest. COMPARISON: 04/03/2024 FINDINGS: LUNGS/ PLEURA: Mild vascular congestion with increased interstitial markings. Multiple pulmonary nodu les are seen in bilateral lung apices. HEART/ MEDIASTINUM: Heart appears normal in size. BONES: No acute osseous abnormality. OTHER: Visualized upper abdomen is unremarkable. IMPRESSION: Mild interstitial pulmonary thickening. This may represent interstitial edema, possible infection elie shira possible interstitial lung disease. Reviewed, dictated and finalized at location A. IMPRESSION: Mild interstitial pulmonary thickening. This may represent interstitial edema, possible infection versus possible interstitial lung disease.
== END 2024-09-04 11:04 | disposition home or self-care (01) ==
PROVIDERS: PCP Internal Medicine; Visit Provider Student in an Organized Health Care Education/Training Program
DX: R93.89 Abnormal findings on diagnostic imaging of other specified body structures (principal); J12.9 Viral pneumonia, unspecified
CPT/HCPCS: 71046

== ENCOUNTER 2024-10-19 10:16 | Outpatient (CLI) | payer MEDICARE, OTHER, SELFPAY ==
--- OUTSIDE RECORDS SUMMARY | 2024-10-19 10:21 | XMS_ITS | Encounter Summary ---
Author Organization [facility] Healthcare Address [address] [place] [address] Care Team Providers Care Chemical Educator Name Role Phone Tobias Escobar MD Primary Care Provider [phone] Encounter Details Date Type Department Care Team (Late st Contact Info) Description 04/08/2018 Documentation [facility] Case Management [address] [place] [address] Rosemary Edward RN Social History Tobacco Use Types Packs/Day Years Used Date Smoking Tobacco: Former Cigarettes 1 36.9 1 962 - 01/26/1998 Smokeless Tobacco: Never Alcohol Use Standard Drinks/Week Comments Yes 1 (1 standard drink = 0.6 oz pur e alcohol) Comments No Sex and Gender Information Value Date Recorded Sex Assigned at Not on file 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
--- OUTSIDE RECORDS SUMMARY | 2024-10-19 10:21 | XMS_ITS | Clinical Summary ---
Author Organization [facility] Address [address] [place] [address] Care Team Providers Care Rug Washer Name Role Phone Unavailable Primary Care Provider [...] Td Vaccines ( 1 - Tdap) 1960 Pneumococcal Vaccine: 50+ Ye ars (1 of 1 - PCV) 12/10/1991 Zoster Vaccines (1 of 2) 12/10/1991 Dexa Scan (General) 2006 RSV Immunization or 60+ Years (1 - 1-dose 75+ series) 2016 COVID-19 Vaccine (2023-2 5 season) 2023 Meningococcal B Vaccine Aged Out No l onger eligible based on patient's age to complete this topic Meningococcal Vaccine Aged Out No asuncion stephon eligible based on patient's age to complete this topic RSV Immunizations Under 20 Months Aged Out No longer eligible based on patient's age to complete this topic
--- OUTSIDE RECORDS SUMMARY | 2024-10-19 10:21 | XMS_ITS | Encounter Summary ---
Author Organization [facility] Address [address] [place] [address] Care Team Providers Care Rn New Grad Name Role Phone Sebastian Lay DO Primary Care Provider [phone] Encounter Details Date Type Department Care Team (Late Contact Info) Description 10/10/2024 Telephone [facility] - Dermatology [address] [place] [address], [facility] [place] [phone] Davon Santos MD [address] [place] [address] [place] [phone] Social History Tobacco Use Types Packs/Day Years Used Date Smoking Tobacco: Never Assessed Comments Unknown Sex and Gender Information Value Date Recorded Sex Assigned at Not on file Legal Sex Female 9:24 AM CDT Gender Identity Not on file Sexual Orientation Not on file documented as of this encounter Miscellaneous Notes * Telephone Encounter - Shahriar Ibrahim - 10/10/2024 1:11 PM CDT Current Provider: Danielle Reason for Call: pt needs meds sent to [facility] pharmacy in [facility] [phone] clobetasol (Temovate) 0.05 % solution fluocinolone (Dermotic) 0.01 % otic oil ketoconazole (Nizoral) 2 % shampoo Patient Call Back Number: [phone] documented in this encounter Plan of Treatment Upcoming Encounters Date Type Department Care Team (Late Contact Info) Description 12/26/2024 10:00 AM CDT Office Visit [facility]erm[facility]ology [address] [facility] [place] [address] Davon Santos MD [facility] 3 [place] [address] documented as of this encounter Visit Diagnoses Not on filedocumented in this encounter Care Teams Rn New Grad Relationship Specialty Start Date End Date Sebastian Lay DO [address] [place] [address] PCP - General Internal Medicine 10/08/24 documented as of this encounter
--- OUTSIDE RECORDS SUMMARY | 2024-10-19 10:21 | XMS_ITS | Clinical Summary ---
Author Organization [facility] Address [address] [place] [address] Care Team Providers Care Principal Technical Writer Name Role Phone Tobias Escobar MD Primary Care Provider [phone] Allergies Active Allergy Reactions Criticality Noted Date Comments Cefaclor Nausea & Vomiting Low Cephalosporins Other (See comments) Low GI symptoms Clindamycin Vomiting Low Azathioprine Other (See comments) High 02/17/2018 Toxic. Ended up in ICU afterwards Lomefloxacin Mental status changes Low Calcitonin (Shirley) Anxiety,Vomiting Low Medications adalimumab (adalimumab) 40 mg/0.8 mL pen injector kitIndications: Crohn's Disease 40 mg. Every other Tuesday Active ALPRAZolam (XANAX) 0.5 mg tabletIndicatio ns:anxiety Take 0.5 mg by mouth nightly. Active citalopram (CeleXA) 20 mg tablet Take 20 mg by mouth nursing agency manager before breakfast. Active denosumab (PROLIA) 60 mg/mL syringe Inject under the skin once. Twice a year Active timolol (BETIMOL) 0.5 % ophthalmic solutionIndicat ions:open angle glaucoma Administer 1 drop into the left eye 2 (two) times a day. Active cyanocobalamin (Vitamin B-12) 1,000 mcg tabletIndicatio ns:Prevention of Vitamin B12 Deficiency Take 1,000 mcg by mouth nursing agency manager before breakfast. Active cholecalciferol (VITAMIN D-3) 1,000 unit tablet Take 1,000 Units by mouth nursing agency manager before breakfast. Active ferrous sulfate 325 mg (65 mg of elemental iron) tabletIndicatio ns:Iron Deficiency Anemia Take 65 mg of elemental iron by mouth nursing agency manager before breakfast. Active famotidine (PEPCID) 20 mg [...] (six) hours as needed for pain. Active HYDROcodone-vernoica taminophen (NORCO) 5-325 mg per tabletIndicatio ns:Pain [...] (03/22/2018): Added automatically from request for surgery [id number] Left ureteral stone 02/17/2018 GERD (gastroesophageal reflux disease) 8 Blindness of right eye 02/17/2018 Crohn's disease 10/28/2011 Resolved Problems Problem Noted Date Diagnosed [...] History Medical History Date Comments Crohn disease (HCC) Cataract Arthritis GERD (gastroesophageal reflux disease) Left ureteral stone 02/17/2018 Blindness of right eye 02/17/2018 Anemia Sepsis (HCC) Delayed emergence from gener al anesthesia 2001 delayed emergence after rosalind l resection with ureteral injury in 2001 at [facility] Glaucoma Family History Medical History Relation [...] on file 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 Gender Identity Not on file Sexual Orientation Not on file Obstetrics History Last Filed Vital Signs Vital Sign Reading Time Taken Comments Blood Pressure 112/56 04/07/2018 12:58 PM AIRPLANE MECHANIC APPRENTICE Pulse 61 04/07/2018 12:58 PM AIRPLANE MECHANIC APPRENTICE Temperature 36.7 C (98.1 F) 04/07/2018 12:58 PM AIRPLANE MECHANIC APPRENTICE Respiratory Rate 16 04/07/2018 12:58 PM AIRPLANE MECHANIC APPRENTICE Oxygen Saturation 96% 04/07/2018 12:58 PM AIRPLANE MECHANIC APPRENTICE Inhaled Oxygen Concentration - - Weight 56.7 kg (125 lb) 04/01/2020 10:15 AM AIRPLANE MECHANIC APPRENTICE Height 147.3 cm (4' 10) 04/01/2020 10:15 AM AIRPLANE MECHANIC APPRENTICE Body Mass Index 26.13 04/01/2020 10:15 AM AIRPLANE MECHANIC APPRENTICE Plan of Treatment Not on file Insurance MEDICARE [facility] MEDICARE [facility] Advance Directives For more information, please contact: [phone] * Full Code (Latest Code Status on File) Date Activated Date Inactivated Comments 04/06/2018 1:03 PM 04/07/2018 5:49 PM Care Teams Principal Technical Writer Relationship Specialty Start Date End Date Tobias Escobar MD [address] [place] [address] PCP - General 11/28/17
--- OUTSIDE RECORDS SUMMARY | 2024-10-19 10:21 | XMS_ITS | Encounter Summary ---
Author Organization [facility] Address [address] [place] [address] Care Team Providers Care Urogynecology Physician Name Role Phone Warren Fitzgerald PA-C Primary Care Provider Sebastian Lay DO Primary Care Provider [phone] Encounter Details Date Type Department Care Team (Late Contact Info) Description 09/27/2024 Telephone [facility] Dermatology [address] [place] [phone] None, Physician [facility] [place] [address] Social History Tobacco Use Types Packs/Day Years Used Date Smoking Tobacco: Never Assessed Comments Unknown Sex and Gender Information Value Date Recorded Sex Assigned at Not on file Legal Sex Female 9:24 AM CDT Gender Identity Not on file Sexual Orientation Not on file documented as of this encounter Miscellaneous Notes * Telephone Encounter - Xavi Shah - 09/27/2024 9:37 AM CDT Called pt to reschedule apt. Pt agreed to new time and date. documented in this encounter Plan of Treatment Upcoming Encounters Date Type Department Care Team (Late Contact Info) Description 12/26/2024 10:00 AM CDT Office Visit [facility] Dermatology [address] [place] [phone] Davon Santos MD [address] [place] [address] 3 [place] [phone] documented as of this encounter Visit Diagnoses Not on filedocumented in this encounter Care Teams Urogynecology Physician Relationship Specialty Start Date End Date Warren Fitzgerald PA-C [address] [place] [address] PCP - General 11/05/21 10/07/24 Sebastian Lay DO [address] [place] [phone] PCP - General Internal Medicine 10/08/24 documented as of this encounter
--- OUTSIDE RECORDS SUMMARY | 2024-10-19 10:21 | XMS_ITS | Clinical Summary ---
Author Organization [facility] Address [address] [place] [address] Care Team Providers Care Soa Integration Developer Name Role Phone Sebastian Lay DO Primary Care Provider [phone] Source Comments [facility],non-owned Affiliates and Associated Physician Practices is amultiple site organization consisting of ambulatory clinics and hospital sitesin [place], [place], [place] and [place]. This disclosure is being madepursuant to the Care Everywhere program and may not contain all information available regarding this patient. Last updated 17.[facility] Allergies Active Allergy Reactions Criticality Noted Date Comments Azathioprine Other High 02/17/2018 Toxic. Ended up in ICU afterwards Calcitonin ([place]) Other,Vomiting Low 10/08/2024 Cefaclor Nausea and/or Vomiting Low 10/08/2024 Cephalosporins Other Low 12/27/2018 GI symptoms Other reaction(s): Other (See comments) GI symptoms Clindamycin Vomiting Low 10/08/2024 Quinolones Unknown Low 10/08/2024 Medications * Be aware that medications may not be up to date on this document. Alwaysverify current medications with the patient. Roflumilast 0.3 % CREAIndications :Other psoriasis Apply to affected areas on axillae, groin, trunk daily 60 g 11 5 Active clobetasol (Temovate) 0.05 % solutionIndicat ions:Other psoriasis Apply to itchy areas on scalp BID PRN for flares (avoid face, ears, and skin folds). 30ds 50 mL 11 5 Active fluocinolone (Dermotic) 0.01 % otic oilIndications: Other psoriasis Apply to ears twice daily as needed for rash. 20 mL 5 5 Active ketoconazole (Nizoral) 2 % shampooIndicati ons:Other psoriasis Apply to wet scalp, leave on for 3 minutes, then rinse; daily. 30ds 120 mL 5 Active ketoconazole (Nizoral) 2 % shampooIndicati ons:Other psoriasis Apply to wet scalp, leave on for 3 minutes, then rinse; daily. 30ds 120 mL 5 10/12/19 25 Discontinu ed(Reorder ) clobetasol (Temovate) 0.05 % solutionIndicat ions:Other psoriasis Apply to itchy areas on scalp BID PRN for flares (avoid face, ears, and skin folds). 30ds 50 mL 5 10/12/19 25 Discontinu ed(Reorder ) fluocinolone (Dermotic) 0.01 % otic oilIndications: Other psoriasis Apply to ears twice daily as needed for rash. 20 mL 5 10/12/19 25 Discontinu ed(Reorder ) ketoconazole (Nizoral) 2 % shampooIndicati ons:Other psoriasis Apply to wet scalp, leave on for 3 minutes, then rinse; daily. 30ds 120 mL 5 10/12/19 25 Discontinu ed(Reorder ) fluocinolone (Dermotic) 0.01 % otic oilIndications: Other psoriasis Apply to ears twice daily as needed for rash. 20 mL 5 10/12/19 25 Discontinu ed(Reorder ) clobetasol (Temovate) 0.05 % solutionIndicat ions:Other psoriasis Apply to itchy areas on scalp BID PRN for flares (avoid face, ears, and skin folds). 30ds 50 mL 5 10/12/19 25 Discontinu ed(Reorder ) Active Problems No known active problems Encounters Date Type Department Care Team Description 10/15/2024 Telephone [facility] - Dermatology [address] [place] [address] [place] [address] Lupe Delacruz MD Follow-up 10/11/2024 Refill [facility] Derm[facility]ology [address] [place] [phone] Davon Santos MD MEDICATION REFILL 10/10/2024 Telephone [facility] Dermatology [address] [place] [phone] Davon Santos MD 10/09/2024 Telephone [facility] Dermatology [address] [place] [phone] Davon Santos MD Med Question 10/08/2024 11:00 AM CDT Office Visit [facility] Dermatology [address] [place] [phone] Davon Santos MD Other psoriasis (Primary Dx) 10/08/2024 Travel 09/27/2024 Telephone [facility] Derm[facility] [address] [place] [phone] None, Physician 08/09/2024 Travel from Last 3 Months Social History Tobacco Use Types Packs/Day Years Used Date Smoking Tobacco: Never Assessed Comments Unknown Sex and Gender Information Value Date Recorded Sex Assigned at Not on file Legal Sex Female 9:24 AM CDT Gender Identity Not on file Sexual Orientation Not on file Plan of Treatment Upcoming Encounters Date Type Department Care Team (Late st Contact Info) Description 12/26/2024 10:00 AM CDT Office Visit [facility] - Dermatology [address] [place] [phone] Davon Santos MD [address] [place] [address] [address] [place] [address] Health Maintenance Due Date Last Done Comments BONE DENSITY TESTING 1940 MEDICARE AWV 12 MONTHS 1940 DTAP/TDAP/TD VACCINES (1 - Tdap) 1960 PNEUMOCOCCAL VACCINE 50+ (1 of 1 - PCV) 12/10/1991 ZOSTER VACCINE (1 of 2) 12/10/1991 Respiratory Syncytial Virus (RSV) Vaccine Pt: or over 60 yrs (1 - 1-dose 75+ series) 2016 COVID-19 VACCINE (2023-2 5 season) 2023 DEPRESSION SCREENING 03/14/2024 INFLUENZA VACCINE (#1) 2024 , 11/12/2018 HEPATITIS B VACCINE Aged Out No longe r eligible based on patient's age to complete this topic HIB VACCINE Aged Out No longer eligi ble based on patient's age to complete this topic HPV VACCINE Aged Out No longer eligi ble based on patient's age to complete this topic MENINGOCOCCAL (Group B) VACCINE SHARED DECISION-MAKING Aged Out No longer eligible based on patient's age to complete this topic MENINGOCOCCAL GROUPS A/C/Y/W VACCINE Aged Out No longer eligible b ased on patient's age to complete this topic Insurance MEDICARE MEDICARE [facility] [address] Care Teams Soa Integration Developer Relationship Specialty Start Date End Date Sebastian Lay DO [address] [place] [address] PCP - General Internal Medicine 10/08/24
--- OUTSIDE RECORDS SUMMARY | 2024-10-19 10:21 | XMS_ITS | Clinical Summary ---
Author Organization [facility] Address [address] [place] [address] Phone Care Team Providers Care Case Specialist Name Role Phone Sly Escobar MD Primary Care Provider [phone] Allergies Active Allergy Reactions Criticality Noted Date Comments Azathioprine Calcitonin Cefaclor Cephalosporins Low 12/27/2018 Other reaction(s): Other (See comments) GI symptoms Clindamycin Quinolones Medications ALPRAZolam (XANAX) 0.5 MG tablet as dir prn 0 8 Active ferrous sulfate 325 (65 Fe) MG tablet 1 daily 0 8 Active famotidine (PEPCID) 20 MG tablet 1 bid 0 8 Active citalopram (CeleXA) 20 MG tablet 1 daily 0 8 Active Polyvinyl Alcohol (ARTIFICIAL TEARS) 1.4 % solution as dir 0 8 Active cholecalcifero l (VITAMIN D3 SUPER STRENGTH) 2000 units tablet 1 daily 0 8 Active adalimumab (HUMIRA) 40 MG/0.8ML Prefilled Syringe Kit q2wks 0 8 Active denosumab (PROLIA) 60 MG/ML solution syringe as dir 0 8 Active cyanocobalamin (VITAMIN B-12) 1000 MCG tablet Take 1,000 mcg by mouth daily Active latanoprost (XALATAN) 0.005 % ophthalmic solution INSTILL 1 DROP INTO LEFT EYE AT BEDTIME 0 Active Cholecalcifero l (VITAMIN D3) 50 MCG (2000 UT) tablet Take 4,000 Units by mouth Active magnesium oxide (MAG-OX) 400 MG tablet Take 1 tablet (400 mg total) by mouth See administration instructions Two in am and one in pm 90 tablet 11 0 Active potassium citrate (UROCIT-K) 10 MEQ (1080 MG) CR tablet Take 2 tablets (20 mEq total) by mouth 2 (two) times a day with meals 180 tablet 11 0 Active timolol (TIMOPTIC) 0.5 % ophthalmic solution INSTILL ONE DROP INTO THE LEFT EYE TWICE DAILY 1 Active pantoprazole (PROTONIX) 20 MG EC tablet Take 20 mg by mouth 1 (one) time each day in the morning 1 Active allopurinol (ZYLOPRIM) 100 MG tablet TAKE 1 TABLET(100 MG) BY MOUTH 1 TIME EACH DAY 90 tablet 3 2 Active Active Problems Problem Noted Date Diagnosed Date Hernia of abdominal cavity 04/01/2020 Gastroesophageal reflux disease 02/17/2018 Calculus of kidney 01/09/2018 Chronic kidney disease, Stage IV (severe) 2017 Acute kidney failure 01/09/2018 Crohn's disease without complication 01/09/2018 Immunizations Immunization Administration Dates Next Due Fluzone High-Dose 12/05/2019 [...] Alcoholic Drinks/day: 1 gl wine pe day Comments Unknown Sex and Gender Information Value Date Recorded Sex Assigned at Not on file Legal Sex Female 7:30 AM [facility] Gender Identity Not on file Sexual Orientation Not on file Last Filed Vital Signs Vital Sign Reading Time Taken Comments Blood Pressure 118/80 09/28/2021 10:44 AM CDT Pulse 72 09/28/2021 10:44 AM CDT Temperature 35.9 C (96.6 F) 09/28/2021 10:44 AM CDT Respiratory Rate - - Oxygen Saturation - - Inhaled Oxygen Concentration - - Weight 58.1 kg (128 lb) 09/28/2021 10:44 AM CDT Height 149.9 cm (4' 11) 09/28/2021 10:44 AM CDT Body Mass Index 25.85 09/28/2021 10:44 AM CDT Plan of Treatment Health Maintenance Due Date Last Done Comments Pneumococcal PPSV23/PCV13 65 + Years / Low and Medium Risk (1 of 2 - PCV) 12/10/1991 Influenza Vaccine (#1) 2024 11/12/2020, 2018 Insurance MEDICARE [facility] Care Teams Case Specialist Relationship Specialty Start Date End Date Sly Escobar MD [address] [place] [phone] PCP - General Internal Medicine 06/26/18
--- OUTSIDE RECORDS SUMMARY | 2024-10-19 10:21 | XMS_ITS | Continuity of Care Document ---
Author Organization [facility] Address [address] [place] [address] [address] [place] [address] Phone Care Team Providers Care Microbiology Director Name Role Phone Maggy Hoyt Unavailable Unavailable Procedures Procedure Date Office/outpatient Visit, Est Advance Directives Directive Yes / No Effective Date File Name No Information Encounters Encounter Description Practice Location Reason(s) For Visit Diagnoses Date Provider Providers Copied on Encounter Office/outpat ient Visit, Est [facility], [address] [place] [address] [address], [place], [place], [id number], tel:[phone] [facility] No Information 6-200 6 Hoyt Maggy. [address] , [address], [place], [address], [place]. tel:[phone] Family History Family Member Type Diagnosis Age At Onset No Information Payers Payer name Insurance type Covered republican ID Authorchristya gurmeet(s) [facility] CI [id number] Social History Type Description Quantity Date Captured [...]
== END 2024-10-19 10:17 | disposition home or self-care (01) ==
PROVIDERS: PCP Internal Medicine; Visit Provider Nurse Practitioner
DX: K50.90 Crohn's disease, unspecified, without complications (principal)
CPT/HCPCS: 86480

== ENCOUNTER 2024-10-23 12:30 | Outpatient (RCR) | payer MEDICARE, OTHER, SELFPAY ==
--- NOTE | 2024-08-20 15:16 | OPREHPOC ---
Outpatient Therapy Plan of Care This is a Multidisciplinary Plan of Care that may contain components documented by all disciplines (PT, OT, and ST.) PT Problem 1 PT Problem #1 Knowledge Deficit PT Goal 1 Goal / Goal Update Patient to demonstrate independence with HEP for improved self-reliance of symptom management. Target Visit 4 PT Problem 2 PT Problem #2 Impaired Gait PT Goal 1 Goal / Goal Update Patient to score >=19 on the DGI to show improvements in balance and decreased level of assistance needed. Target Visit 8 PT Problem 3 PT Problem #3 Impaired Strength PT Goal 1 Goal / Goal Update Patient to demonstrate R hip strength >+=/5 for improved functional stability required for ADLs. Target Visit 8 PT Problem 4 PT Problem #4 Impaired Balance PT Goal 1 Goal / Goal Update Pt. to maintain Romberg position on firm surface > =30 seconds to show improvements in balance. Target Visit 8
--- NOTE | 2024-08-20 15:16 | PTOPEVAL1 ---
Assessment and note entered by Elke Bañuelos PT Evaluation Information Assessment Status Evaluation Diagnosis unsteadiness on feet ICD-10 Condition Codes (PT) Abnormalities of gait and mobility R26.9 Onset 1 year ago Subjective Information Pt presents to skilled PT with decreased balance posing fall risk/safety risk. 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 She reports over the last year her coordination continues to get worse and she has not sought treatment before. Pt has had 1 fall over a pet a few months ago. Pt denies use of an AD. She thinks she is weaker on her R side so she drifts to the L when walking. She notices it more when in the grocery store or parking lot when she doesn't have anything to hold on to. She notes trying to correct it by walking with her feet farther apart. Pt has trouble with initial sit to stand balance and prolonged walking. Reported Pain Level Pain Score 0: Self Report Assessment PT Clinical Summary Pt is a 83 year old female who presents to physical therapy with a primary complaint of unsteadiness on feet. Pt demonstrates lower extremity weakness, gait deficit, and decreased flexibility that limit their ability to safely perform ADLs. Pt is a fall risk upon testing with the DGI score of 12/24. Pt will benefit from skilled physical therapy to address the above listed deficits and improve safety with mobility. HEP instructed and written handout provided, EX tolerated well with no adverse effects to note post-session. Pt was educated on importance of adherence to HEP. Pt was also educated on anatomy, prognosis, home modalities, home modifications, fall risk, and PT POC. Plan of Care Interventions Gait Training,Neuro Re-education,Therapeutic Activities,Therapeutic Exercise PT Services Indicated Yes Treatment Frequency and 2x/wk for 8 visits Duration These treatments will address the objective and functional deficits as defined above. The patient will be advanced safely and appropriately in order for the patient to progress towards his/her prior level of function. Additional exercises will be introduced and as well as a comprehensive home exercise program upon discharge, if needed, ?to ensure carryover of functional gains achieved in the clinic. This treatment plan has been reviewed and agreement upon by the patient.
--- NOTE | 2024-10-23 13:13 | OPREHPOC ---
Outpatient Therapy Plan of Care This is a Multidisciplinary Plan of Care that may contain components documented by all disciplines (PT, OT, and ST.) PT Problem 1 PT Problem #1 Knowledge Deficit PT Goal 1 Goal / Goal Update Patient to demonstrate independence with HEP for improved self-reliance of symptom management. 10-23-24 d/c goal met Target Visit 4 Progress Met PT Problem 2 PT Problem #2 Impaired Gait PT Goal 1 Goal / Goal Update Patient to score >=19 on the DGI to show improvements in balance and decreased level of assistance needed. 10-23-24 d/c goal met - Target Visit 8 Progress Met PT Problem 3 PT Problem #3 Impaired Strength PT Goal 1 Goal / Goal Update Patient to demonstrate R hip strength >4+=/5 for improved functional stability required for ADLs. 10-23-24 d/c goal met Target Visit 8 Progress Met PT Problem 4 PT Problem #4 Impaired Balance PT Goal 1 Goal / Goal Update Pt. to maintain Romberg position on firm surface > =30 seconds to show improvements in balance. 10-23-24 d/c goal met Target Visit 8
--- NOTE | 2024-10-23 13:13 | PTOPDC ---
Assessment and note entered by Ivonne Marin, PT Assessment Status Discharge Diagnosis unsteadiness on feet ICD-10 Condition Codes (PT) Abnormalities of gait and mobility R26.9 Onset 1 year ago Subjective Information doing better with my balance; more secure with walking in the stores and parking lots; able to paint my baseboards at home, kneeling to do it; have not had any falls since starting therapy; ready to be finished with therapy; Reported Pain Level Pain Score 0: Self Report Assessment PT Clinical Summary aPula has received 8 PT sessions. She has improved since the initial evaluation: self assessment LE functional score of 24% limitation in activity level; Dynamic Gait Index rating from 12 to - improved static and dynamic balance with walking; ambulates with good gait pattern and straight path; has not had any falls; increase strength of both R and L LE; education completed for [facility]. 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 The goals were achieved. Discharge PT services. She is to continue with the HEP. Plan of Care PT Services Indicated No
== END 2024-10-23 14:42 | disposition home or self-care (01) ==
LOC: ANHPT 12:30
PROVIDERS: PCP Internal Medicine; Visit Provider Internal Medicine
DX: R26.9 Unspecified abnormalities of gait and mobility (principal)
CPT/HCPCS: 97110; 97112; 97116; 97161; 97530

== ENCOUNTER 2025-01-04 11:02 | Outpatient (CLI) | payer MEDICARE, OTHER, SELFPAY ==
--- OUTSIDE RECORDS SUMMARY | 2025-01-04 11:26 | XMS_ITS | Encounter Summary ---
Author Organization [facility] Health Address [address] [place] [address] Care Team Providers Care Stock Associate Name Role Phone Warren Fitzgerald PA-C Primary Care Provider Sebastian Lay DO Primary Care Provider [phone] Encounter Details Date Type Department Care Team (Late Contact Info) Description 09/27/2024 Telephone [facility] Dermatology [address] [place] [phone] None, Physician [address] [place] [address] Social History Tobacco Use Types Packs/Day Years [...] Department Care Team (Late Contact Info) Description 06/26/2025 10:00 AM CDT Office Visit [facility] [address] [place] [phone] Davon Santos MD [address] [place] [address] 3 [place] [address] documented as of this encounter Visit Diagnoses Not on filedocumented in this encounter Care Teams Stock Associate Relationship Specialty Start Date End Date Warren Fitzgerald PA-C [address] [place] [address] PCP - General 11/05/21 10/07/24 Sebastian Lay DO [address] [place] [phone] PCP - General Internal Medicine 10/08/24 documented as of this encounter
--- OUTSIDE RECORDS SUMMARY | 2025-01-04 11:26 | XMS_ITS | Clinical Summary ---
Author Organization [facility] Address [address] [place] [address] Care Team Providers Care Curing Room Supervisor Name Role Phone Sebastian Lay DO Primary Care Provider [phone] Source Comments [facility],non-owned Affiliates and Associated Physician Practices is amultiple site organization consisting of ambulatory clinics and hospital sitesin [place], [place], [place] and [place]. This disclosure is being madepursuant to the Care Everywhere program and may not contain all information available regarding this patient. Last updated 17.[facility] Allergies Active Allergy Reactions Criticality Noted Date Comments Azathioprine Other High 02/17/2018 Toxic. Ended up in ICU afterwards Calcitonin ([place]) Other,Vomiting Low 10/08/2024 Cefaclor Nausea and/or Vomiting [...] axillae, groin, trunk daily 60 g 11 10/08/2024 Active clobetasol (Temovate) 0.05 % solutionIndicat ions:Other psoriasis Apply to itchy areas on scalp BID PRN for flares (avoid face, ears, and skin folds). 30ds 50 mL 11 10/11/2024 Active fluocinolone (Dermotic) 0.01 % otic oilIndications: Other psoriasis Apply to ears twice daily as needed for rash. 20 mL 5 10/11/2024 Active ketoconazole (Nizoral) 2 % shampooIndicati ons:Other psoriasis Apply to wet scalp, leave on for 3 minutes, then rinse; daily. 30ds 120 mL 11 10/11/2024 Active triamcinolone acetonide (Kenalog) 0.1 % ointmentIndicat ions:Other psoriasis Apply to affected areas of rash on lower legs up to twice daily. 30 days supply. 80 g 3 12/26/2024 Active Active Problems No known active problems Encounters Date Type Department Care Team Description 12/26/2024 10:00 AM CDT Office Visit [facility] Derm[facility]ology [address] [place] [phone] Davon Santos MD Other psoriasis (Primary Dx) 12/26/2024 Travel 11/09/2024 Telephone [facility] - Centralized Scheduling [address] [place] [address] Davon Santos MD Medication Prior Auth Request 10/25/2024 Telephone [facility] - Dermatology [address] [place] [phone] Lupe Delacruz MD Follow-up 10/15/2024 [facility] - Dermatology [address] [place] [phone] Lupe Delacruz MD Follow-up 10/11/2024 Refill [facility] [address] [place] [phone] Davon Santos MD MEDICATION REFILL 10/10/2024 Telephone [facility]ology [address] [place] [phone] Davon Santos MD 10/09/2024 [facility] - Dermatology [address] [place] [phone] Davon Santos MD Med Question 10/08/2024 11:00 AM CDT Office Visit [facility] [address] [place] [phone] Davon Santos MD Other psoriasis (Primary Dx) 10/08/2024 Travel from Last 3 Months Social History [...] Care Team (Late st Contact Info) Description 06/26/2025 10:00 AM CDT Office Visit [facility] - Dermatology [address] [place] [phone] Davon Santos MD [address] [place] [address] [address] [place] [address] Health Maintenance Due Date Last Done Comments BONE DENSITY TESTING 1940 MEDICARE AWV 12 MONTHS 1941 DTAP/TDAP/TD VACCINES (1 - Tdap) 1960 PNEUMOCOCCAL VACCINE 50+ (1 of 1 - PCV) 12/10/1991 ZOSTER VACCINE (1 of 2) 12/10/1991 Respiratory Syncytial Virus (RSV) Vaccine Pt: or over 60 yrs (1 - 1-dose 75+ series) 2016 DEPRESSION SCREENING 03/14/2024 COVID-19 VACCINE ( season) 2024 01/01/2021, 06/05/2020, 05/15/2020 INFLUENZA VACCINE (#1) 2024 4, 11/25/2022, 12/02/2021, Additional history exists HEPATITIS B VACCINE Aged Out No longe [...] A/C/Y/W VACCINE Aged Out No longer eligible based on patient's age to complete this topic Insurance MEDICARE MEDICARE [facility] [place] [id number] Care Teams Curing Room Supervisor Relationship Specialty Start Date End Date Sebastian Lay DO [address] [place], [place] [phone] PCP - General Internal Medicine 10/08/24
--- OUTSIDE RECORDS SUMMARY | 2025-01-04 11:26 | XMS_ITS | Clinical Summary ---
Author Organization [facility] Address [address] [place] [address] Care Team Providers Care Poundmaster Name Role Phone Tobias Escobar MD Primary Care Provider [phone] Allergies Active Allergy Reactions Criticality Noted Date Comments Cefaclor Nausea & Vomiting Low Cephalosporins Other (See comments) Low GI symptoms Clindamycin Vomiting Low Azathioprine Other (See comments) High 02/17/2018 Toxic. Ended up in ICU afterwards Lomefloxacin Mental status changes Low Calcitonin ([place]) Anxiety,Vomiting Low Medications adalimumab (adalimumab) 40 mg/0.8 mL pen injector kitIndications: Crohn's Disease 40 mg. Every other Tuesday Active ALPRAZolam (XANAX) 0.5 mg tabletIndicatio ns:anxiety Take 0.5 mg by mouth nightly. Active citalopram (CeleXA) 20 mg tablet Take 20 mg by mouth biometrics consultant before breakfast. Active denosumab (PROLIA) 60 mg/mL syringe Inject under the skin once. Twice a year Active timolol (BETIMOL) 0.5 % ophthalmic solutionIndicat ions:open angle glaucoma Administer 1 drop into the left eye 2 (two) times a day. Active cyanocobalamin (Vitamin B-12) 1,000 mcg tabletIndicatio ns:Prevention of Vitamin B12 Deficiency Take 1,000 mcg by mouth biometrics consultant before breakfast. Active cholecalciferol (VITAMIN D-3) 1,000 unit tablet Take 1,000 Units by mouth biometrics consultant before breakfast. Active ferrous sulfate 325 mg (65 mg of elemental iron) tabletIndicatio ns:Iron Deficiency Anemia Take 65 mg of elemental iron by mouth biometrics consultant before breakfast. Active famotidine (PEPCID) 20 mg [...] (03/22/2018): Added automatically from request for surgery [id number] Left ureteral stone 02/17/2018 GERD (gastroesophageal reflux [...] on file Legal Sex Female 2:14 AM DOUGH PANNER Gender Identity Not on file Sexual Orientation Not on file Obstetrics History Last Filed Vital Signs Vital Sign Reading Time Taken Comments Blood Pressure 112/56 04/07/2018 12:58 PM DOUGH PANNER Pulse 61 04/07/2018 12:58 PM DOUGH PANNER Temperature 36.7 C (98.1 F) 04/07/2018 12:58 PM DOUGH PANNER Respiratory Rate 16 04/07/2018 12:58 PM DOUGH PANNER Oxygen Saturation 96% 04/07/2018 12:58 PM DOUGH PANNER Inhaled Oxygen Concentration - - Weight 56.7 kg (125 lb) 04/01/2020 10:15 AM DOUGH PANNER Height 147.3 cm (4' 10) 04/01/2020 10:15 AM DOUGH PANNER Body Mass Index 26.13 04/01/2020 10:15 AM DOUGH PANNER Plan of Treatment Not on file Insurance MEDICARE [facility] MEDICARE [facility] Advance Directives For more information, please contact: [phone] * Full Code (Latest Code Status on File) Date Activated Date Inactivated Comments 04/06/2018 1:03 PM 04/07/2018 5:49 PM Care Teams Poundmaster Relationship Specialty Start Date End Date Tobias Escobar MD [address] [place] [address] PCP - General 11/28/17
--- OUTSIDE RECORDS SUMMARY | 2025-01-04 11:26 | XMS_ITS | Encounter Summary ---
Author Organization [facility] Healthcare Address [address] [place] [address] Care Team Providers Care Cashier Self Service Gasoline Name Role Phone Tobias Escobar MD Primary Care Provider Encounter Details Date Type Department Care Team (Late st Contact Info) Description 04/08/2018 Documentation [facility] Case Management [address] [place] [address] Rosemary Edward RN Social History Tobacco Use Types Packs/Day Years Used Date Smoking Tobacco: Former Cigarettes 1 36.9 1 962 - 01/26/1998 Smokeless Tobacco: Never Alcohol Use Standard Drinks/Week Comments Yes 1 (1 standard drink = 0.6 oz pur e alcohol) Comments No Sex and Gender Information Value Date Recorded Sex Assigned at Not on file 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
--- OUTSIDE RECORDS SUMMARY | 2025-01-04 11:26 | XMS_ITS | Clinical Summary ---
Author Organization [facility] Address [address] [place] [address] Care Team Providers Care Landscape Management Technician Name Role Phone Unavailable Primary Care [...] - 1-dose 75+ series) 2016 COVID-19 Vaccine (2024-2 6 season) 2024 Influenza Adult (#1) 2024 Hepatitis A Vaccines Aged Out No long er eligible based on patient's age to complete this topic Meningococcal B Vaccine Aged Out No l onger eligible based on patient's age to complete this topic Meningococcal Vaccine Aged Out No asuncion stephon eligible based on patient's age to complete this topic RSV Immunizations Under 20 Months Aged Out No longer eligible based on patient's age to complete this topic
--- OUTSIDE RECORDS SUMMARY | 2025-01-04 11:26 | XMS_ITS | Encounter Summary ---
Author Organization [facility] Health Address [address] [place] [address] Care Team Providers Care Piling Setter Name Role Phone Sebastian Lay DO Primary Care Provider [phone] Encounter Details Date Type Department Care Team (Late st Contact Info) Description 10/10/2024 Telephone [facility] Dermatology [address] [place] [address], [facility] [place] [phone] Davon Santos MD [address] [place] [address] 3 [place] [phone] Social History Tobacco Use Types Packs/Day Years [...] for Call: pt needs meds sent [facility] pharmacy in [place] [phone] clobetasol (Temovate) 0.05 % solution fluocinolone (Dermotic) 0.01 % otic oil ketoconazole (Nizoral) 2 % shampoo Patient Call Back Number: [phone] documented in this encounter Plan of Treatment Upcoming Encounters Date Type Department Care Team (Late st Contact Info) Description 06/26/2025 10:00 AM CDT Office Visit [facility] Dermat[facility] [address] [facility], [place] [address] Davon Santos MD [facility] [facility] [facility] [address] [place] [address] documented as of this encounter Visit Diagnoses Not on filedocumented in this encounter Care Teams Piling Setter Relationship Specialty Start Date End Date Sebastian Lay DO [address] [place] [phone] PCP - General Internal Medicine 10/08/24 documented as of this encounter
--- OUTSIDE RECORDS SUMMARY | 2025-01-04 11:26 | XMS_ITS | Clinical Summary ---
Author Organization [facility] Address [address] [place] [address] Phone Care Team Providers Care Specialty Manufacturing Supervisor Name Role Phone Sly Escobar MD Primary Care Provider [phone] Allergies Active Allergy Reactions Criticality Noted Date [...] on file Legal Sex Female 7:30 AM [facility] Gender Identity Not on file Sexual Orientation [...] Vaccine (#1) 2024 11/12/2020, 2018 Insurance MEDICARE [facility] Care Teams Specialty Manufacturing Supervisor Relationship Specialty Start Date End Date Sly Escobar MD [address] [place] [address] PCP - General Internal Medicine 06/26/18
[2025-01-04 11:33] LABS: Hematocrit 36.2 % (37.0-47.0); Hemoglobin 12.0 g/dL (12.0-15.0); Mean Corpuscular HGB Conc 33.1 g/dl (32-36); Mean Corpuscular Hemoglobin 30.7 pg (26-34); Mean Corpuscular Volume 92.6 fl (80-100); Platelet Count Result 158 k/mm3 (150-375); Red Blood Count 3.91 M/mm3 (4.2-5.4); White Blood Count 8.1 K/mm3 (4.5-10.0)
[2025-01-04 11:47] LABS: Alanine Aminotransferase 13 U/L (6-35); Albumin Level 4.3 g/dL (3.5-5.1); Alkaline Phosphatase 57 U/L (38-126); Anion Gap 9 mmol/L (4-12); Aspartate Amino Transferase 20 U/L (14-36); Bilirubin,Total 0.6 mg/dL (0.2-1.3); Blood Urea Nitrogen 20 mg/dL (7-17); Calcium 9.2 mg/dL (8.4-10.2); Carbon Dioxide 20 mmol/L (22-30); Chloride 111 mmol/L (98-107); Estimated Glomerular Filt Rate 31; Glucose 109 mg/dL (65-110); Potassium 3.7 mmol/L (3.4-5.0); Sodium 140 mmol/L (137-145); Total Protein 7.6 g/dL (6.3-8.2)
== END 2025-01-04 11:03 | disposition home or self-care (01) ==
LOC: ANHLAB 11:07
PROVIDERS: PCP Internal Medicine; Visit Provider Nurse Practitioner
DX: K50.90 Crohn's disease, unspecified, without complications (principal); M54.12 Radiculopathy, cervical region
CPT/HCPCS: 36415; 80053; 82306; 85027

== ENCOUNTER 2025-01-24 11:34 | Outpatient (CLI) | payer MEDICARE, OTHER, SELFPAY ==
--- OUTSIDE RECORDS SUMMARY | 2025-01-24 12:41 | XMS_ITS | Clinical Summary ---
Author Organization [facility] Address [address] [place] [address] Phone Care Team Providers Care Electrician Helper Powerhouse Name Role Phone Sly Escobar MD Primary Care Provider [phone] Allergies Active Allergy Reactions Criticality Noted Date [...] on file Legal Sex Female 7:30 AM [facility] Gender Identity Not on file Sexual [...] Vaccine (#1) 2024 11/12/2020, 2018 Insurance MEDICARE [facility] Care Teams Electrician Helper Powerhouse Relationship Specialty Start Date End Date Sly Escobar MD [address] [place] [address] PCP - General Internal Medicine 06/26/18
--- OUTSIDE RECORDS SUMMARY | 2025-01-24 12:41 | XMS_ITS | Encounter Summary ---
Author Organization [facility] Health Address [address] [facility] [place] [address] Care Team Providers Care Wedding Makeup Artist Name Role Phone Warren Fitzgerald PA-C Primary Care Provider Sebastian Lay DO Primary Care Provider [phone] Encounter Details Date Type Department Care Team (Late Contact Info) Description 09/27/2024 Telephone [facility] Derm[facility]ology [address] [place] [phone] None, Physician [address] [place] [address] Social History Tobacco Use Types Packs/Day Years [...] Office Visit [facility]erm[facility] [address] [place] [phone] Davon Santos MD [address] [place] [address] 3 [place] [address] documented as of this encounter Visit Diagnoses Not on filedocumented in this encounter Care Teams Wedding Makeup Artist Relationship Specialty Start Date End Date Warren Fitzgerald PA-C [address] [place] [address] PCP - General 11/05/21 10/07/24 Sebastian Lay DO [address] [place] [phone] PCP - General Internal Medicine 10/08/24 documented as of this encounter
--- OUTSIDE RECORDS SUMMARY | 2025-01-24 12:41 | XMS_ITS | Clinical Summary ---
Author Organization [facility] Address [address] [place] [address] Care Team Providers Care Front Worker Name Role Phone Sebastian Lay DO Primary Care Provider [phone] Source Comments [facility],non-owned Affiliates and Associated Physician Practices is amultiple site organization consisting of ambulatory clinics and hospital sitesin [place], [place], [place] and [place]. This disclosure is being madepursuant to the Care Everywhere program and may not contain all information available regarding this patient. Last updated 17.[facility] Allergies Active Allergy Reactions Criticality Noted Date Comments Azathioprine Other High 02/17/2018 Toxic. Ended up in ICU afterwards Calcitonin ([place]) Other,Vomiting Low 10/08/2024 Cefaclor Nausea and/or Vomiting [...] Office Visit [facility] Dermatology [address] [place] [phone] Davon Santos MD Other psoriasis (Primary Dx) 12/26/2024 Travel 11/09/2024 Telephone [facility] - Centralized Scheduling [facility] [place] [address] Davon Santos MD Medication Prior Auth Request 10/25/2024 Telephone [facility] [address] [place] [phone] Lupe Delacruz MD Follow-up from Last 3 Months Social History Tobacco [...] Office Visit [facility] [address] [place] [phone] Davon Santos MD [address] [place] [address] 3 [place] [phone] Health Maintenance Due Date Last Done Comments BONE DENSITY TESTING 1940 MEDICARE AWV 12 MONTHS 1940 DTAP/TDAP/TD VACCINES (1 - Tdap) 1960 PNEUMOCOCCAL VACCINE 50+ (1 of 1 - PCV) 12/10/1991 ZOSTER VACCINE (1 of 2) 12/10/1991 Respiratory Syncytial Virus (RSV) Vaccine Pt: or over 60 yrs (1 - 1-dose 75+ series) 2016 DEPRESSION SCREENING 03/14/2024 COVID-19 VACCINE (4 - 2024- season) 2024 01/01/2021, 06/05/2020, 05/15/2020 INFLUENZA VACCINE (#1) 2024 , 11/25/2022, 12/02/2021, Additional history exists HEPATITIS B [...] to complete this topic Insurance MEDICARE MEDICARE [facility] [place] [address] Care Teams Front Worker Relationship Specialty Start Date End Date Sebastian Lay DO [address] [place] [address] PCP - General Internal Medicine 10/08/24
--- OUTSIDE RECORDS SUMMARY | 2025-01-24 12:41 | XMS_ITS | Clinical Summary ---
Author Organization [facility] Address [address] [place] [address] Care Team Providers Care Worsted Winder Name Role Phone Tobias Escobar MD Primary Care Provider Allergies Active Allergy Reactions Criticality Noted Date Comments Cefaclor Nausea & Vomiting Low Cephalosporins Other (See comments) Low GI symptoms Clindamycin Vomiting Low Azathioprine Other (See comments) High 02/17/2018 Toxic. Ended up in ICU afterwards Lomefloxacin Mental status changes Low Calcitonin ([place]) Anxiety,Vomiting Low Medications adalimumab (adalimumab) 40 mg/0.8 mL pen injector kitIndications: Crohn's Disease 40 mg. Every other Tuesday Active ALPRAZolam (XANAX) 0.5 mg tabletIndicatio ns:anxiety Take 0.5 mg by mouth nightly. Active citalopram (CeleXA) 20 mg tablet Take 20 mg by mouth early childhood associate teacher before breakfast. Active denosumab (PROLIA) 60 mg/mL syringe Inject under the skin once. Twice a year Active timolol (BETIMOL) 0.5 % ophthalmic solutionIndicat ions:open angle glaucoma Administer 1 drop into the left eye 2 (two) times a day. Active cyanocobalamin (Vitamin B-12) 1,000 mcg tabletIndicatio ns:Prevention of Vitamin B12 Deficiency Take 1,000 mcg by mouth early childhood associate teacher before breakfast. Active cholecalciferol (VITAMIN D-3) 1,000 unit tablet Take 1,000 Units by mouth early childhood associate teacher before breakfast. Active ferrous sulfate 325 mg (65 mg of elemental iron) tabletIndicatio ns:Iron Deficiency Anemia Take 65 mg of elemental iron by mouth early childhood associate teacher before breakfast. Active famotidine (PEPCID) 20 mg [...] (03/22/2018): Added automatically from request for surgery [id number] Left ureteral stone 02/17/2018 GERD (gastroesophageal reflux [...] resection with ureteral injury in 2001 at [facility] Family History Medical History Relation Name [...] on file Legal Sex Female 2:14 AM LIVER TRIMMER Gender Identity Not on file Sexual Orientation Not on file Last Filed Vital Signs Vital Sign Reading Time Taken Comments Blood Pressure 112/56 04/07/2018 12:58 PM LIVER TRIMMER Pulse 61 04/07/2018 12:58 PM LIVER TRIMMER Temperature 36.7 C (98.1 F) 04/07/2018 12:58 PM LIVER TRIMMER Respiratory Rate 16 04/07/2018 12:58 PM LIVER TRIMMER Oxygen Saturation 96% 04/07/2018 12:58 PM LIVER TRIMMER Inhaled Oxygen Concentration - - Weight 56.7 kg (125 lb) 04/01/2020 10:15 AM LIVER TRIMMER Height 147.3 cm (4' 10) 04/01/2020 10:15 AM LIVER TRIMMER Body Mass Index 26.13 04/01/2020 10:15 AM LIVER TRIMMER Plan of Treatment Not on file Insurance MEDICARE [facility] MEDICARE [facility] Advance Directives For more information, please contact: [phone] * Full Code (Latest Code Status on File) Date Activated Date Inactivated Comments 04/06/2018 1:03 PM 04/07/2018 5:49 PM Care Teams Worsted Winder Relationship Specialty Start Date End Date Tobias Escobar MD [address] [place] [address] PCP - General 11/28/17
--- OUTSIDE RECORDS SUMMARY | 2025-01-24 12:41 | XMS_ITS | Encounter Summary ---
Author Organization [facility] Address [address] [place] [address] Care Team Providers Care Director Style Name Role Phone Tobias Escobar MD Primary Care Provider [phone] Encounter Details Date Type Department Care Team (Late st Contact Info) Description 04/08/[address] [facility] Case Management [id number] [place] [address] Rosemary Edward RN Social History Tobacco Use Types Packs/Day Years Used Date Smoking Tobacco: Former Cigarettes 1 36.9 1 962 - 01/26/1998 Smokeless Tobacco: Never Alcohol Use Standard Drinks/Week Comments Yes 1 (1 standard drink = 0.6 oz pur e alcohol) Comments No Sex and Gender Information Value Date Recorded Sex Assigned at Not on file Legal Sex Female 2:14 AM [employer] Gender Identity Not on file Sexual Orientation Not on file documented as of this encounter Plan of Treatment Not on file documented as of this encounter Visit Diagnoses Not on filedocumented in this encounter Care Teams Director Style Relationship Specialty Start Date End Date Tobias Escobar MD [address] [place] [address] PCP - General 11/28/17 documented as of this encounter
--- OUTSIDE RECORDS SUMMARY | 2025-01-24 12:41 | XMS_ITS | Clinical Summary ---
Author Organization [facility] Address [address] [place] [id number] Care Team Providers Care Cardiac Rehabilitation Specialist Name Role Phone Unavailable Primary Care Provider [...]
--- OUTSIDE RECORDS SUMMARY | 2025-01-24 12:41 | XMS_ITS | Encounter Summary ---
Author Organization [facility] Health Address [address] [facility] [place] [address] Care Team Providers Care Social Service Director Name Role Phone Sebastian Lay DO Primary Care Provider [phone] Encounter Details Date Type Department Care Team (Late st Contact Info) Description 10/10/2024 Telephone [facility]ology [address] [place] [address], [facility] [place] [id number] Dvaon Santos MD [address] [place] [address] [address] [place] [id number] Social History Tobacco Use Types Packs/Day Years [...] for Call: pt needs meds sent to [facility] pharmacy in [facility] [phone] clobetasol (Temovate) 0.05 % solution fluocinolone (Dermotic) 0.01 % otic oil ketoconazole (Nizoral) 2 % shampoo Patient Call Back Number: [phone] documented in this encounter Plan of Treatment Upcoming Encounters Date Type Department Care Team (Late st Contact Info) Description 06/26/2025 10:00 AM CDT Office Visit [facility] [address] [facility] [place] [address] Davon Santos MD [facility] [facility] 3 [place] [address] documented as of this encounter Visit Diagnoses Not on filedocumented in this encounter Care Teams Social Service Director Relationship Specialty Start Date End Date Sebastian Lay DO [address] [place] [phone] PCP - General Internal Medicine 10/08/24 documented as of this encounter
[2025-01-27 02:06] LABS: Calprotectin, Fecal 156 ug/g (0-120)
== END 2025-01-24 11:35 | disposition home or self-care (01) ==
PROVIDERS: PCP Internal Medicine; Visit Provider Nurse Practitioner
DX: K50.90 Crohn's disease, unspecified, without complications (principal)
CPT/HCPCS: 83993